=== PATIENT | male | born 1935 | race Caucasian/White ===

== ENCOUNTER 2017-10-18 05:26 | Inpatient (IN) | payer MEDICARE ==
[2017-10-18 05:51] VITALS: BMI 24.3
--- NOTE | 2017-10-18 05:55 | PDOC ---
History of Present Illness - General History Source: Patient Exam Limitations: No Limitations - History of Present Illness Initial Comments: 10/18/17 06:58 Patient is a 82 year old male with a significant past medical history of hypertension, BPH, Reflux, chronic back pain who was brought by his daughter to the ED with complaints of altered mental status that began last night at 7: 30pm. As per patient's daughter, patient began to experiencing throat discomfort last night at 5pm after having dinner 1 hour prior at 4:30pm. She reports patient began moaning while at home last night at 7pm and has continued throughout the night with no relief. Patient's daughter states patient at baseline is able to verbally communicate slightly while at home, stating he was able to ask for robitussin, water, and Vicks vaporub to be applied to his neck. She reports patient complaining to her last night around midnight that he felt like something was stuck inside of his throat. Patient's daughter states, patient has had trouble swallowing for a month and has recently been blending food for easier ingestion. History provided from the pts daugther as the history is limited from the pt due to his condition. Denies chest pain. Denies nausea, vomiting. Denies trauma to the affected area. Denies any contact with sick individuals, out of state travel. Denies any other symptoms. Allergies: None Social history: Lives with daughter. No smoking. No alcohol. No illicit drugs. Surgical history: None PMD: Dr. Dorado <Kendrick Abbott - Last Filed: 10/18/17 06:58> <Brayan Varghese - Last Filed: 10/22/17 19:57> - General Stated Complaint: COUGH Time Seen by Provider: 10/18/17 05:33 Past History <Kendrick Abbott - Last Filed: 10/18/17 06:58> - Past Medical History Anemia: No Asthma: No Cancer: No Cardiac Disorders: No CVA: No COPD: No CHF: No Dementia: No Diabetes: No GI Disorders: No Disorders: Yes (BPH) HTN: Yes Hypercholesterolemia: No Liver Disease: No Seizures: No Thyroid Disease: No - Surgical History Abdominal Surgery: No Appendectomy: No Cardiac Surgery: No Cholecystectomy: No Lung Surgery: No Neurologic Surgery: No Orthopedic Surgery: No - Immunization History Immunization Up to Date: Yes - Suicide/Smoking/Psychosocial Hx Smoking History: Unknown if ever smoked Have you smoked in the past 12 months: No Information on smoking cessation initiated: No Hx Alcohol Use: No Drug/Substance Use Hx: No Substance Use Type: None Hx Substance Use Treatment: No <Brayan Varghese - Last Filed: 10/22/17 19:57> - Past Medical History Allergies/Adverse Reactions: Allergies Allergy/AdvReac Type Severity Reaction Status Date / Time No Known Drug Allergies Allergy Verified 09/08/16 11:40 Home Medications: Ambulatory Orders Tamsulosin HCl [Flomax -] 0.4 mg PO HS #0 cap.er.24h 12/19/14 Losartan Potassium 50 mg PO DAILY 07/26/15 Furosemide [Lasix -] 20 mg PO DAILY 08/29/16 Review of Systems - Review of Systems Able to Perform ROS?: Yes Comments:: 10/18/17 06:58 Unable to perform ROS due to patient's clinical condition. <Knedrick Abbott - Last Filed: 10/18/17 06:58> *Physical Exam - Vital Signs Last Vital Signs Temp Pulse Resp BP Pulse Ox 98.0 F 102 H 18 132/80 90 L 10/18/17 05:26 10/18/17 05:26 10/18/17 05:26 10/18/17 05:26 10/18/17 05:26 - Physical Exam Comments: 10/18/17 06:59 GENERAL: The patient is awake, HEAD: Normocephalic, atraumatic. EYES: sclera anicteric, conjunctiva clear. ENT: moaning, dry mucous membranes. NECK: Normal range of motion, supple, no stridor LUNGS: Breath sounds equal, clear to auscultation bilaterally. No wheezes, no rhonchi, no rales. HEART: Regular rate and rhythm, normal S1 and S2 without murmur, rub or gallop. ABDOMEN: Soft, nontender, normoactive bowel sounds. No guarding, no rebound. . No CVA tenderness EXTREMITIES: no edema. NEUROLOGICAL: limited exam due to participation, no overt facial assymetry, moving arms spontaneously and symmetrically, some weakness to withdrawal on the LLE, sensory exam limited by patient participate SKIN: Warm, Dry, normal turgor, <Kendrick Abbott - Last Filed: 10/18/17 06:58> - Vital Signs Last Vital Signs Temp Pulse Resp BP Pulse Ox 98.0 F 102 H 18 132/80 90 L 10/18/17 05:26 10/18/17 05:26 10/18/17 05:26 10/18/17 05:26 10/18/17 05:26 <Brayan Varghese - Last Filed: 10/22/17 19:57> Heart Score/ECG Review - ECG Impressions Comment:: 10/18/17 06:26 Twelve-lead EKG was performed and reviewed by me. Irregularly irregular rate of 91 impression: atrial fibrillation <Brayan Varghese - Last Filed: 10/22/17 19:57> ED Treatment Course - LABORATORY CBC & Chemistry Diagram: 10/21/17 06:05 10/22/17 05:25 <Brayan Varghese - Last Filed: 10/22/17 19:57> Medical Decision Making - Medical Decision Making 10/18/17 05:55 82y M hx of htn, bph presents with complaint of AMS. Per the daugther the patient was complaining of coughing and something stuck in his throat around 5pm - pt was doing well prior to that. he started coughing around 7pm. pts daughter states he was doing fine prior to that - without any fever, cough, complaints of pain or appearance of discomfort. The patients history is limited due to his clinical condition. differential is wide including cva, occult infection, aspiration pna, uti, anemia, metabolic dernagement, arrythmia will ck ct head, blood work, ekg, ua will reassess A portion of this note was documented by scribe services under my direction. I have reviewed the details of the note, within reason, and agree with the documentation with the following case summary and management plan written by me 10/18/17 06:22 The pts ekg noted for new onset afib pt signed out to dr. flores to reasess and fu with results and disposition <Brayan Varghese - Last Filed: 10/22/17 19:57> *DC/Admit/Observation/Transfer - Attestations Scribe Attestion: 10/18/17 06:59 Documentation prepared by Kendrick Abbott, acting as biomedical field service engineer for Brayan Varghese MD, /DO. <Kendrick Abbott - Last Filed: 10/18/17 06:58> <Brayan Varhgese - Last Filed: 10/22/17 19:57> Diagnosis at time of Disposition: Difficulty swallowing
[2017-10-18 07:04] LABS: BASO % 0.3 % (0-2.0); HEMATOCRIT 43.2 % (35.4-49); HEMOGLOBIN 14.5 GM/dL (11.7-16.9); LYMPH % 4.8 % (8-40); MCHC 33.6 g/dl (32.0-35.9); MEAN PLT VOLUME 7.5 fl (7.5-11.1); MONO % 7.9 % (3.8-10.2); PLATELET COUNT 201 K/MM3 (134-434); RBC 4.41 M/mm3 (4.00-5.60); RDW 13.5 % (11.9-15.9); WHITE BLOOD COUNT 6.1 K/mm3 (4.0-10.0)
[2017-10-18 07:05] LABS: VENOUS PC02 37.6 mmHg (38-52); VENOUS PH 7.46 (7.32-7.42); VENOUS PO2 81.8 mmHg (28-48)
--- NOTE | 2017-10-18 07:20 | PDOC ---
*Physical Exam - Vital Signs Last Vital Signs Temp Pulse Resp BP Pulse Ox 98.0 F 102 H 18 132/80 90 L 10/18/17 05:26 10/18/17 05:26 10/18/17 05:26 10/18/17 05:26 10/18/17 05:26 <Kashif Tatum - Last Filed: 10/18/17 09:37> - Vital Signs Last Vital Signs Temp Pulse Resp BP Pulse Ox 98.0 F 93 H 18 113/85 96 10/18/17 05:26 10/18/17 09:26 10/18/17 09:26 10/18/17 09:26 10/18/17 09:26 <Judy Lowe - Last Filed: 10/18/17 10:12> ED Treatment Course - LABORATORY CBC & Chemistry Diagram: 10/18/17 06:42 10/18/17 06:42 - ADDITIONAL ORDERS Additional order review: Laboratory Results 10/18/17 06:45 VBG pH 7.46 H POC VBG pCO2 37.6 L POC VBG pO2 81.8 H Mixed VBG HCO3 26.5 H 10/18/17 06:42 RBC 4.41 MCV 98.0 H MCHC 33.6 RDW 13.5 MPV 7.5 Neutrophils % 87.0 H D Lymphocytes % 4.8 L D Monocytes % 7.9 Eosinophils % 0.0 D Basophils % 0.3 <Kashif Tatum - Last Filed: 10/18/17 09:37> - LABORATORY CBC & Chemistry Diagram: 10/18/17 06:42 10/18/17 06:42 - ADDITIONAL ORDERS Additional order review: Laboratory Results 10/18/17 10/18/17 10/18/17 06:45 06:42 06:42 VBG pH 7.46 H POC VBG pCO2 37.6 L POC VBG pO2 81.8 H Mixed VBG HCO3 26.5 H Sodium 139 Potassium 4.3 Chloride 102 Carbon Dioxide 26 Anion Gap 11 BUN 33 H Creatinine 1.4 H Creat Clearance w eGFR 48.64 Random Glucose 123 H D Calcium 9.2 Total Bilirubin 0.6 D AST 49 H D ALT 70 D Alkaline Phosphatase 78 Creatine Kinase 210 Troponin I < 0.02 Total Protein 7.1 Albumin 3.6 TSH 2.26 10/18/17 06:42 RBC 4.41 MCV 98.0 H MCHC 33.6 RDW 13.5 MPV 7.5 Neutrophils % 87.0 H D Lymphocytes % 4.8 L D Monocytes % 7.9 Eosinophils % 0.0 D Basophils % 0.3 <Judy Lowe - Last Filed: 10/18/17 10:12> Medical Decision Making - Medical Decision Making 10/18/17 09:36 Several week history of difficulty swallowing choking last night slightly more lethargic but answering questions appropriately per daughter. Today in ED new-onset A. fib on EKG. Head CT with no evidence of bleed Will treat with rectal aspirin given difficulty swallowing we will admit admit the patient to medicine for neurology consultation and further management <Kashif Tatum - Last Filed: 10/18/17 09:37> - Medical Decision Making 10/18/17 10:[address] Joy for Med-Surg/Tele. <Judy Lowe - Last Filed: 10/18/17 10:12> *DC/Admit/Observation/Transfer - Discharge Dispostion Admit: Yes <Kashif Tatum - Last Filed: 10/18/17 09:37> <Judy Lowe - Last Filed: 10/18/17 10:12> Diagnosis at time of Disposition: Difficulty swallowing Qualifiers: Dysphagia type: unspecified Qualified Code(s): R13.10 - Dysphagia, unspecified
[2017-10-18 07:43] LABS: ALBUMIN 3.6 g/dl (3.4-5.0); ANION GAP 11 (8-16); BILIRUBIN,TOTAL 0.6 mg/dL (0.2-1.0); BLOOD UREA NITROGEN 33 mg/dL (7-18); CALCIUM 9.2 mg/dL (8.5-10.1); CHLORIDE 102 mmol/L (98-107); CO2 26 mmol/L (21-32); CREATININE 1.4 mg/dL (0.7-1.3); GLUCOSE,RANDOM 123 mg/dL (74-106); SODIUM 139 mmol/L (136-145); TOT PROT 7.1 g/dl (6.4-8.2)
[2017-10-18 07:45] LABS: ALK PHOS 78 U/L (45-117); SGPT/ALT 70 U/L (12-78)
--- NOTE | 2017-10-18 08:46 | EKG ---
Test Reason : Blood Pressure : / mmHG Vent. Rate : 083 BPM Atrial Rate : 083 BPM P-R Int : 000 ms QRS Dur : 070 ms QT Int : 354 ms P-R-T Axes : 000 011 066 degrees QTc Int : 415 ms SINUS RHYTHM WITH PREMATURE ATRIAL COMPLEXES NONSPECIFIC T WAVE ABNORMALITY ABNORMAL ECG WHEN COMPARED WITH ECG OF 18-DEC-2014 12:19, NONSPECIFIC T WAVE ABNORMALITY NOW EVIDENT IN LATERAL LEADS CLINICAL CORRELATION IS RECOMMENDED BASELINE ARTIFACT Confirmed by RUBEN AGUILLON, ZUHAIR ([id number]) on 10/18/2017 8:46:04 AM Referred By: Confirmed By:ZUHAIR MIRANDA MD
[2017-10-18 08:48] LABS: POTASSIUM 4.3 mmol/L (3.5-5.1); SGOT/AST 49 U/L (15-37)
[2017-10-18] MEDS ORDERED: ASPIRIN SUPPOSITORY 600 MG SUPP.RECT PR ONE (09:49)
[2017-10-18] MEDS ORDERED: SODIUM CHLORIDE 1,000 ML IV ONE (09:59)
[2017-10-18] MEDS ORDERED: ASPIRIN 300 MG SUPP.RECT RC ONE (10:43)
[2017-10-18] MEDS: ENOXAPARIN NA (PORCINE) 30 MG/0.3 ML DISP.SYRIN SQ SCH (12:15)
--- NOTE | 2017-10-18 12:24 | HP ---
Admitting History and Physical - Admission Chief Complaint: difficulty swallowing, choking History of Present Illness: 82 yo male, bedbound per dtr for a back condition, for which he had seen a neurologist in the past for (formerly followed with Dr Crook), was having progressive difficulty with swallowing for the past couple of weeks, then last night seemed like he was having a lot of difficulty so dtr brought him to ED. He has a history of high blood pressure and BPH, no history of heart arrythmias per dtr. When asked how he feels patient replies "Asher", but otherwise not speaking or answering any other questions. Dtr notes that patient is slow to answer at home as well, but seemed worse lately. 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 Other Social History: , 5 children Home Medications - Allergies Allergies/Adverse Reactions: Allergies Allergy/AdvReac Type Severity Reaction Status Date / Time No Known Drug Allergies Allergy Verified 09/08/16 11:40 - Home Medications Home Medications: Ambulatory Orders Tamsulosin HCl [Flomax -] 0.4 mg PO HS #0 cap.er.24h 12/19/14 Losartan Potassium 50 mg PO DAILY 07/26/15 Furosemide [Lasix -] 20 mg PO DAILY 08/29/16 Family Disease History - Family Disease History Family Disease History: CA: Mother (brain tumor) Review of Systems - Review of Systems Constitutional: denies: Chills, Fever Eyes: reports: No Symptoms HENT: reports: Difficult Swallowing Neck: denies: Decreased ROM, Stiffness Cardiovascular: denies: Chest Pain, Palpitations Respiratory: denies: Cough, SOB Gastrointestinal: denies: Abdominal Pain, Diarrhea, Nausea, Rectal Bleeding, Vomiting Genitourinary: denies: Burning, Discharge, Dysuria Physical Examination Vital Signs: Vital Signs Temperature 99.6 F 10/18/17 12:11 Pulse Rate 96 H 10/18/17 12:11 Respiratory Rate 20 10/18/17 12:11 Blood Pressure 118/82 10/18/17 12:11 O2 Sat by Pulse Oximetry (%) 97 10/18/17 10:58 Constitutional: Yes: No Distress, Calm, Cachectic Eyes: Yes: Conjunctiva Clear HENT: Yes: Atraumatic, Normocephalic Cardiovascular: Yes: Pulse Irregular, S1, S2. No: Murmur Respiratory: Yes: Regular, CTA Bilaterally Gastrointestinal: Yes: Normal Bowel Sounds, Soft. No: Distention, Tenderness Musculoskeletal: Yes: Other (decreased muscle mass legs) Edema: No Labs: CBC, BMP 10/18/17 06:42 10/18/17 06:42 Imaging - Results Chest X-ray: Report Reviewed (:old rib fracture, no acute pathology) Cat Scan: Report Reviewed (CT head: no bleed, infarct) Problem List - Problems (1) Difficulty swallowing Assessment/Plan: -due to CVA?, hold PO, speech and swallow eval, light IV hydration for now -neurology to consult (may need MRI head) Code(s): R13.10 - DYSPHAGIA, UNSPECIFIED Qualifiers: Dysphagia type: unspecified Qualified Code(s): R13.10 - Dysphagia, unspecified (2) New onset a-fib Assessment/Plan: -source of possible CVA (affecting swallowing ammy of brain? -cardio consult -currently rate controlled -if CVA then will likely need A/C Code(s): I48.91 - UNSPECIFIED ATRIAL FIBRILLATION (3) Altered mental status Assessment/Plan: -difficult to tell as dtr notes baseline he is somewhat "slow" -cont to observe Code(s): R41.82 - ALTERED MENTAL STATUS, UNSPECIFIED (4) Back pain Assessment/Plan: -with resultant functional paraplegia/ gait dysfunction Code(s): M54.9 - DORSALGIA, UNSPECIFIED Qualifiers: Back pain location: low back pain Back pain laterality: midline Sciatica presence: without sciatica Qualified Code(s): M54.5 - Low back pain
[2017-10-18] MEDS: DEXTROSE 5%-0.45% SALINE 1,000 ML IV SCH (12:56)
[2017-10-19] MEDS ORDERED: ACETAMINOPHEN 650 MG SUPP.RECT PR ONE (03:13)
[2017-10-19 07:58] LABS: BASO % 0.5 % (0-2.0); EOS % 0.1 % (0-4.5); HEMOGLOBIN 12.3 GM/dL (11.7-16.9); LYMPH % 10.4 % (8-40); MCH 32.7 pg (25.7-33.7); MCHC 33.2 g/dl (32.0-35.9); MEAN CELL VOLUME 98.6 fl (80-96); MEAN PLT VOLUME 7.6 fl (7.5-11.1); PLATELET COUNT 166 K/MM3 (134-434); RBC 3.75 M/mm3 (4.00-5.60); RDW 13.5 % (11.9-15.9); WHITE BLOOD COUNT 4.4 K/mm3 (4.0-10.0)
[2017-10-19 08:37] LABS: ANION GAP 7 (8-16); BILIRUBIN,TOTAL 0.4 mg/dL (0.2-1.0); BLOOD UREA NITROGEN 26 mg/dL (7-18); CALCIUM 8.1 mg/dL (8.5-10.1); CHLORIDE 107 mmol/L (98-107); CO2 26 mmol/L (21-32); CREATININE 1.2 mg/dL (0.7-1.3); GLUCOSE,RANDOM 98 mg/dL (74-106); POTASSIUM 3.5 mmol/L (3.5-5.1); SGOT/AST 30 U/L (15-37); SGPT/ALT 48 U/L (12-78); SODIUM 140 mmol/L (136-145)
[2017-10-19 08:40] LABS: ALK PHOS 60 U/L (45-117); TOT PROT 5.9 g/dl (6.4-8.2)
--- NOTE | 2017-10-19 09:40 | CONSULT ---
Consult - text type - Consultation Consultation Note: Neurology HPI: 82 yo male, bedbound per daughter due to back condition, for which he had seen a neurologist in the past for (formerly followed with Dr Crook), was having progressive difficulty with swallowing for the past couple of weeks, which has progressed over time and therefore patient brought to the hospital. He has a history of high blood pressure and BPH, no history of heart arrythmias but found to have new onset afib on this admission. He is a limited historian and with psychomotor slowing in bed. Not being verbal with examiner. Majority of history from daughter. He did complete CT head which did now show acute changes. I would like to check MRI brain to rule out CVA and new acute structural changes. Another thing to consider is ENT evaluation as well as speech and swallow assessment. 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 Other Social History: , 5 children Home Medications - Allergies Allergies/Adverse Reactions: Allergies Allergy/AdvReac Type Severity Reaction Status Date / Time No Known Drug Allergies Allergy Verified 09/08/16 11:40 Active Medications Enoxaparin Sodium (Lovenox -) 30 mg SQ DAILY [facility] Last Admin: 10/18/17 12:15 Dose: Not Given Dextrose/Sodium Chloride (D5-1/2ns -) 1,000 mls @ 42 mls/hr IV ASDIR [facility] Last Admin: 10/18/17 12:56 Dose: 42 mls/hr Family Disease History - Family Disease History Family Disease History: CA: Mother (brain tumor) Review of Systems - Review of Systems Constitutional: denies: Chills, Fever Eyes: reports: No Symptoms HENT: reports: Difficult Swallowing Neck: denies: Decreased ROM, Stiffness Cardiovascular: denies: Chest Pain, Palpitations Respiratory: denies: Cough, SOB Gastrointestinal: denies: Abdominal Pain, Diarrhea, Nausea, Rectal Bleeding, Vomiting Genitourinary: denies: Burning, Discharge, Dysuria Physical Examination Vital Signs: Vital Signs Temperature 99.6 F 10/18/17 12:11 Pulse Rate 96 H 10/18/17 12:11 Respiratory Rate 20 10/18/17 12:11 Blood Pressure 118/82 10/18/17 12:11 O2 Sat by Pulse Oximetry (%) 97 10/18/17 10:58 Constitutional: Yes: No Distress, Calm, Cachectic Eyes: Yes: Conjunctiva Clear HENT: Yes: Atraumatic, Normocephalic Cardiovascular: Yes: Pulse Irregular, S1, S2. No: Murmur Respiratory: Yes: Regular, CTA Bilaterally Gastrointestinal: Yes: Normal Bowel Sounds, Soft. No: Distention, Tenderness Musculoskeletal: Yes: Other (decreased muscle mass legs) Neuro: No facial droop, pupil intact and responsive, moves ext grossly, sensory intact to tactile stim, gait deferred CBCD WBC 4.4 K/mm3 (4.0-10.0) 10/19/17 07:34 RBC 3.75 M/mm3 (4.00-5.60) L 10/19/17 07:34 Hgb 12.3 GM/dL (11.7-16.9) D 10/19/17 07:34 Hct 37.0 % (35.4-49) 10/19/17 07:34 MCV 98.6 fl (80-96) H 10/19/17 07:34 MCHC 33.2 g/dl (32.0-35.9) 10/19/17 07:34 RDW 13.5 % (11.9-15.9) 10/19/17 07:34 Plt Count 166 K/MM3 (134-434) 10/19/17 07:34 MPV 7.6 fl (7.5-11.1) 10/19/17 07:34 CMP Sodium 140 mmol/L (136-145) 10/19/17 07:34 Potassium 3.5 mmol/L (3.5-5.1) 10/19/17 07:34 Chloride 107 mmol/L (98-107) 10/19/17 07:34 Carbon Dioxide 26 mmol/L (21-32) 10/19/17 07:34 Anion Gap 7 (8-16) L 10/19/17 07:34 BUN 26 mg/dL (7-18) H D 10/19/17 07:34 Creatinine 1.2 mg/dL (0.7-1.3) 10/19/17 07:34 Creat Clearance w eGFR 58.11 (>60) 10/19/17 07:34 Calcium 8.1 mg/dL (8.5-10.1) L 10/19/17 07:34 Total Bilirubin 0.4 mg/dL (0.2-1.0) D 10/19/17 07:34 AST 30 U/L (15-37) D 10/19/17 07:34 ALT 48 U/L (12-78) D 10/19/17 07:34 Alkaline Phosphatase 60 U/L (45-117) D 10/19/17 07:34 Total Protein 5.9 g/dl (6.4-8.2) L 10/19/17 07:34 Albumin 3.0 g/dl (3.4-5.0) L 10/19/17 07:34 Imaging - Results Chest X-ray: Report Reviewed (:old rib fracture, no acute pathology) Cat Scan: Report Reviewed (CT head: no bleed, infarct) Problem List 82 yo male, bedbound per daughter due to back condition, for which he had seen a neurologist in the past for (formerly followed with Dr Crook), was having progressive difficulty with swallowing for the past couple of weeks, which has progressed over time and therefore patient brought to the hospital. He has a history of high blood pressure and BPH, no history of heart arrythmias but found to have new onset afib on this admission. He is a limited historian and with psychomotor slowing in bed. Not being verbal with examiner. Majority of history from daughter. He did complete CT head which did now show acute changes. I would like to check MRI brain to rule out CVA and new acute structural changes. Ordered this. Another thing to consider is ENT evaluation as well as speech and swallow assessment. Will defer to pcp if he would like further consultations. Monitor swallowing closely Aspiration precautions Atrial fibrilation does increase risk of CVA, on Lovenox, patient also fall risk Fall precautions Currently lives at home but appears deconditioned, may need rehab placement Physical therapy recommended Monitor bp, maintain normotensive range
[2017-10-19] MEDS: ENOXAPARIN NA (PORCINE) 30 MG/0.3 ML DISP.SYRIN SQ SCH (10:53)
--- NOTE | 2017-10-19 11:48 | PN ---
Progress Note, Physician Chief Complaint: Mr Tripathi says he is feels fine. Denies pain and shortness of breath. Cannot obtain further subjective. - Current Medication List Current Medications: Active Medications Enoxaparin Sodium (Lovenox -) 30 mg SQ DAILY [facility] Last Admin: 10/19/17 10:53 Dose: 30 mg Dextrose/Sodium Chloride (D5-1/2ns -) 1,000 mls @ 42 mls/hr IV ASDIR [facility] Last Admin: 10/18/17 12:56 Dose: 42 mls/hr - Objective Vital Signs: Vital Signs Temperature 37.2 C 10/19/17 06:00 Pulse Rate 89 10/19/17 06:00 Respiratory Rate 20 10/19/17 06:00 Blood Pressure 103/54 10/19/17 06:00 O2 Sat by Pulse Oximetry (%) 98 10/18/17 20:17 Constitutional: Yes: No Distress, Calm Cardiovascular: Yes: Pulse Irregular. No: Tachycardia, Gallop, Murmur, Rub Respiratory: Yes: Regular, CTA Bilaterally. No: Rales, Rhonchi, Wheezes Gastrointestinal: Yes: Normal Bowel Sounds, Soft. No: Distention, Tenderness Extremities: Yes: Other (BLE contractions) Edema: No Labs: CBC, BMP 10/19/17 07:34 10/19/17 07:34 Problem List - Problems (1) Difficulty swallowing Code(s): R13.10 - DYSPHAGIA, UNSPECIFIED Qualifiers: Dysphagia type: unspecified Qualified Code(s): R13.10 - Dysphagia, unspecified (2) New onset a-fib Code(s): I48.91 - UNSPECIFIED ATRIAL FIBRILLATION (3) Back pain Code(s): M54.9 - DORSALGIA, UNSPECIFIED Qualifiers: Back pain location: low back pain Back pain laterality: midline Sciatica presence: without sciatica Qualified Code(s): M54.5 - Low back pain (4) Functional quadriplegia Code(s): R53.2 - FUNCTIONAL QUADRIPLEGIA (5) Altered mental status Code(s): R41.82 - ALTERED MENTAL STATUS, UNSPECIFIED Assessment/Plan (1) Difficulty swallowing Assessment/Plan: -neurology note reviewed -agree with MRI -agree with speech therapy evaluation -continue npo -once evaluation complete, will need discussion about goals of care Code(s): R13.10 - DYSPHAGIA, UNSPECIFIED Qualifiers: Dysphagia type: unspecified Qualified Code(s): R13.10 - Dysphagia, unspecified (2) New onset a-fib Assessment/Plan: -cardiology consulted, awaiting recommendations -neurology note reviewed, patient appears to be bed bound -if bed bound, then not fall risk but will need to clarify with family -defer anticoagulation [facility] family Code(s): I48.91 - UNSPECIFIED ATRIAL FIBRILLATION (3) Altered mental status Assessment/Plan: -patient answers questions appropriately -monitor -follow up MRI results Code(s): R41.82 - ALTERED MENTAL STATUS, UNSPECIFIED (4) Functional quadriplegia Assessment/Plan: -patient with functional quadriplegia and contractures secondary to back pain -currently denies back pain, but no longer ambulatory -will order PT to evaluate -can anticoagulate if needed secondary to this
--- NOTE | 2017-10-19 13:00 | CON.CARD ---
Cardiology Consult (text) - Consultation Consultation Note: Chief Complaint: difficulty swallowing, choking History of Present Illness: 82 yo bedbound male with h/o htn, bph s/p surgery, osteomyelitis, dementia? p/ w progressive difficulty with swallowing for the past couple of weeks. In ER, concern for afib on ekg. currently being evaluated for possilbe cva. per report, no significant cardiac disease. Unclear why patient was on lasix as outpatient. recent cognitive decline, per report. patient qatari speaking and responds minimally to questions. ? reliability of history. However, patient appears comfortable and denies cp, sob, palps, dizziness, le edema, bleeding, orthopnea, pnd. Possible cough with eating. Per report, no f/c/s, n/v/d, h/a, congestion, visual disturbances. pmhx/pshx: per phi Social hx: Never smoked. bedbound fam hx: Mother (brain tumor) ros: per hpi Ambulatory Orders Tamsulosin HCl [Flomax -] 0.4 mg PO HS #0 cap.er.24h 12/19/14 Losartan Potassium 50 mg PO DAILY 07/26/15 Furosemide [Lasix -] 20 mg PO DAILY 08/29/16 Current Medications Enoxaparin Sodium (Lovenox -) 30 mg SQ DAILY [facility] Last Admin: 10/19/17 10:53 Dose: 30 mg Dextrose/Sodium Chloride (D5-1/2ns -) 1,000 mls @ 42 mls/hr IV ASDIR [facility] Last Admin: 10/18/17 12:56 Dose: 42 mls/hr Vital Signs - 24 hr 10/18/17 10/18/17 10/18/17 13:50 18:00 20:17 Temperature 99.9 F H 100.2 F H 99.9 F H Pulse Rate 83 82 88 Respiratory 18 18 18 Rate Blood Pressure 120/65 135/89 143/88 O2 Sat by Pulse 98 Oximetry (%) 10/19/17 10/19/17 10/19/17 02:00 06:00 09:00 Temperature 100.2 F H 98.9 F Pulse Rate 97 H 89 Respiratory 20 20 20 Rate Blood Pressure 125/69 103/54 O2 Sat by Pulse 98 Oximetry (%) 10/19/17 10:00 Temperature 98.8 F Pulse Rate 65 Respiratory 20 Rate Blood Pressure 99/61 O2 Sat by Pulse Oximetry (%) Intake & Output 10/17/17 10/18/17 10/19/17 10/20/17 07:59 07:59 07:59 07:59 Weight 160 lb 160 lb 0.008 oz nad, calm cachectic. in position, ? contractures jvd flat, neck supple rrr nl s1, s2 no mrg, nd pmi bibasilar rales, nl effort + bs soft nt nd, no hsm ext without e/c/c + dp/pt no carotid bruits alert, ? oriented no jaundice, diaphoresis. CBC, BMP 10/19/17 07:34 10/19/17 07:34 Laboratory Tests 10/18/17 10/18/17 10/19/17 06:42 06:42 07:34 Total Bilirubin 0.4 D AST 49 H D 30 D ALT 48 D Alkaline Phosphatase 60 D Creatine Kinase 210 173 Creatine Kinase Index 0.9 0.9 CK-MB (CK-2) 1.929 1.710 Troponin I < 0.02 0.03 D TSH 2.26 ekg: baseline artifact, sr with frerquent pac's. non-specific t wave flattening tele: SR, frequent pac's occ pvc's, short atrial runs. cxr wnl 82 yo bedbound male with h/o htn, bph s/p surgery, osteomyelitis, dementia? p/ w progressive difficulty with swallowing for the past couple of weeks. concern for arrhythmia - Initial EKG SR with frequent pac's, not afib. con't tele monitoring to r/o occult afib while patient is being worked up for CVA. echo for risk stratification. - CE's neg x 2 over 24 hrs. EKG without acute ischemic changes. - lyte repletion prn to suppress ectopy - can consider low dose beta racheal once bp stabilizes. dysphagia/cva work up - ongoing work up, neuro following. - IVF as needed - low grade fever, labile bp's. infectious work up per pmd. htn - currently bp stable off anti-hypertensives, con't to monitor.
[2017-10-19] MEDS ORDERED: POTASSIUM CHLORIDE 30 MEQ in SODIUM CHLORIDE 300 ML IVPB ONE (14:00)
[2017-10-19] MEDS ORDERED: POTASSIUM CHLORIDE IVPB ONE (14:00)
[2017-10-19] MEDS ORDERED: SODIUM CHLORIDE IVPB ONE (14:00)
[2017-10-19] MEDS: DEXTROSE 5%-0.45% SALINE 1,000 ML IV SCH (15:24)
--- NOTE | 2017-10-19 17:09 | CONSULT ---
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 History - Admission Reason For Visit: DYSPHAGIA - Diagnostics X-ray: Report Reviewed - General Mental Status: Vague Attention: Mild Impairment Head/Neck Control: Fair - Hearing Hearing: Normal Speech Evaluation - Communication Primary Language: BANGLADESHI Communication: Yes: Simple Responses Oral Expression Ability: Yes: Moderate Impairment - Speech Production Dysarthria: Yes: Hypokinetic Able to Make Needs Known: Yes: Moderately Impaired Intelligibility: Yes: Moderately Impaired - Speech Characteristics Voice Loudness: Monoloudness Voice Phonatory-based Quality: Yes: Harsh Nasal Resonance: Hypernasal - Swallow Evaluation/Bedside Assessment Current Nutritional Intake: NPO Oral Secretions: Yes: Dryness Tracheostomy Present: No Patient on Ventilator: No Dentition: Yes: Missing Teeth Facial Symmetry at Rest: Symmetrical Facial Symmetry on Retraction: Symmetrical Jaw Position: Open at Rest Against Resistance Opening: Weak Against Resistance Closing: Weak Pucker Lips: Reduced ROM, Weak Smile: Reduced ROM, Weak Lingual Movement: Reduced Protrusion, Other (slow lingual movement, reduced lingual elevation) Lingual Speed of Movement: Reduced Lingual Movement Strgth Against Opposition: Reduced Soft Palate Description: Normal Color Hard Palate Description: Normal Color Gag Reflex: Weak Bite Reflex: Absent Velopharyngeal Movement: Hypernasality, Reduced Elevation Laryngeal Elevation: Impaired Laryngeal Movement: Reduced Excursion Needs Assistance: Yes Rate of Intake: Slow/Holding Bolus Size: Small Labial Seal: Impaired Bilaterally Oral Prep Time: Increased A-P Transit: WFL Pocketing: None Timing of Swallow: Delayed Coughing/Throat Clear: Yes Change in Voice: Yes Recommendations - Dysphagia Impressions/Plan Swallowing Skills: Impaired Dysphagia Evaluation Summary: This 82 year old male presents with moderately severe oropharyngeal dysphagia for purees and honey thickened liquids due to reduced labiolingual ROM, delayed pharyngeal swallows, impaired laryngeal elevation and + signs of aspiration after the swallow [gagging, wet-gurgly voice , coughing and mild nasal regurgitation]. Rx: NPO. Frequent oral care. Aspiration precautions. TITLE EXAMINER discussed with charge nurse, Leticia, on unit.
[2017-10-19] MEDS ORDERED: ACETAMINOPHEN 325 MG TABLET (FP) PO PRN (21:26)
[2017-10-19 22:26] LABS: URINE APPEARANCE CLEAR; URINE BILIRUBIN NEGATIVE (NEGATIVE); URINE BLOOD 1+ (NEGATIVE); URINE COLOR YELLOW; URINE GLUCOSE (UA) NEGATIVE (NEGATIVE); URINE KETONE TRACE (NEGATIVE); URINE LEUK ESTERASE NEGATIVE (NEGATIVE); URINE NITRITE NEGATIVE (NEGATIVE); URINE PROTEIN NEGATIVE (NEGATIVE); URINE UROBILINOGEN NEGATIVE mg/dL (0.2-1.0)
[2017-10-19 23:14] LABS: URINE MUCUS RARE
[2017-10-20 06:13] LABS: BASO % 0.4 % (0-2.0); EOS % 0.2 % (0-4.5); HEMATOCRIT 33.6 % (35.4-49); HEMOGLOBIN 11.5 GM/dL (11.7-16.9); LYMPH % 15.5 % (8-40); MCH 33.3 pg (25.7-33.7); MCHC 34.2 g/dl (32.0-35.9); MEAN CELL VOLUME 97.6 fl (80-96); MEAN PLT VOLUME 7.3 fl (7.5-11.1); MONO % 7.9 % (3.8-10.2); PLATELET COUNT 151 K/MM3 (134-434); RBC 3.44 M/mm3 (4.00-5.60); RDW 13.7 % (11.9-15.9); WHITE BLOOD COUNT 4.9 K/mm3 (4.0-10.0)
[2017-10-20 07:24] LABS: ANION GAP 7 (8-16); BLOOD UREA NITROGEN 25 mg/dL (7-18); CALCIUM 7.6 mg/dL (8.5-10.1); CHLORIDE 110 mmol/L (98-107); CO2 26 mmol/L (21-32); POTASSIUM 3.6 mmol/L (3.5-5.1); SODIUM 143 mmol/L (136-145)
[2017-10-20 07:27] LABS: GLUCOSE,RANDOM 85 mg/dL (74-106); MAGNESIUM 1.9 mg/dL (1.8-2.4)
--- NOTE | 2017-10-20 09:54 | PN ---
Progress Note (short form) - Note Progress Note: Neurology HPI: 82 yo male, bedbound per daughter due to back condition, for which he had seen a neurologist in the past for (formerly followed with Dr Crook), was having progressive difficulty with swallowing for the past couple of weeks, which has progressed over time and therefore patient brought to the hospital. He has a history of high blood pressure and BPH, no history of heart arrythmias but found to have new onset afib on this admission. He is a limited historian and with psychomotor slowing in bed. Not being verbal with examiner. Majority of history from daughter. 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 Age related changes also noted including microvascular disease. Active Medications Acetaminophen (Tylenol -) 650 mg PO Q6H PRN PRN Reason: FEVER OR PAIN Last Admin: 10/19/17 22:01 Dose: 650 mg Enoxaparin Sodium (Lovenox -) 30 mg SQ DAILY [facility] Last Admin: 10/19/17 10:53 Dose: 30 mg Dextrose/Sodium Chloride (D5-1/2ns -) 1,000 mls @ 42 mls/hr IV ASDIR [facility] Last Admin: 10/19/17 15:24 Dose: 42 mls/hr Physical Examination Vital Signs Temperature 99.3 F 10/20/17 05:40 Pulse Rate 61 10/20/17 05:40 Respiratory Rate 20 10/20/17 05:40 Blood Pressure 109/59 10/20/17 05:40 O2 Sat by Pulse Oximetry (%) 94 L 10/19/17 21:00 Eyes: Yes: Conjunctiva Clear HENT: Yes: Atraumatic, Normocephalic Cardiovascular: Yes: Pulse Irregular, S1, S2. No: Murmur Respiratory: Yes: Regular, CTA Bilaterally Gastrointestinal: Yes: Normal Bowel Sounds, Soft. No: Distention, Tenderness Musculoskeletal: Yes: Other (decreased muscle mass legs) Neuro: No facial droop, pupil intact and responsive, moves ext grossly, sensory intact to tactile stimulation, gait deferred CBCD WBC 4.9 K/mm3 (4.0-10.0) 10/20/17 06:05 RBC 3.44 M/mm3 (4.00-5.60) L 10/20/17 06:05 Hgb 11.5 GM/dL (11.7-16.9) L 10/20/17 06:05 Hct 33.6 % (35.4-49) L 10/20/17 06:05 MCV 97.6 fl (80-96) H 10/20/17 06:05 MCHC 34.2 g/dl (32.0-35.9) 10/20/17 06:05 RDW 13.7 % (11.9-15.9) 10/20/17 06:05 Plt Count 151 K/MM3 (134-434) 10/20/17 06:05 MPV 7.3 fl (7.5-11.1) L 10/20/17 06:05 CMP Sodium 143 mmol/L (136-145) 10/20/17 06:05 Potassium 3.6 mmol/L (3.5-5.1) 10/20/17 06:05 Chloride 110 mmol/L (98-107) H 10/20/17 06:05 Carbon Dioxide 26 mmol/L (21-32) 10/20/17 06:05 Anion Gap 7 (8-16) L 10/20/17 06:05 BUN 25 mg/dL (7-18) H 10/20/17 06:05 Creatinine 1.0 mg/dL (0.7-1.3) 10/20/17 06:05 Creat Clearance w eGFR 58.11 (>60) 10/19/17 07:34 Calcium 7.6 mg/dL (8.5-10.1) L 10/20/17 06:05 Total Bilirubin 0.4 mg/dL (0.2-1.0) D 10/19/17 07:34 AST 30 U/L (15-37) D 10/19/17 07:34 ALT 48 U/L (12-78) D 10/19/17 07:34 Alkaline Phosphatase 60 U/L (45-117) D 10/19/17 07:34 Total Protein 5.9 g/dl (6.4-8.2) L 10/19/17 07:34 Albumin 3.0 g/dl (3.4-5.0) L 10/19/17 07:34 Imaging - Results Chest X-ray: Report Reviewed (:old rib fracture, no acute pathology) Cat Scan: Report Reviewed (CT head: no bleed, infarct) MRI brain: No acute CVA, L parotid hyperintense lesion noted, 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 He has a history of high blood pressure and BPH, no history of heart arrythmias but found to have new onset afib on this admission. He is a limited historian and with psychomotor slowing in bed. Not being verbal with examiner. Majority of history from daughter. He did complete CT head which did now show acute changes. 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
[2017-10-20] MEDS: ENOXAPARIN NA (PORCINE) 30 MG/0.3 ML DISP.SYRIN SQ SCH (10:18)
--- NOTE | 2017-10-20 11:27 | PN ---
Progress Note, Physician Chief Complaint: Mr Tripathi says he is feels fine. Cannot obtain further subjective. Case d/w daughter at bedside. - Current Medication List Current Medications: Active Medications Acetaminophen (Tylenol -) 650 mg PO Q6H PRN PRN Reason: FEVER OR PAIN Last Admin: 10/19/17 22:01 Dose: 650 mg Enoxaparin Sodium (Lovenox -) 30 mg SQ DAILY [facility] Last Admin: 10/20/17 10:18 Dose: 30 mg Dextrose/Sodium Chloride (D5-1/2ns -) 1,000 mls @ 42 mls/hr IV ASDIR [facility] Last Admin: 10/19/17 15:24 Dose: 42 mls/hr - Objective Vital Signs: Vital Signs Temperature 36.4 C 10/20/17 10:00 Pulse Rate 68 10/20/17 10:00 Respiratory Rate 26 H 10/20/17 10:00 Blood Pressure 110/64 10/20/17 10:00 O2 Sat by Pulse Oximetry (%) 94 L 10/19/17 21:00 Constitutional: Yes: Well Nourished, No Distress, Calm Cardiovascular: Yes: Regular Rate and Rhythm. No: Gallop, Murmur, Rub Respiratory: Yes: Regular, CTA Bilaterally. No: Rales, Rhonchi, Wheezes Gastrointestinal: Yes: Normal Bowel Sounds, Soft. No: Distention, Tenderness Extremities: Yes: WNL Edema: No Labs: CBC, BMP 10/20/17 06:05 10/20/17 06:05 Problem List - Problems (1) Difficulty swallowing Code(s): R13.10 - DYSPHAGIA, UNSPECIFIED Qualifiers: Dysphagia type: unspecified Qualified Code(s): R13.10 - Dysphagia, unspecified (2) New onset a-fib Code(s): I48.91 - UNSPECIFIED ATRIAL FIBRILLATION (3) Back pain Code(s): M54.9 - DORSALGIA, UNSPECIFIED Qualifiers: Back pain location: low back pain Back pain laterality: midline Sciatica presence: without sciatica (4) Functional quadriplegia Code(s): R53.2 - FUNCTIONAL QUADRIPLEGIA (5) Altered mental status Code(s): R41.82 - ALTERED MENTAL STATUS, UNSPECIFIED Assessment/Plan (1) Dysphagia with aspiration Assessment/Plan: -MRI reviewed, no CVA noted -suspect patient is with end stage dementia -case d/w daughter, discussed both possibility of PEG tube and comfort measures/ hospice -made daughter aware that PEG tube does not prevent aspiration and does not add to quality -speech therapy note reviewed, continue npo -palliative care consulted to discuss with daughter about options -follow up daughter's final decision concerning PEG and code status Code(s): R13.10 - DYSPHAGIA, UNSPECIFIED Qualifiers: Dysphagia type: unspecified Qualified Code(s): R13.10 - Dysphagia, unspecified (2) New onset a-fib Assessment/Plan: -Dr Santa reviewed, not atrial fibrillation -can d/c telemetry -no need for full anticoagulation if not with atrial fibrillation Code(s): I48.91 - UNSPECIFIED ATRIAL FIBRILLATION (3) Altered mental status Assessment/Plan: -suspect this is patient's baseline with progressive dementia -diagnosis d/w daughter, who states unaware of any previous dementia diagnosis -monitor and follow up cultures -at risk for aspiration pneumonia Code(s): R41.82 - ALTERED MENTAL STATUS, UNSPECIFIED (4) Functional quadriplegia Assessment/Plan: -PT consulted
--- NOTE | 2017-10-20 11:57 | PN ---
Progress Note (short form) - Note Progress Note: s: no significant communication, awake, comfortable appearing o: Vital Signs Period Temp Pulse Resp BP Sys/Becerra Pulse Ox Last 24 Hr 97.3 F-101.6 F 33-71 20-26 97-144/52-70 94 nad, calm cachectic. jvd flat, neck supple rrr nl s1, s2 no mrg, nd pmi bibasilar rales, poor eff + bs soft nt nd, ext without e/c/c alert no jaundice, diaphoresis. Current Medications Generic Name Dose Route Start Last Admin Trade Name Freq PRN Reason Stop Dose Admin Acetaminophen 650 mg 10/19/17 21:26 10/19/17 22:01 Tylenol - PO 650 mg Q6H PRN Administration FEVER OR PAIN Enoxaparin Sodium 30 mg 10/18/17 12:15 10/20/17 10:18 Lovenox - SQ 30 mg DAILY [facility] Administration Dextrose/Sodium Chloride 1,000 mls @ 42 mls/hr 10/18/17 12:15 10/19/17 15:24 D5-1/2ns - IV 42 mls/hr ASDIR [facility] Administration CBC, BMP 10/20/17 06:05 10/20/17 06:05 ekg: baseline artifact, sr with frerquent pac's. non-specific t wave flattening tele: SR cxr wnl echo 10/2017: nl lv/rv, mild mr, mild ar, nl rvsp a/p: 82 yo bedbound male with h/o htn, bph s/p surgery, osteomyelitis, dementia p/w progressive difficulty with swallowing for the past couple of weeks. concern for arrhythmia - Initial EKG SR with frequent pac's, not afib. - CE's neg x 2. EKG without acute ischemic changes. - echo benign, tele benign, can dc dysphagia, dementia - ongoing work up, neuro following. - IVF as needed - low grade fever, labile bp's. infectious work up per pmd. htn - currently bp stable off anti-hypertensives, con't to monitor.
[2017-10-20] MEDS ORDERED: PT OWN MED DRAWER 7, Y5N ONE (13:52)
[2017-10-21 06:54] LABS: BASO % 0.3 % (0-2.0); EOS % 0.4 % (0-4.5); HEMOGLOBIN 11.9 GM/dL (11.7-16.9); LYMPH % 23.2 % (8-40); MCH 32.4 pg (25.7-33.7); MEAN CELL VOLUME 98.4 fl (80-96); MEAN PLT VOLUME 7.5 fl (7.5-11.1); MONO % 7.8 % (3.8-10.2); NEUT % 68.3 % (42.8-82.8); PLATELET COUNT 146 K/MM3 (134-434); RBC 3.66 M/mm3 (4.00-5.60); RDW 13.3 % (11.9-15.9); WHITE BLOOD COUNT 4.3 K/mm3 (4.0-10.0)
[2017-10-21 07:27] LABS: ANION GAP 7 (8-16); BLOOD UREA NITROGEN 22 mg/dL (7-18); CALCIUM 7.8 mg/dL (8.5-10.1); CHLORIDE 108 mmol/L (98-107); CO2 28 mmol/L (21-32); GLUCOSE,RANDOM 82 mg/dL (74-106); MAGNESIUM 1.9 mg/dL (1.8-2.4); PHOSPHOROUS 2.6 mg/dL (2.5-4.9); POTASSIUM 3.3 mmol/L (3.5-5.1); SODIUM 143 mmol/L (136-145)
--- NOTE | 2017-10-21 09:21 | PN ---
Progress Note (short form) - Note Progress Note: Neurology HPI: 82 yo male, bedbound per daughter due to back condition, for which he had seen a neurologist in the past for (formerly followed with Dr Crook), was having progressive difficulty with swallowing for the past couple of weeks, which has progressed over time and therefore patient brought to the hospital. He has a history of high blood pressure and BPH, no history of heart arrythmias but found to have new onset afib on this admission. He is a limited historian and with psychomotor slowing in bed. Not being verbal with examiner. He did complete CT head which did now show acute changes.We completed MRI brain and did not show acute change in brain. Age related changes also noted including microvascular disease. Patient being considered for palliative care and PEG tube though nurse reported daughter may be hesitant and hopeful that patient will recover. Active Medications Acetaminophen (Tylenol -) 650 mg PO Q6H PRN PRN Reason: FEVER OR PAIN Last Admin: 10/19/17 22:01 Dose: 650 mg Enoxaparin Sodium (Lovenox -) 30 mg SQ DAILY [facility] Last Admin: 10/20/17 10:18 Dose: 30 mg Dextrose/Sodium Chloride (D5-1/2ns -) 1,000 mls @ 42 mls/hr IV ASDIR [facility] Last Admin: 10/19/17 15:24 Dose: 42 mls/hr Physical Examination Vital Signs Temperature 97.6 F 10/21/17 05:30 Pulse Rate 56 L 10/21/17 05:30 Respiratory Rate 20 10/21/17 05:30 Blood Pressure 123/56 10/21/17 05:30 O2 Sat by Pulse Oximetry (%) 94 L 10/20/17 20:32 Eyes: Yes: Conjunctiva Clear HENT: Yes: Atraumatic, Normocephalic Cardiovascular: Yes: Pulse Irregular, S1, S2. No: Murmur Respiratory: Yes: Regular, CTA Bilaterally Gastrointestinal: Yes: Normal Bowel Sounds, Soft. No: Distention, Tenderness Musculoskeletal: Yes: Other (decreased muscle mass legs) Neuro: No facial droop, pupil intact and responsive, moves ext grossly, sensory intact to tactile stimulation, gait deferred CBCD WBC 4.3 K/mm3 (4.0-10.0) 10/21/17 06:05 RBC 3.66 M/mm3 (4.00-5.60) L 10/21/17 06:05 Hgb 11.9 GM/dL (11.7-16.9) 10/21/17 06:05 Hct 36.0 % (35.4-49) 10/21/17 06:05 MCV 98.4 fl (80-96) H 10/21/17 06:05 MCHC 33.0 g/dl (32.0-35.9) 10/21/17 06:05 RDW 13.3 % (11.9-15.9) 10/21/17 06:05 Plt Count 146 K/MM3 (134-434) 10/21/17 06:05 MPV 7.5 fl (7.5-11.1) 10/21/17 06:05 CMP Sodium 143 mmol/L (136-145) 10/21/17 06:05 Potassium 3.3 mmol/L (3.5-5.1) L 10/21/17 06:05 Chloride 108 mmol/L (98-107) H 10/21/17 06:05 Carbon Dioxide 28 mmol/L (21-32) 10/21/17 06:05 Anion Gap 7 (8-16) L 10/21/17 06:05 BUN 22 mg/dL (7-18) H 10/21/17 06:05 Creatinine 1.0 mg/dL (0.7-1.3) 10/21/17 06:05 Creat Clearance w eGFR 58.11 (>60) 10/19/17 07:34 Calcium 7.8 mg/dL (8.5-10.1) L 10/21/17 06:05 Total Bilirubin 0.4 mg/dL (0.2-1.0) D 10/19/17 07:34 AST 30 U/L (15-37) D 10/19/17 07:34 ALT 48 U/L (12-78) D 10/19/17 07:34 Alkaline Phosphatase 60 U/L (45-117) D 10/19/17 07:34 Total Protein 5.9 g/dl (6.4-8.2) L 10/19/17 07:34 Albumin 3.0 g/dl (3.4-5.0) L 10/19/17 07:34 Imaging - Results Chest X-ray: Report Reviewed (:old rib fracture, no acute pathology) Cat Scan: Report Reviewed (CT head: no bleed, infarct) MRI brain: No acute CVA, L parotid hyperintense lesion noted, 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 He has a history of high blood pressure and BPH, no history of heart arrythmias but found to have new onset afib on this admission. He is a limited historian and with psychomotor slowing in bed. Not being verbal with examiner. Majority of history from daughter. He did complete CT head which did now show acute changes. MRI brain reviewed, no CVA noted, Speech and swallow eval noted Monitor swallowing closely Possibly for PEG tube Possibly palliative care Aspiration precautions Atrial fibrilation, on Lovenox, patient also fall risk Fall precautions Monitor bp, maintain normotensive range
[2017-10-21] MEDS: ENOXAPARIN NA (PORCINE) 30 MG/0.3 ML DISP.SYRIN SQ SCH (09:51)
--- NOTE | 2017-10-21 12:11 | PN ---
Progress Note (short form) - Note Progress Note: s: no significant communication, awake, comfortable appearing o: Vital Signs Period Temp Pulse Resp BP Sys/Becerra Pulse Ox Last 24 Hr 97.6 F-98.9 F 50-63 20-24 102-133/56-76 94-100 nad, calm cachectic. jvd flat, neck supple rrr nl s1, s2 no mrg, nd pmi bibasilar rales, poor eff + bs soft nt nd, ext without e/c/c alert no jaundice, diaphoresis. Current Medications Generic Name Dose Route Start Last Admin Trade Name Freq PRN Reason Stop Dose Admin Acetaminophen 650 mg 10/19/17 21:26 10/19/17 22:01 Tylenol - PO 650 mg Q6H PRN Administration FEVER OR PAIN Enoxaparin Sodium 30 mg 10/18/17 12:15 10/21/17 09:51 Lovenox - SQ 30 mg DAILY [facility] Administration Dextrose/Sodium Chloride 1,000 mls @ 42 mls/hr 10/18/17 12:15 10/19/17 15:24 D5-1/2ns - IV 42 mls/hr ASDIR [facility] Administration CBC, BMP 10/21/17 06:05 10/21/17 06:05 ekg: baseline artifact, sr with frerquent pac's. non-specific t wave flattening tele: SR cxr wnl echo 10/2017: nl lv/rv, mild mr, mild ar, nl rvsp a/p: 82 yo bedbound male with h/o htn, bph s/p surgery, osteomyelitis, dementia p/w progressive difficulty with swallowing for the past couple of weeks. concern for arrhythmia - Initial EKG SR with frequent pac's, not afib. - CE's neg x 2. EKG without acute ischemic changes. - echo benign, tele benign, can dc dysphagia, dementia - ongoing work up, neuro following. - IVF as needed - low grade fever, labile bp's. infectious work up per pmd. htn - currently bp stable off anti-hypertensives, con't to monitor.
[2017-10-21] MEDS: DEXTROSE 5%-0.45% SALINE 1,000 ML IV SCH (12:30)
--- NOTE | 2017-10-21 15:28 | PN ---
Progress Note (short form) - Note Progress Note: Patient seen today for Dr. Jacobo. Main reason for hospitalization was recent difficulty with swallowing and dysphagia. He is also had an evaluation from speech therapist. the daughter is deciding on feeding tube placement. Still somewhat of a confusing reason as to why he can't communicate well and appears to be bedridden. Although there was no tumor or infarct of significance noted on his MRI of the brain there are multiple chronic changes and areas of gliosis. He was also seen by cardiology for possible atrial fibrillation but it was normal sinus rhythm with APCs. On exam: Vital Signs Temp 97.9 F 10/21/17 13:53 Pulse 79 10/21/17 13:53 Resp 20 10/21/17 13:53 BP 150/70 10/21/17 13:53 Pulse Ox 100 10/21/17 09:00 Intake & Output 10/20/17 10/21/17 10/21/17 23:59 11:59 23:59 Intake Total 500 Balance 500 Intake: IV 500 D5-1/2Ns - 1,000 ml @ 42 500 mls/hr IV ASDIR [facility] Rx#: [id number] Other: Voiding Method Incontinent Incontinent alert Cannot seem to communicate his thoughts Legs seem to be contracted Abdomen no focal tenderness Heart regular Respirations somewhat decreased breath sounds Abnormal Lab Results 10/21/17 10/21/17 06:05 06:05 RBC 3.66 L MCV 98.4 H Potassium 3.3 L Chloride 108 H Anion Gap 7 L BUN 22 H Calcium 7.8 L impression: Dysphagia Probable dementia APCs Hypokalemia Plan: KCl in IV fluid Followup lab Further discussions with hospitalist to family regarding PEG tube
[2017-10-21] MEDS: D5-1/2NS+20 MEQ KCL - 20 MEQ/1,000 ML INFUS.BAG IV SCH (16:00)
[2017-10-22 09:16] LABS: ANION GAP 9 (8-16); BLOOD UREA NITROGEN 19 mg/dL (7-18); CALCIUM 7.9 mg/dL (8.5-10.1); CHLORIDE 108 mmol/L (98-107); CO2 24 mmol/L (21-32); GLUCOSE,RANDOM 82 mg/dL (74-106); POTASSIUM 3.2 mmol/L (3.5-5.1); SODIUM 141 mmol/L (136-145)
[2017-10-22 09:27] LABS: CREATININE 0.8 mg/dL (0.7-1.3)
--- NOTE | 2017-10-22 09:36 | PN ---
Progress Note (short form) - Note Progress Note: Neurology HPI: 82 yo male, bedbound per daughter due to back condition, for which he had seen a neurologist in the past for (formerly followed with Dr Crook), was having progressive difficulty with swallowing for the past couple of weeks, which has progressed over time and therefore patient brought to the hospital. He has a history of high blood pressure and BPH, no history of heart arrythmias but found to have new onset afib on this admission. He is a limited historian and with psychomotor slowing in bed. Not being verbal with examiner. He did complete CT head which did now show acute changes.We completed MRI brain and did not show acute change in brain. Age related changes also noted including microvascular disease. Patient being considered for palliative care and PEG tube and spoke to daughter today and she would like tube placed. She reports " he wasn't like this when he came in" but explained contractures and deconditioning is chronic. His level of functionality indicated ongoing process that has likely been occuring for months to years. Active Medications Acetaminophen (Tylenol -) 650 mg PO Q6H PRN PRN Reason: FEVER OR PAIN Last Admin: 10/19/17 22:01 Dose: 650 mg Enoxaparin Sodium (Lovenox -) 30 mg SQ DAILY [facility] Last Admin: 10/21/17 09:51 Dose: 30 mg Potassium Chloride/Dextrose/Sod Cl (D5-1/2ns+20 Meq Kcl -) 20 meq in 1,000 mls @ 42 mls/hr IV ASDIR [facility] Last Admin: 10/21/17 16:00 Dose: 42 mls/hr Physical Examination Vital Signs Temperature 97.8 F 10/22/17 06:00 Pulse Rate 58 L 10/22/17 06:00 Respiratory Rate 20 10/22/17 06:00 Blood Pressure 123/74 10/22/17 06:00 O2 Sat by Pulse Oximetry (%) 96 10/21/17 21:00 Eyes: Yes: Conjunctiva Clear HENT: Yes: Atraumatic, Normocephalic Cardiovascular: Yes: Pulse Irregular, S1, S2. No: Murmur Respiratory: Yes: Regular, CTA Bilaterally Gastrointestinal: Yes: Normal Bowel Sounds, Soft. No: Distention, Tenderness Musculoskeletal: Yes: Other (decreased muscle mass legs) Neuro: No facial droop, pupil intact and responsive, moves ext grossly, sensory intact to tactile stimulation, gait deferred CBCD WBC 4.3 K/mm3 (4.0-10.0) 10/21/17 06:05 RBC 3.66 M/mm3 (4.00-5.60) L 10/21/17 06:05 Hgb 11.9 GM/dL (11.7-16.9) 10/21/17 06:05 Hct 36.0 % (35.4-49) 10/21/17 06:05 MCV 98.4 fl (80-96) H 10/21/17 06:05 MCHC 33.0 g/dl (32.0-35.9) 10/21/17 06:05 RDW 13.3 % (11.9-15.9) 10/21/17 06:05 Plt Count 146 K/MM3 (134-434) 10/21/17 06:05 MPV 7.5 fl (7.5-11.1) 10/21/17 06:05 CMP Sodium 143 mmol/L (136-145) 10/21/17 06:05 Potassium 3.3 mmol/L (3.5-5.1) L 10/21/17 06:05 Chloride 108 mmol/L (98-107) H 10/21/17 06:05 Carbon Dioxide 28 mmol/L (21-32) 10/21/17 06:05 Anion Gap 7 (8-16) L 10/21/17 06:05 BUN 22 mg/dL (7-18) H 10/21/17 06:05 Creatinine 1.0 mg/dL (0.7-1.3) 10/21/17 06:05 Creat Clearance w eGFR 58.11 (>60) 10/19/17 07:34 Calcium 7.8 mg/dL (8.5-10.1) L 10/21/17 06:05 Total Bilirubin 0.4 mg/dL (0.2-1.0) D 10/19/17 07:34 AST 30 U/L (15-37) D 10/19/17 07:34 ALT 48 U/L (12-78) D 10/19/17 07:34 Alkaline Phosphatase 60 U/L (45-117) D 10/19/17 07:34 Total Protein 5.9 g/dl (6.4-8.2) L 10/19/17 07:34 Albumin 3.0 g/dl (3.4-5.0) L 10/19/17 07:34 Imaging - Results Chest X-ray: Report Reviewed (:old rib fracture, no acute pathology) Cat Scan: Report Reviewed (CT head: no bleed, infarct) MRI brain: No acute CVA, L parotid hyperintense lesion noted, 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 He has a history of high blood pressure and BPH, no history of heart arrythmias but found to have new onset afib on this admission. He is a limited historian and with psychomotor slowing in bed. Not being verbal with examiner. Majority of history from daughter. He did complete CT head which did now show acute changes. MRI brain reviewed, no CVA noted, Monitor swallowing closely daughter now requesting peg tube Aspiration precautions Atrial fibrilation, on Lovenox, patient also fall risk Fall precautions Monitor bp, maintain normotensive range
[2017-10-22] MEDS: ENOXAPARIN NA (PORCINE) 30 MG/0.3 ML DISP.SYRIN SQ SCH (09:49)
--- NOTE | 2017-10-22 11:33 | PN ---
Progress Note, Physician Chief Complaint: Mr Tripathi says he is feels fine. Denies cp, sob, n/v. Daughter says patient states he is hungry. - Current Medication List Current Medications: Active Medications Acetaminophen (Tylenol -) 650 mg PO Q6H PRN PRN Reason: FEVER OR PAIN Last Admin: 10/19/17 22:01 Dose: 650 mg Enoxaparin Sodium (Lovenox -) 30 mg SQ DAILY [facility] Last Admin: 10/22/17 09:49 Dose: 30 mg Potassium Chloride/Dextrose/Sod Cl (D5-1/2ns+20 Meq Kcl -) 20 meq in 1,000 mls @ 42 mls/hr IV ASDIR [facility] Last Admin: 10/21/17 16:00 Dose: 42 mls/hr Amino Acids (Clinimix -) 1,000 mls @ 84 mls/hr IV Q12H [facility] - Objective Vital Signs: Vital Signs Temperature 36.7 C 10/22/17 10:00 Pulse Rate 57 L 10/22/17 10:00 Respiratory Rate 20 10/22/17 10:00 Blood Pressure 128/74 10/22/17 10:00 O2 Sat by Pulse Oximetry (%) 98 10/22/17 10:00 Constitutional: Yes: Well Nourished, No Distress, Calm Cardiovascular: Yes: Regular Rate and Rhythm. No: Gallop, Murmur, Rub Respiratory: Yes: Regular, CTA Bilaterally. No: Rales, Rhonchi, Wheezes Gastrointestinal: Yes: Normal Bowel Sounds, Soft. No: Distention, Tenderness Extremities: Yes: WNL Edema: No Labs: CBC, BMP 10/21/17 06:05 10/22/17 05:25 Problem List - Problems (1) Difficulty swallowing Code(s): R13.10 - DYSPHAGIA, UNSPECIFIED Qualifiers: Dysphagia type: unspecified Qualified Code(s): R13.10 - Dysphagia, unspecified (2) New onset a-fib Code(s): I48.91 - UNSPECIFIED ATRIAL FIBRILLATION (3) Back pain Code(s): M54.9 - DORSALGIA, UNSPECIFIED Qualifiers: Back pain location: low back pain Back pain laterality: midline Sciatica presence: without sciatica (4) Functional quadriplegia Code(s): R53.2 - FUNCTIONAL QUADRIPLEGIA (5) Altered mental status Code(s): R41.82 - ALTERED MENTAL STATUS, UNSPECIFIED Assessment/Plan (1) Dysphagia with aspiration Assessment/Plan: -secondary to end stage dementia -case d/w daughter who desires PEG tube placement -case d/w GI, plan for PEG tube on Wednesday -will place on clinimix since unable to swallow Code(s): R13.10 - DYSPHAGIA, UNSPECIFIED Qualifiers: Dysphagia type: unspecified Qualified Code(s): R13.10 - Dysphagia, unspecified (2) New onset a-fib Assessment/Plan: -Dr Santa reviewed, not atrial fibrillation -transfer to med [facility] since no need for monitoring -no need for anticoagulation Code(s): I48.91 - UNSPECIFIED ATRIAL FIBRILLATION (3) Altered mental status Assessment/Plan: -end stage dementia -suspect this is patient's baseline over acute AMS -consider aricept when PEG tube placed, will d/w Dr Chang Code(s): R41.82 - ALTERED MENTAL STATUS, UNSPECIFIED (4) Functional quadriplegia Assessment/Plan: -appreciate PT assistance
[2017-10-22] MEDS ORDERED: KCL 10 MEQ IVPB 10 MEQ/100 ML INFUS.BAG IVPB SCH (11:45)
[2017-10-22] MEDS ORDERED: POTASSIUM CHLORIDE 30 MEQ in SODIUM CHLORIDE 300 ML IVPB ONE (11:45)
--- NOTE | 2017-10-22 13:06 | CON.GI ---
Consult Consult Specialty:: GI - History of Present Illness History of Present Illness: Chart reviewed. An 82 yom with possible, advanced dementia, contracted, bedbound, minimally communicative, admitted with worsening over weeks dysphasia. CT and MR of the brain showed no acute events. Speech and swallow evaluation was done. Pt's daughter elected PEG placement. The history is from chart. No reports of chronic GERD, dyspepsia, esophagitis, acute gastrointestinal issues, or surgeries. 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 see H&P Physical Exam-GI Vital Signs: Vital Signs Temperature 98.1 F 10/22/17 10:00 Pulse Rate 57 L 10/22/17 10:00 Respiratory Rate 20 10/22/17 10:00 Blood Pressure 128/74 10/22/17 10:00 O2 Sat by Pulse Oximetry (%) 98 10/22/17 10:00 Constitutional: Yes: No Distress, Calm Eyes: Yes: Conjunctiva Clear Cardiovascular: Yes: Regular Rate and Rhythm Respiratory: Yes: Regular ...Auscultate: Yes: Normoactive Bowel Sounds ...Palpate: Yes: Soft. No: Firm/Rigid, Guarding, Mass, Tenderness, Rebound ...Percussion: No: Fluid Wave Neurological: Yes: Lethargy Labs: CBC, BMP 10/21/17 06:05 10/22/17 05:25 Abnormal Lab Results 10/22/17 05:25 Potassium 3.2 L Chloride 108 H BUN 19 H Calcium 7.9 L Imaging - Results X-ray: Report Reviewed Cat Scan: Report Reviewed MRI: Report Reviewed Problem List - Problems (1) Difficulty swallowing Code(s): R13.10 - DYSPHAGIA, UNSPECIFIED Qualifiers: Dysphagia type: unspecified Qualified Code(s): R13.10 - Dysphagia, unspecified Assessment/Plan 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 PEG does not prevent aspiration, or improves outcomes. Family elected PEG placement. 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
[2017-10-22] MEDS: AMINO ACIDS 4.25%/D5W 1,000 ML IV SCH ×2 (13:56→22:45)
[2017-10-22] MEDS: D5-1/2NS+20 MEQ KCL - 20 MEQ/1,000 ML INFUS.BAG IV SCH (23:50)
[2017-10-23 07:59] LABS: BASO % 0.2 % (0-2.0); EOS % 0.7 % (0-4.5); HEMATOCRIT 37.3 % (35.4-49); HEMOGLOBIN 12.5 GM/dL (11.7-16.9); LYMPH % 24.2 % (8-40); MCH 32.3 pg (25.7-33.7); MCHC 33.6 g/dl (32.0-35.9); MEAN CELL VOLUME 96.3 fl (80-96); MEAN PLT VOLUME 7.3 fl (7.5-11.1); MONO % 9.1 % (3.8-10.2); NEUT % 65.8 % (42.8-82.8); PLATELET COUNT 156 K/MM3 (134-434); RBC 3.88 M/mm3 (4.00-5.60); RDW 12.9 % (11.9-15.9)
[2017-10-23 08:54] LABS: ANION GAP 8 (8-16); BLOOD UREA NITROGEN 21 mg/dL (7-18); CALCIUM 7.7 mg/dL (8.5-10.1); CHLORIDE 105 mmol/L (98-107); CO2 25 mmol/L (21-32); GLUCOSE,RANDOM 113 mg/dL (74-106); POTASSIUM 3.6 mmol/L (3.5-5.1); SODIUM 138 mmol/L (136-145)
[2017-10-23 08:57] LABS: CREATININE 0.8 mg/dL (0.7-1.3); MAGNESIUM 1.6 mg/dL (1.8-2.4); PHOSPHOROUS 1.9 mg/dL (2.5-4.9)
[2017-10-23] MEDS: ENOXAPARIN NA (PORCINE) 30 MG/0.3 ML DISP.SYRIN SQ SCH (09:40)
[2017-10-23] MEDS ORDERED: MAGNESIUM SULF 50% (8.12 MEQ/2 ML-1 GM VIAL) IVPB ONE (10:17)
[2017-10-23] MEDS ORDERED: POTASSIUM PHOSPHATE 15 MM in DEXTROSE 5%-WATER - 250 ML IVPB ONE (10:45)
--- NOTE | 2017-10-23 13:06 | PN ---
Physical Exam: SUBJECTIVE: Patient seen and examined Pt remains confused, no change in status. OBJECTIVE: Vital Signs Period Temp Pulse Resp BP Sys/Becerra Pulse Ox Last 24 Hr 97.6 F-98.2 F 58-68 18-20 104-145/60-85 97-98 GENERAL: Remains disoriented, not in any acute distress. LUNGS: Breath sounds equal, clear to auscultation bilaterally, no wheezes, no crackles, no accessory muscle use. HEART: Regular rate and rhythm, S1, S2 without murmur, rub or gallop. ABDOMEN: Soft, nontender, nondistended, normoactive bowel sounds, no guarding, no rebound, no hepatosplenomegaly, no masses. EXTREMITIES: 2+ pulses, warm, well-perfused, no edema., generalized weakness PSYCH: Normal mood, normal affect. SKIN: Warm, dry, normal turgor, no rashes or lesions noted Laboratory Results - last 24 hr 10/23/17 10/23/17 06:20 06:20 WBC 4.0 RBC 3.88 L Hgb 12.5 Hct 37.3 MCV 96.3 H MCH 32.3 MCHC 33.6 RDW 12.9 Plt Count 156 MPV 7.3 L Neutrophils % 65.8 Lymphocytes % 24.2 Monocytes % 9.1 Eosinophils % 0.7 Basophils % 0.2 Sodium 138 Potassium 3.6 Chloride 105 Carbon Dioxide 25 Anion Gap 8 BUN 21 H Creatinine 0.8 Random Glucose 113 H D Calcium 7.7 L Phosphorus 1.9 L D Magnesium 1.6 L Active Medications Generic Name Dose Route Start Last Admin Trade Name Freq PRN Reason Stop Dose Admin Acetaminophen 650 mg 10/19/17 21:26 10/19/17 22:01 Tylenol - PO 650 mg Q6H PRN Administration FEVER OR PAIN Enoxaparin Sodium 30 mg 10/18/17 12:15 10/23/17 09:40 Lovenox - SQ 30 mg DAILY [facility] Administration Amino Acids 1,000 mls @ 84 mls/hr 10/22/17 11:45 10/22/17 22:45 Clinimix - IV 84 mls/hr Q12H [facility] Administration Potassium Phosphate 15 mm/ 255 mls @ 63.75 mls/hr 10/23/17 10:45 Dextrose IVPB 10/23/17 14:44 ONCE ONE 15 MM/4 HR Magnesium Sulfate/Dextrose 1 gm in 100 mls @ 100 mls/hr 10/23/17 12:30 Magnesium 1gm/D5w - IVPB 10/23/17 14:[address] Head - No acute pathology MRI brain reviewed, ASSESSMENT/PLAN: This is an 82 year old male with advanced dementia, contracted, bedbound, minimally communicative, admitted with worsening over weeks dysphasia. 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 - New Patient This patient is new to me today: Yes Date on this admission: 10/23/17 - Critical Care Critical Care patient: No
[2017-10-23] MEDS: AMINO ACIDS 4.25%/D5W 1,000 ML IV SCH (13:54)
[2017-10-23] MEDS: MAGNESIUM 1GM/D5W - 1 GM/100 ML IVPB IVPB SCH ×2 (14:55→16:17)
[2017-10-24] MEDS: AMINO ACIDS 4.25%/D5W 1,000 ML IV SCH ×2 (02:26→13:55)
[2017-10-24] MEDS: ENOXAPARIN NA (PORCINE) 30 MG/0.3 ML DISP.SYRIN SQ SCH (09:48)
--- NOTE | 2017-10-24 12:03 | PN ---
Physical Exam: SUBJECTIVE: Patient seen and examined at bedside. OBJECTIVE: Vital Signs Period Temp Pulse Resp BP Sys/Becerra Pulse Ox Last 24 Hr 97.8 F-98.2 F 56-67 18-20 100-136/66-87 95 GENERAL/NEURO: Sleeping but arousable. Did not answer questions. LUNGS: Breath sounds equal, clear to auscultation bilaterally, no wheezes, no crackles, no accessory muscle use. HEART: Regular rate and rhythm, S1, S2 ABDOMEN: Soft, nontender, nondistended, normoactive bowel sounds EXTREMITIES: 2+ pulses, warm, well-perfused, no edema. Active Medications Generic Name Dose Route Start Last Admin Trade Name Freq PRN Reason Stop Dose Admin Acetaminophen 650 mg 10/19/17 21:26 10/19/17 22:01 Tylenol - PO 650 mg Q6H PRN Administration FEVER OR PAIN Enoxaparin Sodium 30 mg 10/18/17 12:15 10/24/17 09:48 Lovenox - SQ 30 mg DAILY [facility] Administration Amino Acids 1,000 mls @ 84 mls/hr 10/22/17 11:45 10/24/17 02:26 Clinimix - IV 84 mls/hr Q12H [facility] Administration ASSESSMENT/PLAN 1) Dysphagia with aspiration Assessment/Plan: -secondary to end stage dementia -plan for PEG tube on Wednesday -continue clinimix (2)Arrhythmia Assessment/Plan: -initial ECG SR with frequent PACs -Dr Santa reviewed, not atrial fibrillation -troponins negative, EKG without ischemic changes, echo and tele monitoring uneventful (3) Altered mental status Assessment/Plan: -end stage dementia -consider aricept when PEG tube placed, d/w Dr Chang (4) Functional quadriplegia Assessment/Plan: -dependent for all ADLs Visit type - Emergency Visit Emergency Visit: Yes ED Registration Date: 10/18/17 Care time: The patient presented to the Emergency Department on the above date and was hospitalized for further evaluation of their emergent condition. - New Patient This patient is new to me today: Yes Date on this admission: 10/24/17 - Critical Care Critical Care patient: No
[2017-10-24 13:27] LABS: ANION GAP 9 (8-16); BLOOD UREA NITROGEN 21 mg/dL (7-18); CALCIUM 8.2 mg/dL (8.5-10.1); CHLORIDE 102 mmol/L (98-107); CO2 27 mmol/L (21-32); CREATININE 0.7 mg/dL (0.7-1.3); GLUCOSE,RANDOM 103 mg/dL (74-106); MAGNESIUM 1.9 mg/dL (1.8-2.4); PHOSPHOROUS 2.1 mg/dL (2.5-4.9); POTASSIUM 3.5 mmol/L (3.5-5.1); SODIUM 138 mmol/L (136-145)
[2017-10-25] MEDS: AMINO ACIDS 4.25%/D5W 1,000 ML IV SCH ×3 (02:31→13:38)
[2017-10-25] MEDS: ENOXAPARIN NA (PORCINE) 30 MG/0.3 ML DISP.SYRIN SQ SCH (09:17)
--- NOTE | 2017-10-25 10:20 | PN ---
Progress Note (short form) - Note Progress Note: Neurology HPI: 82 yo male, bedbound per daughter due to back condition, for which he had seen a neurologist in the past for (formerly followed with Dr Crook), was having progressive difficulty with swallowing for the past couple of weeks, which has progressed over time and therefore patient brought to the hospital. He has a history of high blood pressure and BPH, no history of heart arrythmias but found to have new onset afib on this admission. He is a limited historian and with psychomotor slowing in bed. Not being verbal with examiner. He did complete CT head which did now show acute changes.We completed MRI brain and did not show acute change in brain. Age related changes also noted including microvascular disease. Patient being planned for PEG tube. GI note reviewed. daughter at bedside and anxiously awaiting procedure. Patient with continued contractures and deconditioning which is chronic. Active Medications Acetaminophen (Tylenol -) 650 mg PO Q6H PRN PRN Reason: FEVER OR PAIN Last Admin: 10/19/17 22:01 Dose: 650 mg Enoxaparin Sodium (Lovenox -) 30 mg SQ DAILY [facility] Last Admin: 10/25/17 09:17 Dose: 30 mg Amino Acids (Clinimix -) 1,000 mls @ 84 mls/hr IV Q12H [facility] Last Admin: 10/25/17 02:31 Dose: 84 mls/hr Physical Examination Vital Signs Temperature 97.4 F L 10/25/17 06:00 Pulse Rate 63 10/25/17 06:00 Respiratory Rate 18 10/25/17 06:00 Blood Pressure 147/79 10/25/17 06:00 O2 Sat by Pulse Oximetry (%) 94 L 10/24/17 20:10 Eyes: Yes: Conjunctiva Clear HENT: Yes: Atraumatic, Normocephalic Cardiovascular: Yes: Pulse Irregular, S1, S2. No: Murmur Respiratory: Yes: Regular, CTA Bilaterally Gastrointestinal: Yes: Normal Bowel Sounds, Soft. No: Distention, Tenderness Musculoskeletal: Yes: Other (decreased muscle mass legs) Neuro: No facial droop, pupil intact and responsive, moves ext grossly, sensory intact to tactile stimulation, gait deferred CBCD WBC 4.0 K/mm3 (4.0-10.0) 10/23/17 06:20 RBC 3.88 M/mm3 (4.00-5.60) L 10/23/17 06:20 Hgb 12.5 GM/dL (11.7-16.9) 10/23/17 06:20 Hct 37.3 % (35.4-49) 10/23/17 06:20 MCV 96.3 fl (80-96) H 10/23/17 06:20 MCHC 33.6 g/dl (32.0-35.9) 10/23/17 06:20 RDW 12.9 % (11.9-15.9) 10/23/17 06:20 Plt Count 156 K/MM3 (134-434) 10/23/17 06:20 MPV 7.3 fl (7.5-11.1) L 10/23/17 06:20 CMP Sodium 138 mmol/L (136-145) 10/24/17 12:40 Potassium 3.5 mmol/L (3.5-5.1) 10/24/17 12:40 Chloride 102 mmol/L (98-107) 10/24/17 12:40 Carbon Dioxide 27 mmol/L (21-32) 10/24/17 12:40 Anion Gap 9 (8-16) 10/24/17 12:40 BUN 21 mg/dL (7-18) H 10/24/17 12:40 Creatinine 0.7 mg/dL (0.7-1.3) 10/24/17 12:40 Creat Clearance w eGFR 58.11 (>60) 10/19/17 07:34 Calcium 8.2 mg/dL (8.5-10.1) L 10/24/17 12:40 Total Bilirubin 0.4 mg/dL (0.2-1.0) D 10/19/17 07:34 AST 30 U/L (15-37) D 10/19/17 07:34 ALT 48 U/L (12-78) D 10/19/17 07:34 Alkaline Phosphatase 60 U/L (45-117) D 10/19/17 07:34 Total Protein 5.9 g/dl (6.4-8.2) L 10/19/17 07:34 Albumin 3.0 g/dl (3.4-5.0) L 10/19/17 07:34 Imaging - Results Chest X-ray: Report Reviewed (:old rib fracture, no acute pathology) Cat Scan: Report Reviewed (CT head: no bleed, infarct) MRI brain: No acute CVA, L parotid hyperintense lesion noted, 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 He has a history of high blood pressure and BPH, no history of heart arrythmias but found to have new onset afib on this admission. He is a limited historian and with psychomotor slowing in bed. Not being verbal with examiner. Majority of history from daughter. He did complete CT head which did now show acute changes. MRI brain reviewed, no CVA noted, Monitor swallowing closely daughter requesting peg tube GI note reviewed Aspiration precautions Atrial fibrilation, on Lovenox, patient also fall risk Fall precautions Monitor bp, maintain normotensive range
--- NOTE | 2017-10-25 11:08 | PN ---
Progress Note, Physician History of Present Illness: Chart reviewed. Clinically the same. Comfortable. No tin distress. Reports no pain. Daughter at bedside. Discussed PEG with her again. The procedure is planned for tomorrow. - Current Medication List Current Medications: Active Medications Acetaminophen (Tylenol -) 650 mg PO Q6H PRN PRN Reason: FEVER OR PAIN Last Admin: 10/19/17 22:01 Dose: 650 mg Enoxaparin Sodium (Lovenox -) 30 mg SQ DAILY [facility] Last Admin: 10/25/17 09:17 Dose: 30 mg Amino Acids (Clinimix -) 1,000 mls @ 84 mls/hr IV Q12H [facility] Last Admin: 10/25/17 02:31 Dose: 84 mls/hr - Objective Vital Signs: Vital Signs Temperature 97.6 F 10/25/17 09:00 Pulse Rate 63 10/25/17 09:00 Respiratory Rate 18 10/25/17 09:00 Blood Pressure 120/83 10/25/17 09:00 O2 Sat by Pulse Oximetry (%) 98 10/25/17 09:00 Constitutional: Yes: No Distress, Calm Eyes: Yes: Conjunctiva Clear HENT: Yes: Atraumatic Neck: Yes: Supple Cardiovascular: Yes: Regular Rate and Rhythm Respiratory: Yes: Regular Gastrointestinal: Yes: Normal Bowel Sounds, Soft Labs: CBC, BMP 10/23/17 06:20 10/24/17 12:40 Laboratory Results - last 24 hr 10/24/17 12:40 Sodium 138 Potassium 3.5 Chloride 102 Carbon Dioxide 27 Anion Gap 9 BUN 21 H Creatinine 0.7 Random Glucose 103 Calcium 8.2 L Phosphorus 2.1 L Magnesium 1.9 Problem List - Problems (1) Difficulty swallowing Code(s): R13.10 - DYSPHAGIA, UNSPECIFIED Qualifiers: Dysphagia type: unspecified Qualified Code(s): R13.10 - Dysphagia, unspecified Assessment/Plan 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 PEG does not prevent aspiration, or improves outcomes. Family elected PEG placement. 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
--- NOTE | 2017-10-25 12:42 | EKG ---
Test Reason : Blood Pressure : / mmHG Vent. Rate : 091 BPM Atrial Rate : 091 BPM P-R Int : 000 ms QRS Dur : 072 ms QT Int : 348 ms P-R-T Axes : 000 016 066 degrees QTc Int : 428 ms PROBABLE SINUS RHYTHM WITH SINUS ARRHYTHMIA PREMATURE VENTRICULAR COMPLEX ABNORMAL ECG WHEN COMPARED WITH ECG OF 18-OCT-2017 06:08, PREMATURE VENTRICULAR COMPLEX IS SEEN Confirmed by SAGAR MACIEL MD ([id number]) on 10/25/2017 12:42:25 PM Referred By: Confirmed By:SAGAR MACIEL MD
--- NOTE | 2017-10-25 13:00 | PN ---
Progress Note, Physician Chief Complaint: Unable to obtain today - Current Medication List Current Medications: Active Medications Acetaminophen (Tylenol -) 650 mg PO Q6H PRN PRN Reason: FEVER OR PAIN Last Admin: 10/19/17 22:01 Dose: 650 mg Amino Acids (Clinimix -) 1,000 mls @ 84 mls/hr IV Q12H [facility] Last Admin: 10/25/17 02:31 Dose: 84 mls/hr - Objective Vital Signs: Vital Signs Temperature 36.4 C 10/25/17 09:00 Pulse Rate 63 10/25/17 09:00 Respiratory Rate 18 10/25/17 09:00 Blood Pressure 120/83 10/25/17 09:00 O2 Sat by Pulse Oximetry (%) 98 10/25/17 09:00 Constitutional: Yes: Well Nourished, No Distress, Calm Cardiovascular: Yes: Regular Rate and Rhythm. No: Gallop, Murmur, Rub Respiratory: Yes: Regular, CTA Bilaterally. No: Rales, Rhonchi, Wheezes Gastrointestinal: Yes: Normal Bowel Sounds, Soft. No: Distention, Tenderness Extremities: Yes: WNL Edema: No Labs: CBC, BMP 10/23/17 06:20 10/24/17 12:40 Problem List - Problems (1) Difficulty swallowing Code(s): R13.10 - DYSPHAGIA, UNSPECIFIED Qualifiers: Dysphagia type: unspecified Qualified Code(s): R13.10 - Dysphagia, unspecified (2) New onset a-fib Code(s): I48.91 - UNSPECIFIED ATRIAL FIBRILLATION (3) Back pain Code(s): M54.9 - DORSALGIA, UNSPECIFIED Qualifiers: Back pain location: low back pain Back pain laterality: midline Sciatica presence: without sciatica (4) Functional quadriplegia Code(s): R53.2 - FUNCTIONAL QUADRIPLEGIA (5) Altered mental status Code(s): R41.82 - ALTERED MENTAL STATUS, UNSPECIFIED Assessment/Plan (1) Dysphagia with aspiration Assessment/Plan: -planning for PEG tube tomorrow Code(s): R13.10 - DYSPHAGIA, UNSPECIFIED Qualifiers: Dysphagia type: unspecified Qualified Code(s): R13.10 - Dysphagia, unspecified (2) New onset a-fib Assessment/Plan: -Dr Ginelli reviewed, not atrial fibrillation -transfer to med surg since no need for monitoring -no need for anticoagulation Code(s): I48.91 - UNSPECIFIED ATRIAL FIBRILLATION (3) Altered mental status Assessment/Plan: -case d/w speech therapy who states patient is alert and oriented -unable to obtain this from patient in past -will d/w Dr Chang and get his assessment of patient's mental status Code(s): R41.82 - ALTERED MENTAL STATUS, UNSPECIFIED (4) Functional quadriplegia Assessment/Plan: -appreciate PT assistance
--- NOTE | 2017-10-25 13:55 | PN ---
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 Pending PEG insertion tomorrow for progressive dysphagia. Swallow reflex is quite weak. Speech is dysarthric. Pt is oriented to "Hospital , October, lives with daughter, Noe." Pt spoke Urdu with me.Primary language is Wolof. Communication has improved since last week, possibly with better hydration and improved infection. Pt is a functional quad. Etiology of progressive Dysphagia/Dysarthria? MRI noted. f/u Neurology. No clear fasciculations of tongue, however, r/o progressive motor neuron? Concur with PEG insertion. Pt is at risk of aspiration,malnutrition, dehydration at this time. Possibly MBS to further assess swallowing function after PEG, for pleasure feedings.
[2017-10-26] MEDS: AMINO ACIDS 4.25%/D5W 1,000 ML IV SCH ×3 (03:43→23:52)
[2017-10-26 07:59] LABS: BASO % 0.3 % (0-2.0); EOS % 0.8 % (0-4.5); HEMATOCRIT 37.8 % (35.4-49); HEMOGLOBIN 12.9 GM/dL (11.7-16.9); LYMPH % 29.3 % (8-40); MCH 32.1 pg (25.7-33.7); MEAN CELL VOLUME 94.4 fl (80-96); MEAN PLT VOLUME 7.3 fl (7.5-11.1); NEUT % 59.6 % (42.8-82.8); PLATELET COUNT 236 K/MM3 (134-434); RBC 4.01 M/mm3 (4.00-5.60); RDW 12.7 % (11.9-15.9); WHITE BLOOD COUNT 4.4 K/mm3 (4.0-10.0)
[2017-10-26 08:13] LABS: ALBUMIN 2.8 g/dl (3.4-5.0); ANION GAP 11 (8-16); BILIRUBIN,TOTAL 0.4 mg/dL (0.2-1.0); BLOOD UREA NITROGEN 25 mg/dL (7-18); CALCIUM 8.3 mg/dL (8.5-10.1); CHLORIDE 100 mmol/L (98-107); CO2 26 mmol/L (21-32); CREATININE 0.8 mg/dL (0.7-1.3); GLUCOSE,RANDOM 98 mg/dL (74-106); POTASSIUM 3.2 mmol/L (3.5-5.1); SGOT/AST 24 U/L (15-37); SGPT/ALT 38 U/L (12-78); SODIUM 137 mmol/L (136-145); TOT PROT 5.9 g/dl (6.4-8.2)
[2017-10-26 08:14] LABS: ALK PHOS 59 U/L (45-117)
[2017-10-26 08:20] LABS: INR 1.13 (0.82-1.09); PROTHROMBIN TIME (PATIENT) 12.8 SEC (9.98-11.88)
--- NOTE | 2017-10-26 10:29 | PN ---
Progress Note (short form) - Note Progress Note: Neurology HPI: 82 yo male, bedbound per daughter due to back condition, for which he had seen a neurologist in the past for (formerly followed with Dr Crook), was having progressive difficulty with swallowing for the past couple of weeks, which has progressed over time and therefore patient brought to the hospital. He has a history of high blood pressure and BPH, no history of heart arrythmias but found to have new onset afib on this admission. He is a limited historian and with psychomotor slowing in bed. Not being verbal with examiner. He did complete CT head which did now show acute changes.We completed MRI brain and did not show acute change in brain. Age related changes also noted including microvascular disease. Patient being planned for PEG tube today. Daughter at bedside and anxiously awaiting procedure. Patient with continued contractures and deconditioning which is chronic. Mental status seems to be better and able to indicate location (hospital but not aware of exact name). Also mumbled Noe when asked President. Not able to tell me date. Active Medications Acetaminophen (Tylenol -) 650 mg PO Q6H PRN PRN Reason: FEVER OR PAIN Last Admin: 10/19/17 22:01 Dose: 650 mg Amino Acids (Clinimix -) 1,000 mls @ 84 mls/hr IV Q12H [facility] Last Admin: 10/26/17 03:43 Dose: 84 mls/hr Physical Examination Vital Signs Period Temp Pulse Resp BP Sys/Becerra Pulse Ox Last 24 Hr 97.5 F-97.8 F 65-108 20-20 102-123/65-79 96 Eyes: Yes: Conjunctiva Clear HENT: Yes: Atraumatic, Normocephalic Cardiovascular: Yes: Pulse Irregular, S1, S2. No: Murmur Respiratory: Yes: Regular, CTA Bilaterally Gastrointestinal: Yes: Normal Bowel Sounds, Soft. No: Distention, Tenderness Musculoskeletal: Yes: Other (decreased muscle mass legs) Neuro: No facial droop, pupil intact and responsive, moves ext grossly, sensory intact to tactile stimulation, gait deferred CBCD WBC 4.4 K/mm3 (4.0-10.0) 10/26/17 06:00 RBC 4.01 M/mm3 (4.00-5.60) 10/26/17 06:00 Hgb 12.9 GM/dL (11.7-16.9) 10/26/17 06:00 Hct 37.8 % (35.4-49) 10/26/17 06:00 MCV 94.4 fl (80-96) 10/26/17 06:00 MCHC 34.0 g/dl (32.0-35.9) 10/26/17 06:00 RDW 12.7 % (11.9-15.9) 10/26/17 06:00 Plt Count 236 K/MM3 (134-434) D 10/26/17 06:00 MPV 7.3 fl (7.5-11.1) L 10/26/17 06:00 CMP Sodium 137 mmol/L (136-145) 10/26/17 06:00 Potassium 3.2 mmol/L (3.5-5.1) L 10/26/17 06:00 Chloride 100 mmol/L (98-107) 10/26/17 06:00 Carbon Dioxide 26 mmol/L (21-32) 10/26/17 06:00 Anion Gap 11 (8-16) 10/26/17 06:00 BUN 25 mg/dL (7-18) H 10/26/17 06:00 Creatinine 0.8 mg/dL (0.7-1.3) 10/26/17 06:00 Creat Clearance w eGFR > 60 (>60) 10/26/17 06:00 Calcium 8.3 mg/dL (8.5-10.1) L 10/26/17 06:00 Total Bilirubin 0.4 mg/dL (0.2-1.0) 10/26/17 06:00 AST 24 U/L (15-37) 10/26/17 06:00 ALT 38 U/L (12-78) D 10/26/17 06:00 Alkaline Phosphatase 59 U/L (45-117) 10/26/17 06:00 Total Protein 5.9 g/dl (6.4-8.2) L 10/26/17 06:00 Albumin 2.8 g/dl (3.4-5.0) L 10/26/17 06:00 Imaging - Results Chest X-ray: Report Reviewed (:old rib fracture, no acute pathology) Cat Scan: Report Reviewed (CT head: no bleed, infarct) MRI brain: No acute CVA, L parotid hyperintense lesion noted, 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 He has a history of high blood pressure and BPH, no history of heart arrythmias but found to have new onset afib on this admission. He is a limited historian and with psychomotor slowing in bed. Not being verbal with examiner. Majority of history from daughter. He did complete CT head which did now show acute changes. MRI brain reviewed, no CVA noted, Appreciate S/S note Peg tube possibly for today GI note reviewed Aspiration precautions Fall precautions Mental status improved Monitor bp, maintain normotensive range
--- NOTE | 2017-10-26 11:23 | PN ---
Progress Note, Physician Chief Complaint: Unable to obtain. Case d/w Dr Chang who said patient able to answer some questions appropriately - Current Medication List Current Medications: Active Medications Acetaminophen (Tylenol -) 650 mg PO Q6H PRN PRN Reason: FEVER OR PAIN Last Admin: 10/19/17 22:01 Dose: 650 mg Amino Acids (Clinimix -) 1,000 mls @ 84 mls/hr IV Q12H [facility] Last Admin: 10/26/17 03:43 Dose: 84 mls/hr Potassium Chloride (Potassium Chloride 10 Meq Premix Ivpb -) 10 meq in 100 mls @ 100 mls/hr IVPB Q60M [facility] Stop: 10/26/17 14:14 - Objective Vital Signs: Vital Signs Temperature 36.3 C L 10/26/17 09:00 Pulse Rate 65 10/26/17 09:00 Respiratory Rate 20 10/26/17 09:00 Blood Pressure 124/67 10/26/17 09:00 O2 Sat by Pulse Oximetry (%) 96 10/26/17 09:00 Constitutional: Yes: Well Nourished, No Distress, Calm Cardiovascular: Yes: Regular Rate and Rhythm. No: Gallop, Murmur, Rub Respiratory: Yes: Regular, CTA Bilaterally. No: Rales, Rhonchi, Wheezes Gastrointestinal: Yes: Normal Bowel Sounds, Soft. No: Distention, Tenderness Extremities: Yes: WNL Edema: No Labs: CBC, BMP 10/26/17 06:00 10/26/17 06:00 INR, PTT INR 1.13 (0.82-1.09) 10/26/17 06:00 Problem List - Problems (1) Difficulty swallowing Code(s): R13.10 - DYSPHAGIA, UNSPECIFIED Qualifiers: Dysphagia type: unspecified Qualified Code(s): R13.10 - Dysphagia, unspecified (2) New onset a-fib Code(s): I48.91 - UNSPECIFIED ATRIAL FIBRILLATION (3) Back pain Code(s): M54.9 - DORSALGIA, UNSPECIFIED Qualifiers: Back pain location: low back pain Back pain laterality: midline Sciatica presence: without sciatica (4) Functional quadriplegia Code(s): R53.2 - FUNCTIONAL QUADRIPLEGIA (5) Altered mental status Code(s): R41.82 - ALTERED MENTAL STATUS, UNSPECIFIED Assessment/Plan (1) Dysphagia with aspiration Assessment/Plan: -s/p PEG tube -can begin feeding tomorrow Code(s): R13.10 - DYSPHAGIA, UNSPECIFIED Qualifiers: Dysphagia type: unspecified Qualified Code(s): R13.10 - Dysphagia, unspecified (2) New onset a-fib Assessment/Plan: -Dr Santa reviewed, not atrial fibrillation -transfer to [facility] since no need for monitoring -no need for anticoagulation Code(s): I48.91 - UNSPECIFIED ATRIAL FIBRILLATION (3) Altered mental status Assessment/Plan: -[facility] -outpatient follow up Code(s): R41.82 - ALTERED MENTAL STATUS, UNSPECIFIED (4) Functional quadriplegia Assessment/Plan: -appreciate PT assistance
[2017-10-26] MEDS ORDERED: ePHEDrine SULFATE 50 MG/1 ML AMPULE ONE (12:24)
[2017-10-26] MEDS ORDERED: PHENYLEPHRINE HCL 10 MG/1 ML SINGLE DOSE VIAL ONE (12:24)
[2017-10-26] MEDS ORDERED: PROPOFOL 20 ML ONE ×3 (12:24)
[2017-10-26] MEDS ORDERED: ceFAZolin SODIUM 1 GM VIAL ONE (12:45)
--- NOTE | 2017-10-26 13:10 | PROC ---
Endoscopy Procedure Endoscopy procedure completed. Please see scanned procedure report. Uneventful PEG placement. No immediate complications. PEG-related orders placed.
[2017-10-26] MEDS: POTASSIUM CHLORIDE 10 MEQ in SODIUM CHLORIDE 100 ML IVPB SCH ×3 (14:11→16:35)
[2017-10-27] MEDS: AMINO ACIDS 4.25%/D5W 1,000 ML IV SCH ×2 (05:44→13:06)
[2017-10-27 08:04] LABS: BASO % 0.2 % (0-2.0); EOS % 0.9 % (0-4.5); HEMATOCRIT 36.7 % (35.4-49); HEMOGLOBIN 12.4 GM/dL (11.7-16.9); LYMPH % 21.5 % (8-40); MCH 32.2 pg (25.7-33.7); MCHC 33.9 g/dl (32.0-35.9); MEAN CELL VOLUME 94.9 fl (80-96); MEAN PLT VOLUME 7.4 fl (7.5-11.1); MONO % 7.9 % (3.8-10.2); NEUT % 69.5 % (42.8-82.8); PLATELET COUNT 230 K/MM3 (134-434); RBC 3.86 M/mm3 (4.00-5.60); WHITE BLOOD COUNT 4.9 K/mm3 (4.0-10.0)
[2017-10-27 09:16] LABS: CHLORIDE 101 mmol/L (98-107); POTASSIUM 3.2 mmol/L (3.5-5.1); SODIUM 137 mmol/L (136-145)
[2017-10-27 09:22] LABS: ANION GAP 12 (8-16); BLOOD UREA NITROGEN 25 mg/dL (7-18); CALCIUM 8.5 mg/dL (8.5-10.1); CO2 24 mmol/L (21-32); CREATININE 0.8 mg/dL (0.7-1.3); GLUCOSE,RANDOM 93 mg/dL (74-106); MAGNESIUM 1.7 mg/dL (1.8-2.4); PHOSPHOROUS 2.6 mg/dL (2.5-4.9)
--- NOTE | 2017-10-27 09:46 | PN ---
Progress Note (short form) - Note Progress Note: Neurology HPI: 82 yo male, bedbound per daughter due to back condition, for which he had seen a neurologist in the past for (formerly followed with Dr Crook), was having progressive difficulty with swallowing for the past couple of weeks, which has progressed over time and therefore patient brought to the hospital. He has a history of high blood pressure and BPH, no history of heart arrythmias but found to have new onset afib on this admission. He is a limited historian and with psychomotor slowing in bed. Patient with continued contractures and deconditioning which is chronic.He did complete CT head which did now show acute changes. We completed MRI brain and did not show acute change in brain. Age related changes also noted including microvascular disease. Patient completed PEG. Daughter feels he is improving. He is able to indicate location (hospital but not aware of exact name). Not able to tell me date today. Was repeating dabbing towel to lips and daughter concerned regarding thirst. Otherwise, stable and appears to have tolerated procedure well. No signs of infections or sedation from anesthesia. Active Medications Acetaminophen (Tylenol -) 650 mg PO Q6H PRN PRN Reason: FEVER OR PAIN Last Admin: 10/19/17 22:01 Dose: 650 mg Amino Acids (Clinimix -) 1,000 mls @ 84 mls/hr IV Q12H [facility] Last Admin: 10/27/17 05:44 Dose: 84 mls/hr Physical Examination Vital Signs Temperature 98.9 F 10/27/17 05:59 Pulse Rate 69 10/27/17 05:59 Respiratory Rate 20 10/27/17 05:59 Blood Pressure 126/79 10/27/17 05:59 O2 Sat by Pulse Oximetry (%) 98 10/26/17 21:00 Eyes: Yes: Conjunctiva Clear HENT: Yes: Atraumatic, Normocephalic Cardiovascular: Yes: Pulse Irregular, S1, S2. No: Murmur Respiratory: Yes: Regular, CTA Bilaterally Gastrointestinal: Yes: Normal Bowel Sounds, Soft. 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 He has a history of high blood pressure and BPH, no history of heart arrythmias but found to have new onset afib on this admission. He is a limited historian and with psychomotor slowing in bed. Not being verbal with examiner. Majority of history from daughter. He did complete CT head which did now show acute changes. MRI brain reviewed, no CVA noted, Peg tube completed Aspiration precautions Fall precautions Mental status improved Monitor bp, maintain normotensive range Daughter more encouraged at this time
--- NOTE | 2017-10-27 11:14 | PN ---
Progress Note, Physician History of Present Illness: No events. Clinically the same. - Current Medication List Current Medications: Active Medications Acetaminophen (Tylenol -) 650 mg PO Q6H PRN PRN Reason: FEVER OR PAIN Last Admin: 10/19/17 22:01 Dose: 650 mg Amino Acids (Clinimix -) 1,000 mls @ 84 mls/hr IV Q12H [facility] Last Admin: 10/27/17 05:44 Dose: 84 mls/hr - Objective Vital Signs: Vital Signs Temperature 97.4 F L 10/27/17 10:10 Pulse Rate 69 10/27/17 10:10 Respiratory Rate 20 10/27/17 10:10 Blood Pressure 124/60 10/27/17 10:10 O2 Sat by Pulse Oximetry (%) 98 10/26/17 21:00 Constitutional: Yes: No Distress, Calm Eyes: Yes: Conjunctiva Clear HENT: Yes: Atraumatic Neck: Yes: Supple Cardiovascular: Yes: Regular Rate and Rhythm Respiratory: Yes: Regular Gastrointestinal: Yes: Soft, Other (PEG intact, no leak, bleeding, skin leasions.). No: Ascites, Distention, Melena, Rectal Bleeding, Tenderness, Tenderness, Epigastrium, Tenderness, Rebound, Vomiting Labs: CBC, BMP 10/27/17 06:00 10/27/17 06:00 INR, PTT INR 1.13 (0.82-1.09) 10/26/17 06:00 Laboratory Results - last 24 hr 10/27/17 10/27/17 06:00 06:00 WBC 4.9 RBC 3.86 L Hgb 12.4 Hct 36.7 MCV 94.9 MCH 32.2 MCHC 33.9 RDW 13.0 Plt Count 230 MPV 7.4 L Neutrophils % 69.5 Lymphocytes % 21.5 D Monocytes % 7.9 Eosinophils % 0.9 Basophils % 0.2 Sodium 137 Potassium 3.2 L Chloride 101 Carbon Dioxide 24 Anion Gap 12 BUN 25 H Creatinine 0.8 Random Glucose 93 Calcium 8.5 Phosphorus 2.6 D Magnesium 1.7 L Problem List - Problems (1) Difficulty swallowing Code(s): R13.10 - DYSPHAGIA, UNSPECIFIED Qualifiers: Dysphagia type: unspecified Qualified Code(s): R13.10 - Dysphagia, unspecified Assessment/Plan 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 PEG does not prevent aspiration, or improves outcomes. Family elected PEG placement. s/p PEG. Asymptomatic. OK to use PEG as intended for hydration, nutrition, medications PEG care per protocol Aspiration precautions Discussed with daughter at bedside
[2017-10-27] MEDS ORDERED: MAGNESIUM SULF 50% (8.12 MEQ/2 ML-1 GM VIAL) IVPB ONE ×2 (12:12→15:30)
--- NOTE | 2017-10-27 12:15 | PN ---
Progress Note, Physician Chief Complaint: Mr Tripathi says he is feeling fine. Denies cp, sob, n/v. - Current Medication List Current Medications: Active Medications Acetaminophen (Tylenol -) 650 mg PO Q6H PRN PRN Reason: FEVER OR PAIN Last Admin: 10/19/17 22:01 Dose: 650 mg Magnesium Sulfate (Magnesium Sulfate) 1 gm IVPB ONCE ONE Stop: 10/27/17 12:13 Potassium Chloride (Potassium Chloride Oral Liquid) 40 meq PEG ONCE ONE Stop: 10/27/17 12:13 - Objective Vital Signs: Vital Signs Temperature 36.3 C L 10/27/17 10:10 Pulse Rate 69 10/27/17 10:10 Respiratory Rate 20 10/27/17 10:10 Blood Pressure 124/60 10/27/17 10:10 O2 Sat by Pulse Oximetry (%) 96 10/27/17 09:00 Constitutional: Yes: Well Nourished, No Distress, Calm Cardiovascular: Yes: Regular Rate and Rhythm. No: Gallop, Murmur, Rub Respiratory: Yes: Regular, CTA Bilaterally. No: Rales, Rhonchi, Wheezes Gastrointestinal: Yes: Normal Bowel Sounds, Soft. No: Distention, Tenderness Extremities: Yes: WNL Edema: No Labs: CBC, BMP 10/27/17 06:00 10/27/17 06:00 INR, PTT INR 1.13 (0.82-1.09) 10/26/17 06:00 Problem List - Problems (1) Difficulty swallowing Code(s): R13.10 - DYSPHAGIA, UNSPECIFIED Qualifiers: Dysphagia type: unspecified Qualified Code(s): R13.10 - Dysphagia, unspecified (2) New onset a-fib Code(s): I48.91 - UNSPECIFIED ATRIAL FIBRILLATION (3) Back pain Code(s): M54.9 - DORSALGIA, UNSPECIFIED Qualifiers: Back pain location: low back pain Back pain laterality: midline Sciatica presence: without sciatica (4) Functional quadriplegia Code(s): R53.2 - FUNCTIONAL QUADRIPLEGIA (5) Altered mental status Code(s): R41.82 - ALTERED MENTAL STATUS, UNSPECIFIED Assessment/Plan (1) Dysphagia with aspiration Assessment/Plan: -s/p PEG tube -begin TF today -monitor today and plan for discharge tomorrow on TF Code(s): R13.10 - DYSPHAGIA, UNSPECIFIED Qualifiers: Dysphagia type: unspecified Qualified Code(s): R13.10 - Dysphagia, unspecified (2) New onset a-fib Assessment/Plan: -Dr Santa reviewed, not atrial fibrillation -transfer to [facility] since no need for monitoring -no need for anticoagulation Code(s): I48.91 - UNSPECIFIED ATRIAL FIBRILLATION (3) Altered mental status Assessment/Plan: -n[facility] -outpatient follow up Code(s): R41.82 - ALTERED MENTAL STATUS, UNSPECIFIED (4) Functional quadriplegia Assessment/Plan: -appreciate PT assistance
--- NOTE | 2017-10-27 12:54 | PN ---
Progress Note, EDITOR INDEX - Note Progress Note: Speech more unintelligible and pt more lethargic today. PEG/anaethesia yesterday. Seemed to still be o x hospital,October although intelligibility worse. Selected Entries 10/26/17 10/26/17 10/26/17 06:00 09:00 13:10 Breakfast Temperature 97.8 F 97.3 F L 97.3 F L 10/26/17 10/26/17 10/26/17 13:39 14:50 15:12 Breakfast Temperature 98 F 97.4 F L 97.4 F L 10/26/17 10/26/17 10/27/17 17:43 21:56 02:00 Breakfast Temperature 97.7 F 98.8 F 98.2 F 10/27/17 10/27/17 10/27/17 05:59 10:10 10:16 Breakfast NPO Temperature 98.9 F 97.4 F L Laboratory Tests 10/27/17 06:00 WBC 4.9 Only producing 2 syllables max.
[2017-10-27] MEDS ORDERED: POTASSIUM CHLORIDE ORAL LIQUID 20 MEQ/15 ML PEG ONE (15:15)
[2017-10-27] MEDS: POTASSIUM CHLORIDE ORAL LIQUID 20 MEQ/15 ML PEG ONE ×2 (15:27→15:31)
--- NOTE | 2017-10-27 21:36 | HOSP ---
Subjective - Review of Symptoms Events since last encounter: Hospitalist Encounter Notified by RN that the patient was found with his PEG removed. Arrived to bedside, patient is lethargic-baseline, moans to tactile stimulus Ryan 18fr inserted to keep opening patent, under sterile technique Patient tolerated procedure Empiric ABX ordered Clinimix ordered Patient will need to have GT replaced with IR. Clinimix unavailable- order changed to D51/2NS Physical Examination Vital Signs: Vital Signs Temperature 98.7 F 10/27/17 16:15 Pulse Rate 76 10/27/17 16:15 Respiratory Rate 18 10/27/17 16:15 Blood Pressure 120/80 10/27/17 16:15 O2 Sat by Pulse Oximetry (%) 96 10/27/17 09:00 Constitutional: Yes: Thin HENT: Yes: Atraumatic, Normocephalic, Other (Dry Mucousa Membranes) Neck: Yes: WNL, Supple, Trachea Midline Cardiovascular: Yes: WNL, Regular Rate and Rhythm Respiratory: Yes: WNL, Regular, CTA Bilaterally Gastrointestinal: Yes: Soft, Hypoactive Bowel Sounds, Other ...Rectal Exam: Yes: Deferred Renal/: Yes: Incontinence Breast(s): Yes: WNL Musculoskeletal: Yes: WNL Extremities: Yes: WNL Edema: No Peripheral Pulses WNL: Yes Neurological: Yes: Lethargy (arousable to tactile stimulus) Labs: CBC, BMP 10/27/17 06:00 10/27/17 06:00 Critical Care Total Critical Care Time (in minutes): 32 Critical Care Statement: The care of this patient involved high complexity decision making to prevent further life threatening deterioration of the patient 's condition and/or to evaluate & treat vital organ system(s) failure or risk of failure.
[2017-10-27] MEDS ORDERED: CEFTRIAXONE 1 GM in DEXTROSE 5%-WATER - 100 ML IVPB ONE (22:14)
[2017-10-27] MEDS ORDERED: AMINO ACIDS 4.25%/D5W 1,000 ML IV SCH (22:15)
[2017-10-27] MEDS: CEFTRIAXONE 1 G/50 ML PREMIX 50 ML IVPB SCH (23:57)
[2017-10-28] MEDS: DEXTROSE 5%-0.45% SALINE 1,000 ML IV SCH (05:00)
[2017-10-28 07:53] LABS: BASO % 0.3 % (0-2.0); EOS % 1.4 % (0-4.5); HEMATOCRIT 37.3 % (35.4-49); HEMOGLOBIN 12.6 GM/dL (11.7-16.9); LYMPH % 21.9 % (8-40); MCHC 33.7 g/dl (32.0-35.9); MEAN PLT VOLUME 7.2 fl (7.5-11.1); MONO % 7.8 % (3.8-10.2); NEUT % 68.6 % (42.8-82.8); PLATELET COUNT 293 K/MM3 (134-434); RBC 3.93 M/mm3 (4.00-5.60); RDW 12.7 % (11.9-15.9); WHITE BLOOD COUNT 6.2 K/mm3 (4.0-10.0)
[2017-10-28 08:09] LABS: ANION GAP 9 (8-16); BLOOD UREA NITROGEN 25 mg/dL (7-18); CALCIUM 8.3 mg/dL (8.5-10.1); CHLORIDE 104 mmol/L (98-107); CO2 24 mmol/L (21-32); CREATININE 0.8 mg/dL (0.7-1.3); GLUCOSE,RANDOM 87 mg/dL (74-106); MAGNESIUM 2.1 mg/dL (1.8-2.4); PHOSPHOROUS 2.8 mg/dL (2.5-4.9); POTASSIUM 3.6 mmol/L (3.5-5.1); SODIUM 137 mmol/L (136-145)
--- NOTE | 2017-10-28 08:09 | PN ---
Progress Note (short form) - Note Progress Note: Pt pulled PEG last night. Ryan Catheter was incerted, abx given. Pt appears clinically the same, not in distress, afebrile with soft abdomen. Strongly emphasized, in the future, not to insert catheters, etc in newly created track as the seal between gastric and abdominal coffman needs few days- weeks to form. Continue ABx Replace PEG endoscopically today Monitor for signs of peritonitis. Problem List - Problems (1) Difficulty swallowing Code(s): R13.10 - DYSPHAGIA, UNSPECIFIED Qualifiers: Dysphagia type: unspecified Qualified Code(s): R13.10 - Dysphagia, unspecified
--- NOTE | 2017-10-28 09:53 | PN ---
Progress Note (short form) - Note Progress Note: Neurology HPI: 82 yo male, bedbound per daughter due to back condition, for which he had seen a neurologist in the past for (formerly followed with Dr Crook), was having progressive difficulty with swallowing for the past couple of weeks, which has progressed over time and therefore patient brought to the hospital. He has a history of high blood pressure and BPH, no history of heart arrythmias but found to have new onset afib on this admission. He is a limited historian and with psychomotor slowing in bed. Patient with continued contractures and deconditioning which is chronic.He did complete CT head which did now show acute changes. We completed MRI brain and did not show acute change in brain. Age related changes also noted including microvascular disease. Patient completed PEG. Daughter not at bedside during my visit. PEG not visualized, spoke to nurse and informed that he pulled it out over night. PLan to replace PEG today. Surgeon aware. Active Medications Acetaminophen (Tylenol -) 650 mg PO Q6H PRN PRN Reason: FEVER OR PAIN Last Admin: 10/19/17 22:01 Dose: 650 mg CEFTRIAXONE 1 G/50 ML PREMIX (Ceftriaxone 1 Gm-D5w Bag) 50 mls @ 100 mls/hr IVPB DAILY [facility] Last Admin: 10/27/17 23:57 Dose: 100 mls/hr Dextrose/Sodium Chloride (D5-1/2ns -) 1,000 mls @ 42 mls/hr IV ASDIR [facility] Last Admin: 10/28/17 05:00 Dose: 42 mls/hr Physical Examination Vital Signs Temperature 98.2 F 10/28/17 05:44 Pulse Rate 73 10/28/17 05:44 Respiratory Rate 20 10/28/17 05:44 Blood Pressure 96/69 10/28/17 05:44 O2 Sat by Pulse Oximetry (%) 98 10/27/17 21:00 Eyes: Yes: Conjunctiva Clear HENT: Yes: Atraumatic, Normocephalic Cardiovascular: Yes: Pulse Irregular, S1, S2. No: Murmur Respiratory: Yes: Regular, CTA Bilaterally Gastrointestinal: Yes: Normal Bowel Sounds, Soft. No: Distention, Tenderness Musculoskeletal: Yes: Other (decreased muscle mass legs) Neuro: No facial droop, pupil intact and responsive, moves ext grossly, sensory intact to tactile stimulation, gait deferred CBCD WBC 6.2 K/mm3 (4.0-10.0) 10/28/17 06:00 RBC 3.93 M/mm3 (4.00-5.60) L 10/28/17 06:00 Hgb 12.6 GM/dL (11.7-16.9) 10/28/17 06:00 Hct 37.3 % (35.4-49) 10/28/17 06:00 MCV 95.0 fl (80-96) 10/28/17 06:00 MCHC 33.7 g/dl (32.0-35.9) 10/28/17 06:00 RDW 12.7 % (11.9-15.9) 10/28/17 06:00 Plt Count 293 K/MM3 (134-434) D 10/28/17 06:00 MPV 7.2 fl (7.5-11.1) L 10/28/17 06:00 CMP Sodium 137 mmol/L (136-145) 10/28/17 06:00 Potassium 3.6 mmol/L (3.5-5.1) 10/28/17 06:00 Chloride 104 mmol/L (98-107) 10/28/17 06:00 Carbon Dioxide 24 mmol/L (21-32) 10/28/17 06:00 Anion Gap 9 (8-16) 10/28/17 06:00 BUN 25 mg/dL (7-18) H 10/28/17 06:00 Creatinine 0.8 mg/dL (0.7-1.3) 10/28/17 06:00 Creat Clearance w eGFR > 60 (>60) 10/26/17 06:00 Calcium 8.3 mg/dL (8.5-10.1) L 10/28/17 06:00 Total Bilirubin 0.4 mg/dL (0.2-1.0) 10/26/17 06:00 AST 24 U/L (15-37) 10/26/17 06:00 ALT 38 U/L (12-78) D 10/26/17 06:00 Alkaline Phosphatase 59 U/L (45-117) 10/26/17 06:00 Total Protein 5.9 g/dl (6.4-8.2) L 10/26/17 06:00 Albumin 2.8 g/dl (3.4-5.0) L 10/26/17 06:00 Imaging - Results Chest X-ray: Report Reviewed (:old rib fracture, no acute pathology) Cat Scan: Report Reviewed (CT head: no bleed, infarct) MRI brain: No acute CVA, L parotid hyperintense lesion noted, 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 He has a history of high blood pressure and BPH, no history of heart arrythmias but found to have new onset afib on this admission. He is a limited historian and with psychomotor slowing in bed. Not being verbal with examiner. Majority of history from daughter. He did complete CT head which did now show acute changes. MRI brain reviewed, no CVA noted, Peg tube completed then patient removed Plan to re-insert today Surgeon aware Aspiration precautions Fall precautions Mental status improved Monitor bp, maintain normotensive range
[2017-10-28] MEDS ORDERED: CEFTRIAXONE 1 GM in DEXTROSE 5%-WATER - 100 ML IVPB SCH (10:00)
[2017-10-28] MEDS ORDERED: PROPOFOL 20 ML ONE ×3 (10:12)
[2017-10-28] MEDS ORDERED: CEFAZOLIN 1 GM in DEXTROSE 5%-WATER - 50 ML IVPB ONE (11:08)
--- NOTE | 2017-10-28 11:08 | PROC ---
Endoscopy Procedure Endoscopy procedure completed. Please see scanned procedure report. a new PEG was placed utilizing the original skin insision. Please see Orders for PEG care. Do not use PEG for hydration, or nutrition until cleard by GI. OK to use PEG for medications.
[2017-10-28] MEDS ORDERED: ceFAZolin SODIUM 1 GM VIAL ONE (11:25)
[2017-10-28] MEDS ORDERED: CEFAZOLIN 1 GM PUSH 1 GM/10 ML DISP.SYRIN IVPUSH ONE (11:30)
--- NOTE | 2017-10-28 12:02 | PN ---
Progress Note, CABLE MECHANIC - Note Progress Note: Pt required new PEG insertion, after initial PEG found out, although abdominal binder was in place. To follow.
[2017-10-28] MEDS: CEFTRIAXONE 1 G/50 ML PREMIX 50 ML IVPB SCH (14:07)
[2017-10-28 17:32] LABS: BASO % 0.4 % (0-2.0); EOS % 0.8 % (0-4.5); HEMATOCRIT 41.2 % (35.4-49); HEMOGLOBIN 13.9 GM/dL (11.7-16.9); LYMPH % 13.4 % (8-40); MCH 32.6 pg (25.7-33.7); MCHC 33.8 g/dl (32.0-35.9); MEAN CELL VOLUME 96.6 fl (80-96); MEAN PLT VOLUME 7.5 fl (7.5-11.1); MONO % 5.9 % (3.8-10.2); NEUT % 79.5 % (42.8-82.8); PLATELET COUNT 308 K/MM3 (134-434); RBC 4.27 M/mm3 (4.00-5.60); RDW 13.2 % (11.9-15.9); WHITE BLOOD COUNT 9.2 K/mm3 (4.0-10.0)
--- NOTE | 2017-10-28 20:37 | PN ---
Progress Note, Physician Chief Complaint: Mr Tripathi is s/p PEG tube replacement, unable to obtain. - Current Medication List Current Medications: Active Medications Acetaminophen (Tylenol -) 650 mg PO Q6H PRN PRN Reason: FEVER OR PAIN Last Admin: 10/19/17 22:01 Dose: 650 mg CEFTRIAXONE 1 G/50 ML PREMIX (Ceftriaxone 1 Gm-D5w Bag) 50 mls @ 100 mls/hr IVPB DAILY [facility] Last Admin: 10/28/17 14:07 Dose: 100 mls/hr Dextrose/Sodium Chloride (D5-1/2ns -) 1,000 mls @ 42 mls/hr IV ASDIR [facility] Last Admin: 10/28/17 05:00 Dose: 42 mls/hr - Objective Vital Signs: Vital Signs Temperature 36.4 C L 10/28/17 17:56 Pulse Rate 81 10/28/17 17:56 Respiratory Rate 18 10/28/17 17:56 Blood Pressure 133/92 10/28/17 17:56 O2 Sat by Pulse Oximetry (%) 98 10/28/17 12:30 Constitutional: Yes: Well Nourished, No Distress, Calm Cardiovascular: Yes: Regular Rate and Rhythm. No: Gallop, Murmur, Rub Respiratory: Yes: Regular, CTA Bilaterally. No: Rales, Rhonchi, Wheezes Gastrointestinal: Yes: Normal Bowel Sounds, Soft. No: Distention, Tenderness Extremities: Yes: WNL Edema: No Labs: CBC, BMP 10/28/17 16:00 10/28/17 06:00 INR, PTT INR 1.13 (0.82-1.09) 10/26/17 06:00 Problem List - Problems (1) Difficulty swallowing Code(s): R13.10 - DYSPHAGIA, UNSPECIFIED Qualifiers: Dysphagia type: unspecified Qualified Code(s): R13.10 - Dysphagia, unspecified (2) New onset a-fib Code(s): I48.91 - UNSPECIFIED ATRIAL FIBRILLATION (3) Back pain Code(s): M54.9 - DORSALGIA, UNSPECIFIED Qualifiers: Back pain location: low back pain Back pain laterality: midline Sciatica presence: without sciatica (4) Functional quadriplegia Code(s): R53.2 - FUNCTIONAL QUADRIPLEGIA (5) Altered mental status Code(s): R41.82 - ALTERED MENTAL STATUS, UNSPECIFIED Assessment/Plan (1) Dysphagia with aspiration Assessment/Plan: -PEG tube pulled out by patient overnight -case d/w GI -replaced today -on empiric antibiotics -monitor for peritonitis Code(s): R13.10 - DYSPHAGIA, UNSPECIFIED Qualifiers: Dysphagia type: unspecified Qualified Code(s): R13.10 - Dysphagia, unspecified (2) New onset a-fib Assessment/Plan: -Dr Santa reviewed, not atrial fibrillation -transfer to med surg since no need for monitoring -no need for anticoagulation Code(s): I48.91 - UNSPECIFIED ATRIAL FIBRILLATION (3) Altered mental status Assessment/Plan: -[facility] -outpatient follow up Code(s): R41.82 - ALTERED MENTAL STATUS, UNSPECIFIED (4) Functional quadriplegia Assessment/Plan: -appreciate PT assistance
[2017-10-29] MEDS: DEXTROSE 5%-0.45% SALINE 1,000 ML IV SCH (06:42)
[2017-10-29 08:53] LABS: ANION GAP 12 (8-16); BLOOD UREA NITROGEN 21 mg/dL (7-18); CALCIUM 9.4 mg/dL (8.5-10.1); CHLORIDE 99 mmol/L (98-107); CO2 27 mmol/L (21-32); GLUCOSE,RANDOM 105 mg/dL (74-106); POTASSIUM 3.5 mmol/L (3.5-5.1); SODIUM 138 mmol/L (136-145)
[2017-10-29 08:54] LABS: CREATININE 0.9 mg/dL (0.7-1.3); PHOSPHOROUS 3.3 mg/dL (2.5-4.9)
--- NOTE | 2017-10-29 09:46 | PN ---
Progress Note (short form) - Note Progress Note: Neurology HPI: 82 yo male, bedbound per daughter due to back condition, for which he had seen a neurologist in the past for (formerly followed with Dr Crook), was having progressive difficulty with swallowing for the past couple of weeks, which has progressed over time and therefore patient brought to the hospital. He has a history of high blood pressure and BPH, no history of heart arrythmias but found to have new onset afib on this admission. He is a limited historian and with psychomotor slowing in bed. Patient with continued contractures and deconditioning which is chronic.He did complete CT head which did now show acute changes. We completed MRI brain and did not show acute change in brain. Age related changes also noted including microvascular disease. Patient completed PEG reinsertion. Spoke to daughter at bedside. Plan is for progression of feeds. Active Medications Acetaminophen (Tylenol -) 650 mg PO Q6H PRN PRN Reason: FEVER OR PAIN Last Admin: 10/19/17 22:01 Dose: 650 mg CEFTRIAXONE 1 G/50 ML PREMIX (Ceftriaxone 1 Gm-D5w Bag) 50 mls @ 100 mls/hr IVPB DAILY [facility] Last Admin: 10/28/17 14:07 Dose: 100 mls/hr Dextrose/Sodium Chloride (D5-1/2ns -) 1,000 mls @ 42 mls/hr IV ASDIR [facility] Last Admin: 10/29/17 06:42 Dose: 42 mls/hr Physical Examination Vital Signs Temperature 97.8 F 10/29/17 06:00 Pulse Rate 85 10/29/17 06:00 Respiratory Rate 20 10/29/17 06:00 Blood Pressure 141/99 10/29/17 06:00 O2 Sat by Pulse Oximetry (%) 98 10/28/17 21:00 Eyes: Yes: Conjunctiva Clear HENT: Yes: Atraumatic, Normocephalic Cardiovascular: Yes: Pulse Irregular, S1, S2. No: Murmur Respiratory: Yes: Regular, CTA Bilaterally Gastrointestinal: Yes: Normal Bowel Sounds, Soft. No: Distention, Tenderness Musculoskeletal: Yes: Other (decreased muscle mass legs) Neuro: No facial droop, pupil intact and responsive, moves ext grossly, sensory intact to tactile stimulation, gait deferred CBCD WBC 9.2 K/mm3 (4.0-10.0) D 10/28/17 16:00 RBC 4.27 M/mm3 (4.00-5.60) 10/28/17 16:00 Hgb 13.9 GM/dL (11.7-16.9) D 10/28/17 16:00 Hct 41.2 % (35.4-49) 10/28/17 16:00 MCV 96.6 fl (80-96) H 10/28/17 16:00 MCHC 33.8 g/dl (32.0-35.9) 10/28/17 16:00 RDW 13.2 % (11.9-15.9) 10/28/17 16:00 Plt Count 308 K/MM3 (134-434) 10/28/17 16:00 MPV 7.5 fl (7.5-11.1) 10/28/17 16:00 CMP Sodium 138 mmol/L (136-145) 10/29/17 08:05 Potassium 3.5 mmol/L (3.5-5.1) 10/29/17 08:05 Chloride 99 mmol/L (98-107) 10/29/17 08:05 Carbon Dioxide 27 mmol/L (21-32) 10/29/17 08:05 Anion Gap 12 (8-16) 10/29/17 08:05 BUN 21 mg/dL (7-18) H 10/29/17 08:05 Creatinine 0.9 mg/dL (0.7-1.3) 10/29/17 08:05 Creat Clearance w eGFR > 60 (>60) 10/26/17 06:00 Calcium 9.4 mg/dL (8.5-10.1) 10/29/17 08:05 Total Bilirubin 0.4 mg/dL (0.2-1.0) 10/26/17 06:00 AST 24 U/L (15-37) 10/26/17 06:00 ALT 38 U/L (12-78) D 10/26/17 06:00 Alkaline Phosphatase 59 U/L (45-117) 10/26/17 06:00 Total Protein 5.9 g/dl (6.4-8.2) L 10/26/17 06:00 Albumin 2.8 g/dl (3.4-5.0) L 01/09/18 06:00 Imaging - Results Chest X-ray: Report Reviewed (:old rib fracture, no acute pathology) Cat Scan: Report Reviewed (CT head: no bleed, infarct) MRI brain: No acute CVA, L parotid hyperintense lesion noted, 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 He has a history of high blood pressure and BPH, no history of heart arrythmias but found to have new onset afib on this admission. He is a limited historian and with psychomotor slowing in bed. Not being verbal with examiner. Majority of history from daughter. He did complete CT head which did now show acute changes. MRI brain reviewed, no CVA noted, Peg tube completed then patient removed, reinsertion completed 10/28 Tube feeds to be advanced Aspiration precautions Fall precautions Mental status Stable Monitor bp, maintain normotensive range
--- NOTE | 2017-10-29 11:24 | PN ---
Progress Note, Physician History of Present Illness: No events. Clinically the same. PEG intact and no issues. Daughter at bedside. - Current Medication List Current Medications: Active Medications Acetaminophen (Tylenol -) 650 mg PO Q6H PRN PRN Reason: FEVER OR PAIN Last Admin: 10/19/17 22:01 Dose: 650 mg CEFTRIAXONE 1 G/50 ML PREMIX (Ceftriaxone 1 Gm-D5w Bag) 50 mls @ 100 mls/hr IVPB DAILY [facility] Last Admin: 10/28/17 14:07 Dose: 100 mls/hr Dextrose/Sodium Chloride (D5-1/2ns -) 1,000 mls @ 42 mls/hr IV ASDIR [facility] Last Admin: 10/29/17 06:42 Dose: 42 mls/hr - Objective Vital Signs: Vital Signs Temperature 97.8 F 10/29/17 06:00 Pulse Rate 85 10/29/17 06:00 Respiratory Rate 20 10/29/17 06:00 Blood Pressure 141/99 10/29/17 06:00 O2 Sat by Pulse Oximetry (%) 98 10/28/17 21:00 Constitutional: Yes: No Distress, Calm Gastrointestinal: Yes: Soft. 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 PEG does not prevent aspiration, or improves outcomes. Family elected PEG placement. s/p PEG. Asymptomatic. OK to use PEG as intended for hydration, nutrition, medications PEG care per protocol Aspiration precautions Discussed with daughter at bedside
[2017-10-29] MEDS: CEFTRIAXONE 1 G/50 ML PREMIX 50 ML IVPB SCH (11:32)
--- NOTE | 2017-10-29 12:27 | PN ---
Progress Note, Physician Chief Complaint: Unable to obtain today. - Current Medication List Current Medications: Active Medications Acetaminophen (Tylenol -) 650 mg PO Q6H PRN PRN Reason: FEVER OR PAIN Last Admin: 10/19/17 22:01 Dose: 650 mg CEFTRIAXONE 1 G/50 ML PREMIX (Ceftriaxone 1 Gm-D5w Bag) 50 mls @ 100 mls/hr IVPB DAILY [facility] Last Admin: 10/29/17 11:32 Dose: Not Given Dextrose/Sodium Chloride (D5-1/2ns -) 1,000 mls @ 42 mls/hr IV ASDIR [facility] Last Admin: 10/29/17 06:42 Dose: 42 mls/hr - Objective Vital Signs: Vital Signs Temperature 36.6 C 10/29/17 06:00 Pulse Rate 85 10/29/17 06:00 Respiratory Rate 20 10/29/17 06:00 Blood Pressure 141/99 10/29/17 06:00 O2 Sat by Pulse Oximetry (%) 98 10/28/17 21:00 Constitutional: Yes: Well Nourished, No Distress, Calm Cardiovascular: Yes: Regular Rate and Rhythm. No: Gallop, Murmur, Rub Respiratory: Yes: Regular, CTA Bilaterally. No: Rales, Rhonchi, Wheezes Gastrointestinal: Yes: Normal Bowel Sounds, Soft, Other (PEG tube in place). No : Distention, Tenderness Extremities: Yes: WNL Edema: No Labs: CBC, BMP 10/28/17 16:00 10/29/17 08:05 INR, PTT INR 1.13 (0.82-1.09) 10/26/17 06:00 Problem List - Problems (1) Difficulty swallowing Code(s): R13.10 - DYSPHAGIA, UNSPECIFIED Qualifiers: Dysphagia type: unspecified Qualified Code(s): R13.10 - Dysphagia, unspecified (2) New onset a-fib Code(s): I48.91 - UNSPECIFIED ATRIAL FIBRILLATION (3) Back pain Code(s): M54.9 - DORSALGIA, UNSPECIFIED Qualifiers: Back pain location: low back pain Back pain laterality: midline Sciatica presence: without sciatica (4) Functional quadriplegia Code(s): R53.2 - FUNCTIONAL QUADRIPLEGIA (5) Altered mental status Code(s): R41.82 - ALTERED MENTAL STATUS, UNSPECIFIED Assessment/Plan (1) Dysphagia with aspiration Assessment/Plan: -PEG replaced -begin TF today -monitor overnight to make sure can tolerate -plan for d/c tomorrow, TF set up at home Code(s): R13.10 - DYSPHAGIA, UNSPECIFIED Qualifiers: Dysphagia type: unspecified Qualified Code(s): R13.10 - Dysphagia, unspecified (2) New onset a-fib Assessment/Plan: -Dr Santa reviewed, not atrial fibrillation -transfer to med surg since no need for monitoring -no need for anticoagulation Code(s): I48.91 - UNSPECIFIED ATRIAL FIBRILLATION (3) Altered mental status Assessment/Plan: -[facility] -outpatient follow up Code(s): R41.82 - ALTERED MENTAL STATUS, UNSPECIFIED (4) Functional quadriplegia Assessment/Plan: -appreciate PT assistance Dispo -plan for discharge tomorrow
--- NOTE | 2017-10-29 14:25 | PN ---
Progress Note, PATENT SEARCHER - Note Progress Note: More alert and intelligible. Slow to respond. Dysarthria with imprecise articulation with reduced velocity of movement. Oriented to "" and "October." Unable to swallow saliva. Vocal quality is wet and gurgly, c/w aspiration, with delayed weak reflexive cough which is unprotective. IMP: Progressive (as reported) Dysphagia/Dysarthria. Oriented when alert. Aspiration on secretions suspected Rec: Determine Pt's wishes regarding end of life decisions regarding intubation ? Consider home care speech tx regarding speech/communication Consider home suction machine?
[2017-10-29 16:41] LABS: BASO % 0.2 % (0-2.0); EOS % 0.1 % (0-4.5); HEMATOCRIT 38.1 % (35.4-49); LYMPH % 11.7 % (8-40); MCH 32.5 pg (25.7-33.7); MEAN CELL VOLUME 95.5 fl (80-96); MEAN PLT VOLUME 7.1 fl (7.5-11.1); MONO % 7.2 % (3.8-10.2); NEUT % 80.8 % (42.8-82.8); PLATELET COUNT 315 K/MM3 (134-434); RBC 3.99 M/mm3 (4.00-5.60); RDW 13.3 % (11.9-15.9)
[2017-10-30] MEDS: DEXTROSE 5%-0.45% SALINE 1,000 ML IV SCH (06:30)
[2017-10-30 08:18] LABS: ANION GAP 7 (8-16); BLOOD UREA NITROGEN 24 mg/dL (7-18); CHLORIDE 105 mmol/L (98-107); CO2 26 mmol/L (21-32); GLUCOSE,RANDOM 125 mg/dL (74-106); MAGNESIUM 1.7 mg/dL (1.8-2.4); POTASSIUM 3.6 mmol/L (3.5-5.1); SODIUM 138 mmol/L (136-145)
[2017-10-30 08:19] LABS: CREATININE 0.9 mg/dL (0.7-1.3); PHOSPHOROUS 2.1 mg/dL (2.5-4.9)
[2017-10-30] MEDS: CEFTRIAXONE 1 G/50 ML PREMIX 50 ML IVPB SCH (09:56)
--- NOTE | 2017-10-30 14:05 | PN ---
Progress Note, Physician Chief Complaint: No changes in his condition History of Present Illness: 82 yrs old man bed bound with muscular dystrophy admitted with Dysphasia s/p PEG - Current Medication List Current Medications: Active Medications Acetaminophen (Tylenol -) 650 mg PO Q6H PRN PRN Reason: FEVER OR PAIN Last Admin: 10/19/17 22:01 Dose: 650 mg Dextrose/Sodium Chloride (D5-1/2ns -) 1,000 mls @ 42 mls/hr IV ASDIR [facility] Last Admin: 10/30/17 06:30 Dose: Not Given - Objective Vital Signs: Vital Signs Temperature 97.8 F 10/30/17 05:51 Pulse Rate 76 10/30/17 05:51 Respiratory Rate 20 10/30/17 05:51 Blood Pressure 103/60 10/30/17 05:51 O2 Sat by Pulse Oximetry (%) 98 10/29/17 21:00 Elderly man alert oriented to self contracture HEENT: Mm moist, mild anemia +, no thrush NECK: No NVD No Bruit CHEST: Minimal basal Crepts CVS: S1S2 R SM in AA ABD: S/P PEG no distention EXT: Contracture, no Edema, no calf tenderness [employer]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 Labs: CBC, BMP 10/29/17 16:00 10/30/17 06:00 INR, PTT INR 1.13 (0.82-1.09) 10/26/17 06:00 Problem List - Problems (1) Difficulty swallowing Assessment/Plan: Due to declining mental status and base line, disease process s/p PEG. Code(s): R13.10 - DYSPHAGIA, UNSPECIFIED Qualifiers: Dysphagia type: unspecified Qualified Code(s): R13.10 - Dysphagia, unspecified (2) Functional quadriplegia Assessment/Plan: Chronic Code(s): R53.2 - FUNCTIONAL QUADRIPLEGIA (3) New onset a-fib Assessment/Plan: not on AC at present rate controlled in NSR Code(s): I48.91 - UNSPECIFIED ATRIAL FIBRILLATION (4) Encounter for PEG (percutaneous endoscopic gastrostomy) Assessment/Plan: For Dysphagia.tolerating feeds. Code(s): Z43.1 - ENCOUNTER FOR ATTENTION TO GASTROSTOMY
[2017-10-30 15:37] LABS: BASO % 0.2 % (0-2.0); EOS % 0.5 % (0-4.5); HEMATOCRIT 33.5 % (35.4-49); HEMOGLOBIN 11.8 GM/dL (11.7-16.9); LYMPH % 9.3 % (8-40); MCH 33.4 pg (25.7-33.7); MCHC 35.2 g/dl (32.0-35.9); MEAN CELL VOLUME 94.7 fl (80-96); MEAN PLT VOLUME 6.6 fl (7.5-11.1); MONO % 6.4 % (3.8-10.2); NEUT % 83.6 % (42.8-82.8); PLATELET COUNT 263 K/MM3 (134-434); RBC 3.54 M/mm3 (4.00-5.60); RDW 13.2 % (11.9-15.9); WHITE BLOOD COUNT 8.9 K/mm3 (4.0-10.0)
[2017-10-31 07:40] LABS: BASO % 0.3 % (0-2.0); EOS % 1.6 % (0-4.5); HEMATOCRIT 32.5 % (35.4-49); HEMOGLOBIN 11.3 GM/dL (11.7-16.9); LYMPH % 13.9 % (8-40); MCHC 34.7 g/dl (32.0-35.9); MEAN CELL VOLUME 95.1 fl (80-96); MONO % 7.1 % (3.8-10.2); NEUT % 77.1 % (42.8-82.8); PLATELET COUNT 246 K/MM3 (134-434); RBC 3.42 M/mm3 (4.00-5.60); RDW 13.2 % (11.9-15.9); WHITE BLOOD COUNT 5.9 K/mm3 (4.0-10.0)
[2017-10-31 08:21] LABS: ANION GAP 8 (8-16); BLOOD UREA NITROGEN 20 mg/dL (7-18); CALCIUM 7.8 mg/dL (8.5-10.1); CHLORIDE 104 mmol/L (98-107); CO2 28 mmol/L (21-32); CREATININE 0.7 mg/dL (0.7-1.3); GLUCOSE,RANDOM 112 mg/dL (74-106); POTASSIUM 3.5 mmol/L (3.5-5.1); SODIUM 140 mmol/L (136-145)
--- NOTE | 2017-10-31 10:08 | DS ---
Physical Examination Vital Signs: Vital Signs Temperature 97.3 F L 10/31/17 06:00 Pulse Rate 68 10/31/17 06:00 Respiratory Rate 18 10/31/17 06:00 Blood Pressure 109/62 10/31/17 06:00 O2 Sat by Pulse Oximetry (%) 98 10/30/17 20:42 Elderly man not in acute distress, hemodynamically stable HEENT: mm moist, no anemia NECK; No JVD No Bruit CHEST; CTa b/L CVS; s1S2 R ABD: s/p PEG no distention Bs + EXT; contracture, no taiwo afeet. 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 Findings/Remarks: Hospital course; 82 yo male, bed bound non verabal, present with worsening dysphagia, evaluated by Neurology and GI considering progressive disese evaluated by Speech and swallow, recommended PEG tube placement, patient underwent PEG placement, During course of Hospitalization also developed an episode of Afib converted to NSR, evaluated by cardiology, considering MS and prognosis AC deferred after discussing with the family. Patient is hemodynamically stable, tolerating feed is being discharged home with VNS services. During hospitalization off Lasix and Losratn BP is well controlled, daughter checks Monitor daily educated the daughter to resume BP meds if BP is persistently > 150/90 mm of HG Labs: CBC, BMP 10/31/17 06:00 10/31/17 06:00 Discharge Summary Reason For Visit: DYSPHAGIA Current Active Problems Altered mental status (Acute) Difficulty swallowing (Acute) Encounter for PEG (percutaneous endoscopic gastrostomy) (Acute) Functional quadriplegia (Acute) New onset a-fib (Acute) Condition: Fair - Instructions Referrals: Nixon Dorado MD [Primary Care Provider] - 1 Week Disposition: HOME - Home Medications Comprehensive Discharge Medication List: Ambulatory Orders Tamsulosin HCl [Flomax -] 0.4 mg PO HS #0 cap.er.24h 12/19/14 Acetaminophen [Tylenol .Regular Strength -] 650 mg PO Q6H PRN tablet 10/31/17
[2017-10-31 15:28] VITALS: BP 106/66; PULSE 74; TEMP 97.7
== END 2017-10-31 13:30 | disposition home or self-care (01) | DRG 391 ==
LOC: JER 05:26 → JERBED 09:38 → OBSVTOIN 09:38 → J4W 11:15 → J7W 10-22 21:26
PROVIDERS: ADMIT Internal Medicine; ATTEND Internal Medicine
PROC: 3E0G76Z Introduction of Nutritional Substance into Upper GI, Via Natural or Artificial Opening (ICD-10-PCS; 2017-10-26)
PROC: 0DH63UZ Insertion of Feeding Device into Stomach, Percutaneous Approach (ICD-10-PCS; principal; 2017-10-26 12:45)
PROC: 0D20XUZ Change Feeding Device in Upper Intestinal Tract, External Approach (ICD-10-PCS; 2017-10-28)
DX: R13.12 Dysphagia, oropharyngeal phase (principal); R53.2 Functional quadriplegia; R64 Cachexia; E46 Unspecified protein-calorie malnutrition; I10 Essential (primary) hypertension; N40.0 Benign prostatic hyperplasia without lower urinary tract symptoms; M54.9 Dorsalgia, unspecified; R13.10 Dysphagia, unspecified; Z74.01 Bed confinement status; E87.6 Hypokalemia; F03.90 Unspecified dementia, unspecified severity, without behavioral disturbance, psychotic disturbance, mood disturbance, and anxiety; I48.91 Unspecified atrial fibrillation; R62.7 Adult failure to thrive; Z68.24 Body mass index [BMI] 24.0-24.9, adult
CPT/HCPCS: 36415; 70450-TC; 70551-TC; 71045-TC; 80048; 80053; 81003; 81015; 82550; 82553; 82784; 82803; 83735; 84100; 84155; 84165; 84443; 84484; 85025; 85610; 85651; 86334; 87040; 87086; 93005; 93010; 93306-TC; 97116-GP; 97161-GP; 99284-25

== ENCOUNTER 2017-12-15 02:47 | Observation (INO) | payer MEDICARE, OTHER ==
--- NOTE | 2017-12-15 03:00 | PDOC ---
History of Present Illness - General History Source: EMS, Family Exam Limitations: Other (Non Verbal ) - History of Present Illness Initial Comments: 12/15/17 03:04 The patient is a 82 year old male, with a significant past medical history of hypertension, BPH, hypercholesterolemia, reflux, chronic low back pain, who presents to the emergency department via EMS for evaluation of cough. As per patients daughter via EMS, the patient has been coughing for the past couple of days. Pt. is non verbal and does not express any further information. Unknown if cough is productive. Unknown if patient has had recent fevers. Allergies: NKDA <Ramin Mosley - Last Filed: 12/15/17 06:12> - General History Source: EMS <Jose Guadalupe Kern - Last Filed: 12/15/17 19:23> - General Chief Complaint: Respiratory Stated Complaint: COUGH Time Seen by Provider: 12/15/17 02:58 Past History <Ramin Mosley - Last Filed: 12/15/17 06:12> - Past Medical History Anemia: No Asthma: No Cancer: No Cardiac Disorders: No CVA: No COPD: No CHF: No Dementia: No Diabetes: No GI Disorders: No Disorders: Yes (BPH) HTN: Yes Hypercholesterolemia: No Liver Disease: No Seizures: No Thyroid Disease: No - Surgical History Abdominal Surgery: No Appendectomy: No Cardiac Surgery: No Cholecystectomy: No Lung Surgery: No Neurologic Surgery: No Orthopedic Surgery: No - Immunization History Immunization Up to Date: Yes - Suicide/Smoking/Psychosocial Hx Smoking History: Unknown if ever smoked Have you smoked in the past 12 months: No Hx Alcohol Use: No Drug/Substance Use Hx: No Substance Use Type: None Hx Substance Use Treatment: No <Jose Guadalupe Kern - Last Filed: 12/15/17 19:23> - Past Medical History Allergies/Adverse Reactions: Allergies Allergy/AdvReac Type Severity Reaction Status Date / Time No Known Drug Allergies Allergy Verified 12/15/17 02:59 Home Medications: Ambulatory Orders Acetaminophen [Tylenol .Regular Strength -] 650 mg PO Q6H PRN tablet 10/31/17 Review of Systems - Review of Systems Able to Perform ROS?: No (Pt. is non-verbal.) <Ramin Mosley - Last Filed: 12/15/17 06:12> *Physical Exam - Vital Signs Last Vital Signs Temp Pulse Resp BP Pulse Ox 97.8 F 89 18 110/90 95 12/15/17 03:01 12/15/17 03:01 12/15/17 03:01 12/15/17 03:01 12/15/17 03:01 - Physical Exam Comments: 12/15/17 03:05 GENERAL: (+) Diaphoretic. Well-appearing, well-nourished. HEENT: Normocephalic, atraumatic. PERRL, EOM intact. CARDIOVASCULAR: Normal S1, S2. Regular rate and rhythm. PULMONARY: (+) Bilateral crackles and rhonchi greatest on the left side. ABDOMEN: Soft, non-distended, non-tender. EXTREMITIES: Normal ROM in all four extremities. No gross deformities. SKIN: Warm, dry. No rash NEUROLOGICAL: No focal neurological deficits. <Ramin Mosley - Last Filed: 12/15/17 06:12> Heart Score/ECG Review #1 12/15/17 05:18 Sinus tachycardia at 105 bpm. QT/QTc 326/[address] Kern. <Ramin Mosley - Last Filed: 12/15/17 06:12> ED Treatment Course - LABORATORY CBC & Chemistry Diagram: 12/15/17 03:00 12/15/17 03:00 - RADIOLOGY Radiograph Interpretation: 12/15/17 06:12 EXAM: ABDOMEN \T\ PELVIS CT W/O CONTR HISTORY: Pain COMPARISON: None. FINDINGS: Lung bases are clear. The visualized cardiac chambers are normal size and configuration. Normal unenhanced liver, gallbladder, pancreas, spleen, adrenal glands and kidneys. The stomach and small bowel are notable for a G tube. Large amount of diffuse solid stool is noted. There is no aortic aneurysm. There is no significant retroperitoneal lymphadenopathy. Old vertebral and left rib fracture fractures are noted. There is no evidence of appendicitis, although the appendix was not visuzalized. The urinary bladder is notable only for small right posterior diverticulum. The prostate gland is normal. No pelvic free fluid is identified. There is no significant pelvic lymphadenopathy. IMPRESSION: Small bladder diverticulum. Large amount of solid stool. Reported by Miguel Amanda MD <Ramin Mosley - Last Filed: 12/15/17 06:12> - LABORATORY CBC & Chemistry Diagram: 12/15/17 12:55 12/15/17 03:00 - RADIOLOGY Radiology Studies Ordered: Category Date Time Status CHEST X-RAY PORTABLE* [RAD] Stat Radiology 12/15/17 02:58 Ordered <Jose Guadalupe Kern - Last Filed: 12/15/17 19:23> Medical Decision Making - Medical Decision Making 12/15/17 19:23 Dr. Kern: The scribe's documentation has been prepared under my direction and personally reviewed by me in its entirery. I confirm that the note above accurately reflects all work, treatment, procedures, and medical decision making performed by me. <Jose Guadalupe Kern - Last Filed: 12/15/17 19:23> *DC/Admit/Observation/Transfer - Attestations Scribe Attestion: 12/15/17 03:09 Documentation prepared by Ramin Mosley, acting as medical apparatus model maker for Jose Guadalupe Kern MD. <Ramin Mosley - Last Filed: 12/15/17 06:12> <Jose Guadalupe eKrn - Last Filed: 12/15/17 19:23> Diagnosis at time of Disposition: GI bleed Qualifiers: GI bleed type/associated pathology: unspecified gastrointestinal hemorrhage type Qualified Code(s): K92.2 - Gastrointestinal hemorrhage, unspecified - Discharge Dispostion Condition at time of disposition: Fair
[2017-12-15 03:02] VITALS: BMI 21.2
[2017-12-15 03:28] LABS: BASO % 0.6 % (0-2.0); EOS % 0.9 % (0-4.5); HEMATOCRIT 42.5 % (35.4-49); HEMOGLOBIN 14.2 GM/dL (11.7-16.9); LYMPH % 27.8 % (8-40); MCH 32.7 pg (25.7-33.7); MCHC 33.5 g/dl (32.0-35.9); MEAN CELL VOLUME 97.7 fl (80-96); MEAN PLT VOLUME 7.3 fl (7.5-11.1); MONO % 7.4 % (3.8-10.2); NEUT % 63.3 % (42.8-82.8); PLATELET COUNT 314 K/MM3 (134-434); RBC 4.35 M/mm3 (4.00-5.60); RDW 14.1 % (11.9-15.9); WHITE BLOOD COUNT 5.5 K/mm3 (4.0-10.0)
[2017-12-15 03:41] LABS: INR 1.03 (0.82-1.09); PROTHROMBIN TIME (PATIENT) 11.6 SEC (9.98-11.88)
[2017-12-15 03:51] LABS: ALBUMIN 3.5 g/dl (3.4-5.0); ANION GAP 9 (8-16); BILIRUBIN,TOTAL 0.6 mg/dL (0.2-1.0); BLOOD UREA NITROGEN 28 mg/dL (7-18); CALCIUM 8.7 mg/dL (8.5-10.1); CHLORIDE 98 mmol/L (98-107); CO2 31 mmol/L (21-32); GLUCOSE,RANDOM 93 mg/dL (74-106); LIPASE 106 U/L (73-393); MAGNESIUM 2.3 mg/dL (1.8-2.4); POTASSIUM 3.9 mmol/L (3.5-5.1); SGOT/AST 31 U/L (15-37); SGPT/ALT 34 U/L (12-78); SODIUM 138 mmol/L (136-145); TOT PROT 7.3 g/dl (6.4-8.2)
[2017-12-15 03:54] LABS: ALK PHOS 77 U/L (45-117); N-TERMINAL BNP 203.11 pg/ml (5-450)
[2017-12-15 04:02] LABS: ACETONE SERUM NEGATIVE (NEGATIVE)
[2017-12-15] MEDS ORDERED: morphine CARPU-JECT 2 MG/1 ML DISP.SYRIN IVPUSH ONE (05:18)
[2017-12-15] MEDS ORDERED: ONDANSETRON 4 MG/2 ML VIAL IVPUSH STA (05:18)
[2017-12-15] MEDS ORDERED: SODIUM CHLORIDE 1,000 ML IV STA (05:19)
[2017-12-15] MEDS ORDERED: MORPHINE SULFATE 10 MG/1 ML *VIAL ONE (05:52)
[2017-12-15] MEDS ORDERED: ONDANSETRON 4 MG/2 ML VIAL ONE (05:53)
[2017-12-15] MEDS ORDERED: SODIUM CHLORIDE 500 ML IV STA (07:15)
[2017-12-15 07:24] LABS: URINE APPEARANCE SLCLOUDY; URINE BILIRUBIN NEGATIVE (NEGATIVE); URINE BLOOD 2+ (NEGATIVE); URINE COLOR YELLOW; URINE GLUCOSE (UA) NEGATIVE (NEGATIVE); URINE KETONE NEGATIVE (NEGATIVE); URINE NITRITE NEGATIVE (NEGATIVE); URINE PROTEIN NEGATIVE (NEGATIVE); URINE UROBILINOGEN NEGATIVE mg/dL (0.2-1.0)
[2017-12-15 07:36] LABS: URINE LEUK ESTERASE 3+ (NEGATIVE)
[2017-12-15 08:01] LABS: EPI CELLS RARE /HPF (FEW); URINE MUCUS RARE
[2017-12-15] MEDS ORDERED: PANTOPRAZOLE SODIUM 40 MG VIAL IVPUSH ONE (09:16)
[2017-12-15] MEDS ORDERED: PANTOPRAZOLE SODIUM 40 MG VIAL ONE (09:19)
--- NOTE | 2017-12-15 09:33 | PDOC ---
*Physical Exam - Vital Signs Last Vital Signs Temp Pulse Resp BP Pulse Ox 98.4 F 89 18 130/72 98 12/15/17 07:08 12/15/17 07:54 12/15/17 07:54 12/15/17 07:54 12/15/17 07:54 - Physical Exam Comments: 12/15/17 09:30 Patient is an 82-year-old male with aphasia who was referred to the ER for cough. Patient is nonverbal at baseline. Chest x-ray and CT of abdomen and pelvis revealed no evidence of acute pathology. Patient was noted to have large amount of hard and retained stool. CBC/CMP are unchanged from baseline. Urinalysis reveals WBCs and RBCs with leuk esterase. On my reevaluation, patient noted with small amount of bloody vomitus in the oropharynx and after aspiration from the G-tube, coffee ground emesis were obtained. I suspect upper GI bleed related to patient's aspirin therapy. We'll assembler dc field yoke protonic. We'll admit type and screen. Will consult GI. Will admit. ED Treatment Course - LABORATORY CBC & Chemistry Diagram: 12/15/17 03:00 12/15/17 03:00 - ADDITIONAL ORDERS Additional order review: Laboratory Results 12/15/17 12/15/17 12/15/17 06:20 03:18 03:00 PT with INR INR Sodium 138 Potassium 3.9 Chloride 98 Carbon Dioxide 31 Anion Gap 9 BUN 28 H D Creatinine 1.0 D Creat Clearance w eGFR > 60 Random Glucose 93 Lactic Acid 1.3 Calcium 8.7 Magnesium 2.3 D Total Bilirubin 0.6 D AST 31 D ALT 34 Alkaline Phosphatase 77 D Creatine Kinase 177 Creatine Kinase Index 2.0 CK-MB (CK-2) 3.591 Troponin I < 0.02 D B-Natriuretic Peptide 203.11 Total Protein 7.3 D Albumin 3.5 D Lipase 106 Urine Color Yellow Urine Appearance Slcloudy Urine pH 7.0 Ur Specific [place] 1.012 Urine Protein Negative Urine Glucose (UA) Negative Urine Ketones Negative Urine Blood 2+ H Urine Nitrite Negative Urine Bilirubin Negative Urine Urobilinogen Negative Ur Leukocyte Esterase 3+ H Urine WBC (Auto) 45 Urine RBC (Auto) 39 Ur Epithelial Cells Rare Urine Mucus Rare Acetone, Qual Negative 12/15/17 03:00 PT with INR 11.60 INR 1.03 Sodium Potassium Chloride Carbon Dioxide Anion Gap BUN Creatinine Creat Clearance w eGFR Random Glucose Lactic Acid Calcium Magnesium Total Bilirubin AST ALT Alkaline Phosphatase Creatine Kinase Creatine Kinase Index CK-MB (CK-2) Troponin I B-Natriuretic Peptide Total Protein Albumin Lipase Urine Color Urine Appearance Urine pH Ur Specific [place] Urine Protein Urine Glucose (UA) Urine Ketones Urine Blood Urine Nitrite Urine Bilirubin Urine Urobilinogen Ur Leukocyte Esterase Urine WBC (Auto) Urine RBC (Auto) Ur Epithelial Cells Urine Mucus Acetone, Qual 12/15/17 03:00 RBC 4.35 D MCV 97.7 H MCHC 33.5 RDW 14.1 MPV 7.3 L Neutrophils % 63.3 Lymphocytes % 27.8 D Monocytes % 7.4 Eosinophils % 0.9 Basophils % 0.6 - Medications Given in the ED: ED Medications Discontinued Medications Generic Name Dose Route Start Last Admin Trade Name Freq PRN Reason Stop Dose Admin Sodium Chloride 1,000 mls @ 1,000 mls/hr 12/15/17 05:19 12/15/17 05:30 Normal Saline - IV 12/15/17 06:18 1,000 mls/hr ASDIR STA Administration Sodium Chloride 500 mls @ 500 mls/hr 12/15/17 07:15 12/15/17 07:50 Normal Saline - IV 12/15/17 08:14 500 mls/hr ASDIR STA Administration Morphine Sulfate 2 mg 12/15/17 05:18 12/15/17 05:59 Morphine Injection - IVPUSH 12/15/17 05:19 2 mg ONCE ONE Administration Ondansetron HCl 4 mg 12/15/17 05:18 12/15/17 05:59 Zofran Injection IVPUSH 12/15/17 05:19 4 mg ONCE STA Administration Pantoprazole Sodium 40 mg 12/15/17 09:16 12/15/17 09:20 Protonix Iv IVPUSH 12/15/17 09:17 40 mg ONCE ONE Administration *DC/Admit/Observation/Transfer Diagnosis at time of Disposition: GI bleed Qualifiers: GI bleed type/associated pathology: unspecified gastrointestinal hemorrhage type Qualified Code(s): K92.2 - Gastrointestinal hemorrhage, unspecified - Discharge Dispostion Condition at time of disposition: Fair Admit: Yes - Referrals Referrals: Cristopher Stock [Primary Care Provider] - - Patient Instructions - Post Discharge Activity
[2017-12-15] MEDS ORDERED: CEFTRIAXONE 1 GM in DEXTROSE 5%-WATER - 50 ML IVPB SCH (10:30)
[2017-12-15] MEDS ORDERED: SODIUM CHLORIDE 1,000 ML IV SCH (10:30)
--- NOTE | 2017-12-15 10:45 | HP ---
Admitting History and Physical - Primary Care Physician PCP: Nixon Dorado - Admission Chief Complaint: cough per ED note History of Present Illness: This is an 82 year old male with pmh sig for dementia, chronic deconditioning with contractured extremities who had a PEG tube placed for dysphagia during last admission. Unable to obtain, pt nonverbal which is baseline however slightly lethargic today. Per ED notes, pt was brought in by daughter for "cough". In the ED, small amount of bloody vomitus in the oropharynx was seen and after aspiration from the G-tube, coffee ground emesis were obtained. Wbcs+, leuk es+. Abd CT showed large amount of stool in colon. Otherwise, pt resting in stretcher in no acute distress. vital signs stable. 1600 Pt lying in bed, more alert and appears at baseline. Pt denies any chest pain, sob, or nausea. 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 History of Recent Travel: No Home Medications - Allergies Allergies/Adverse Reactions: Allergies Allergy/AdvReac Type Severity Reaction Status Date / Time No Known Drug Allergies Allergy Verified 12/15/17 02:59 - Home Medications Home Medications: Ambulatory Orders Acetaminophen [Tylenol .Regular Strength -] 650 mg PO Q6H PRN tablet 10/31/17 Family Disease History - Family Disease History Family History: Unable to Obtain (pt non-verbal) Family Disease History: CA: Mother (brain tumor) Review of Systems Unable to obtain ROS, reason: pt non-verbal Physical Examination Vital Signs: Vital Signs Temperature 98.4 F 12/15/17 07:08 Pulse Rate 89 12/15/17 07:54 Respiratory Rate 18 12/15/17 07:54 Blood Pressure 130/72 12/15/17 07:54 O2 Sat by Pulse Oximetry (%) 98 12/15/17 07:54 Constitutional: Yes: No Distress, Thin Cardiovascular: Yes: Regular Rate and Rhythm. No: Gallop, Murmur, Rub Respiratory: Yes: WNL, Regular, CTA Bilaterally, Diminished (pt not taking deep breaths). No: Rales, Rhonchi, Tachypnea, Wheezes Gastrointestinal: Yes: Normal Bowel Sounds, Soft. No: Distention, Tenderness Extremities: Yes: Other (contracted) Edema: No Neurological: Yes: Lethargy Labs: CBC, BMP 12/15/17 03:00 12/15/17 03:00 Imaging - Results Chest X-ray: Report Reviewed Cat Scan: Report Reviewed Problem List - Problems (1) GI bleed Assessment/Plan: Unlikely, could be irritation from PEG Coffee ground output seen from peg output in ED A bedside lavage by GI revealed clear, with traces of bile return. EGD x 2 on prior admission revealed no significant pathology Baseline hg 11-12. Hg/Hct stable, could be falsely elevated as pt might be dehydrated Repeat hg/hct stable, vitals stable 500ml ns bolus Stool occult pending GI was consult reviewed Will monitor Code(s): K92.2 - GASTROINTESTINAL HEMORRHAGE, UNSPECIFIED Qualifiers: GI bleed type/associated pathology: unspecified gastrointestinal hemorrhage type Qualified Code(s): K92.2 - Gastrointestinal hemorrhage, unspecified (2) UTI (urinary tract infection) Assessment/Plan: UA with Leuk es+, wbc +, rbc+ pt afebrile chest xray neg Ceftriaxone 1g daily transition to po upon d/c Code(s): N39.0 - URINARY TRACT INFECTION, SITE NOT SPECIFIED Qualifiers: Indwelling urinary catheter type: unspecified Encounter type: initial encounter (3) Constipation Assessment/Plan: CT with large stool in colon Miralax via PEG TID dulcolax suppository monitor Code(s): K59.00 - CONSTIPATION, UNSPECIFIED (4) Difficulty swallowing Assessment/Plan: PEG in place, NPO continue tube feed and water flushes aspiration precaution keep HOB>45 deg Code(s): R13.10 - DYSPHAGIA, UNSPECIFIED Qualifiers: Dysphagia type: unspecified Qualified Code(s): R13.10 - Dysphagia, unspecified (5) Dementia Assessment/Plan: Advanced pt non verbal peg in place bed bound, extremities contracted Code(s): F03.90 - UNSPECIFIED DEMENTIA WITHOUT BEHAVIORAL DISTURBANCE Assessment/Plan Dispo: home tomorrow with services if tolerating tube feeds,has bm, h/h stable without further clinical deterioration. Daughter called, no response.
[2017-12-15] MEDS ORDERED: CEFTRIAXONE 1 GM/50 ML BAG ONE (10:55)
[2017-12-15] MEDS ORDERED: CEFTRIAXONE 1 G/50 ML PREMIX 50 ML IVPB SCH (10:58)
[2017-12-15] MEDS ORDERED: PANTOPRAZOLE SODIUM 80 MG in SODIUM CHLORIDE 100 ML IVPB SCH (12:00)
[2017-12-15] MEDS ORDERED: PANTOPRAZOLE SODIUM 160 MG in DEXTROSE 5%-WATER - 290 ML IVPB SCH (12:45)
--- NOTE | 2017-12-15 12:47 | CON.GI ---
Consult Consult Specialty:: GI Reason for Consultation:: Coffee ground emesis - History of Present Illness History of Present Illness: Chart reviewed. The pt is known to GI service from prior admission where a new G-tube was placed , and subsequently replaced as the pt pulled the original one out. Per ED intake: Patient is an 82-year-old male with aphasia who was referred to the ER for cough. Patient is nonverbal at baseline. CBC/CMP are unchanged from baseline. Urinalysis reveals WBCs and RBCs with leuk esterase. The patient noted with small amount of bloody vomitus in the oropharynx and after aspiration from the G-tube, coffee ground emesis were obtained. At the time of this encounter, the patient is at baseline, not in distress, calm. He cannot provide history du to advance dementia. A bedside lavage with 500 cc sterile water via the G-tube revealed clear, with traces of bile return. EGD x 2 on prior admission revealed no significant pathology. 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 History of Recent Travel: No Home Medications - Allergies Allergies/Adverse Reactions: Allergies Allergy/AdvReac Type Severity Reaction Status Date / Time No Known Drug Allergies Allergy Verified 12/15/17 02:59 - Home Medications Home Medications: Ambulatory Orders Acetaminophen [Tylenol .Regular Strength -] 650 mg PO Q6H PRN tablet 10/31/17 Family Disease History - Family Disease History Family History: Unremarkable Family Disease History: CA: Mother (brain tumor) Review of Systems Findings/Remarks: as per HPI, H&P Physical Exam-GI Vital Signs: Vital Signs Temperature 98.5 F 12/15/17 11:30 Pulse Rate 88 12/15/17 11:30 Respiratory Rate 16 12/15/17 11:30 Blood Pressure 134/84 12/15/17 11:30 O2 Sat by Pulse Oximetry (%) 98 12/15/17 11:03 Constitutional: Yes: No Distress, Calm Eyes: Yes: Conjunctiva Clear HENT: Yes: Atraumatic Neck: Yes: Supple Cardiovascular: Yes: Regular Rate and Rhythm Respiratory: Yes: Regular Gastrointestinal Inspection: No: Ascites, Distention ...Palpate: Yes: Soft, Other (G-tube intact). No: Firm/Rigid, Guarding Neurological: Yes: Lethargy, Other (arousable) Labs: CBC, BMP 12/15/17 03:00 12/15/17 03:00 INR, PTT INR 1.03 (0.82-1.09) 12/15/17 03:00 Laboratory Tests 12/15/17 12/15/17 12/15/17 03:00 03:00 03:00 WBC 5.5 RBC 4.35 D Hgb 14.2 D Hct 42.5 D MCV 97.7 H MCH 32.7 MCHC 33.5 RDW 14.1 Plt Count 314 D MPV 7.3 L Neutrophils % 63.3 Lymphocytes % 27.8 D Monocytes % 7.4 Eosinophils % 0.9 Basophils % 0.6 PT with INR 11.60 INR 1.03 Sodium 138 Potassium 3.9 Chloride 98 Carbon Dioxide 31 Anion Gap 9 BUN 28 H D Creatinine 1.0 D Creat Clearance w eGFR > 60 Random Glucose 93 Lactic Acid Calcium 8.7 Magnesium 2.3 D Total Bilirubin 0.6 D AST 31 D ALT 34 Alkaline Phosphatase 77 D Creatine Kinase 177 Creatine Kinase Index 2.0 CK-MB (CK-2) 3.591 Troponin I < 0.02 D B-Natriuretic Peptide 203.11 Total Protein 7.3 D Albumin 3.5 D Lipase 106 Urine Color Urine Appearance Urine pH Ur Specific [place] Urine Protein Urine Glucose (UA) Urine Ketones Urine Blood Urine Nitrite Urine Bilirubin Urine Urobilinogen Ur Leukocyte Esterase Urine WBC (Auto) Urine RBC (Auto) Ur Epithelial Cells Urine Mucus Acetone, Qual Negative Blood Type Antibody Screen 12/15/17 12/15/17 12/15/17 03:18 06:20 10:05 WBC RBC Hgb Hct MCV MCH MCHC RDW Plt Count MPV Neutrophils % Lymphocytes % Monocytes % Eosinophils % Basophils % PT with INR INR Sodium Potassium Chloride Carbon Dioxide Anion Gap BUN Creatinine Creat Clearance w eGFR Random Glucose Lactic Acid 1.3 Calcium Magnesium Total Bilirubin AST ALT Alkaline Phosphatase Creatine Kinase Creatine Kinase Index CK-MB (CK-2) Troponin I B-Natriuretic Peptide Total Protein Albumin Lipase Urine Color Yellow Urine Appearance Slcloudy Urine pH 7.0 Ur Specific [place] 1.012 Urine Protein Negative Urine Glucose (UA) Negative Urine Ketones Negative Urine Blood 2+ H Urine Nitrite Negative Urine Bilirubin Negative Urine Urobilinogen Negative Ur Leukocyte Esterase 3+ H Urine WBC (Auto) 45 Urine RBC (Auto) 39 Ur Epithelial Cells Rare Urine Mucus Rare Acetone, Qual Blood Type O POSITIVE Antibody Screen Negative Imaging - Results Cat Scan: Report Reviewed Assessment/Plan Advanced age, with advanced dementia male admitted with cough, UTI. Noted to have coffee ground material per G-tube. CT revealed large amount of stool in the colon. Hgb remains normal as is BUN. Lavage via G-tube showed clear return with traces of bile. EGD was done twice on prior admission and no significant lesion were identified at that time. Monitor for signs of bleeding, daily CBC Resume G-tube feeding with aspiration precautions Miralax via G-tube tid for the next few days Cough, UTI as per primary team
[2017-12-15 13:20] LABS: HEMATOCRIT 36.4 % (35.4-49); HEMOGLOBIN 12.5 GM/dL (11.7-16.9); MCH 33.5 pg (25.7-33.7); MCHC 34.3 g/dl (32.0-35.9); MEAN CELL VOLUME 97.7 fl (80-96); MEAN PLT VOLUME 6.8 fl (7.5-11.1); PLATELET COUNT 322 K/MM3 (134-434); RBC 3.72 M/mm3 (4.00-5.60); RDW 14.2 % (11.9-15.9)
[2017-12-15] MEDS: POLYETHYLENE GLYCOL 3350 119 GM BTL PEG SCH ×2 (14:15→21:17)
[2017-12-15] MEDS ORDERED: SODIUM CHLORIDE 0.9% 500 ML INFUS.BAG IV ONE (15:57)
[2017-12-15] MEDS ORDERED: BISACODYL 10 MG SUPP.RECT RC ONE (16:15)
[2017-12-16] MEDS: POLYETHYLENE GLYCOL 3350 119 GM BTL PEG SCH (06:12)
[2017-12-16 08:24] LABS: HEMATOCRIT 29.8 % (35.4-49); HEMOGLOBIN 10.4 GM/dL (11.7-16.9); MCHC 34.9 g/dl (32.0-35.9); MEAN CELL VOLUME 97.4 fl (80-96); MEAN PLT VOLUME 7.9 fl (7.5-11.1); PLATELET COUNT 248 K/MM3 (134-434); RBC 3.06 M/mm3 (4.00-5.60); WHITE BLOOD COUNT 6.1 K/mm3 (4.0-10.0)
[2017-12-16 08:26] LABS: BLOOD UREA NITROGEN 25 mg/dL (7-18); CHLORIDE 105 mmol/L (98-107); CREATININE 0.8 mg/dL (0.7-1.3); GLUCOSE,RANDOM 107 mg/dL (74-106); SODIUM 139 mmol/L (136-145)
[2017-12-16 08:34] LABS: ANION GAP 6 (8-16); CALCIUM 7.7 mg/dL (8.5-10.1); CO2 28 mmol/L (21-32); PHOSPHOROUS 2.8 mg/dL (2.5-4.9)
[2017-12-16 09:05] VITALS: BP 117/67; PULSE 68; TEMP 97
[2017-12-16] MEDS ORDERED: PANTOPRAZOLE SODIUM 40 MG VIAL IVPUSH SCH (10:00)
--- NOTE | 2017-12-16 10:11 | DS ---
Physical Examination Vital Signs: Vital Signs Temperature 97.0 F L 12/16/17 09:04 Pulse Rate 68 12/16/17 09:04 Respiratory Rate 20 12/16/17 09:04 Blood Pressure 117/67 12/16/17 09:04 O2 Sat by Pulse Oximetry (%) 97 12/16/17 02:00 Findings/Remarks: Pt appears at baseline, interacted and appears in no acute distress. Constitutional: Yes: Thin Cardiovascular: Yes: WNL, Regular Rate and Rhythm. No: Bruit, Gallop, Murmur Respiratory: Yes: WNL, Regular, CTA Bilaterally, Diminished Gastrointestinal: Yes: WNL, Normal Bowel Sounds, Soft. No: Distention, Tenderness Musculoskeletal: Yes: Joint Stiffness Extremities: Yes: Other (contracted extremities) Edema: No Neurological: Yes: Alert Psychiatric: Yes: Alert Labs: CBC, BMP 12/16/17 06:00 12/16/17 06:00 Discharge Summary Reason For Visit: GI HEMORRHAGE Current Active Problems Constipation (Acute) Dementia (Acute) GI bleed (Acute) UTI (urinary tract infection) (Acute) Hospital Course: is an 82 year old male with pmh sig for dementia, chronic deconditioning, dysphagia-s/p PEG, and BPH who was brought in by daughter from home for "cough". Chest xray, blood cultures neg. UA + w/ enterococcus. Abd CT with large stool in colon. In the ED, pt was evaluated by GI for concerns of GI bleed, gastric lavage was done, clear bilious output seen. Hg/Hct slightly dropped this morning, his h/h might've been falsely elevated at admission and this finding is not concerning. Hold aspirin until evaluated by PCP outpt. He was found to have UTI, constipation. He received miralax and was able to have a BM. Pt was treated for UTI during his stay, will send pt home on 7 days of augmentin as directed. Otherwise, pt has been doing well, at baseline, vital signs stable, tolerating tube feeds. This pt is medically cleared for d/c. This patient is not a patient of any longer. Daughter reports pt's PCP is through [facility] calls. Daughter advised to inform them of pt's d/ c and f/u. Condition: Fair - Instructions Diet, Activity, Other Instructions: resume tube feed/water flushes as before please keep head of the bed elevated 45 degrees can try miralax for constipation antibiotic twice a day x 7days via PEG lactobacillus x 7 days can continue home meds; can HOLD aspirin until evaluated by PCP outpt. Please call pcp and inform of d/c from hospital, recheck blood work(cbc) in 1-2 weeks Seek medical care if chest pain, sob, n/v/d, abd distention, fever/chills Referrals: Ellen Parks [Other] - 1 Week (Please call and inform PCP of d/c. Recheck cbc in 1-2 weeks ) Disposition: VNS/HOME HEALTH CARE - Home Medications Comprehensive Discharge Medication List: Ambulatory Orders Acetaminophen [Tylenol .Regular Strength -] 650 mg PO Q6H PRN tablet 10/31/17 Amox-Tr/K Cl [Augmentin - 500Mg Tablet] 1 tab PEG BID 7 Days #14 tablet Lactobacillus Acidophilus [Acidophilus] 1 each PEG DAILY 7 Days #7 tablet Flomax 0.4mg via PEG
== END 2017-12-16 10:37 | disposition home health service (06) ==
LOC: JER 02:47 → JERBED 10:18 → J7W 11:21
PROVIDERS: ADMIT Internal Medicine; ATTEND Internal Medicine
PROC: 3E0333Z Introduction of Anti-inflammatory into Peripheral Vein, Percutaneous Approach (ICD-10-PCS; principal; 2017-12-15)
PROC: 3E03329 Introduction of Other Anti-infective into Peripheral Vein, Percutaneous Approach (ICD-10-PCS; 2017-12-15)
PROC: 3E033GC Introduction of Other Therapeutic Substance into Peripheral Vein, Percutaneous Approach (ICD-10-PCS; 2017-12-15)
DX: K92.2 Gastrointestinal hemorrhage, unspecified (principal); N39.0 Urinary tract infection, site not specified; K59.00 Constipation, unspecified; R13.10 Dysphagia, unspecified; F03.90 Unspecified dementia, unspecified severity, without behavioral disturbance, psychotic disturbance, mood disturbance, and anxiety; Z93.1 Gastrostomy status; K21.9 Gastro-esophageal reflux disease without esophagitis; I10 Essential (primary) hypertension; N40.0 Benign prostatic hyperplasia without lower urinary tract symptoms; M54.5 Low back pain; G89.29 Other chronic pain
CPT/HCPCS: 36415; 71045-TC-FY; 74176-TC; 80048; 80053; 81003; 81015; 82009; 82550; 82553; 83605; 83690; 83735; 83880; 84100; 84484; 85025; 85027; 85610; 86850; 86900; 86901; 87040; 87086; 87186; 96361; 96374; 96375; 99285-25; G0378; J7030

== ENCOUNTER 2018-04-06 18:21 | Emergency (ER) | payer MEDICARE, OTHER ==
[2018-04-06 18:29] VITALS: BP 127/79; PULSE 91; BMI 21.2
--- NOTE | 2018-04-06 18:30 | PDOC ---
Rapid Medical Evaluation Time Seen by Provider: 04/06/18 18:23 Medical Evaluation: Allergies Allergy/AdvReac Type Severity Reaction Status Date / Time No Known Drug Allergies Allergy Verified 04/06/18 18:24 I have performed a brief in-person evaluation of this patient. The patient presents with a chief complaint of: trouble breathing x 2 days. coughing up phlegm. No fevers Pertinent physical exam findings: no cough. No accessory muscle use I have ordered the following: labs, CXR, ua The patient will proceed to the ED for further evaluation. Discharge Disposition - Diagnosis Trouble breathing - Referrals - Patient Instructions - Post Discharge Activity
[2018-04-06 19:29] LABS: BASO % 0.6 % (0-2.0); EOS % 3.7 % (0-4.5); HEMATOCRIT 37.2 % (35.4-49); HEMOGLOBIN 12.6 GM/dL (11.7-16.9); LYMPH % 16.6 % (8-40); MCH 33.2 pg (25.7-33.7); MEAN CELL VOLUME 97.7 fl (80-96); MEAN PLT VOLUME 7.5 fl (7.5-11.1); MONO % 9.2 % (3.8-10.2); NEUT % 69.9 % (42.8-82.8); PLATELET COUNT 286 K/MM3 (134-434); RDW 14.4 % (11.9-15.9); WHITE BLOOD COUNT 4.9 K/mm3 (4.0-10.0)
[2018-04-06 19:55] LABS: ALBUMIN 3.3 g/dl (3.4-5.0); ANION GAP 8 (8-16); BILIRUBIN,TOTAL 0.4 mg/dL (0.2-1.0); BLOOD UREA NITROGEN 28 mg/dL (7-18); CALCIUM 8.2 mg/dL (8.5-10.1); CHLORIDE 102 mmol/L (98-107); CO2 26 mmol/L (21-32); CREATININE 0.8 mg/dL (0.7-1.3); GLUCOSE,RANDOM 110 mg/dL (74-106); POTASSIUM 4.4 mmol/L (3.5-5.1); SGOT/AST 21 U/L (15-37); SGPT/ALT 31 U/L (12-78); SODIUM 136 mmol/L (136-145); TOT PROT 7.1 g/dl (6.4-8.2)
[2018-04-06 19:57] LABS: ALK PHOS 62 U/L (45-117)
--- NOTE | 2018-04-06 21:06 | PDOC ---
Attending Attestation - Resident Resident Name: LeandromarlonKingsley - ED Attending Attestation I have performed the following: I have examined & evaluated the patient, The case was reviewed & discussed with the resident, I agree w/resident's findings & plan, Exceptions are as noted <Jose Guadalupe Kern - Last Filed: 04/06/18 21:06> - HPI HPI: 04/06/18 21:13 The patient is an 83 year old male, accompanied by daughter, with a past medical history of dementia, CVA (nonverbal), dysphagia, with peg tube, hypertension, BPH, and previous GI bleed who presents to the emergency room with difficulty breathing. Daughter reports that she became concerned because the patient has been moaning a lot lately. The patient denies any pain. - Physicial Exam PE: 04/06/18 21:13 GENERAL: Well-appearing, well-nourished. No apparent distress. HEENT: Normocephalic, atraumatic. PERRL, EOM intact. CARDIOVASCULAR: Normal S1, S2. Regular rate and rhythm. PULMONARY: Clear to auscultation bilaterally. No rales or ronchi ABDOMEN: Soft, non-distended, non-tender. EXTREMITIES: Normal ROM in all four extremities. No gross deformities. SKIN: Warm, dry. No rash NEUROLOGICAL: No focal neurological deficits. - Medical Decision Making 04/06/18 21:14 Documentation prepared by Marquise Gutierrez, acting as medical technicians for Jose Guadalupe Kern DO. <Marquise Gutierrez - Last Filed: 04/06/18 21:14>
[2018-04-06 21:54] LABS: URINE APPEARANCE CLEAR; URINE BILIRUBIN NEGATIVE (<2.0 mg/dL); URINE COLOR YELLOW; URINE GLUCOSE (UA) NEGATIVE (NEGATIVE); URINE KETONE NEGATIVE (NEGATIVE); URINE LEUK ESTERASE NEGATIVE (NEGATIVE); URINE NITRITE NEGATIVE (NEGATIVE); URINE PROTEIN NEGATIVE (NEGATIVE); URINE UROBILINOGEN NEGATIVE mg/dL (0.2-1.0)
--- NOTE | 2018-04-06 22:40 | PDOC ---
History of Present Illness - General Chief Complaint: Shortness of Breath Stated Complaint: TROUBLE BREATHING/G.TUBE/LETHARGY Time Seen by Provider: 04/06/18 18:23 History Source: Patient Exam Limitations: No Limitations - History of Present Illness Initial Comments: 04/06/18 22:33 Patient is 83M with history of stroke and dementia with resultant dysphagia and s/p peg tube placement, HTN, BPH and HLD brought to the hospital today by family for altered mental status. Patient is essentially non-verbal, and is not able to give reliable history. He says no when asked if he was in pain. His family member reports that he said that he cannot breath. Patient has been moaning for the past day or so per family, which is not as his baseline. Family denies fevers, chills. Family does endorse associated cough and gurgling sounds in his throat with cough. Patient takes quetiapine and seroquel, no other significant medications. Past History - Past Medical History Allergies/Adverse Reactions: Allergies Allergy/AdvReac Type Severity Reaction Status Date / Time No Known Drug Allergies Allergy Verified 04/06/18 18:24 Home Medications: Ambulatory Orders Acetaminophen [Tylenol .Regular Strength -] 650 mg PO Q6H PRN tablet 10/31/17 Quetiapine Fumarate [Seroquel] 100 mg GT HS 04/06/18 Ranitidine [Zantac -] 150 mg GT BID 04/06/18 Tamsulosin HCl [Flomax] 0.4 mg GT DAILY 04/06/18 traZODone HCL [Desyrel -] 50 mg GT HS 04/06/18 Anemia: No Asthma: No Cancer: No Cardiac Disorders: No CVA: Yes COPD: No CHF: No Dementia: No Diabetes: No GI Disorders: No Disorders: Yes (BPH) HTN: Yes Hypercholesterolemia: No Liver Disease: No Seizures: No Thyroid Disease: No - Surgical History Abdominal Surgery: Yes (G.TUBE) Appendectomy: No Cardiac Surgery: No Cholecystectomy: No Lung Surgery: No Neurologic Surgery: No Orthopedic Surgery: No - Immunization History Immunization Up to Date: Yes - Suicide/Smoking/Psychosocial Hx Smoking History: Unknown if ever smoked Have you smoked in the past 12 months: No Information on smoking cessation initiated: No Hx Alcohol Use: No Drug/Substance Use Hx: No Substance Use Type: None Hx Substance Use Treatment: No Review of Systems - Review of Systems Able to Perform ROS?: No (2/2 clinical condition) *Physical Exam - Vital Signs Last Vital Signs Temp Pulse Resp BP Pulse Ox 91 H 18 127/79 95 04/06/18 18:27 04/06/18 18:27 04/06/18 18:27 04/06/18 18:27 - Physical Exam Comments: 04/06/18 22:37 GENERAL: Awake, alert, moaning HEAD: No signs of trauma, normocephalic, atraumatic EYES: PERRLA, EOMI, sclera anicteric, conjunctiva clear ENT: Auricles normal inspection, hearing grossly normal, nares patent, oropharynx clear without exudates. Moist mucosa NECK: Normal ROM, supple, no lymphadenopathy, JVD, or masses LUNGS: No distress, speaks full sentences, clear to auscultation bilaterally HEART: Regular rate and rhythm, normal S1 and S2, no murmurs, rubs or gallops, peripheral pulses normal and equal bilaterally. ABDOMEN: Soft, nontender, normoactive bowel sounds. No guarding, no rebound. No masses EXTREMITIES: Normal inspection, Normal range of motion, no edema. No clubbing or cyanosis. NEUROLOGICAL: Cranial nerves II through XII grossly intact. Contractures bilaterally SKIN: Warm, Dry, normal turgor, no rashes or lesions noted. ED Treatment Course - LABORATORY CBC & Chemistry Diagram: 04/06/18 19:26 04/06/18 19:26 - ADDITIONAL ORDERS Additional order review: Laboratory Results 04/06/18 04/06/18 04/06/18 20:19 19:26 19:26 Sodium 136 Potassium 4.4 Chloride 102 Carbon Dioxide 26 Anion Gap 8 BUN 28 H Creatinine 0.8 Creat Clearance w eGFR > 60 Random Glucose 110 H Lactic Acid 1.4 Calcium 8.2 L Total Bilirubin 0.4 D AST 21 D ALT 31 Alkaline Phosphatase 62 Creatine Kinase 142 Troponin I < 0.02 Total Protein 7.1 Albumin 3.3 L Urine Color Yellow Urine Appearance Clear Urine pH 6.0 Ur Specific [place] 1.014 Urine Protein Negative Urine Glucose (UA) Negative Urine Ketones Negative Urine Blood Negative Urine Nitrite Negative Urine Bilirubin Negative Urine Urobilinogen Negative Ur Leukocyte Esterase Negative 04/06/18 19:26 RBC 3.80 L D MCV 97.7 H MCHC 34.0 RDW 14.4 MPV 7.5 Neutrophils % 69.9 Lymphocytes % 16.6 D Monocytes % 9.2 Eosinophils % 3.7 D Basophils % 0.6 - RADIOLOGY Radiology Studies Ordered: Category Date Time Status HEAD CT WITHOUT CONTRAST [CT] Stat CT Scan 04/06/18 22:32 Ordered Medical Decision Making - Medical Decision Making 04/06/18 22:40 Patient is 83M with history of HTN, BPH, HLD, GI bleed, dysphagia secondary to stroke with peg tube, dementia, non-verbal here today with questionable mental status and cough. Vital signs normal and stable. Patient moaning on bedside. Unclear history and non-focal exam. DDx is wide, and includes: UTI, pneumonia, drug side effect. Will evaluate with cbc, cmp, ua, uc, cxr, ekg, head ct. 04/07/18 00:08 Laboratory Tests 04/06/18 04/06/18 04/06/18 19:26 19:26 20:19 WBC 4.9 Hgb 12.6 D Plt Count 286 BUN 28 H Creatinine 0.8 Troponin I < 0.02 Urine Nitrite Negative Ur Leukocyte Esterase Negative CBC normal. Cmp reassuring. UA negative. CT normal. Will discharge patient. Given return precautions. Patient's family member will call PCP tomorrow for further follow up. *DC/Admit/Observation/Transfer Diagnosis at time of Disposition: Dysphagia - Discharge Dispostion Disposition: HOME Condition at time of disposition: Good Decision to Admit order: No - Referrals Referrals: ON STAFF,NOT [Primary Care Provider] - - Patient Instructions Printed Discharge Instructions: DI for Oropharyngeal Dysphagia Additional Instructions: You were seen today in the ED for dysphagia. Please return if you have any new, worsening or concerning symptoms. Please follow up with your primary care physician tomorrow. - Post Discharge Activity
[2018-04-07 00:15] VITALS: TEMP 98.4
--- NOTE | 2018-04-07 11:55 | EKG ---
Test Reason : Blood Pressure : / mmHG Vent. Rate : 079 BPM Atrial Rate : 079 BPM P-R Int : 186 ms QRS Dur : 064 ms QT Int : 370 ms P-R-T Axes : 043 -28 017 degrees QTc Int : 424 ms POOR DATA QUALITY, INTERPRETATION MAY BE ADVERSELY AFFECTED NORMAL SINUS RHYTHM LOW VOLTAGE QRS BORDERLINE ECG WHEN COMPARED WITH ECG OF 18-OCT-2017 06:21, SINUS RHYTHM HAS REPLACED ATRIAL FIBRILLATION QRS AXIS SHIFTED LEFT NONSPECIFIC T WAVE ABNORMALITY NOW EVIDENT IN ANTERIOR LEADS NONSPECIFIC T WAVE ABNORMALITY NO LONGER EVIDENT IN LATERAL LEADS Confirmed by SHAHID CANNON MD ([id number]) on 04/07/2018 11:54:32 AM Referred By: Confirmed By:SHAHID CANNON MD
== END 2018-04-07 00:17 | disposition home or self-care (01) ==
LOC: JER 18:21
DX: R13.12 Dysphagia, oropharyngeal phase (principal); I10 Essential (primary) hypertension; N40.0 Benign prostatic hyperplasia without lower urinary tract symptoms; E78.5 Hyperlipidemia, unspecified; I69.820 Aphasia following other cerebrovascular disease; F03.90 Unspecified dementia, unspecified severity, without behavioral disturbance, psychotic disturbance, mood disturbance, and anxiety; Z93.1 Gastrostomy status
CPT/HCPCS: 36415; 70450-TC; 71045-TC-FY; 80053; 81003; 82550; 83605; 84484; 85025; 87086; 93005; 93010; 99282-25

== ENCOUNTER 2018-08-09 08:36 | Inpatient (IN) | payer MEDICARE, OTHER ==
--- NOTE | 2018-08-09 09:11 | PDOC ---
History of Present Illness - History of Present Illness Initial Comments: PMD changed to [facility] (previously Dr. Dorado) 08/09/18 12:13 <Etelvina Hudson - Last Filed: 08/09/18 12:13> - History of Present Illness Initial Comments: 08/09/18 09:11 Mr. Tripathi is an 83 yo male w/ pmh of stroke, dementia, dysphagia s/p peg tube, HTN, BPH, HLD, GI bleed who presents for evaluation of nausea and vomiting x1 day. Per daughter who is with him he typically has reflux however had an instance of vomiting up greenish liquid. Per family he eats only through g-tube however they believe he may have aspirated some of his liquid as well. He is also making a coughing/grunting noise that family reports is abnormal. <Fili Mccormick - Last Filed: 08/09/18 12:21> - General Chief Complaint: Nausea/Vomiting Stated Complaint: VOMITING Time Seen by Provider: 08/09/18 09:11 Past History <Etelvina Hudson - Last Filed: 08/09/18 12:13> - Past Medical History Anemia: No Asthma: No Cancer: No Cardiac Disorders: No CVA: Yes (2017) COPD: No CHF: No Dementia: No Diabetes: No GI Disorders: No Disorders: Yes (BPH) HTN: Yes Hypercholesterolemia: No Liver Disease: No Seizures: No Thyroid Disease: No - Surgical History Abdominal Surgery: Yes (G.TUBE) Appendectomy: No Cardiac Surgery: No Cholecystectomy: No Lung Surgery: No Neurologic Surgery: No Orthopedic Surgery: No - Immunization History Immunization Up to Date: Yes - Suicide/Smoking/Psychosocial Hx Smoking History: Unknown if ever smoked Have you smoked in the past 12 months: No Hx Alcohol Use: No Drug/Substance Use Hx: No Substance Use Type: None Hx Substance Use Treatment: No <Fili Mccormick - Last Filed: 08/09/18 12:21> - Past Medical History Allergies/Adverse Reactions: Allergies Allergy/AdvReac Type Severity Reaction Status Date / Time No Known Drug Allergies Allergy Verified 08/09/18 08:50 Home Medications: Ambulatory Orders Furosemide [Lasix] 20 mg GT DAILY 08/09/18 Quetiapine Fumarate [Seroquel] 100 mg GT DAILY 08/09/18 Ranitidine [Zantac -] 100 mg GT DAILY 08/09/18 Tamsulosin HCl [Flomax] 0.4 mg GT DAILY 08/09/18 traZODone HCL [Trazodone HCl] 100 mg GT DAILY 08/09/18 Review of Systems - Review of Systems Comments:: 08/09/18 10:02 Unable to obtain further. <Fili Mccormick - Last Filed: 08/09/18 12:21> *Physical Exam - Vital Signs Last Vital Signs Temp Pulse Resp BP Pulse Ox 98.2 F 100 H 18 114/71 100 08/09/18 09:45 08/09/18 08:51 08/09/18 08:51 08/09/18 08:51 08/09/18 08:51 <Etelvina Hudsonleeroy - Last Filed: 08/09/18 12:13> - Vital Signs Last Vital Signs Temp Pulse Resp BP Pulse Ox 98.4 F 100 H 18 114/71 100 08/09/18 08:51 08/09/18 08:51 08/09/18 08:51 08/09/18 08:51 08/09/18 08:51 - Physical Exam Comments: 08/09/18 10:02 GENERAL: Awake and oriented to baseline per family, patient lying contracted in bed and groaning HEAD: No signs of trauma, normocephalic, atraumatic EYES: PERRLA, EOMI, sclera anicteric, conjunctiva clear ENT: Auricles normal inspection, hearing grossly normal, nares patent, oropharynx clear without exudates. Moist mucosa NECK: Normal ROM, supple, no lymphadenopathy, JVD, or masses LUNGS: +Audible gurgling appreciable w/out stethoscope. Otherwise coarse breath sounds appreciated throughout lung byrnes. HEART: Regular rate and rhythm, normal S1 and S2, no murmurs, rubs or gallops, peripheral pulses normal and equal bilaterally. ABDOMEN: Soft, nontender, normoactive bowel sounds. No guarding, no rebound. No masses EXTREMITIES: Normal inspection, Normal range of motion, no edema. No clubbing or cyanosis. NEUROLOGICAL: +Unable to assess further SKIN: Warm, Dry, normal turgor, no rashes or lesions noted. <Fili Mccormick - Last Filed: 08/09/18 12:21> ED Treatment Course - LABORATORY CBC & Chemistry Diagram: 08/09/18 09:34 08/09/18 10:00 - ADDITIONAL ORDERS Additional order review: Laboratory Results 08/09/18 08/09/18 10:00 09:34 Sodium 134 L Cancelled Potassium 4.1 Cancelled Chloride 98 Cancelled Carbon Dioxide 27 Cancelled Anion Gap 10 Cancelled BUN 25 H Cancelled Creatinine 1.0 Cancelled Creat Clearance w eGFR > 60 Cancelled Random Glucose 73 L Cancelled Calcium 8.4 L Cancelled Total Bilirubin 0.9 Cancelled AST 33 Cancelled ALT 33 Cancelled Alkaline Phosphatase 75 Cancelled Total Protein 6.6 Cancelled Albumin 2.7 L Cancelled Lipase 47 L Cancelled 08/09/18 09:34 RBC 4.16 MCV 96.7 H MCHC 33.4 RDW 13.6 MPV 7.0 L Neutrophils % 82.8 Lymphocytes % 10.2 D Monocytes % 5.4 Eosinophils % 1.1 Basophils % 0.5 - Medications Given in the ED: ED Medications Discontinued Medications Generic Name Dose Route Start Last Admin Trade Name Freq PRN Reason Stop Dose Admin Albuterol/Ipratropium 1 amp 08/09/18 09:45 08/09/18 10:31 Duoneb - NEB 08/09/18 09:46 Not Given ONCE ONE Albuterol/Ipratropium 1 amp 08/09/18 10:00 08/09/18 10:46 Duoneb - NEB 08/09/18 10:46 1 amp Q15M CARMELO Administration Famotidine/Sodium Chloride 20 mg in 50 mls @ 100 mls/hr 08/09/18 09:26 10:03 Pepcid 20 Mg Premixed Ivpb - IVPB 08/09/18 09:55 100 mls/hr ONCE ONE Administration Sodium Chloride 1,000 mls @ 1,000 mls/hr 08/09/18 09:26 08/09/18 10:02 Normal Saline - IV 08/09/18 10:25 1,000 mls/hr ASDIR STA Administration Ceftriaxone Sodium 1,000 mg/ 50 mls @ 100 mls/hr 08/09/18 10:58 08/09/18 11: 44 Dextrose IVPB 08/09/18 11:27 Not Given ONCE ONE Doxycycline Hyclate 100 mg/ 100 mls @ 100 mls/hr 08/09/18 10:58 08/09/18 11: 44 Dextrose IVPB 08/09/18 11:57 Not Given ONCE ONE Piperacillin Sod/Tazobactam 100 mls @ 200 mls/hr 08/09/18 11:15 08/09/18 11: 37 Sod 4.5 gm/ Dextrose IVPB 08/09/18 11:44 200 mls/hr ONCE ONE Administration Protocol Ondansetron HCl 4 mg 08/09/18 09:27 08/09/18 10:03 Zofran Injection IVPUSH 08/09/18 09:28 4 mg ONCE ONE Administration <Etelvina Hudson - Last Filed: 08/09/18 12:13> - LABORATORY CBC & Chemistry Diagram: 08/09/18 09:34 08/09/18 10:00 <Fili Mccormick - Last Filed: 08/09/18 12:21> Medical Decision Making - Medical Decision Making 08/09/18 11:29 Mr. Tripathi is an 83 yo male w/ pmh as described who presents for evaluation of symptoms concerning for aspiration pneumonia. EKG non-contributory as patient unable to participate. EKG significant for possible left basilar infiltrate. Given history and elevated white count ABX started w/ coverage for enterics. Hospitalist paged for admission for further evaluation. Laboratory Results - last 24 hr 08/09/18 08/09/18 08/09/18 09:34 09:34 10:00 WBC 11.9 H RBC 4.16 Hgb 13.4 Hct 40.2 MCV 96.7 H MCH 32.3 MCHC 33.4 RDW 13.6 Plt Count 321 MPV 7.0 L Absolute Neuts (auto) 9.9 H Neutrophils % 82.8 Lymphocytes % 10.2 D Monocytes % 5.4 Eosinophils % 1.1 Basophils % 0.5 Nucleated RBC % 0 Sodium Cancelled 134 L Potassium Cancelled 4.1 Chloride Cancelled 98 Carbon Dioxide Cancelled 27 Anion Gap Cancelled 10 BUN Cancelled 25 H Creatinine Cancelled 1.0 Creat Clearance w eGFR Cancelled > 60 Random Glucose Cancelled 73 L Calcium Cancelled 8.4 L Total Bilirubin Cancelled 0.9 AST Cancelled 33 ALT Cancelled 33 Alkaline Phosphatase Cancelled 75 Total Protein Cancelled 6.6 Albumin Cancelled 2.7 L Lipase Cancelled 47 L <Fili Mccormick - Last Filed: 08/09/18 12:21> *DC/Admit/Observation/Transfer - Discharge Dispostion Decision to Admit order: Yes Decision to Admit order Date/Time: 08/09/18 11:54 <Etelvina Hudson - Last Filed: 08/09/18 12:13> - Discharge Dispostion Decision to Admit order: Yes <Fili Mccormick - Last Filed: 08/09/18 12:21> Diagnosis at time of Disposition: Aspiration pneumonia Qualifiers: Aspiration pneumonia type: unspecified Laterality: unspecified laterality Lung location: unspecified part of lung Qualified Code(s): J69.0 - Pneumonitis due to inhalation of food and vomit - Discharge Dispostion Condition at time of disposition: Guarded
[2018-08-09] MEDS ORDERED: FAMOTIDINE 20 MG/50 ML IVPB 20 MG/50 ML MG IVPB ONE ×2 (09:26→09:43)
[2018-08-09] MEDS ORDERED: SODIUM CHLORIDE 1,000 ML IV STA (09:26)
[2018-08-09] MEDS ORDERED: ONDANSETRON 4 MG/2 ML VIAL IVPUSH ONE (09:27)
[2018-08-09 09:43] LABS: BASO % 0.5 % (0-2.0); EOS % 1.1 % (0-4.5); HEMATOCRIT 40.2 % (35.4-49); HEMOGLOBIN 13.4 GM/dL (11.7-16.9); LYMPH % 10.2 % (8-40); MCH 32.3 pg (25.7-33.7); MCHC 33.4 g/dl (32.0-35.9); MEAN CELL VOLUME 96.7 fl (80-96); MONO % 5.4 % (3.8-10.2); NEUT % 82.8 % (42.8-82.8); PLATELET COUNT 321 K/MM3 (134-434); RBC 4.16 M/mm3 (4.00-5.60); RDW 13.6 % (11.9-15.9); WHITE BLOOD COUNT 11.9 K/mm3 (4.0-10.0)
[2018-08-09] MEDS ORDERED: ALBUTEROL SO4 2.5/IPRATROPIUM 0.5 INH SOL 3 ML VIAL.NEB. NEB ONE ×2 (09:45→10:03)
[2018-08-09] MEDS ORDERED: ONDANSETRON 4 MG/2 ML VIAL ONE (09:45)
--- NOTE | 2018-08-09 09:58 | PDOC ---
Attending Attestation - HPI HPI: 08/09/18 10:48 Romeo Tripathi is an 83 YO M, with a past medical history of stroke (with residual dysphagia), nonverbal at baseline, dementia, s/p peg tube placement, HTN, BPH, HLD, GERD, who presents to the ED for evaluation of 1 day of nausea and vomiting. Family is a bedside and believes that the patient aspirated. On exam, patient sounds gurgly. HPI is limited due to patients clinical condition. Allergies: NKDA Social History: None reported. Surgical History: G-tube placement <Dahlia Perez - Last Filed: 08/09/18 10:48> - Resident Resident Name: Fili Mccormick - ED Attending Attestation I have performed the following: I have examined & evaluated the patient, The case was reviewed & discussed with the resident, I agree w/resident's findings & plan - Physicial Exam PE: 08/09/18 09:58 Moaning, nonverbal, dry membranes. nl conjunctiva, anicteric; neck supple. lungs with scant rhonchi at bases, but poor inspiratory effort and constantly moaning, RRR, abdomen soft nontender. G-tube in place. contracted extremities. No peripheral edema. normal color for ethnicity, WWP. 08/09/18 11:52 - Medical Decision Making 08/09/18 09:57 Romeo Tripathi is an 83 YO M, with a past medical history of stroke (with residual dysphagia), nonverbal at baseline, dementia, s/p peg tube placement, HTN, BPH, HLD, GERD, who presents to the ED for evaluation of 1 day of nausea and vomiting, +productive cough and gurgling. Vital signs reviewed, borderline tachy to 100. Rectal temp 36.8, afebrile. Normal sats, but moaning. nonverbal, at baseline status. Prior notes reviewed, including admissions, discharges and consultations. laboratory results and imaging reviewed, basic labs and lytes wnl, notable for leukocytosis 11.9K, changed from prior. CXR_left basilar infiltrate possible, rotated. EKG normal sinus rhythm, no interval abnormalities, narrow QRS, ST and T wave segments and morphology normal. Nonspecific T wave abnormalities; limited by artifact. ED course: no acute events, remained stable and well appearing. Interventions include duonebs for gurgling and respiratory support, zofran and pepcid for n/v , IVF hydration. Pending Sputum culture. Given no fevers, however with new leukocytosis and aspiration risk, will treat pneumonia Zosyn given suspected aspiration pneumonia. Dispo: Admit for medical management, respiratory support, chest PT and hydration , serial abdomen exams, suspected pneumonia.. admit to hospitalist, changed PMDs. 08/09/18 11:16 08/09/18 11:53 <Etelvina Hudson - Last Filed: 08/09/18 11:53> Heart Score/ECG Review - ECG Impressions Normal ECG: No Comment:: 08/09/18 09:58 EKG normal sinus rhythm, no interval abnormalities, narrow QRS, ST and T wave segments and morphology normal. Nonspecific T wave abnormalities; limited by artifact. <Etelvina Hudson - Last Filed: 08/09/18 11:53> Attestations - Attestations 08/09/18 10:48 Documentation prepared by Dahlia Perez, acting as medical anthropology director for Etelvina Hudson MD. <Dahlia Perez - Last Filed: 08/09/18 10:48> - Attestations Physician Attestation: 08/09/18 11:13 I, Etelvina Hudson MD, attest that this document has been prepared under my direction and personally reviewed by me in its entirety. I further attest, that it accurately reflects all work, treatment, procedures and medical decision -making performed by me. <Etelvina Hudson - Last Filed: 08/09/18 11:53>
[2018-08-09] MEDS: ALBUTEROL SO4 2.5/IPRATROPIUM 0.5 INH SOL 3 ML VIAL.NEB. NEB SCH ×4 (10:08→10:46)
[2018-08-09] MEDS ORDERED: CEFTRIAXONE 1,000 MG in DEXTROSE 5%-WATER - 50 ML IVPB ONE (10:58)
[2018-08-09] MEDS ORDERED: DOXYCYCLINE INJECTION 100 MG in DEXTROSE 5%-WATER - 100 ML IVPB ONE (10:58)
[2018-08-09 11:05] LABS: ALBUMIN 2.7 g/dl (3.4-5.0); ALK PHOS 75 U/L (45-117); ANION GAP 10 MMOL/L (8-16); BILIRUBIN,TOTAL 0.9 mg/dL (0.2-1); BLOOD UREA NITROGEN 25 mg/dL (7-18); CALCIUM 8.4 mg/dL (8.5-10.1); CHLORIDE 98 mmol/L (98-107); CO2 27 mmol/L (21-32); GLUCOSE,RANDOM 73 mg/dL (74-106); LIPASE 47 U/L (73-393); POTASSIUM 4.1 mmol/L (3.5-5.1); SGOT/AST 33 U/L (15-37); SGPT/ALT 33 U/L (13-61); SODIUM 134 mmol/L (136-145); TOT PROT 6.6 g/dl (6.4-8.2)
[2018-08-09] MEDS ORDERED: PIPERACILLIN/TAZOB 4.5 GM 4.5 GM in DEXTROSE 5%-WATER 100 ML IVPB ONE (11:15)
[2018-08-09] MEDS ORDERED: PIPERACILLIN/TAZOB 4.5 GM 4.5 GM/100 ML BAG IVPB ONE (11:28)
[2018-08-09 12:17] LABS: ANISOCYTOSIS 1+; MACROCYTOSIS 1+; PLATELET ESTIMATE NORMAL
--- NOTE | 2018-08-09 12:48 | EKG ---
Test Reason : Blood Pressure : / mmHG Vent. Rate : 097 BPM Atrial Rate : 100 BPM P-R Int : 000 ms QRS Dur : 064 ms QT Int : 346 ms P-R-T Axes : 000 -07 025 degrees QTc Int : 439 ms POOR DATA QUALITY, INTERPRETATION MAY BE ADVERSELY AFFECTED UNDETERMINED RHYTHM SEPTAL INFARCT , AGE UNDETERMINED ABNORMAL ECG Confirmed by MD JEREMIAH, KEY ([id number]) on 08/09/2018 12:47:52 PM Referred By: Confirmed By:KEY DANIELS MD
--- NOTE | 2018-08-09 14:32 | HP ---
CHIEF COMPLAINT: HISTORY OF PRESENT ILLNESS: Romeo Tripathi is an 83 YO M, with a past medical history of stroke (with residual dysphagia), nonverbal at baseline, dementia, s/p peg tube placement, HTN, BPH, HLD, GERD, who presents to the ED for evaluation of 1 day of nausea and vomiting. Family is a bedside and believes that the patient aspirated. On exam, patient sounds gurgly. HPI is limited due to patients clinical condition. ER course was notable for: (1)cbc , bmp (2)NSS (3)Abx Recent Travel:denies PAST MEDICAL HISTORY:as per HPI PAST SURGICAL HISTORY: PEG, TURP Social History: Smoking:denies Alcohol:denies Drugs: denies Family History:not able to obtain Allergies No Known Drug Allergies Allergy (Verified 08/09/18 08:50) HOME MEDICATIONS: Home Medications Medication Instructions Recorded Furosemide [Lasix] 20 mg GT DAILY 08/09/18 Quetiapine Fumarate [Seroquel] 100 mg GT DAILY 08/09/18 Ranitidine [Zantac -] 100 mg GT DAILY 08/09/18 Tamsulosin HCl [Flomax] 0.4 mg GT DAILY 08/09/18 traZODone HCL [Trazodone HCl] 100 mg GT DAILY 08/09/18 REVIEW OF SYSTEMS CONSTITUTIONAL: Absent: fever, chills, diaphoresis, generalized weakness, malaise, loss of appetite, weight change HEENT: Absent: rhinorrhea, nasal congestion, throat pain, throat swelling, difficulty swallowing, mouth swelling, ear pain, eye pain, visual changes CARDIOVASCULAR: Absent: chest pain, syncope, palpitations, irregular heart rate, lightheadedness , peripheral edema RESPIRATORY: Absent: cough, shortness of breath, dyspnea with exertion, orthopnea, wheezing, stridor, hemoptysis GASTROINTESTINAL: Absent: abdominal pain, abdominal distension, nausea, vomiting, diarrhea, constipation, melena, hematochezia GENITOURINARY: Absent: dysuria, frequency, urgency, hesitancy, hematuria, flank pain, genital pain MUSCULOSKELETAL: Absent: myalgia, arthralgia, joint swelling, back pain, neck pain SKIN: Absent: rash, itching, pallor HEMATOLOGIC/IMMUNOLOGIC: Absent: easy bleeding, easy bruising, lymphadenopathy, frequent infections ENDOCRINE: Absent: unexplained weight gain, unexplained weight loss, heat intolerance, cold intolerance NEUROLOGIC: Absent: headache, focal weakness or paresthesias, dizziness, unsteady gait, seizure, mental status changes, bladder or bowel incontinence PSYCHIATRIC: Absent: anxiety, depression, suicidal or homicidal ideation, hallucinations. PHYSICAL EXAMINATION Vital Signs - 24 hr 08/09/18 08/09/18 08/09/18 08:51 09:45 12:25 Temperature 98.4 F 98.2 F 100.1 F H Pulse Rate 100 H Pulse Rate [ 101 H Right] Respiratory 18 Rate Blood Pressure 114/71 Blood Pressure 98/77 [Right Arm] O2 Sat by Pulse 100 88 L Oximetry (%) 08/09/18 13:45 Temperature 99.8 F H Pulse Rate Pulse Rate [ Right] Respiratory Rate Blood Pressure Blood Pressure [Right Arm] O2 Sat by Pulse Oximetry (%) GENERAL: Awake, alert, and fully oriented, in no acute distress. HEAD: Normal with no signs of trauma. EYES: Pupils equal, round and reactive to light, extraocular movements intact, sclera anicteric, conjunctiva clear. No lid lag. EARS, NOSE, THROAT: Ears normal, nares patent, oropharynx clear without exudates. Moist mucous membranes. NECK: Normal range of motion, supple without lymphadenopathy, JVD, or masses. LUNGS: Breath sounds equal, clear to auscultation bilaterally. No wheezes, and no crackles. No accessory muscle use. HEART: Regular rate and rhythm, normal S1 and S2 without murmur, rub or gallop. ABDOMEN: Soft, nontender, not distended, normoactive bowel sounds, no guarding, no rebound, no masses. No hepatomegaly or splenomegaly. MUSCULOSKELETAL: Normal range of motion at all joints. No bony deformities or tenderness. No CVA tenderness. UPPER EXTREMITIES: 2+ pulses, warm, well-perfused. No cyanosis. No clubbing. No peripheral edema. LOWER EXTREMITIES: 2+ pulses, warm, well-perfused. No calf tenderness. No peripheral edema. NEUROLOGICAL: Cranial nerves II-XII intact. Normal speech. Normal gait. PSYCHIATRIC: Cooperative. Good eye contact. Appropriate mood and affect. SKIN: Warm, dry, normal turgor, no rashes or lesions noted, normal capillary refill. Laboratory Results - last 24 hr 08/09/18 08/09/18 08/09/18 09:34 09:34 10:00 WBC 11.9 H RBC 4.16 Hgb 13.4 Hct 40.2 MCV 96.7 H MCH 32.3 MCHC 33.4 RDW 13.6 Plt Count 321 MPV 7.0 L Absolute Neuts (auto) 9.9 H Neutrophils % 82.8 Neutrophils % (Manual) 78.1 Band Neutrophils % 3.1 Lymphocytes % 10.2 D Lymphocytes % (Manual) 11.5 Monocytes % 5.4 Monocytes % (Manual) 5 Eosinophils % 1.1 Eosinophils % (Manual) 2.1 Basophils % 0.5 Basophils % (Manual) 0.0 Myelocytes % (Man) 0 Promyelocytes % (Man) 0 Blast Cells % (Manual) 0 Nucleated RBC % 0 Metamyelocytes 0 Hypochromia 0 Platelet Estimate Normal Polychromasia 0 Poikilocytosis 0 Anisocytosis 1+ Macrocytosis 1+ Sodium Cancelled 134 L Potassium Cancelled 4.1 Chloride Cancelled 98 Carbon Dioxide Cancelled 27 Anion Gap Cancelled 10 BUN Cancelled 25 H Creatinine Cancelled 1.0 Creat Clearance w eGFR Cancelled > 60 Random Glucose Cancelled 73 L Calcium Cancelled 8.4 L Total Bilirubin Cancelled 0.9 AST Cancelled 33 ALT Cancelled 33 Alkaline Phosphatase Cancelled 75 Total Protein Cancelled 6.6 Albumin Cancelled 2.7 L Lipase Cancelled 47 L CBC, BMP 08/09/18 09:34 08/09/18 10:00 ASSESSMENT/PLAN: 83 year old male with hx of stroke with residual swallowing diffuclties, PEG tube , BPH , presented to the ED from home with one day hx of couphing , vomiting and sob and was found to have LLL opacification and leucocytosis and was admitted to med-surg for aspiration pneumonia # Sepsis 2/2 Aspiration pneumonia * Fever 100.4 , HR 101, with sourse of infection * CXR in ED with LLL infilitrate * started on Zosyn in ED , * consult ID * incentive spirometry * O2 to keep o2 sat > 94 % * IV fluids NS 83 CC/hr * LA * Repeat lab in AM * hold feeding for now * head of bed elevation * dietitian consult * Tylenol for pain and fever # BPH , stable * monitor Urine out put * cont home meds # PEG tube * in place with no leaking or signs of infection * Hold feeding for now # FEN * F: NS @ 83 CC/hr * E: monitor and replenish as needed * N: NPO , hold feeding # Proph * DVTS : HEP SQ TID * GI: Famotidine # Dispo: admit to med surg # Code status : will discuss with the daughter Visit type - Emergency Visit Emergency Visit: Yes ED Registration Date: 08/09/18 Care time: The patient presented to the Emergency Department on the above date and was hospitalized for further evaluation of their emergent condition. - New Patient This patient is new to me today: Yes Date on this admission: 08/09/18 - Critical Care Critical Care patient: No
--- NOTE | 2018-08-09 14:33 | HP ---
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 Daughter endorses that pt lives with her at home. Per daughter, pt is fed through a PEG tube as he has dysphagia 2/2 dementia. Pt was on his normal tube feeds yesterday evening when the daughter observed her father chocking and have an episode of vomiting. Daughter states vomitus was thick and green in color. Daughter believes that pt may have aspirated on his vomitus. Additionally, daughter endorses that she flushed pt's PEG tube this past Wednesday and noticed a thick, greenish discharge within the PEG tube. PEr daughter, pt has been afebrile. Pt uses a wheelchair at baseline. Is able to verbally commuicate and recall various family members names. ER course was notable for: (1) Zosyn 4.45 gm (2) NS 1000cc/hr (3) cxray--> L basilar infiltrate cant be excluded Recent Travel: PAST MEDICAL HISTORY: per hpi PAST SURGICAL HISTORY: PEG placement, TURP? Social History: Smoking: denies Alcohol: denies Drugs: denies Family History: Allergies No Known Drug Allergies Allergy (Verified 08/09/18 08:50) HOME MEDICATIONS: Home Medications Medication Instructions Recorded Furosemide [Lasix] 20 mg GT DAILY 08/09/18 Quetiapine Fumarate [Seroquel] 100 mg GT DAILY 08/09/18 Ranitidine [Zantac -] 100 mg GT DAILY 08/09/18 Tamsulosin HCl [Flomax] 0.4 mg GT DAILY 08/09/18 traZODone HCL [Trazodone HCl] 100 mg GT DAILY 08/09/18 REVIEW OF SYSTEMS pt unable to provide any history PHYSICAL EXAMINATION Vital Signs - 24 hr 08/09/18 08/09/18 08/09/18 08:51 09:45 12:25 Temperature 98.4 F 98.2 F 100.1 F H Pulse Rate 100 H Pulse Rate [ 101 H Right] Respiratory 18 Rate Blood Pressure 114/71 Blood Pressure 98/77 [Right Arm] O2 Sat by Pulse 100 88 L Oximetry (%) 08/09/18 08/09/18 08/09/18 12:30 13:45 14:31 Temperature 99.8 F H Pulse Rate Pulse Rate [ 99 H Right] Respiratory 20 Rate Blood Pressure Blood Pressure 107/62 [Right Arm] O2 Sat by Pulse 94 L 96 Oximetry (%) GENERAL: Awake, alert, acute distress. HEAD: NC/AT EYES: PERRLA, EOMI EARS, NOSE, THROAT: Thrush, dry gastric secretions in mouth and throat NECK: Accessory muscles used for respiration 2/2 respiratory distress LUNGS: diffuse rhonchi and coarse breath sounds HEART: RRR No MRG S1S2 ABDOMEN: PEG in place, no erythema or discharge from surrounding site MUSCULOSKELETAL: Normal range of motion at all joints. No bony deformities or tenderness. No CVA tenderness. UPPER EXTREMITIES: No CCE LOWER EXTREMITIES: No CCE NEUROLOGICAL: pt able to communicate at baseline. Strength 5/5 throughout. PSYCHIATRIC: dementia SKIN: No rashes or lesions appreciated Laboratory Results - last 24 hr 08/09/18 08/09/18 08/09/18 09:34 09:34 10:00 WBC 11.9 H RBC 4.16 Hgb 13.4 Hct 40.2 MCV 96.7 H MCH 32.3 MCHC 33.4 RDW 13.6 Plt Count 321 MPV 7.0 L Absolute Neuts (auto) 9.9 H Neutrophils % 82.8 Neutrophils % (Manual) 78.1 Band Neutrophils % 3.1 Lymphocytes % 10.2 D Lymphocytes % (Manual) 11.5 Monocytes % 5.4 Monocytes % (Manual) 5 Eosinophils % 1.1 Eosinophils % (Manual) 2.1 Basophils % 0.5 Basophils % (Manual) 0.0 Myelocytes % (Man) 0 Promyelocytes % (Man) 0 Blast Cells % (Manual) 0 Nucleated RBC % 0 Metamyelocytes 0 Hypochromia 0 Platelet Estimate Normal Polychromasia 0 Poikilocytosis 0 Anisocytosis 1+ Macrocytosis 1+ Sodium Cancelled 134 L Potassium Cancelled 4.1 Chloride Cancelled 98 Carbon Dioxide Cancelled 27 Anion Gap Cancelled 10 BUN Cancelled 25 H Creatinine Cancelled 1.0 Creat Clearance w eGFR Cancelled > 60 Random Glucose Cancelled 73 L Calcium Cancelled 8.4 L Total Bilirubin Cancelled 0.9 AST Cancelled 33 ALT Cancelled 33 Alkaline Phosphatase Cancelled 75 Total Protein Cancelled 6.6 Albumin Cancelled 2.7 L Lipase Cancelled 47 L ASSESSMENT/PLAN: Pt is an 83 y/o gentleman with a significant past medical history of dementia, BPH, htn and hld who presented this morning to [facility] [place] after his daughter witnessed him in severe respiratory distress 2/2 aspiration. # Sepsis/respiratory failure 2/2 Aspiration pneumonia - Zosyn given in ED - NS@100cc/hr in ED - NS@ 83cc/hr - ID on board - May change Zosyn to Unasyn tomorrow - Repeat chest xray in am -Hold PEG tube feeds - Obtain blood cultures -Lactic Acid level 1.2 #BPH -Resume home meds #FEN NS@83cc/hr Monitor Electrolytes NPO #DVT ppx: Heparin TID SQ Dispo: M/S Visit type - Emergency Visit Emergency Visit: Yes ED Registration Date: 08/09/18 Care time: The patient presented to the Emergency Department on the above date and was hospitalized for further evaluation of their emergent condition. - New Patient This patient is new to me today: Yes Date on this admission: 08/09/18 - Critical Care Critical Care patient: No
--- NOTE | 2018-08-09 15:38 | PN ---
Teaching Attending Note Name of Resident: Femi Kolb ATTENDING PHYSICIAN STATEMENT I saw and evaluated the patient. I reviewed the resident's note and discussed the case with the resident. I agree with the resident's findings and plan as documented. SUBJECTIVE: This is an 83 year old man with a history of dementia, dysphagia, PEG, HTN, hyperlipidemia, BPH who comes to the ED from home because of vomiting. His daughter notes he has been coughing and has vomited or coughed up greenish material. The patient is unable to provide any history. OBJECTIVE: Vital Signs Period Temp Pulse Resp BP Sys/Becerra Pulse Ox Last 24 Hr 98.2 F-100.1 F 99-101 18-20 98-114/62-77 88-100 HEART: S1S2, tachycardic LUNGS: Crackles at right base ABDOMEN: Soft, non-distended, normal BS, PEG in place with clean insertion site EXTREMITIES: Contracted, no edema Laboratory Tests 08/09/18 08/09/18 08/09/18 09:34 09:34 10:00 WBC 11.9 H RBC 4.16 Hgb 13.4 Hct 40.2 MCV 96.7 H MCH 32.3 MCHC 33.4 RDW 13.6 Plt Count 321 MPV 7.0 L Absolute Neuts (auto) 9.9 H Neutrophils % 82.8 Neutrophils % (Manual) 78.1 Band Neutrophils % 3.1 Lymphocytes % 10.2 D Lymphocytes % (Manual) 11.5 Monocytes % 5.4 Monocytes % (Manual) 5 Eosinophils % 1.1 Eosinophils % (Manual) 2.1 Basophils % 0.5 Basophils % (Manual) 0.0 Myelocytes % (Man) 0 Promyelocytes % (Man) 0 Blast Cells % (Manual) 0 Nucleated RBC % 0 Metamyelocytes 0 Hypochromia 0 Platelet Estimate Normal Polychromasia 0 Poikilocytosis 0 Anisocytosis 1+ Macrocytosis 1+ Sodium Cancelled 134 L Potassium Cancelled 4.1 Chloride Cancelled 98 Carbon Dioxide Cancelled 27 Anion Gap Cancelled 10 BUN Cancelled 25 H Creatinine Cancelled 1.0 Creat Clearance w eGFR Cancelled > 60 Random Glucose Cancelled 73 L Calcium Cancelled 8.4 L Total Bilirubin Cancelled 0.9 AST Cancelled 33 ALT Cancelled 33 Alkaline Phosphatase Cancelled 75 Total Protein Cancelled 6.6 Albumin Cancelled 2.7 L Lipase Cancelled 47 L Home Medications Medication Instructions Recorded Furosemide [Lasix] 20 mg GT DAILY 08/09/18 Quetiapine Fumarate [Seroquel] 100 mg GT DAILY 08/09/18 Ranitidine [Zantac -] 100 mg GT DAILY 08/09/18 Tamsulosin HCl [Flomax] 0.4 mg GT DAILY 08/09/18 traZODone HCL [Trazodone HCl] 100 mg GT DAILY 08/09/18 ASSESSMENT AND PLAN: This is an 83 year old man with a history of dementia, functional quadriplegia, dysphagia, PEG, HTN, hyperlipidemia, BPH who presented to the ED with vomiting and cough. 1. Sepsis (tachycardia, tachypnea) secondary to aspiration pneumonia with acute hypoxic respiratory failure - Zosyn given in ED - will continue - Oxygen to maintain saturation >90% - ID consult - Hold PEG feeds - IV fluid - Check lactic acid 2. Advanced dementia with functional quadriplegia, dysphagia - Continue Seroquel, Trazodone - Hold PEG feeds secondary to aspiration 3. HTN - Continue Lasix 4. Hyperlipidemia 5. BPH - Continue Flomax
[2018-08-09] MEDS ORDERED: RANITIDINE HCL 150 MG TABLET (FP) NR SCH (16:01)
[2018-08-09] MEDS ORDERED: QUEtiapine FUMARATE 50 MG TABLET ONE (16:35)
[2018-08-09] MEDS ORDERED: traZODone HCL 50 MG TABLET (FP) ONE (16:35)
[2018-08-09] MEDS: HEPARIN NA (PORCINE) 5,000 UNITS/ML 1ML VIAL SQ SCH ×2 (16:40→21:30)
[2018-08-09] MEDS: TAMSULOSIN HCL 0.4 MG CAP NR SCH (16:42)
[2018-08-09] MEDS: traZODone HCL 100 MG TABLET (FP) NR SCH (16:42)
[2018-08-09] MEDS: QUEtiapine FUMARATE 100 MG TABLET (FP) GT SCH (16:43)
[2018-08-09] MEDS: SODIUM CHLORIDE 1,000 ML IV SCH (16:44)
[2018-08-09 17:24] VITALS: BMI 24.0
[2018-08-09] MEDS ORDERED: PNEUMOC 13-VAL CONJ-DIP CRM/PF 0.5 ML DISP.SYRIN IM ONE (18:16)
[2018-08-09] MEDS ORDERED: FLU VACCINE QUAD 60 MCG/0.5 ML (MDV 18-19) IM ONE (18:30)
--- NOTE | 2018-08-09 19:11 | CON.ID ---
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 Cardio/Vascular: Yes: HTN Renal/: Yes: BPH - Past Surgical History Additional Surgical History: prostate surgery - Alcohol/Substance Use Hx Alcohol Use: No - Smoking History Smoking history: Unknown if ever smoked Have you smoked in the past 12 months: No - Social History Usual Living Arrangement: With Child ADL: Support Services 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 History of Recent Travel: No Home Medications - Allergies Allergies/Adverse Reactions: Allergies Allergy/AdvReac Type Severity Reaction Status Date / Time No Known Drug Allergies Allergy Verified 08/09/18 08:50 - Home Medications Home Medications: Ambulatory Orders Furosemide [Lasix] 20 mg GT DAILY 08/09/18 Quetiapine Fumarate [Seroquel] 100 mg GT DAILY 08/09/18 Ranitidine [Zantac -] 150 mg GT BID 08/09/18 Tamsulosin HCl [Flomax] 0.4 mg GT DAILY 08/09/18 traZODone HCL [Trazodone HCl] 100 mg GT DAILY 08/09/18 Family Disease History - Family Disease History Family Disease History: CA: Mother (brain tumor) Review of Systems Unable to obtain ROS, reason: unable to obtain Physical Exam Vital Signs: Vital Signs Temperature 98.9 F 08/09/18 17:23 Pulse Rate 92 H 08/09/18 17:23 Respiratory Rate 18 08/09/18 17:23 Blood Pressure 126/83 08/09/18 17:23 O2 Sat by Pulse Oximetry (%) 94 L 08/09/18 18:07 Constitutional: Yes: Calm, Thin HENT: Yes: Atraumatic, Normocephalic Cardiovascular: Yes: Regular Rate and Rhythm Respiratory: Yes: CTA Bilaterally, Diminished Gastrointestinal: Yes: Normal Bowel Sounds, Other (GT). No: Tenderness ...Rectal Exam: Yes: Deferred Renal/: No: Bladder Distention Musculoskeletal: Yes: Other (contracted) Edema: No Neurological: Yes: Other (cannot give history) Labs: CBC, BMP 08/09/18 09:34 08/09/18 10:00 Imaging - Results Chest X-ray: Report Reviewed, Image Reviewed (rotated , ?LLL infiltrate) Problem List - Problems (1) Aspiration pneumonia Code(s): J69.0 - PNEUMONITIS DUE TO INHALATION OF FOOD AND VOMIT Qualifiers: Aspiration pneumonia type: unspecified Laterality: unspecified laterality Lung location: unspecified part of lung Qualified Code(s): J69.0 - Pneumonitis due to inhalation of food and vomit (2) Functional quadriplegia Code(s): R53.2 - FUNCTIONAL QUADRIPLEGIA Assessment/Plan repeat cxray in am can switch to unasyn obtain blood cultures
[2018-08-09] MEDS ORDERED: AMPICILLIN NA/SULBACTAM NA 3 GM in SODIUM CHLORIDE 100 ML IVPB SCH (19:30)
[2018-08-09] MEDS: AMPICILLIN NA/SULBACTAM NA 3 GM in SODIUM CHLORIDE 100 ML IVPB SCH (20:35)
[2018-08-10] MEDS ORDERED: ACETYLCYSTEINE 20% 200MG/ML 4 ML VIAL *FOR ORAL / INH USE ONLY NEB ONE (01:31)
[2018-08-10] MEDS ORDERED: ALBUTEROL SO4 0.083% IH SOL 2.5 MG/3 ML VIAL.NEB. NEB ONE (01:51)
[2018-08-10] MEDS: AMPICILLIN NA/SULBACTAM NA 3 GM in SODIUM CHLORIDE 100 ML IVPB SCH ×3 (02:29→17:38)
[2018-08-10] MEDS: SODIUM CHLORIDE 1,000 ML IV SCH ×2 (06:13→16:27)
[2018-08-10] MEDS: HEPARIN NA (PORCINE) 5,000 UNITS/ML 1ML VIAL SQ SCH ×3 (06:14→21:45)
[2018-08-10 08:01] LABS: BASO % 0.4 % (0-2.0); HEMATOCRIT 32.4 % (35.4-49); HEMOGLOBIN 10.7 GM/dL (11.7-16.9); LYMPH % 8.1 % (8-40); MCH 31.7 pg (25.7-33.7); MCHC 32.8 g/dl (32.0-35.9); MEAN CELL VOLUME 96.5 fl (80-96); MEAN PLT VOLUME 6.9 fl (7.5-11.1); MONO % 5.5 % (3.8-10.2); PLATELET COUNT 281 K/MM3 (134-434); RBC 3.36 M/mm3 (4.00-5.60); RDW 13.5 % (11.9-15.9); WHITE BLOOD COUNT 9.1 K/mm3 (4.0-10.0)
[2018-08-10 08:17] LABS: INR 1.28 (0.83-1.09); PROTHROMBIN TIME (PATIENT) 15.1 SEC (9.7-13.0)
[2018-08-10 08:20] LABS: ACTIVATED PTT 27.3 SECONDS (25.2-36.5)
[2018-08-10 08:32] LABS: ANION GAP 11 MMOL/L (8-16); BLOOD UREA NITROGEN 22 mg/dL (7-18); CALCIUM 8.1 mg/dL (8.5-10.1); CHLORIDE 103 mmol/L (98-107); CO2 25 mmol/L (21-32); CREATININE 0.9 mg/dL (0.55-1.3); GLUCOSE,RANDOM 71 mg/dL (74-106); MAGNESIUM 2.4 mg/dL (1.8-2.4); PHOSPHOROUS 3.5 mg/dL (2.5-4.9); POTASSIUM 4.1 mmol/L (3.5-5.1); SODIUM 139 mmol/L (136-145)
[2018-08-10] MEDS ORDERED: QUEtiapine FUMARATE 50 MG TABLET ONE ×2 (09:10→21:16)
[2018-08-10] MEDS ORDERED: traZODone HCL 50 MG TABLET (FP) ONE (09:10)
[2018-08-10] MEDS ORDERED: PT OWN MED DRAWER 7, Y5N ONE ×3 (09:11→17:12)
[2018-08-10] MEDS: QUEtiapine FUMARATE 100 MG TABLET (FP) GT SCH ×2 (10:21→21:46)
[2018-08-10] MEDS: RANITIDINE HCL 150 MG/10 ML UNIT-DOSE NR SCH (10:22)
[2018-08-10] MEDS: traZODone HCL 100 MG TABLET (FP) NR SCH (10:23)
--- NOTE | 2018-08-10 14:25 | PN ---
Teaching Attending Note Name of Resident: Femi Kolb ATTENDING PHYSICIAN STATEMENT I saw and evaluated the patient. I reviewed the resident's note and discussed the case with the resident. I agree with the resident's findings and plan as documented. SUBJECTIVE:states no pain. as per daughter pt had episode of vomiting. been c/o feeling very full after feeds and she has noticed a lot of residuals after his feeds. OBJECTIVE: Last Vital Signs Temp Pulse Resp BP Pulse Ox 99.5 F 84 18 104/55 L 97 08/10/18 05:00 08/10/18 05:00 08/10/18 05:00 08/10/18 05:00 08/09/18 21:00 General slow to respond, minimal response CV S1 S2 RRR Lungs coarse breath sounds anteriorly abdomen soft NT/ND +PEG in place. hypoactive BS Extremities contracted ASSESSMENT AND PLAN: 83 year old man with a history of dementia, functional quadriplegia, dysphagia, PEG, HTN, hyperlipidemia, BPH who presented to the ED with vomiting and cough and found to be septic due to PNA 1. Sepsis due to suspected PNA- nothing seen on CXR. will repeat as likely due to positioning and dehydration. likely aspirated after vomiting episode. suspect pt is receiving too high of TF amount causing gastric distention. Will cont unasyn day 2. F/u CX. ID on board 2. Nausea and vomiting- suspect receiving too much volume from PEG. also had complaints of heartburn per daughter. will request dietary to make recommendations. will see what PPI is available to go through PEG. failed H2 racheal 3. Acute hypoxic respiratory distress- due to PNA. currently 97% on 2L NC. titrate to optimize ozygen levels 4. Anemia- likely dilutional. no signs of bleeding. monitor Hgb. no indication for transfusion 5. Dementia- at baseline per daughter. [place] speaking only. does respond to questions appropriately. follows simple commands. needs assistance with ADL 6. functional quadriplegia 7. BPH 8. Dyslipidemia 9. DVT ppx- hep sq 10. SPoek wtih daughter present at bedside. all questions answered. verbalized understanding and agreement
[2018-08-10] MEDS: TAMSULOSIN HCL 0.4 MG CAP NR SCH (18:42)
--- NOTE | 2018-08-10 19:24 | PN ---
Physical Exam: SUBJECTIVE: Patient seen and examined at bedside. Pt more lethargic today per daughter. Pt squeezes with both hands upon request. No acute events overnight. Daughter at bedside. OBJECTIVE: Vital Signs Period Temp Pulse Resp BP Sys/Becerra Pulse Ox Last 24 Hr 97.5 F-99.5 F 78-88 16-18 103-125/55-83 97-98 GENERAL: Lethargic, does not track with eyes. Squeezes hands upon request. HEAD: NC/AT EYES: PERRLA, does not track with eyes. ENT: thrush in oral mucosa. NECK: accessory muscle use. LUNGS: Diffuse Rhonchi HEART: RRR No MRG S1S2 ABDOMEN: NT ND, No HSM. Peg tube in place, no drainage or EXTREMITIES: Stage 2 ulcer Right elbow. PSYCH: Dementia SKIN: Warm, dry, normal turgor, no rashes or lesions noted Laboratory Results - last 24 hr 08/09/18 08/10/18 08/10/18 18:00 06:50 06:50 WBC 9.1 RBC 3.36 L Hgb 10.7 L Hct 32.4 L D MCV 96.5 H MCH 31.7 MCHC 32.8 RDW 13.5 Plt Count 281 MPV 6.9 L Absolute Neuts (auto) 7.4 Neutrophils % 82.0 Lymphocytes % 8.1 D Monocytes % 5.5 Eosinophils % 4.0 D Basophils % 0.4 Nucleated RBC % 0 PT with INR 15.10 H INR 1.28 H PTT (Actin FS) 27.3 Sodium Potassium Chloride Carbon Dioxide Anion Gap BUN Creatinine Creat Clearance w eGFR Random Glucose Lactic Acid 1.2 Calcium Phosphorus Magnesium 08/10/18 06:50 WBC RBC Hgb Hct MCV MCH MCHC RDW Plt Count MPV Absolute Neuts (auto) Neutrophils % Lymphocytes % Monocytes % Eosinophils % Basophils % Nucleated RBC % PT with INR INR PTT (Actin FS) Sodium 139 Potassium 4.1 Chloride 103 Carbon Dioxide 25 Anion Gap 11 BUN 22 H Creatinine 0.9 Creat Clearance w eGFR > 60 Random Glucose 71 L Lactic Acid Calcium 8.1 L Phosphorus 3.5 Magnesium 2.4 Active Medications Generic Name Dose Route Start Last Admin Trade Name Freq PRN Reason Stop Dose Admin Heparin Sodium (Porcine) 5,000 unit 08/09/18 14:15 08/10/18 13:16 Heparin - SQ 5,000 unit TID CARMELO Administration Sodium Chloride 1,000 mls @ 83 mls/hr 08/09/18 14:00 08/10/18 16:27 Normal Saline - IV 83 mls/hr ASDIR CAREMLO Administration Ampicillin Sodium/Sulbactam 100 mls @ 200 mls/hr 08/09/18 19:30 08/10/18 17: 38 Sodium 3 gm/ Sodium Chloride IVPB 200 mls/hr Q8H-IV CARMELO Administration Quetiapine Fumarate 100 mg 08/10/18 22:00 Seroquel - GT HS CARMELO Ranitidine HCl 100 mg 08/10/18 10:00 08/10/18 10:22 Zantac Oral Solution - NR 100 mg DAILY CARMELO Administration Tamsulosin HCl 0.4 mg 08/09/18 16:01 08/10/18 18:42 Flomax - NR Not Given DAILY CARMELO Trazodone HCl 100 mg 08/10/18 22:00 Desyrel - NR HS CARMELO ASSESSMENT/PLAN: Pt is an 83 y/o gentleman with a significant past medical history of dementia, BPH, htn and hld who presented this morning to [facility] after his daughter witnessed him in severe respiratory distress 2/2 aspiration. # Sepsis/respiratory failure 2/2 Aspiration pneumonia - Zosyn given in ED - NS@100cc/hr in ED - NS@ 83cc/hr - ID on board - Unasyn 3 gm per ID. Possible switch to Augmentin tomorrow 08/11/18. - Repeat chest xray 08/10/18 ---> L base infiltrate persists - Blood cultures pending -Lactic Acid level 1.2 -Nexium on discharge -suctioning prn #BPH -Tamsulosin 0.4 mg #FEN NS@83cc/hr Monitor Electrolytes Tube feeds resumed today- Jevity 1.5@ 60cc/hr w/ 45 ml/hr h20 flush. 1440 ml volume #DVT ppx: Heparin TID SQ Dispo: M/S Visit type - Emergency Visit Emergency Visit: Yes ED Registration Date: 08/09/18 Care time: The patient presented to the Emergency Department on the above date and was hospitalized for further evaluation of their emergent condition. - New Patient This patient is new to me today: No - Critical Care Critical Care patient: No - Discharge Referral Referred to [facility] Med P.C.: No
[2018-08-10] MEDS ORDERED: traZODone HCL 100 MG TABLET (FP) NR SCH (22:00)
[2018-08-11] MEDS ORDERED: PT OWN MED DRAWER 7, Y5N ONE ×3 (00:09→18:32)
[2018-08-11] MEDS: AMPICILLIN NA/SULBACTAM NA 3 GM in SODIUM CHLORIDE 100 ML IVPB SCH ×3 (01:06→18:34)
[2018-08-11] MEDS ORDERED: ACETAMINOPHEN 325 MG TABLET (FP) PO ONE (05:49)
[2018-08-11] MEDS: HEPARIN NA (PORCINE) 5,000 UNITS/ML 1ML VIAL SQ SCH ×3 (06:21→21:47)
[2018-08-11 07:03] LABS: HEMATOCRIT 31.2 % (35.4-49); HEMOGLOBIN 10.5 GM/dL (11.7-16.9); MCH 32.1 pg (25.7-33.7); MCHC 33.5 g/dl (32.0-35.9); MEAN CELL VOLUME 95.8 fl (80-96); MEAN PLT VOLUME 6.4 fl (7.5-11.1); PLATELET COUNT 336 K/MM3 (134-434); RBC 3.26 M/mm3 (4.00-5.60); RDW 13.6 % (11.9-15.9); WHITE BLOOD COUNT 7.4 K/mm3 (4.0-10.0)
[2018-08-11 07:23] LABS: ANION GAP 7 MMOL/L (8-16); BLOOD UREA NITROGEN 19 mg/dL (7-18); CHLORIDE 108 mmol/L (98-107); CO2 27 mmol/L (21-32); CREATININE 0.8 mg/dL (0.55-1.3); GLUCOSE,RANDOM 122 mg/dL (74-106); POTASSIUM 3.7 mmol/L (3.5-5.1); SODIUM 143 mmol/L (136-145)
[2018-08-11] MEDS: RANITIDINE HCL 150 MG/10 ML UNIT-DOSE NR SCH (10:10)
--- NOTE | 2018-08-11 12:29 | PN ---
Teaching Attending Note Name of Resident: Femi Kolb ATTENDING PHYSICIAN STATEMENT I saw and evaluated the patient. I reviewed the resident's note and discussed the case with the resident. I agree with the resident's findings and plan as documented. SUBJECTIVE:resting comfortable. as per daughter has no complaints OBJECTIVE: Last Vital Signs Temp Pulse Resp BP Pulse Ox 99.8 F H 81 18 119/76 95 08/11/18 11:35 08/11/18 10:00 08/11/18 10:00 08/11/18 10:00 08/11/18 10:00 General slow to respond, minimal response CV S1 S2 RRR Lungs no wheezing or rhonchi, poor inspiratory effort abdomen soft NT/ND +PEG in place. normoactive BS Extremities contracted ASSESSMENT AND PLAN: 83 year old man with a history of dementia, functional quadriplegia, dysphagia, PEG, HTN, hyperlipidemia, BPH who presented to the ED with vomiting and cough and found to be septic due to PNA 1. Sepsis due to LLL PNA- Tm 100.5. clinically improved. on Unasyn day 3. would cont and consider switching to augmentin in next 24H if remains afebrile. aspiration precautions. F/u CX. ID on board 2. Nausea and vomiting- suspect receiving too much volume from PEG. tolerating feeds. low residuals. should d/c with PPI. recommendations for PEG feeds from dietary. 3. Acute hypoxic respiratory distress- due to PNA. currently 97% on 2L NC. titrate to optimize oxygen levels 4. Anemia- likely dilutional. no signs of bleeding. monitor Hgb. no indication for transfusion 5. Dementia- at baseline per daughter. gambian speaking only. does respond to questions appropriately. follows simple commands. needs assistance with ADL 6. functional quadriplegia 7. BPH 8. Dyslipidemia 9. DVT ppx- hep sq 10. SPoek wtih daughter present at bedside. all questions answered. verbalized understanding and agreement. possible d/c in 24H if remains afebrile.
[2018-08-11] MEDS: SODIUM CHLORIDE 1,000 ML IV SCH ×2 (14:22→23:42)
--- NOTE | 2018-08-11 17:00 | PN ---
Progress Note (short form) - Note Progress Note: NAD Vital Signs Period Temp Pulse Resp BP Sys/Becerra Pulse Ox Last 24 Hr 97.4 F-100.5 F 76-85 18-22 109-135/62-88 94-95 cor-rrr lungs decreased bs at bases abd soft,nt +gt site clean ext no edema- contracted CBC, BMP 08/11/18 06:25 08/11/18 06:25 Microbiology 08/09/18 21:15 Blood - Peripheral Venous Blood Culture - Preliminary NO GROWTH OBTAINED AFTER 24 HOURS, INCUBATION TO CONTINUE FOR 4 DAYS. 08/09/18 21:10 Blood - Peripheral Venous Blood Culture - Preliminary NO GROWTH OBTAINED AFTER 24 HOURS, INCUBATION TO CONTINUE FOR 4 DAYS. cxray LLL infiltrate a/p aspiration pneumonia wbc now normal can switch to po augmentin in am if he remains afebrile dementia Problem List - Problems (1) Aspiration pneumonia Code(s): J69.0 - PNEUMONITIS DUE TO INHALATION OF FOOD AND VOMIT Qualifiers: Aspiration pneumonia type: unspecified Laterality: unspecified laterality Lung location: unspecified part of lung Qualified Code(s): J69.0 - Pneumonitis due to inhalation of food and vomit (2) Functional quadriplegia Code(s): R53.2 - FUNCTIONAL QUADRIPLEGIA
[2018-08-11] MEDS: AMINO ACIDS/PROTEIN HYDROLYS 30 ML LIQUID.PKT PO SCH (18:34)
--- NOTE | 2018-08-11 18:40 | PN ---
Physical Exam: SUBJECTIVE: Patient seen and examined at bedside. Pt spiked 100.5 fever earlier this am. Resting in bed, breathing comfortably. OBJECTIVE: Vital Signs Period Temp Pulse Resp BP Sys/Becerra Pulse Ox Last 24 Hr 97.4 F-100.5 F 76-83 18-22 109-135/62-88 94-95 GENERAL: Lethargic, does not track with eyes. Squeezes hands upon request. HEAD: NC/AT EYES: PERRLA, does not track with eyes. ENT: Residual dry gastric secretions on tongue NECK: No accessory muscle use. LUNGS: Diffuse Rhonchi HEART: RRR No MRG S1S2 ABDOMEN: NT ND, No HSM. Peg tube in place, no drainage or erythema EXTREMITIES: Stage 2 ulcer Right elbow. PSYCH: Dementia SKIN: Warm, dry, normal turgor, no rashes or lesions noted Laboratory Results - last 24 hr 08/11/18 08/11/18 06:25 06:25 WBC 7.4 RBC 3.26 L Hgb 10.5 L Hct 31.2 L MCV 95.8 MCH 32.1 MCHC 33.5 RDW 13.6 Plt Count 336 MPV 6.4 L Sodium 143 Potassium 3.7 Chloride 108 H Carbon Dioxide 27 Anion Gap 7 L BUN 19 H Creatinine 0.8 Creat Clearance w eGFR > 60 Random Glucose 122 H Calcium 8.0 L Active Medications Generic Name Dose Route Start Last Admin Trade Name Freq PRN Reason Stop Dose Admin Amino Acids 30 ml 08/11/18 17:30 Prosource No Carb Liquid Pkt PO BID@0800,1730 CARMELO Heparin Sodium (Porcine) 5,000 unit 08/09/18 14:15 08/11/18 14:22 Heparin - SQ 5,000 unit TID CARMELO Administration Sodium Chloride 1,000 mls @ 83 mls/hr 08/09/18 14:00 08/11/18 14:22 Normal Saline - IV Not Given ASDIR CARMELO Ampicillin Sodium/Sulbactam 100 mls @ 200 mls/hr 08/09/18 19:30 08/11/18 10: 10 Sodium 3 gm/ Sodium Chloride IVPB 200 mls/hr Q8H-IV CARMELO Administration Quetiapine Fumarate 100 mg 08/10/18 22:00 08/10/18 21:46 Seroquel - GT 100 mg HS CARMELO Administration Ranitidine HCl 100 mg 08/10/18 10:00 08/11/18 10:10 Zantac Oral Solution - NR 100 mg DAILY CARMELO Administration Tamsulosin HCl 0.4 mg 08/11/18 22:00 Flomax - PO HS CARMELO Trazodone HCl 100 mg 08/11/18 22:00 Desyrel - PO HS CARMELO ASSESSMENT/PLAN: Pt is an 83 y/o gentleman with a significant past medical history of dementia, BPH, htn and hld who presented this morning to [facility] after his daughter witnessed him in severe respiratory distress 2/2 aspiration. # Sepsis/respiratory failure 2/2 Aspiration pneumonia - Zosyn given in ED - NS@100cc/hr in ED - NS@ 83cc/hr - ID on board - Unasyn 3 gm per ID. Possible switch to Augmentin tomorrow 08/12/18 per ID - Repeat chest xray 08/10/18 ---> L base infiltrate persists - Blood cultures--> No growth -Lactic Acid level 1.2 -Nexium on discharge -suctioning prn #BPH -Tamsulosin 0.4 mg #FEN NS@83cc/hr Monitor Electrolytes Tube feeds Jevity 1.5@ 60cc/hr w/ 45 ml/hr h20 flush. 1440 ml volume. Prosource added today. #DVT ppx: Heparin TID SQ Dispo: M/S Visit type - Emergency Visit Emergency Visit: Yes ED Registration Date: 08/09/18 Care time: The patient presented to the Emergency Department on the above date and was hospitalized for further evaluation of their emergent condition. - New Patient This patient is new to me today: No - Critical Care Critical Care patient: No - Discharge Referral Referred to [facility] No
[2018-08-11] MEDS ORDERED: QUEtiapine FUMARATE 50 MG TABLET ONE (20:48)
[2018-08-11] MEDS ORDERED: traZODone HCL 50 MG TABLET (FP) ONE (20:49)
[2018-08-11] MEDS: QUEtiapine FUMARATE 100 MG TABLET (FP) GT SCH (21:47)
[2018-08-11] MEDS ORDERED: TAMSULOSIN HCL 0.4 MG CAP PO SCH (22:00)
[2018-08-11] MEDS ORDERED: traZODone HCL 100 MG TABLET (FP) PO SCH (22:00)
[2018-08-12] MEDS ORDERED: PT OWN MED DRAWER 7, Y5N ONE ×2 (00:59→09:33)
[2018-08-12] MEDS: AMPICILLIN NA/SULBACTAM NA 3 GM in SODIUM CHLORIDE 100 ML IVPB SCH ×2 (02:05→09:42)
[2018-08-12] MEDS: HEPARIN NA (PORCINE) 5,000 UNITS/ML 1ML VIAL SQ SCH ×2 (06:52→15:20)
[2018-08-12 07:09] LABS: HEMATOCRIT 31.6 % (35.4-49); HEMOGLOBIN 10.6 GM/dL (11.7-16.9); MCH 32.1 pg (25.7-33.7); MCHC 33.4 g/dl (32.0-35.9); MEAN CELL VOLUME 96.1 fl (80-96); MEAN PLT VOLUME 6.6 fl (7.5-11.1); PLATELET COUNT 350 K/MM3 (134-434); RBC 3.29 M/mm3 (4.00-5.60); RDW 13.3 % (11.9-15.9); WHITE BLOOD COUNT 6.1 K/mm3 (4.0-10.0)
[2018-08-12 07:29] LABS: ANION GAP 8 MMOL/L (8-16); BLOOD UREA NITROGEN 15 mg/dL (7-18); CALCIUM 7.8 mg/dL (8.5-10.1); CHLORIDE 110 mmol/L (98-107); CO2 27 mmol/L (21-32); CREATININE 0.7 mg/dL (0.55-1.3); GLUCOSE,RANDOM 102 mg/dL (74-106); POTASSIUM 3.7 mmol/L (3.5-5.1); SODIUM 146 mmol/L (136-145)
[2018-08-12] MEDS: RANITIDINE HCL 150 MG/10 ML UNIT-DOSE NR SCH (09:39)
[2018-08-12] MEDS: AMINO ACIDS/PROTEIN HYDROLYS 30 ML LIQUID.PKT PO SCH ×2 (09:39→17:52)
[2018-08-12] MEDS ORDERED: POLYETHYLENE GLYCOL 3350 119 GM BTL PO SCH (13:45)
--- NOTE | 2018-08-12 15:10 | DS ---
Physical Exam: SUBJECTIVE: Patient seen and examined OBJECTIVE: Vital Signs Period Temp Pulse Resp BP Sys/Becerra Pulse Ox Last 24 Hr 97.4 F-98.8 F 83-84 18-22 116-151/69-93 96-96 PHYSICAL EXAM GENERAL: The patient is awake, alert, and fully oriented, in no acute distress. HEAD: Normal with no signs of trauma. EYES: PERRL, extraocular movements intact, sclera anicteric, conjunctiva clear. ENT: Ears normal, nares patent, oropharynx clear without exudates, moist mucous membranes. NECK: Trachea midline, full range of motion, supple. LUNGS: Breath sounds equal, clear to auscultation bilaterally, no wheezes, no crackles, no accessory muscle use. HEART: Regular rate and rhythm, S1, S2 without murmur, rub or gallop. ABDOMEN: Soft, nontender, nondistended, normoactive bowel sounds, no guarding, no rebound, no hepatosplenomegaly, no masses. EXTREMITIES: 2+ pulses, warm, well-perfused, no edema. NEUROLOGICAL: Cranial nerves II through XII grossly intact. Normal speech, gait not observed. PSYCH: Normal mood, normal affect. SKIN: Warm, dry, normal turgor, no rashes or lesions noted. LABS Laboratory Results - last 24 hr 08/12/18 08/12/18 06:35 06:35 WBC 6.1 RBC 3.29 L Hgb 10.6 L Hct 31.6 L MCV 96.1 H MCH 32.1 MCHC 33.4 RDW 13.3 Plt Count 350 MPV 6.6 L Sodium 146 H Potassium 3.7 Chloride 110 H Carbon Dioxide 27 Anion Gap 8 BUN 15 Creatinine 0.7 Creat Clearance w eGFR > 60 Random Glucose 102 Calcium 7.8 L HOSPITAL COURSE: Date of Admission:08/09/18 Date of Discharge: 08/12/18 Discharge Summary Reason For Visit: ASPIRATION PNEUMONIA Current Active Problems Aspiration pneumonia (Acute) Condition: Guarded - Instructions - Home Medications Comprehensive Discharge Medication List: Ambulatory Orders Furosemide [Lasix] 20 mg GT DAILY 08/09/18 Quetiapine Fumarate [Seroquel] 100 mg GT DAILY 08/09/18 Ranitidine [Zantac -] 150 mg GT BID 08/09/18 Tamsulosin HCl [Flomax] 0.4 mg GT DAILY 08/09/18 traZODone HCL [Trazodone HCl] 100 mg GT DAILY 08/09/18 - Discharge Referral Referred to [facility] No
--- NOTE | 2018-08-12 17:35 | PN ---
Teaching Attending Note Name of Resident: Femi Kolb ATTENDING PHYSICIAN STATEMENT I saw and evaluated the patient. I reviewed the resident's note and discussed the case with the resident. I agree with the resident's findings and plan as documented. SUBJECTIVE: aspiration PNA,tolerating PO diet well. upto 60 cc/hr OBJECTIVE: Last Vital Signs Temp Pulse Resp BP Pulse Ox 98.4 F 87 18 143/82 96 08/12/18 15:25 08/12/18 15:25 08/12/18 15:25 08/12/18 15:25 08/12/18 09:00 has been afebrile. at baseline is nonverbal CVS:S1S2 Has some rales which improve dwiht chest PT AbdL peg in place, nontender Labs: CBCD WBC 6.1 K/mm3 (4.0-10.0) 08/12/18 06:35 RBC 3.29 M/mm3 (4.00-5.60) L 08/12/18 06:35 Hgb 10.6 GM/dL (11.7-16.9) L 08/12/18 06:35 Hct 31.6 % (35.4-49) L 08/12/18 06:35 MCV 96.1 fl (80-96) H 08/12/18 06:35 MCHC 33.4 g/dl (32.0-35.9) 08/12/18 06:35 RDW 13.3 % (11.9-15.9) 08/12/18 06:35 Plt Count 350 K/MM3 (134-434) 08/12/18 06:35 MPV 6.6 fl (7.5-11.1) L 08/12/18 06:35 CMP Sodium 146 mmol/L (136-145) H 08/12/18 06:35 Potassium 3.7 mmol/L (3.5-5.1) 08/12/18 06:35 Chloride 110 mmol/L (98-107) H 08/12/18 06:35 Carbon Dioxide 27 mmol/L (21-32) 08/12/18 06:35 Anion Gap 8 MMOL/L (8-16) 08/12/18 06:35 BUN 15 mg/dL (7-18) 08/12/18 06:35 Creatinine 0.7 mg/dL (0.55-1.3) 08/12/18 06:35 Creat Clearance w eGFR > 60 (>60) 08/12/18 06:35 Calcium 7.8 mg/dL (8.5-10.1) L 08/12/18 06:35 Total Bilirubin 0.9 mg/dL (0.2-1) 08/09/18 10:00 AST 33 U/L (15-37) 08/09/18 10:00 ALT 33 U/L (13-61) 08/09/18 10:00 Alkaline Phosphatase 75 U/L (45-117) 08/09/18 10:00 Total Protein 6.6 g/dl (6.4-8.2) 08/09/18 10:00 Albumin 2.7 g/dl (3.4-5.0) L 08/09/18 10:00 Current Medications Generic Name Dose Route Start Last Admin Trade Name Freq PRN Reason Stop Dose Admin Amino Acids 30 ml 08/11/18 17:30 08/12/18 09:39 Prosource No Carb Liquid Pkt PO 30 ml BID@0800,1730 CARMELO Administration Heparin Sodium (Porcine) 5,000 unit 08/09/18 14:15 08/12/18 15:20 Heparin - SQ 5,000 unit TID CARMELO Administration Polyethylene Glycol 17 gm 08/12/18 13:45 08/12/18 15:20 Miralax (For Daily Use) - PO 17 gm DAILY CARMELO Administration Quetiapine Fumarate 100 mg 08/10/18 22:00 08/11/18 21:47 Seroquel - GT 100 mg HS CARMELO Administration Ranitidine HCl 100 mg 08/10/18 10:00 08/12/18 09:39 Zantac Oral Solution - NR 100 mg DAILY CARMELO Administration Tamsulosin HCl 0.4 mg 08/11/18 22:00 08/11/18 21:47 Flomax - PO 0.4 mg HS CARMELO Administration Trazodone HCl 100 mg 08/11/18 22:00 08/11/18 21:48 Desyrel - PO 100 mg HS CARMELO Administration ASSESSMENT AND PLAN: 83 yY/O M W severe dementa, limited verbal and bed bound, has PEG for feeds, HTN, hyperlipidemia, BPH who presented to the ED with vomiting and cough and found to be septic due to PNA 1. Sepsis due to suspected PNA- Will DC on ABX for total of 5 days 5. Dementia- at baseline per daughter. egyptian speaking only. does respond to questions appropriately. follows simple commands. needs assistance with ADL 6. functional quadriplegia 7. BPH: C/W home medication 8. Dyslipidemia; no need for medication as not effect the out come 9. DVT ppx- hep sq WIll DC home with diet sper nutrition recs. family is aware that he is always going to be high risk fo aspiration. Encouraged mouth hygen
[2018-08-12 18:40] VITALS: BP 134/86; PULSE 81; TEMP 99
== END 2018-08-12 19:41 | disposition home or self-care (01) | DRG 871 ==
LOC: JER 08:36 → JERBED 11:32 → J5S 15:44
PROVIDERS: ADMIT Internal Medicine; ATTEND Internal Medicine
DX: A41.9 Sepsis, unspecified organism (principal); J69.0 Pneumonitis due to inhalation of food and vomit; R53.2 Functional quadriplegia; J96.01 Acute respiratory failure with hypoxia; N40.0 Benign prostatic hyperplasia without lower urinary tract symptoms; F03.90 Unspecified dementia, unspecified severity, without behavioral disturbance, psychotic disturbance, mood disturbance, and anxiety; I10 Essential (primary) hypertension; E78.5 Hyperlipidemia, unspecified; K21.9 Gastro-esophageal reflux disease without esophagitis; R13.10 Dysphagia, unspecified; R00.0 Tachycardia, unspecified; D64.9 Anemia, unspecified; R11.2 Nausea with vomiting, unspecified; Z93.1 Gastrostomy status
CPT/HCPCS: 36415; 71045-TC-FY; 80048; 80053; 83605; 83690; 83735; 84100; 85025; 85027; 85610; 85730; 87040; 90670; 90688; 93005; 93010; 94640; 99282-25; G0008; G0009; J1644; J7030

== ENCOUNTER 2019-09-03 14:22 | Inpatient (IN) | payer MEDICARE, OTHER ==
--- NOTE | 2019-09-03 14:59 | PDOC ---
History of Present Illness - General Chief Complaint: Wound Stated Complaint: CHARLY ELBOW WOUND Time Seen by Provider: 09/03/19 14:47 History Source: Family, Old Records Exam Limitations: Dementia - History of Present Illness Initial Comments: 09/03/19 15:16 83 YO M, with a past medical history of stroke (with residual dysphagia), nonverbal at baseline, dementia, s/p peg tube placement, HTN, BPH, HLD, GERD presents to the emergency department with daughter at bedside for complaints of swelling and ulceration of the elbows bilaterally. Per the daughter, he has had chronic wounds located in the elbows bilaterally for 1 year, but over the course of 3 days has had increased swelling and drainage. The drainage is described as pink like without pus. The patient's baseline is able to say yes and no in finnish, but unable to hold a conversation. Per the daughter, he is not off from baseline. Unable to obtain ROS or history from patient due to clinical conditions. Per the daughter, they have a wound care nurse come in every other day and is evaluated by a physician every month. Allergies: NKDA MedS: trazadone, seroquel, flomax Past History - Past Medical History Allergies/Adverse Reactions: Allergies Allergy/AdvReac Type Severity Reaction Status Date / Time No Known Drug Allergies Allergy Verified 09/03/19 14:31 Home Medications: Ambulatory Orders Furosemide [Lasix] 20 mg GT DAILY 08/09/18 Quetiapine Fumarate [Seroquel -] 100 mg GT DAILY 08/09/18 Ranitidine [Zantac -] 150 mg GT BID 08/09/18 Tamsulosin HCl [Flomax] 0.4 mg GT DAILY 08/09/18 traZODone HCL [Trazodone HCl] 100 mg GT DAILY 08/09/18 Anemia: No Asthma: No Cancer: No Cardiac Disorders: No CVA: Yes COPD: No CHF: No Dementia: No Diabetes: No GI Disorders: No Disorders: Yes (BPH) HTN: Yes Hypercholesterolemia: No Liver Disease: No Seizures: No Thyroid Disease: No - Surgical History Abdominal Surgery: Yes (G.TUBE) Appendectomy: No Cardiac Surgery: No Cholecystectomy: No Lung Surgery: No Neurologic Surgery: No Orthopedic Surgery: No - Immunization History Immunization Up to Date: Yes - Psycho Social/Smoking Cessation Hx Smoking History: Unknown if ever smoked Have you smoked in the past 12 months: No Hx Alcohol Use: No Drug/Substance Use Hx: Yes Substance Use Type: None Hx Substance Use Treatment: No Review of Systems - Review of Systems Able to Perform ROS?: No (clinical condition) *Physical Exam - Vital Signs Last Vital Signs Temp Pulse Resp BP Pulse Ox 97 H 18 130/72 99 09/03/19 14:31 09/03/19 14:31 09/03/19 14:31 09/03/19 14:31 - Physical Exam General Appearance: Yes: Appropriately Dressed. No: Nourished (thin on examination), Apparent Distress, Intoxicated HEENT: positive: EOMI, DAYANNA, Pharynx Normal. negative: Pale Conjunctivae, Scleral Icterus (R), Scleral Icterus (L), Muffled/Hoarse voice, Nasal Congestion , Rhinorrhea Neck: positive: Trachea midline, Supple. negative: Tender, Lymphadenopathy (R) , Lymphadenopathy (L), Tender lateral, Tender midline Respiratory/Chest: positive: Lungs Clear, Normal Breath Sounds. negative: Chest Tender, Respiratory Distress, Accessory Muscle Use Cardiovascular: positive: Regular Rhythm, Regular Rate, S1, S2. negative: Systolic Murmur Gastrointestinal/Abdominal: positive: Normal Bowel Sounds, Flat, Soft, Other ( PEG tube in place). negative: Tender Lymphatic: negative: Adenopathy Musculoskeletal: negative: Normal Inspection (contraction bilaterally in extremities), Vertebral Tenderness (no step offs noted) Extremity: positive: Normal Capillary Refill, Other (Left upper extremity: stage 3 ulcer located on the elbow approximately 2x2 cm without purulent discharge. Superifical abrasions noted in the antecubital fossa multiple. Warm to the touch. Extensive swelling of the left elbow. Right upper extremity: 2x2 cm stage 4 ulcer located in the elbow at the olecrenon process. superficial abrasions noted in the antecubital fossa. Mild swelling, less than left side. No ulcers or swelling noted on the LE). negative: Normal Inspection ( contracted bilaterally UE and LE), Normal Range of Motion (unable to move legs and arms), Tender Integumentary: positive: Normal Color, Dry, Warm, Other (stage 2 ulcer noted in the sacrum. stage 2 ulcer noted in the lateral thigh right side. ) Neurologic: positive: Alert. negative: certified dialysis technician II-XII NML intact, Fully Oriented ED Treatment Course - LABORATORY CBC & Chemistry Diagram: 09/03/19 15:45 09/03/19 15:45 Medical Decision Making - Medical Decision Making 09/03/19 17:07 83 YO M, with a past medical history of stroke (with residual dysphagia), nonverbal at baseline, dementia, s/p peg tube placement, HTN, BPH, HLD, GERD presents to the emergency department with daughter at bedside for complaints of swelling and ulceration of the elbows bilaterally. Initial vitals: Initial Vital Signs Pulse Resp BP Pulse Ox 97 H 18 130/72 99 09/03/19 14:31 09/03/19 14:31 09/03/19 14:31 09/03/19 14:31 Work up: concerns for osteomyelitits vs septic joint vs spetic bursitis vs cellulitis will order cbc, cmp, esr, crp, lactic acid, cultures of blood and wound, cxr, elbow xray bilaterally, and empirically treat with vancomycin for MRSA coverage. Laboratory Tests 09/03/19 09/03/19 09/03/19 15:45 15:45 15:45 WBC 9.8 RBC 3.35 L Hgb 10.7 L Hct 32.2 L MCV 96.1 H MCH 32.0 MCHC 33.3 RDW 14.5 Plt Count 542 H D MPV 7.0 L Absolute Neuts (auto) 7.3 Neutrophils % 74.2 Lymphocytes % 13.5 D Monocytes % 10.7 H D Eosinophils % 1.2 Basophils % 0.4 Nucleated RBC % 0 ESR 104 H PT with INR 15.30 H INR 1.29 H PTT (Actin FS) 30.1 Sodium 136 Potassium 4.5 Chloride 102 Carbon Dioxide 27 Anion Gap 7 L BUN 37.2 H Creatinine 0.8 Est GFR (CKD-EPI)AfAm 95.75 Est GFR (CKD-EPI)NonAf 82.61 Random Glucose 95 Lactic Acid Calcium 8.5 Total Bilirubin 0.4 AST 41 H ALT 49 Alkaline Phosphatase 169 H C-Reactive Protein 19.3 H Total Protein 7.2 Albumin 2.2 L 09/03/19 15:45 WBC RBC Hgb Hct MCV MCH MCHC RDW Plt Count MPV Absolute Neuts (auto) Neutrophils % Lymphocytes % Monocytes % Eosinophils % Basophils % Nucleated RBC % ESR PT with INR INR PTT (Actin FS) Sodium Potassium Chloride Carbon Dioxide Anion Gap BUN Creatinine Est GFR (CKD-EPI)AfAm Est GFR (CKD-EPI)NonAf Random Glucose Lactic Acid 1.6 Calcium Total Bilirubin AST ALT Alkaline Phosphatase C-Reactive Protein Total Protein Albumin Elbows bilaterally show arthritic changes without gas formation with ulcerations noted. CXR within normal limits. EKG does not show arrhythmia or ST elevations or depressions. Patient to be admitted for suspect osteomyelitits given elevations in ESR and CRP and given IV antibiotics that cannot be arranged immediately in the patient' s home of which he lives with his daughter. Patient also has macrocytic anemia and hypoalbuminemia likely malnourished. Will need further work up. Dispo: Admit Discharge - Discharge Information Problems reviewed: Yes Clinical Impression/Diagnosis: Macrocytic anemia, Hypoalbuminemia, Decubitus ulcer, elbow, left, unstageable, Decubitus ulcer of elbow, right, unstageable, Functional quadriplegia, Dementia - Follow up/Referral - Patient Discharge Instructions - Post Discharge Activity
--- NOTE | 2019-09-03 15:11 | PDOC ---
Attending Attestation - Resident Resident Name: Chas Guerrero - ED Attending Attestation I have performed the following: I have examined & evaluated the patient, The case was reviewed & discussed with the resident, I agree w/resident's findings & plan, Exceptions are as noted - HPI HPI: 09/03/19 15:08 84y M hx of advanced dementia, hypertension, BPH, hypercholesterolemia, reflux , chronic low back pain, who presents with worsening b/l elbow wounds. Per daughter, a visiting provider sent the pt to the ED for evlauation of worsening elbow swelling/redness chronic elbow wounds presents with worsening swelling and drainage from his elbow. history limited due to advanced dementia physical exam GENERAL: The patient is awake, not responding to verbal stimulus,w ill grunt to pain, no acute distress HEAD: Normocephalic, atraumatic. EYES: extraocular movements intact, sclera anicteric, conjunctiva clear. ENT: Normal voice, dry mucous membranes. LUNGS: Breath sounds equal, clear to auscultation bilaterally. No wheezes, no rhonchi, no rales. HEART: Regular rate and rhythm, normal S1 and S2 without murmur, rub or gallop. ABDOMEN: Soft, nontender, No guarding, no rebound. PEG in place EXTREMITIES: contracted upper extremities, +pitting edema of L eblow/upper arm, erythemadous/warm to touch, +stage 2 decubitus ulcer on elbow, RUE - stage 4 ulcera pprox 4x4cm (bone vs tendon visible) of R elbow with surrounding erythema NEUROLOGICAL: No facial assymetry, neuro exam limited PSYCH: unable to assess SKIN: Warm, Dry, normal turgor, likely +abscess/cellulitis/suprainfection will ro dvt on LUE will start vancomycin xrays to screen for osteo, anticipate admission - Physicial Exam PE: 09/08/19 07:19 see above - Medical Decision Making 09/08/19 07:19 see above
[2019-09-03 16:01] LABS: BASO % 0.4 % (0-2.0); EOS % 1.2 % (0-4.5); HEMATOCRIT 32.2 % (35.4-49); HEMOGLOBIN 10.7 GM/dL (11.7-16.9); LYMPH % 13.5 % (8-40); MCHC 33.3 g/dl (32.0-35.9); MEAN CELL VOLUME 96.1 fl (80-96); MONO % 10.7 % (3.8-10.2); NEUT % 74.2 % (42.8-82.8); PLATELET COUNT 542 K/MM3 (134-434); RBC 3.35 M/mm3 (4.00-5.60); RDW 14.5 % (11.9-15.9); WHITE BLOOD COUNT 9.8 K/mm3 (4.0-10.0)
[2019-09-03 16:14] LABS: INR 1.29 (0.83-1.09); PROTHROMBIN TIME (PATIENT) 15.3 SEC (9.7-13.0)
[2019-09-03 16:17] LABS: ACTIVATED PTT 30.1 SECONDS (25.2-36.5)
[2019-09-03 16:41] LABS: ALBUMIN 2.2 g/dl (3.4-5.0); BILIRUBIN,TOTAL 0.4 mg/dL (0.2-1); BLOOD UREA NITROGEN 37.2 mg/dL (7-18); CALCIUM 8.5 mg/dL (8.5-10.1); CREATININE 0.8 mg/dL (0.55-1.3); POTASSIUM 4.5 mmol/L (3.5-5.1); TOT PROT 7.2 g/dl (6.4-8.2)
[2019-09-03] MEDS ORDERED: VANCOMYCIN 1 GM in D5W (PRE-DOCKED) 1,000 MG/250 ML IVPB ONE (18:07)
[2019-09-03] MEDS ORDERED: VANCOMYCIN 1 GRAM (PRE-DOCKED) 1,000 MG/250 ML BAG IVPB ONE (18:29)
[2019-09-03] MEDS ORDERED: ACETAMINOPHEN 1000 MG/100 ML VIAL (NON FORMULARY) IVPB ONE (21:27)
[2019-09-03] MEDS ORDERED: ACETAMINOPHEN INJECTION 100 ML IVPB ONE (21:48)
--- NOTE | 2019-09-03 22:32 | PN ---
Teaching Attending Note Name of Resident: Jannette Treviño ATTENDING PHYSICIAN STATEMENT I saw and evaluated the patient. I reviewed the resident's note and discussed the case with the resident. I agree with the resident's findings and plan as documented. SUBJECTIVE: 84-year-old man with advanced dementia, status post CVA, Residual dysphagia, Status post PEG tube, bilateral elbow ulcers, stage II sacral ulcer nonverbal at baseline, hypertension, BPH, dyslipidemia, Brought into the hospital after wound care nurse suspected that his bilateral elbow ulcers appear worse than previously and may have underlying infection To elbow ulcers. Patient himself cannot offer any medical history and information was obtained from EMR. OBJECTIVE: Last Vital Signs Temp Pulse Resp BP Pulse Ox 98.5 F 101 H 17 145/80 98 09/03/19 18:19 09/03/19 21:25 09/03/19 21:25 09/03/19 21:25 09/03/19 21:25 GENERAL: Elderly, frail, bedbound, nontoxic-appearing, nonverbal HEENT: Normocephalic, atraumatic. PERRLA, EOMI. No conjunctival pallor. Sclera are non- icteric. Moist mucous membranes. Oropharynx is clear. NECK: Supple. Full ROM. No JVD. Carotid pulses 2+ and symmetric, without bruits. No thyromegaly. No lymphadenopathy. CARDIOVASCULAR: Regular rate and rhythm. No murmurs, rubs, or gallops. Distal pulses are 2+ and symmetric. PULMONARY: No evidence of respiratory distress. Lungs clear to auscultation bilaterally. No wheezing, rales or rhonchi. ABDOMINAL: Soft. Non-tender. Non-distended. No rebound or guarding. No organomegaly. Normoactive bowel sounds. PEG in place MUSCULOSKELETAL Normal range of motion at all joints. No bony deformities or tenderness. No CVA tenderness. EXTREMITIES: No cyanosis. No clubbing. No edema. No calf tenderness. SKIN: Right elbow appears to be stage IV ulcer, bone appears to be visible however the ulcer itself appears clean and noninfected. Right elbow ulcer with no drainage however swelling and warmth around ulcer site. Stage II sacral ulcer appreciated. Appears to have intertrigo In groin area PSYCHIATRIC: Severe dementia uncooperative Abnormal Lab Results 09/03/19 09/03/19 09/03/19 15:45 15:45 15:45 RBC 3.35 L Hgb 10.7 L Hct 32.2 L MCV 96.1 H Plt Count 542 H D MPV 7.0 L Monocytes % 10.7 H D ESR 104 H PT with INR 15.30 H INR 1.29 H Anion Gap 7 L BUN 37.2 H AST 41 H Alkaline Phosphatase 169 H C-Reactive Protein 19.3 H Albumin 2.2 L Imaging reviewed ASSESSMENT AND PLAN: 84-year-old man with left elbow radha-ulcer cellulitis. High inflammation markers are worrisome and suspect possible underlying bony involvement especially given depth of ulcers and what appears to be exposed bone on right elbow. Blood cultures Follow-up official read for left elbow x-ray Upper extremity duplex study to rule out DVT bilaterally Consider MRI of elbows bilaterally to rule out underlying osteomyelitis Infectious disease consult Wound care to elbows bilaterally as well as sacral ulcer Frequent dressing changes #Macrocytic anemia Send B12 level, TSH, iron studies, ferritin #Hypoalbuminemia Protein supplement via PEG #Intertrigo Clotrimazole topically in groin DVT prophylaxis with heparin subcutaneous
[2019-09-03 22:55] LABS: ERYTHROCYTE SEDIMENTATION RATE 104 mm/hr (0-20)
--- NOTE | 2019-09-03 23:17 | HP ---
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 Per daughter, patient has had these chronic ulcers for over one year ; however, the daughter noted new onset swelling and serous drainage from the wounds for the past 3 days. She denies any fever, chills, SOB or change in BM or urination. Per daughter, patient is intermittently moaning in pain, but is otherwise at baseline mental status. ER course was notable for: (1) CBC with anemia which is stable from prior admissions with thrombocytosis 542, CMP with elevated AST 41 ALP 169 and CRP 19.3, ESR 104, albumin 2.2 (2) Xray of chest and elbow (3) vanco , wound cultures and blood cultures Recent Travel: denies PAST MEDICAL HISTORY: as above PAST SURGICAL HISTORY: G tube placement Social History: per daughter Smoking: denies Alcohol:denies Drugs: denies Allergies No Known Drug Allergies Allergy (Verified 09/03/19 14:31) HOME MEDICATIONS: Home Medications Medication Instructions Recorded Furosemide [Lasix] 20 mg GT DAILY 08/09/18 Quetiapine Fumarate [Seroquel -] 100 mg GT DAILY 08/09/18 Ranitidine [Zantac -] 150 mg GT BID 08/09/18 Tamsulosin HCl [Flomax] 0.4 mg GT DAILY 08/09/18 traZODone HCL [Trazodone HCl] 100 mg GT DAILY 08/09/18 REVIEW OF SYSTEMS CONSTITUTIONAL: Absent: fever, chills, diaphoresis, generalized weakness, malaise, loss of appetite, weight change HEENT: Absent: rhinorrhea, nasal congestion, throat pain, throat swelling, difficulty swallowing, mouth swelling, ear pain, eye pain, visual changes CARDIOVASCULAR: peripheral edema at the elbows Absent: chest pain, syncope, palpitations, irregular heart rate, lightheadedness , RESPIRATORY: Absent: cough, shortness of breath, dyspnea with exertion, orthopnea, wheezing, stridor, hemoptysis GASTROINTESTINAL: Absent: abdominal pain, abdominal distension, nausea, vomiting, diarrhea, constipation, melena, hematochezia GENITOURINARY: Absent: dysuria, frequency, urgency, hesitancy, hematuria, flank pain, genital pain MUSCULOSKELETAL: Absent: myalgia, arthralgia, joint swelling, back pain, neck pain SKIN: Absent: rash, itching, pallor HEMATOLOGIC/IMMUNOLOGIC: Absent: easy bleeding, easy bruising, lymphadenopathy, frequent infections ENDOCRINE: Absent: unexplained weight gain, unexplained weight loss, heat intolerance, cold intolerance NEUROLOGIC: Absent: headache, focal weakness or paresthesias, dizziness, unsteady gait, seizure, mental status changes, bladder or bowel incontinence PSYCHIATRIC: Absent: anxiety, depression, suicidal or homicidal ideation, hallucinations. PHYSICAL EXAMINATION Vital Signs - 24 hr 09/03/19 09/03/19 14:31 21:25 Pulse Rate 97 H Pulse Rate [ 101 H Right Radial] Respiratory 18 17 Rate Blood Pressure 130/72 Blood Pressure 145/80 [Right Arm] O2 Sat by Pulse 99 98 Oximetry (%) GENERAL: Awake, alert, and fully oriented, in mod distress (moaning) HEAD: Normal with no signs of trauma. EYES: Pupils equal, round and reactive to light, sclera anicteric, conjunctiva clear. No lid lag. EARS, NOSE, THROAT: Ears normal, nares patent, oropharynx clear without exudates. Moist mucous membranes. NECK: Normal range of motion, supple without lymphadenopathy, JVD, or masses. LUNGS: Breath sounds equal, clear to auscultation bilaterally. No wheezes, and no crackles. No accessory muscle use. HEART: Regular rate and rhythm, normal S1 and S2 without murmur, rub or gallop. ABDOMEN: Soft, nontender, not distended, normoactive bowel sounds, no guarding, no rebound, no masses. No hepatomegaly or splenomegaly. MUSCULOSKELETAL: Normal range of motion at all joints. No bony deformities or tenderness. No CVA tenderness. UPPER EXTREMITIES: 2+ pulses, warm, well-perfused. No cyanosis. No clubbing. b/ l elbow edema with associated ulcers (stage 4 on right, stage 3 on left) with clean bases and serous drainage LOWER EXTREMITIES: 2+ pulses, warm, well-perfused. No calf tenderness. No peripheral edema. NEUROLOGICAL: Cranial nerves II-XII intact. Normal speech. Normal gait. PSYCHIATRIC: Cooperative. Good eye contact. Appropriate mood and affect. SKIN: sacral ulcer stage 2 w/o drainage and clean base, fungal diaper rash Laboratory Results - last 24 hr 09/03/19 09/03/19 09/03/19 15:45 15:45 15:45 WBC 9.8 RBC 3.35 L Hgb 10.7 L Hct 32.2 L MCV 96.1 H MCH 32.0 MCHC 33.3 RDW 14.5 Plt Count 542 H D MPV 7.0 L Absolute Neuts (auto) 7.3 Neutrophils % 74.2 Lymphocytes % 13.5 D Monocytes % 10.7 H D Eosinophils % 1.2 Basophils % 0.4 Nucleated RBC % 0 ESR 104 H PT with INR 15.30 H INR 1.29 H PTT (Actin FS) 30.1 Sodium 136 Potassium 4.5 Chloride 102 Carbon Dioxide 27 Anion Gap 7 L BUN 37.2 H Creatinine 0.8 Est GFR (CKD-EPI)AfAm 95.75 Est GFR (CKD-EPI)NonAf 82.61 Random Glucose 95 Lactic Acid Calcium 8.5 Total Bilirubin 0.4 AST 41 H ALT 49 Alkaline Phosphatase 169 H C-Reactive Protein 19.3 H Total Protein 7.2 Albumin 2.2 L 09/03/19 15:45 WBC RBC Hgb Hct MCV MCH MCHC RDW Plt Count MPV Absolute Neuts (auto) Neutrophils % Lymphocytes % Monocytes % Eosinophils % Basophils % Nucleated RBC % ESR PT with INR INR PTT (Actin FS) Sodium Potassium Chloride Carbon Dioxide Anion Gap BUN Creatinine Est GFR (CKD-EPI)AfAm Est GFR (CKD-EPI)NonAf Random Glucose Lactic Acid 1.6 Calcium Total Bilirubin AST ALT Alkaline Phosphatase C-Reactive Protein Total Protein Albumin ASSESSMENT/PLAN: 84 year old male with PMhx of advanced dementia, 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 cannt rule out osteo with high active phase reactants. most likely due to patient positioning as he is bedbound. Edema and stage 4 ulcer on right elbow with possible bony exposure Pt w/o white count, currently afebrile. CRP 19.3 and ESR 104 monitor VS and CBC Xray of b/l elbows with soft tissue swelling but no osteo MRI of the upper extremities to r/o osteo vancomycin given in the ED wound and blood cultures sent will cont vancomycin and ceftriaxone until speciation and sensitivity ID Dr Sanchez consult for antibiotic recommendation and further evaluation turn and position Q2h Wound care consult with Dr Frazier placed PT fungal diaper rash clotrimazole BPH continue flomax GERD pepcid 20 daily FEN Gtube nutritional consult for feeding recommendation in hospital monitor lytes NS@75 DVT hep subQ Dispo- med surge Visit type - Emergency Visit Emergency Visit: Yes ED Registration Date: 09/03/19 Care time: The patient presented to the Emergency Department on the above date and was hospitalized for further evaluation of their emergent condition. - New Patient This patient is new to me today: No - Critical Care Critical Care patient: No ATTENDING PHYSICIAN STATEMENT I saw and evaluated the patient. I reviewed the resident's note and discussed the case with the resident. I agree with the resident's findings and plan as documented. SUBJECTIVE: OBJECTIVE: ASSESSMENT AND PLAN:
[2019-09-03] MEDS ORDERED: traZODone HCL 50 MG TABLET (FP) PO ONE (23:39)
[2019-09-04 02:15] VITALS: BMI 21.1
[2019-09-04] MEDS ORDERED: SODIUM CHLORIDE 1,000 ML IV SCH (04:45)
[2019-09-04] MEDS: HEPARIN NA (PORCINE) 5,000 UNITS/ML 1ML VIAL SQ SCH ×3 (05:37→22:15)
[2019-09-04 07:25] LABS: BASO % 0.5 % (0-2.0); EOS % 1.2 % (0-4.5); HEMATOCRIT 28.6 % (35.4-49); HEMOGLOBIN 9.7 GM/dL (11.7-16.9); LYMPH % 13.5 % (8-40); MCH 32.1 pg (25.7-33.7); MCHC 34.1 g/dl (32.0-35.9); MEAN CELL VOLUME 94.2 fl (80-96); MEAN PLT VOLUME 7.2 fl (7.5-11.1); MONO % 7.2 % (3.8-10.2); NEUT % 77.6 % (42.8-82.8); PLATELET COUNT 572 K/MM3 (134-434); RBC 3.04 M/mm3 (4.00-5.60); RDW 14.4 % (11.9-15.9); RETICULOCYTES 0.92 % (0.5-1.5)
[2019-09-04] MEDS ORDERED: cefTRIAXone SODIUM 1 GM VIAL ONE (08:23)
[2019-09-04] MEDS ORDERED: DEXTROSE 5%-WATER - 50 ML IVPB ONE (08:23)
[2019-09-04 08:59] LABS: ALBUMIN 2.1 g/dl (3.4-5.0); BILIRUBIN,TOTAL 0.5 mg/dL (0.2-1); BLOOD UREA NITROGEN 33.3 mg/dL (7-18); CALCIUM 8.4 mg/dL (8.5-10.1); CREATININE 0.8 mg/dL (0.55-1.3); MAGNESIUM 2.5 mg/dL (1.8-2.4); PHOSPHOROUS 3.5 mg/dL (2.5-4.9); POTASSIUM 4.1 mmol/L (3.5-5.1); TOT PROT 6.7 g/dl (6.4-8.2)
[2019-09-04] MEDS: CEFTRIAXONE 1 GM in DEXTROSE 5%-WATER - 50 ML IVPB SCH (09:07)
[2019-09-04] MEDS: TAMSULOSIN HCL 0.4 MG CAP PO SCH (09:07)
[2019-09-04] MEDS ORDERED: FAMOTIDINE 40 MG/5 ML ORAL SUSPENSION PEG SCH (10:00)
[2019-09-04] MEDS ORDERED: FLU VACCINE QUAD 60 MCG/0.5 ML (MDV 19-20) IM ONE (10:00)
--- NOTE | 2019-09-04 10:06 | EKG ---
Test Reason : Blood Pressure : / mmHG Vent. Rate : 089 BPM Atrial Rate : 089 BPM P-R Int : 150 ms QRS Dur : 066 ms QT Int : 346 ms P-R-T Axes : 000 -02 023 degrees QTc Int : 420 ms NORMAL SINUS RHYTHM POSSIBLE INFERIOR INFARCT , AGE UNDETERMINED ABNORMAL ECG WHEN COMPARED WITH ECG OF 09-AUG-2018 09:54, BASELINE ARTIFACT LIMITS COMPARISON BUT LIKELY NO SIGNIFICANT CHANGES Confirmed by JANELL AGUILLON, SAGAR ([id number]) on 09/04/2019 10:05:51 AM Referred By: Confirmed By:SAGAR MACIEL MD
[2019-09-04] MEDS: ACETAMINOPHEN 1000 MG/100 ML VIAL (NON FORMULARY) IVPB PRN (11:12)
[2019-09-04] MEDS: CLOTRIMAZOLE 1% CREAM 15 GM TUBE TP SCH ×2 (11:13→22:09)
--- NOTE | 2019-09-04 16:07 | PN ---
Teaching Attending Note Name of Resident: [place] ATTENDING PHYSICIAN STATEMENT I saw and evaluated the patient. I reviewed the resident's note and discussed the case with the resident. I agree with the resident's findings and plan as documented with exceptions below. SUBJECTIVE: Patient seen and examined. non verbal, unable to assess for ROS. OBJECTIVE: Vital Signs Period Temp Pulse Resp BP Sys/Becerra Pulse Ox Last 24 Hr 98.3 F-99.1 F 66-102 17-20 127-150/53-81 98-98 Intake & Output 09/01/19 09/02/19 09/03/19 09/04/19 23:59 23:59 23:59 23:59 Intake Total 0 600 Balance 0 600 Weight 139 lb 1.6 oz 139 lb general: lying in bed, non verbal, moaning, no acute distress Neck:soft Abdomen:Soft, Peg in place, pos bowel sounds Chest; limited effort, no rales or wheezing appreciated Extermities: Left upper extremity: stage 3 ulcer located on the elbow approximately 2x2 cm without purulent discharge. Superifical abrasions noted in the antecubital fossa multiple. Warm to the touch. Extensive swelling of the left elbow. Right upper extremity: 2x2 cm stage 4 ulcer located in the elbow at the olecrenon process. superficial abrasions noted in the antecubital fossa. Mild swelling, less than left side. No ulcers or swelling noted on the LE. 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 Home Medications Medication Instructions Recorded Furosemide [Lasix] 20 mg GT DAILY 08/09/18 Quetiapine Fumarate [Seroquel -] 100 mg GT DAILY 08/09/18 Ranitidine [Zantac -] 150 mg GT BID 08/09/18 Tamsulosin HCl [Flomax] 0.4 mg GT DAILY 08/09/18 traZODone HCL [Trazodone HCl] 100 mg GT DAILY 08/09/18 Active Medications Acetaminophen (Ofirmev Injection -) 1,000 mg IVPB Q6H PRN PRN Reason: PAIN LEVEL 6-10 Last Admin: 09/04/19 11:12 Dose: 1,000 mg Amino Acids (Prosource No Carb Liquid Pkt) 30 ml PO BID@0800,1730 [facility] Last Admin: 09/04/19 16:34 Dose: 30 ml Clotrimazole (Lotrimin 1% Cream -) 1 applic TP BID [facility] Last Admin: 09/04/19 11:13 Dose: 1 applic Famotidine (Pepcid) 20 mg PEG DAILY [facility] Last Admin: 09/04/19 09:07 Dose: 20 mg Heparin Sodium (Porcine) (Heparin -) 5,000 unit SQ TID [facility] Last Admin: 09/04/19 14:11 Dose: 5,000 unit Ceftriaxone Sodium 1 gm/ (Dextrose) 50 mls @ 100 mls/hr IVPB DAILY [facility]; Protocol Last Admin: 09/04/19 09:07 Dose: 100 mls/hr Tamsulosin HCl (Flomax -) 0.4 mg PO DAILY@0830 [facility] Last Admin: 09/04/19 09:07 Dose: 0.4 mg Trazodone HCl (Desyrel -) 100 mg PO HS [facility] Vancomycin HCl (Vancomycin (Pre-Docked)) 1,000 mg IVPB Q24H [facility]; Protocol Laboratory Results - last 24 hr 09/03/19 09/04/19 09/04/19 15:45 06:25 06:25 WBC 7.0 RBC 3.04 L Hgb 9.7 L Hct 28.6 L MCV 94.2 MCH 32.1 MCHC 34.1 RDW 14.4 Plt Count 572 H MPV 7.2 L Absolute Neuts (auto) 5.4 Neutrophils % 77.6 Lymphocytes % 13.5 Monocytes % 7.2 Eosinophils % 1.2 Basophils % 0.5 Nucleated RBC % 0 ESR 104 H Retic Count 0.92 Sodium 137 Potassium 4.1 Chloride 106 Carbon Dioxide 27 Anion Gap 4 L BUN 33.3 H Creatinine 0.8 Est GFR (CKD-EPI)AfAm 95.75 Est GFR (CKD-EPI)NonAf 82.61 Random Glucose 88 Calcium 8.4 L Phosphorus 3.5 Magnesium 2.5 H Iron 17 L TIBC 187 L Iron Saturation 9 L Unsaturated IBC 170 L Ferritin 301.0 Total Bilirubin 0.5 AST 26 ALT 40 Alkaline Phosphatase 149 H Total Protein 6.7 Albumin 2.1 L Vitamin B12 2349 H Serum Folate 36 H TSH 1.22 D 09/04/19 06:25 WBC RBC Hgb Hct MCV MCH MCHC RDW Plt Count MPV Absolute Neuts (auto) Neutrophils % Lymphocytes % Monocytes % Eosinophils % Basophils % Nucleated RBC % ESR 111 H Retic Count Sodium Potassium Chloride Carbon Dioxide Anion Gap BUN Creatinine Est GFR (CKD-EPI)AfAm Est GFR (CKD-EPI)NonAf Random Glucose Calcium Phosphorus Magnesium Iron TIBC Iron Saturation Unsaturated IBC Ferritin Total Bilirubin AST ALT Alkaline Phosphatase Total Protein Albumin Vitamin B12 Serum Folate TSH bilateral elbow xrays results reviewed ASSESSMENT AND PLAN: 84 yom with advanced dementia, CVA over one year ago with residual dysphagia s/ p G tube placement, BPH, HTN, HLD, and GERD, brought in by daughter with bilateral elbow decub ulcer with cellulitis+/- osteomyelitis. -Bilateral Elbow Decubitus Ulcer cellulitis +/- abscess/osteomyelitis, L>R -Advanced dementia -CVA with residual dysphagia s/p G tube placement -BPH -HTN -HLD -GERD Plan: Ceftriaxone/vancomycin, follow up cultures. Wound cx as able Wound care input noted Orthopedic consult ESR/CRP noted. ID input. Palliative care input to address overall goals of care Resume tube feeds. Hold lasix. Continue ranitidine/flomax/trazodone/seroquel DVTPPX heparin Dispo pending resolution of medical concerns and goals of care.
[2019-09-04] MEDS: AMINO ACIDS/PROTEIN HYDROLYS 30 ML LIQUID.PKT PO SCH (16:34)
--- NOTE | 2019-09-04 17:39 | PN ---
Physical Exam: SUBJECTIVE: Patient seen and examined at the bedside. Patient is non-verbal. Was moaning. Unable to obtain review of systems due to patient's condition. OBJECTIVE: Vital Signs Period Temp Pulse Resp BP Sys/Becerra Pulse Ox Last 24 Hr 98.3 F-99.1 F 66-102 17-20 127-150/53-81 98-98 GENERAL: In mod distress (moaning), not alert or oriented. HEAD: Normal with no signs of trauma. EYES: Pupils equal, round and reactive to light, sclera anicteric, conjunctiva clear. No lid lag. NECK: Normal range of motion, supple without lymphadenopathy, JVD. LUNGS: Poor inspiratory effort, no wheezes, crackles, coarse breath sounds appreciated. HEART: Regular rate and rhythm, normal S1 and S2 without murmur, rub or gallop. ABDOMEN: Soft, nontender, not distended, normoactive bowel sounds, no guarding, no rebound, no masses. MUSCULOSKELETAL: Normal range of motion at all joints. No bony deformities or tenderness. UPPER EXTREMITIES: 2+ pulses. No cyanosis. No clubbing. b/l elbow edema with associated ulcers (stage 4 on right, stage 3 on left) with clean bases and serous drainage. Noted wounds in the left AC stage 3 ulcer. Warm to touch bilaterally. LOWER EXTREMITIES: 2+ pulses, warm, well-perfused. No calf tenderness. No peripheral edema. NEUROLOGICAL: Pupils equal, round, and reactive to light. Withdraws to painful stimulation. Unable to comply with neurological exam. PSYCHIATRIC: Not alert to surroundings. SKIN: sacral ulcer stage 2 w/o drainage and clean base, fungal diaper rash Laboratory Results - last 24 hr 09/03/19 09/04/19 09/04/19 15:45 06:25 06:25 WBC 7.0 RBC 3.04 L Hgb 9.7 L Hct 28.6 L MCV 94.2 MCH 32.1 MCHC 34.1 RDW 14.4 Plt Count 572 H MPV 7.2 L Absolute Neuts (auto) 5.4 Neutrophils % 77.6 Lymphocytes % 13.5 Monocytes % 7.2 Eosinophils % 1.2 Basophils % 0.5 Nucleated RBC % 0 ESR 104 H Retic Count 0.92 Sodium 137 Potassium 4.1 Chloride 106 Carbon Dioxide 27 Anion Gap 4 L BUN 33.3 H Creatinine 0.8 Est GFR (CKD-EPI)AfAm 95.75 Est GFR (CKD-EPI)NonAf 82.61 Random Glucose 88 Calcium 8.4 L Phosphorus 3.5 Magnesium 2.5 H Iron 17 L TIBC 187 L Iron Saturation 9 L Unsaturated IBC 170 L Ferritin 301.0 Total Bilirubin 0.5 AST 26 ALT 40 Alkaline Phosphatase 149 H Total Protein 6.7 Albumin 2.1 L Vitamin B12 2349 H Serum Folate 36 H TSH 1.22 D 09/04/19 06:25 WBC RBC Hgb Hct MCV MCH MCHC RDW Plt Count MPV Absolute Neuts (auto) Neutrophils % Lymphocytes % Monocytes % Eosinophils % Basophils % Nucleated RBC % ESR 111 H Retic Count Sodium Potassium Chloride Carbon Dioxide Anion Gap BUN Creatinine Est GFR (CKD-EPI)AfAm Est GFR (CKD-EPI)NonAf Random Glucose Calcium Phosphorus Magnesium Iron TIBC Iron Saturation Unsaturated IBC Ferritin Total Bilirubin AST ALT Alkaline Phosphatase Total Protein Albumin Vitamin B12 Serum Folate TSH Active Medications Generic Name Dose Route Start Last Admin Trade Name Freq PRN Reason Stop Dose Admin Acetaminophen 1,000 mg 09/04/19 10:28 09/04/19 11:12 Ofirmev Injection - IVPB 1,000 mg Q6H PRN Administration PAIN LEVEL 6-10 Amino Acids 30 ml 09/04/19 17:30 09/04/19 16:34 Prosource No Carb Liquid Pkt PO 30 ml BID@0800,1730 [facility] Administration Clotrimazole 1 applic 09/04/19 10:00 09/04/19 11:13 Lotrimin 1% Cream - TP 1 applic BID [facility] Administration Famotidine 20 mg 09/04/19 10:00 09/04/19 09:07 Pepcid PEG 20 mg DAILY [facility] Administration Heparin Sodium (Porcine) 5,000 unit 09/04/19 06:00 09/04/19 14:11 Heparin - SQ 5,000 unit TID [facility] Administration Ceftriaxone Sodium 1 gm/ 50 mls @ 100 mls/hr 09/04/19 10:00 09/04/19 09:07 Dextrose IVPB 100 mls/hr DAILY [facility] Administration Protocol Tamsulosin HCl 0.4 mg 09/04/19 08:30 09/04/19 09:07 Flomax - PO 0.4 mg DAILY@0830 [facility] Administration Trazodone HCl 100 mg 11/18/19 22:00 Desyrel - PO HS [facility] Vancomycin HCl 1,000 mg 09/04/19 19:00 Vancomycin (Pre-Docked) IVPB Q24H [facility] Protocol ASSESSMENT/PLAN: Romeo Tripathi is an 84 year old male with PMhx of advanced dementia, 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 cannt rule out osteo with high active phase reactants. - most likely due to patient positioning as he is bedbound. Edema and stage 4 ulcer on right elbow with possible bony exposure - currently afebrile. CRP 19.3 and ESR 104, continue to monitor CBC - Xray of b/l elbows with soft tissue swelling but no osteo - MRI of the upper extremities to r/o osteo pending - wound cultures negative for growth - blood cultures with no growth after 24 hours, will continue to monitor - will cont vancomycin and ceftriaxone until speciation and sensitivity - ID Dr Sanchez consult for antibiotic recommendation and further evaluation - turn and position Q2h - Wound care consult with Dr Frazier - PT - orthopedic consultation due to proximity of wound to joint space Anemia - likely anemia of chronic disease in setting of low iron, TIBC, and high ferritin - likely in setting of chronic wounds and inflammatory state - will continue to monitor as wounds are treated fungal diaper rash - clotrimazole BPH - continue flomax GERD - pepcid 20 daily FEN - no standing fluids - continue to monitor electrolytes and replete as necessary - Gtube feedings as per nutritional recommendations DVT - hep 5000 units subQ tid Dispo - continue to monitor on med surg - palliative care consult Visit type - Emergency Visit Emergency Visit: No - New Patient This patient is new to me today: Yes Date on this admission: 09/04/19 - Critical Care Critical Care patient: No
[2019-09-04] MEDS ORDERED: VANCOMYCIN 1 GM in D5W (PRE-DOCKED) 1,000 MG/250 ML IVPB SCH (19:00)
[2019-09-04] MEDS: FAMOTIDINE 40 MG/5 ML ORAL SUSPENSION PEG SCH (22:08)
[2019-09-04] MEDS ORDERED: traZODone HCL 50 MG TABLET (FP) ONE (22:12)
--- NOTE | 2019-09-04 23:44 | PN ---
Progress Note (short form) - Note Progress Note: ID CONSULT DICTATED BILATERAL ELBOW ULCERS R/O OSTEOMYELITIS AWAIT C/S SURGICAL EVALUATION EMPIRIC VANCOMYCIN/ZOSYN
[2019-09-05] MEDS: traZODone HCL 100 MG TABLET (FP) PO SCH ×2 (00:02→21:06)
[2019-09-05] MEDS: VANCOMYCIN 1 GRAM (PRE-DOCKED) 1,000 MG/250 ML BAG IVPB SCH (00:22)
[2019-09-05] MEDS: ACETAMINOPHEN 1000 MG/100 ML VIAL (NON FORMULARY) IVPB PRN ×2 (00:38→14:24)
[2019-09-05] MEDS: HEPARIN NA (PORCINE) 5,000 UNITS/ML 1ML VIAL SQ SCH ×3 (06:12→21:07)
[2019-09-05 08:11] LABS: BLOOD UREA NITROGEN 34.9 mg/dL (7-18); CALCIUM 8.6 mg/dL (8.5-10.1); CREATININE 0.9 mg/dL (0.55-1.3); POTASSIUM 4.1 mmol/L (3.5-5.1)
[2019-09-05 08:16] LABS: HEMOGLOBIN 9.8 GM/dL (11.7-16.9); MCH 31.9 pg (25.7-33.7); MCHC 33.7 g/dl (32.0-35.9); MEAN CELL VOLUME 94.6 fl (80-96); MEAN PLT VOLUME 7.3 fl (7.5-11.1); PLATELET COUNT 644 K/MM3 (134-434); RBC 3.06 M/mm3 (4.00-5.60); RDW 14.2 % (11.9-15.9); WHITE BLOOD COUNT 6.8 K/mm3 (4.0-10.0)
--- NOTE | 2019-09-05 09:42 | PN ---
Progress Note (short form) - Note Progress Note: Pt seen and examined. In short he is an 84 year old male patient who, according to his daughter, is 2 years s/p CVA, and the development of bilateral upper extremity contractures. He has had b/l elbow ulcers for over 1 year. He is nonverbal, but began moaning more frequently about 1 month ago. He cannot follow commands. She denies any recent history of trauma. On Iv Vancomycin. [facility] Labs WBC= 6.8 ESR increased to 111 Blood cx negative so far Wound cx + for yeast, Group D Strep, and possible Entero Coccus X-rays Of B/L elbows, show no acute bony pathology, no fractures or dislocations, no obvious signs of lytic lesions or osteomyelitis. 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 + pressure nd tension ulcers on both elbows, posterior aspects, facing the bed Right is deep, full thickness, and quite large, about 6cm in diameter. Left is not as deep, although also full thickness, and about 4cm in diameter No significant drainage, no pus, no foul odor, no obvious signs of significant infection Imp 84 yo M pt 2 yrs s/p CVA and severe b/l elbow fixed flexion contractures, with pressure ulcers over the posterior elbows, made worse by the tension put on the skin from the flexion contractures. Rec There are not many options here. I discussed this with the daughter, she understands and agrees. Con't the IV abx. P.T. not a viable option. Surgery would be complicated: a primary wound closure likely would fail bc of tension on the skin, even a full thickness skin graft would fail bc of the continued pressure on the skin, no I&D is needed at this time, I would not recommend a contracture release surgery. Therefore I would only recommend daily wound cleaning with betadyne or hydrogen peroxide, perhaps a wound care consult, perhaps silvadene cream, and I would rec ankle foam protectors to both elbows.
[2019-09-05] MEDS ORDERED: QUEtiapine FUMARATE 50 MG TABLET ONE (09:50)
[2019-09-05] MEDS ORDERED: DEXTROSE 5%-WATER - 50 ML IVPB ONE (09:51)
[2019-09-05] MEDS ORDERED: cefTRIAXone SODIUM 1 GM VIAL ONE (09:51)
[2019-09-05] MEDS: TAMSULOSIN HCL 0.4 MG CAP PO SCH (09:53)
[2019-09-05] MEDS: CLOTRIMAZOLE 1% CREAM 15 GM TUBE TP SCH ×2 (09:56→21:07)
[2019-09-05] MEDS: CEFTRIAXONE 1 GM in DEXTROSE 5%-WATER - 50 ML IVPB SCH (09:56)
[2019-09-05] MEDS: AMINO ACIDS/PROTEIN HYDROLYS 30 ML LIQUID.PKT PO SCH ×2 (09:56→18:07)
[2019-09-05] MEDS: QUEtiapine FUMARATE 100 MG TABLET (FP) PEG SCH ×2 (09:58→10:20)
[2019-09-05] MEDS ORDERED: PT OWN MED DRAWER 7, Y5N ONE ×4 (10:00→13:45)
--- NOTE | 2019-09-05 11:13 | PN ---
Progress Note, Physician History of Present Illness: AWAKE, NON VERBAL AFEBRILE NO ACUTE DISTRESS - Current Medication List Current Medications: Active Medications Acetaminophen (Ofirmev Injection -) 1,000 mg IVPB Q6H PRN PRN Reason: PAIN LEVEL 6-10 Last Admin: 09/05/19 00:38 Dose: 1,000 mg Amino Acids (Prosource No Carb Liquid Pkt) 30 ml PO BID@0800,1730 [facility] Last Admin: 09/05/19 09:56 Dose: 30 ml Clotrimazole (Lotrimin 1% Cream -) 1 applic TP BID [facility] Last Admin: 09/05/19 09:56 Dose: 1 applic Famotidine (Pepcid) 20 mg PEG BID [facility] Last Admin: 09/04/19 22:08 Dose: 20 mg Heparin Sodium (Porcine) (Heparin -) 5,000 unit SQ TID [facility] Last Admin: 09/05/19 06:12 Dose: 5,000 unit Ceftriaxone Sodium 1 gm/ (Dextrose) 50 mls @ 100 mls/hr IVPB DAILY [facility]; Protocol Last Admin: 09/05/19 09:56 Dose: 100 mls/hr Vancomycin HCl (Vancomycin (Pre-Docked)) 1,000 mg in 250 mls @ 166.667 mls/hr IVPB Q24H [facility]; Protocol Last Admin: 09/05/19 00:22 Dose: 166.667 mls/hr Quetiapine Fumarate (Seroquel -) 100 mg PEG DAILY [facility] Last Admin: 09/05/19 10:20 Dose: Not Given Tamsulosin HCl (Flomax -) 0.4 mg PO DAILY@0830 [facility] Last Admin: 09/05/19 09:53 Dose: 0.4 mg Trazodone HCl (Desyrel -) 100 mg PO [facility] - Objective Vital Signs: Vital Signs Temperature 98.8 F 09/05/19 06:00 Pulse Rate 84 09/05/19 06:00 Respiratory Rate 09/05/19 06:00 Blood Pressure 135/71 09/05/19 06:00 O2 Sat by Pulse Oximetry (%) 96 09/04/19 20:30 Constitutional: Yes: No Distress Eyes: Yes: Conjunctiva Clear Cardiovascular: Yes: Regular Rate and Rhythm, S1, S2 Respiratory: Yes: Diminished Gastrointestinal: Yes: Normal Bowel Sounds, Soft. No: Tenderness Extremities: Yes: Other (+ BILATERAL ELBOW ULCERS R>L) Labs: CBC, BMP 09/05/19 06:30 09/05/19 06:30 INR, PTT INR 1.29 (0.83-1.09) H 09/03/19 15:45 Assessment/Plan BILATERAL ELBOW ULCERS R/O OSTEOMYELITIS AWAIT C/S CONTINUE EMPIRIC ZOSYN/VANCOMYCIN
[2019-09-05] MEDS: FAMOTIDINE 40 MG/5 ML ORAL SUSPENSION PEG SCH ×2 (13:40→21:06)
--- NOTE | 2019-09-05 14:44 | PN ---
Physical Exam: SUBJECTIVE: Patient seen and examined at the bedside. Patient is non-verbal. Unable to obtain a review of systems. Patient was lying in bed with daughter at the bedside. Daughter on hand to answer questions. OBJECTIVE: Vital Signs Period Temp Pulse Resp BP Sys/Becerra Pulse Ox Last 24 Hr 98.2 F-99.0 F 66-100 19-20 125-147/71-90 96 GENERAL: In no apparent distress, not alert or oriented. HEAD: Normal with no signs of trauma. EYES: Pupils equal, round and reactive to light, sclera anicteric, conjunctiva clear. NECK: Normal range of motion, supple without lymphadenopathy, JVD. LUNGS: Poor inspiratory effort, no wheezes, crackles, coarse breath sounds appreciated. HEART: Regular rate and rhythm, normal S1 and S2 without murmur, rub or gallop. ABDOMEN: Soft, nontender, not distended, normoactive bowel sounds, no guarding, no rebound, no masses. MUSCULOSKELETAL: Normal range of motion at all joints. No bony deformities or tenderness. UPPER EXTREMITIES: 2+ pulses. No cyanosis. No clubbing. b/l elbow edema with associated ulcers (stage 4 on right, stage 3 on left) with clean bases and serous drainage. Noted wounds in the left AC stage 3 ulcer. Warm to touch bilaterally. LOWER EXTREMITIES: 2+ pulses, warm, well-perfused. No calf tenderness. No peripheral edema. NEUROLOGICAL: Pupils equal, round, and reactive to light. Withdraws to painful stimulation. Unable to comply with neurological exam. PSYCHIATRIC: Not alert to surroundings. SKIN: sacral ulcer stage 2 w/o drainage and clean base, fungal diaper rash Laboratory Results - last 24 hr 09/04/19 09/05/19 09/05/19 06:25 06:30 06:30 WBC 6.8 RBC 3.06 L Hgb 9.8 L Hct 29.0 L MCV 94.6 MCH 31.9 MCHC 33.7 RDW 14.2 Plt Count 644 H MPV 7.3 L Sodium 142 Potassium 4.1 Chloride 108 H Carbon Dioxide 27 Anion Gap 7 L BUN 34.9 H Creatinine 0.9 Est GFR (CKD-EPI)AfAm 91.22 Est GFR (CKD-EPI)NonAf 78.71 Random Glucose 140 H Calcium 8.6 Transferrin 146 L Active Medications Generic Name Dose Route Start Last Admin Trade Name Freq PRN Reason Stop Dose Admin Acetaminophen 1,000 mg 09/04/19 10:28 09/05/19 00:38 Ofirmev Injection - IVPB 1,000 mg Q6H PRN Administration PAIN LEVEL 6-10 Amino Acids 30 ml 09/04/19 17:30 09/05/19 09:56 Prosource No Carb Liquid Pkt PO 30 ml BID@0800,1730 CARMELO Administration Clotrimazole 1 applic 09/04/19 10:00 09/05/19 09:56 Lotrimin 1% Cream - TP 1 applic BID CARMELO Administration Famotidine 20 mg 09/04/19 22:00 09/05/19 13:40 Pepcid PEG 20 mg BID CARMELO Administration Heparin Sodium (Porcine) 5,000 unit 09/04/19 06:00 09/05/19 06:12 Heparin - SQ 5,000 unit TID CARMELO Administration Ceftriaxone Sodium 1 gm/ 50 mls @ 100 mls/hr 09/04/19 10:00 09/05/19 09:56 Dextrose IVPB 100 mls/hr DAILY CARMELO Administration Protocol Vancomycin HCl 1,000 mg in 250 mls @ 166.667 mls/hr 09/05/19 00:00 09/05/19 00:22 Vancomycin (Pre-Docked) IVPB 166.667 mls/hr Q24H CARMELO Administration Protocol Quetiapine Fumarate 100 mg 09/05/19 22:00 Seroquel - PEG HS [facility] Tamsulosin HCl 0.4 mg 09/04/19 08:30 09/05/19 09:53 Flomax - PO 0.4 mg DAILY@0830 CARMELO Administration Trazodone HCl 100 mg 09/04/19 22:00 Desyrel - PO HS [facility] ASSESSMENT/PLAN: Romeo Tripathi is an 84 year old male with PMhx of advanced dementia, 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 cannt rule out osteo with high active phase reactants. - most likely due to patient positioning as he is bedbound. Edema and stage 4 ulcer on right elbow with possible bony exposure - remains afebrile. No WBC. CRP 19.3 and ESR 104. - Xray of b/l elbows with soft tissue swelling but no osteo - MRI of the upper extremities to r/o osteo difficult to obtain due to patient non compliance of extending his elbow above his head - wound cultures growing yeast and Group D strep - blood cultures with no growth after 24 hours, will continue to monitor - will cont vancomycin and ceftriaxone until speciation and sensitivity - ID Dr Momin consult for antibiotic recommendation and further evaluation - turn and position Q2h - Ortho consult, recs appreciated, no indications for surgical management. Continue local wound care - consult wounds care - Duplex of UE negative for DVT Anemia - H/H stable - likely anemia of chronic disease in setting of low iron, TIBC, and high ferritin - likely in setting of chronic wounds and inflammatory state - will continue to monitor as wounds are treated fungal diaper rash - clotrimazole BPH - continue flomax GERD - pepcid 20 daily FEN - no standing fluids - continue to monitor electrolytes and replete as necessary - Gtube feedings as per nutritional recommendations DVT - hep 5000 units subQ tid Dispo - continue to monitor on med surg - palliative care consult Visit type - Emergency Visit Emergency Visit: No - New Patient This patient is new to me today: No - Critical Care Critical Care patient: No
--- NOTE | 2019-09-05 18:23 | PN ---
Teaching Attending Note Name of Resident: Deep Villa ATTENDING PHYSICIAN STATEMENT I saw and evaluated the patient. I reviewed the resident's note and discussed the case with the resident. I agree with the resident's findings and plan as documented. SUBJECTIVE: non-verbal, unable to participate in medical interview OBJECTIVE: Low grade Temp 99.5, Hemodynamically Stable. Lying in bed with and L Ext contractures. Last Vital Signs Temp Pulse Resp BP Pulse Ox 99.5 F 86 20 135/79 96 09/05/19 14:57 09/05/19 14:57 09/05/19 14:57 09/05/19 14:57 09/04/19 20:30 HEENT - Atraumatic. No lymphadenopahty Heart - S1, S2, RRR Lungs - clear to auscultation Abdomen - soft, PEG in situ Extremities - contractures all 4 extremities with dressed decubitus ulcers bilateral elbows. L elbow stage 3 and R elbow stage 4 ulcers reported. Laboratory Results - last 24 hr 09/04/19 09/05/19 09/05/19 06:25 06:30 06:30 WBC 6.8 RBC 3.06 L Hgb 9.8 L Hct 29.0 L MCV 94.6 MCH 31.9 MCHC 33.7 RDW 14.2 Plt Count 644 H MPV 7.3 L Sodium 142 Potassium 4.1 Chloride 108 H Carbon Dioxide 27 Anion Gap 7 L BUN 34.9 H Creatinine 0.9 Est GFR (CKD-EPI)AfAm 91.22 Est GFR (CKD-EPI)NonAf 78.71 Random Glucose 140 H Calcium 8.6 Transferrin 146 L Current Medications Generic Name Dose Route Start Last Admin Trade Name Clare PRN Reason Stop Dose Admin Acetaminophen 1,000 mg 09/04/19 10:28 09/05/19 00:38 Ofirmev Injection - IVPB 1,000 mg Q6H PRN Administration PAIN LEVEL 6-10 Amino Acids 30 ml 09/04/19 17:30 09/05/19 18:07 Prosource No Carb Liquid Pkt PO 30 ml BID@0800,1730 CARMELO Administration Clotrimazole 1 applic 09/04/19 10:00 09/05/19 09:56 Lotrimin 1% Cream - TP 1 applic BID CARMELO Administration Famotidine 20 mg 09/04/19 22:00 09/05/19 13:40 Pepcid PEG 20 mg BID CARMELO Administration Heparin Sodium (Porcine) 5,000 unit 09/04/19 06:00 09/05/19 15:58 Heparin - SQ 5,000 unit TID CARMELO Administration Ceftriaxone Sodium 1 gm/ 50 mls @ 100 mls/hr 09/04/19 10:00 09/05/19 09:56 Dextrose IVPB 100 mls/hr DAILY CARMELO Administration Protocol Vancomycin HCl 1,000 mg in 250 mls @ 166.667 mls/hr 09/05/19 00:00 09/05/19 00:22 Vancomycin (Pre-Docked) IVPB 166.667 mls/hr Q24H CAREMLO Administration Protocol Quetiapine Fumarate 100 mg 09/05/19 22:00 Seroquel - PEG HS [facility] Tamsulosin HCl 0.4 mg 09/04/19 08:30 09/05/19 09:53 Flomax - PO 0.4 mg DAILY@0830 CARMELO Administration Trazodone HCl 100 mg 09/04/19 22:00 Desyrel - PO HS [facility] Home Medications Medication Instructions Recorded Furosemide [Lasix] 20 mg GT DAILY 08/09/18 Quetiapine Fumarate [Seroquel -] 100 mg GT DAILY 08/09/18 Ranitidine [Zantac -] 150 mg GT BID 08/09/18 Tamsulosin HCl [Flomax] 0.4 mg GT DAILY 08/09/18 traZODone HCL [Trazodone HCl] 100 mg GT DAILY 08/09/18 ASSESSMENT AND PLAN: 84 year old male with Advanced Dementia, Hx 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 1. Advanced Stage bilateral Elbow ulcers with cellulitis ?osteomyelitis - unable to perform MRI as patient unable to extend arm Wound Cx pending (yeast and Gp D strep/enterococcus prelim, awaiting final ID and Sens. Continue Ceftriaxone/Vanco Orthopedics consulted, recommend daily wound cleaning with betadyne or hydrogen peroxide and ankle foam protectors to both elbows. No surgery recommended due to frailty, contractures and co-morbidities. ID following. Wound Care. 2. Advanced Dementia with Dysphagia s/p PEG, Functional Quadriplegia Palliative consulted re:goals of care Continue Trazodone and Seroquel. 3. BPH - Continue Tamsulosin 4. GERD - continue Ranitidine 5. Iron Deficiency Anemia - will start supplementation. DVT Px - Heparin SQ
[2019-09-05] MEDS ORDERED: traZODone HCL 50 MG TABLET (FP) ONE (21:03)
[2019-09-05] MEDS: DOCUSATE NA 100 MG/10 ML UNIT-DOSE CUPS PEG SCH (21:06)
[2019-09-05] MEDS: FERROUS SO4 300 MG/5 ML ORAL SOLN UNIT DOSE CUPS NGT SCH (21:06)
[2019-09-05] MEDS: QUEtiapine FUMARATE 50 MG TABLET PEG SCH (21:07)
[2019-09-06] MEDS: VANCOMYCIN 1 GRAM (PRE-DOCKED) 1,000 MG/250 ML BAG IVPB SCH (01:17)
[2019-09-06] MEDS: HEPARIN NA (PORCINE) 5,000 UNITS/ML 1ML VIAL SQ SCH ×3 (05:47→22:56)
[2019-09-06 07:34] LABS: BLOOD UREA NITROGEN 32.2 mg/dL (7-18); CALCIUM 8.8 mg/dL (8.5-10.1); CREATININE 0.8 mg/dL (0.55-1.3)
[2019-09-06 08:03] LABS: HEMATOCRIT 29.1 % (35.4-49); HEMOGLOBIN 9.8 GM/dL (11.7-16.9); MCH 31.9 pg (25.7-33.7); MCHC 33.5 g/dl (32.0-35.9); MEAN CELL VOLUME 95.2 fl (80-96); MEAN PLT VOLUME 7.2 fl (7.5-11.1); PLATELET COUNT 672 K/MM3 (134-434); RBC 3.05 M/mm3 (4.00-5.60); RDW 14.7 % (11.9-15.9); WHITE BLOOD COUNT 7.1 K/mm3 (4.0-10.0)
[2019-09-06] MEDS ORDERED: DEXTROSE 5%-WATER - 50 ML IVPB ONE (09:09)
[2019-09-06] MEDS ORDERED: cefTRIAXone SODIUM 1 GM VIAL ONE (09:09)
[2019-09-06] MEDS: AMINO ACIDS/PROTEIN HYDROLYS 30 ML LIQUID.PKT PO SCH ×2 (10:09→16:31)
[2019-09-06] MEDS: TAMSULOSIN HCL 0.4 MG CAP PO SCH (10:09)
[2019-09-06] MEDS: CEFTRIAXONE 1 GM in DEXTROSE 5%-WATER - 50 ML IVPB SCH (10:10)
[2019-09-06] MEDS: CLOTRIMAZOLE 1% CREAM 15 GM TUBE TP SCH ×2 (10:10→22:57)
[2019-09-06] MEDS: FAMOTIDINE 40 MG/5 ML ORAL SUSPENSION PEG SCH ×2 (10:10→23:00)
[2019-09-06] MEDS: FERROUS SO4 300 MG/5 ML ORAL SOLN UNIT DOSE CUPS NGT SCH ×2 (10:10→22:57)
[2019-09-06] MEDS: DOCUSATE NA 100 MG/10 ML UNIT-DOSE CUPS PEG SCH ×2 (10:11→22:56)
[2019-09-06] MEDS ORDERED: PT OWN MED DRAWER 7, Y5N ONE ×2 (10:20→20:45)
--- NOTE | 2019-09-06 15:42 | PN ---
Physical Exam: SUBJECTIVE: Patient seen and examined at the bedside. Patient continues to be non-verbal and unable to give ROS. Patient had a clogged PEG tube and was taken to IR to replace and feeds were restarted. OBJECTIVE: Vital Signs Period Temp Pulse Resp BP Sys/Becerra Pulse Ox Last 24 Hr 98.1 F-99.2 F 81-88 18-22 122-157/61-88 96-97 GENERAL: In no apparent distress, not alert or oriented. HEAD: Normal with no signs of trauma. EYES: Pupils equal, round and reactive to light, sclera anicteric, conjunctiva clear. NECK: Normal range of motion, supple without lymphadenopathy, JVD. LUNGS: Poor inspiratory effort, no wheezes, crackles, coarse breath sounds appreciated. HEART: Regular rate and rhythm, normal S1 and S2 without murmur, rub or gallop. ABDOMEN: Soft, nontender, not distended, normoactive bowel sounds, no guarding, no rebound, no masses. MUSCULOSKELETAL: Normal range of motion at all joints. No bony deformities or tenderness. UPPER EXTREMITIES: 2+ pulses. No cyanosis. No clubbing. b/l elbow edema with associated ulcers (stage 4 on right, stage 4 on left) with clean bases and serous drainage. Noted wounds in the left AC stage 3 ulcer. Warm to touch bilaterally. LOWER EXTREMITIES: 2+ pulses, warm, well-perfused. No calf tenderness. No peripheral edema. NEUROLOGICAL: Pupils equal, round, and reactive to light. Withdraws to painful stimulation. Unable to comply with neurological exam. PSYCHIATRIC: Not alert to surroundings. SKIN: sacral ulcer stage 2 w/o drainage and clean base, fungal diaper rash Laboratory Results - last 24 hr 09/06/19 09/06/19 06:35 06:35 WBC 7.1 RBC 3.05 L Hgb 9.8 L Hct 29.1 L MCV 95.2 MCH 31.9 MCHC 33.5 RDW 14.7 Plt Count 672 H MPV 7.2 L Sodium 145 Potassium 4.0 Chloride 110 H Carbon Dioxide 30 Anion Gap 5 L BUN 32.2 H Creatinine 0.8 Est GFR (CKD-EPI)AfAm 95.75 Est GFR (CKD-EPI)NonAf 82.61 Random Glucose 137 H Calcium 8.8 Active Medications Generic Name Dose Route Start Last Admin Trade Name Freq PRN Reason Stop Dose Admin Acetaminophen 1,000 mg 09/04/19 10:28 09/05/19 00:38 Ofirmev Injection - IVPB 1,000 mg Q6H PRN Administration PAIN LEVEL 6-10 Amino Acids 30 ml 09/04/19 17:30 09/06/19 10:09 Prosource No Carb Liquid Pkt PO 30 ml BID@0800,1730 CARMELO Administration Clotrimazole 1 applic 09/04/19 10:00 09/06/19 10:10 Lotrimin 1% Cream - TP 1 applic BID CARMELO Administration Docusate Sodium 100 mg 09/05/19 22:00 09/06/19 10:11 Colace Liquid - PEG 100 mg BID CARMELO Administration Famotidine 20 mg 09/04/19 22:00 09/06/19 10:10 Pepcid PEG 20 mg BID CARMELO Administration Ferrous Sulfate 300 mg 09/05/19 22:00 09/06/19 10:10 Feosol NGT 300 mg BID CARMELO Administration Heparin Sodium (Porcine) 5,000 unit 09/04/19 06:00 09/06/19 13:20 Heparin - SQ Not Given TID CARMELO Ceftriaxone Sodium 1 gm/ 50 mls @ 100 mls/hr 09/04/19 10:00 09/06/19 10:10 Dextrose IVPB 100 mls/hr DAILY CARMELO Administration Protocol Vancomycin HCl 1,000 mg in 250 mls @ 166.667 mls/hr 09/05/19 00:00 09/06/19 01:17 Vancomycin (Pre-Docked) IVPB 166.667 mls/hr Q24H CARMELO Administration Protocol Quetiapine Fumarate 100 mg 09/05/19 22:00 09/05/19 21:07 Seroquel - PEG 100 mg HS CARMELO Administration Tamsulosin HCl 0.4 mg 09/04/19 08:30 09/06/19 10:09 Flomax - PO 0.4 mg DAILY@0830 CARMELO Administration Trazodone HCl 100 mg 09/04/19 22:00 09/05/19 21:06 Desyrel - PO 100 mg HS CARMELO Administration ASSESSMENT/PLAN: Romeo Tripathi is an 84 year old male with PMhx of advanced dementia, 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 cannot rule out osteo with high active phase reactants. - most likely due to patient positioning as he is bedbound. Edema and stage 4 ulcer on right elbow with possible bony exposure - remains afebrile. No WBC. - Xray of b/l elbows with soft tissue swelling but no osteo - MRI of the upper extremities to r/o osteo difficult to obtain due to patient non compliance of extending his elbow above his head - wound cultures growing yeast and Enterococcus faecalis - blood cultures with no growth after 72 hours, will continue to monitor - will cont vancomycin and ceftriaxone until speciation and sensitivity - ID Dr Momin consult for antibiotic recommendation and further evaluation for outpatient antibiotics, will likely need PICC prior to discharge - turn and position Q2h - Ortho consult, recs appreciated, no indications for surgical management. - consult wound care, recs appreciated, continue local wound care and offloading of the elbows - Duplex of UE negative for DVT Anemia - H/H stable - likely anemia of chronic disease in setting of low iron, TIBC, and high ferritin - likely in setting of chronic wounds and inflammatory state - will continue to monitor as wounds are treated fungal diaper rash - clotrimazole BPH - continue flomax GERD - pepcid 20 daily FEN - no standing fluids - continue to monitor electrolytes and replete as necessary - Gtube feedings as per nutritional recommendations, Gtube replaced due to clog today DVT - hep 5000 units subQ tid Code - DNR/DNI Dispo - continue to monitor on med surg Visit type - Emergency Visit Emergency Visit: No - New Patient This patient is new to me today: No - Critical Care Critical Care patient: No
--- NOTE | 2019-09-06 16:06 | PN ---
Teaching Attending Note Name of Resident: Deep Villa ATTENDING PHYSICIAN STATEMENT I saw and evaluated the patient. I reviewed the resident's note and discussed the case with the resident. I agree with the resident's findings and plan as documented. SUBJECTIVE: non-verbal, unable to participate in medical interview OBJECTIVE: Tmax 99.5, Hemodynamically Stable. Lying in bed with R and L Upper Ext contractures. Last Vital Signs Temp Pulse Resp BP Pulse Ox 98.4 F 88 20 155/61 97 09/06/19 15:36 09/06/19 15:36 09/06/19 15:36 09/06/19 15:36 09/06/19 09:00 Heart - S1, S2, RRR Lungs - clear to auscultation Abdomen - soft, PEG in situ Extremities - contractures all 4 extremities with dressed decubitus ulcers bilateral elbows. L elbow stage 3 and R elbow stage 4 ulcers reported. MS - Decubitus ulcer sacrum/L buttock - stage 2 Laboratory Results - last 24 hr 09/06/19 09/06/19 06:35 06:35 WBC 7.1 RBC 3.05 L Hgb 9.8 L Hct 29.1 L MCV 95.2 MCH 31.9 MCHC 33.5 RDW 14.7 Plt Count 672 H MPV 7.2 L Sodium 145 Potassium 4.0 Chloride 110 H Carbon Dioxide 30 Anion Gap 5 L BUN 32.2 H Creatinine 0.8 Est GFR (CKD-EPI)AfAm 95.75 Est GFR (CKD-EPI)NonAf 82.61 Random Glucose 137 H Calcium 8.8 Current Medications Generic Name Dose Route Start Last Admin Trade Name Cucoq PRN Reason Stop Dose Admin Acetaminophen 1,000 mg 09/04/19 10:28 09/05/19 00:38 Ofirmev Injection - IVPB 1,000 mg Q6H PRN Administration PAIN LEVEL 6-10 Amino Acids 30 ml 09/04/19 17:30 09/06/19 10:09 Prosource No Carb Liquid Pkt PO 30 ml BID@0800,1730 CARMELO Administration Clotrimazole 1 applic 09/04/19 10:00 09/06/19 10:10 Lotrimin 1% Cream - TP 1 applic BID CARMELO Administration Docusate Sodium 100 mg 09/05/19 22:00 09/06/19 10:11 Colace Liquid - PEG 100 mg BID CARMELO Administration Famotidine 20 mg 09/04/19 22:00 09/06/19 10:10 Pepcid PEG 20 mg BID CARMELO Administration Ferrous Sulfate 300 mg 09/05/19 22:00 09/06/19 10:10 Feosol NGT 300 mg BID CARMELO Administration Heparin Sodium (Porcine) 5,000 unit 09/04/19 06:00 09/06/19 13:20 Heparin - SQ Not Given TID CARMELO Ceftriaxone Sodium 1 gm/ 50 mls @ 100 mls/hr 09/04/19 10:00 09/06/19 10:10 Dextrose IVPB 100 mls/hr DAILY CARMELO Administration Protocol Vancomycin HCl 1,000 mg in 250 mls @ 166.667 mls/hr 09/05/19 00:00 09/06/19 01:17 Vancomycin (Pre-Docked) IVPB 166.667 mls/hr Q24H CARMELO Administration Protocol Quetiapine Fumarate 100 mg 09/05/19 22:00 09/05/19 21:07 Seroquel - PEG 100 mg HS CARMELO Administration Tamsulosin HCl 0.4 mg 09/04/19 08:30 09/06/19 10:09 Flomax - PO 0.4 mg DAILY@0830 CARMELO Administration Trazodone HCl 100 mg 09/04/19 22:00 09/05/19 21:06 Desyrel - PO 100 mg HS CARMELO Administration Home Medications Medication Instructions Recorded Furosemide [Lasix] 20 mg GT DAILY 08/09/18 Quetiapine Fumarate [Seroquel -] 100 mg GT DAILY 08/09/18 Ranitidine [Zantac -] 150 mg GT BID 08/09/18 Tamsulosin HCl [Flomax] 0.4 mg GT DAILY 08/09/18 traZODone HCL [Trazodone HCl] 100 mg GT DAILY 08/09/18 ASSESSMENT AND PLAN: 84 year old male with Advanced Dementia, Hx 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 1. Advanced Stage bilateral Elbow ulcers with cellulitis ?osteomyelitis - unable to perform MRI as patient unable to extend arm Wound Cx pos for yeast, enterococcus fecalis, MSSA, awaiting final ID and Sens. Continue Ceftriaxone/Vanco - final ID Abx choice and duration as per ID. Orthopedics consulted, recommend daily wound cleaning with betadyne or hydrogen peroxide and ankle foam protectors to both elbows. No surgery recommended due to frailty, contractures and co-morbidities. ID following. Wound Care service recommends Plastic Surgery consult for Wound Care recommendations. 2. Advanced Dementia with Dysphagia s/p PEG, Functional Quadriplegia Palliative Care consulted re:goals of care Continue Trazodone and Seroquel. 3. BPH - Continue Tamsulosin 4. GERD - continue Ranitidine 5. Anemia - Multifactorial. Iron Sat 7%, likely component of Iron Deficiency Anemia - started on supplementation. DVT Px - Heparin SQ DNR/DNI
[2019-09-06] MEDS ORDERED: traZODone HCL 50 MG TABLET (FP) ONE (20:45)
[2019-09-06] MEDS: ACETAMINOPHEN 1000 MG/100 ML VIAL (NON FORMULARY) IVPB PRN (21:32)
[2019-09-06] MEDS ORDERED: KETOROLAC TROMETHAMINE 15 MG/ML VIAL IVPUSH ONE (22:14)
[2019-09-06] MEDS: QUEtiapine FUMARATE 50 MG TABLET PEG SCH (22:57)
[2019-09-06] MEDS: traZODone HCL 100 MG TABLET (FP) PO SCH (22:57)
[2019-09-06] MEDS ORDERED: traMADol HCL 50 MG TABLET PO ONE (23:27)
--- NOTE | 2019-09-06 23:57 | PN ---
Progress Note (short form) - Note Progress Note: AWAKE, NON VERBAL NO ACUTE DISTRESS AFEBILE + BILATERAL ELBOW ULCERATIONS NO DRAINAGE NOTED FINAL C/S PENDING BILATERAL ELBOW ULCERS R/O OSTEOMYELITIS AWAIT FINAL C/S SURGICAL EVALUATION APPRECIATED EMPIRIC VANCOMYCIN/ZOSYN WOUND CARE
[2019-09-07] MEDS: VANCOMYCIN 1 GRAM (PRE-DOCKED) 1,000 MG/250 ML BAG IVPB SCH (00:14)
[2019-09-07] MEDS: HEPARIN NA (PORCINE) 5,000 UNITS/ML 1ML VIAL SQ SCH ×2 (05:03→15:36)
[2019-09-07] MEDS: ACETAMINOPHEN 1000 MG/100 ML VIAL (NON FORMULARY) IVPB PRN ×3 (06:32→17:11)
[2019-09-07 08:20] LABS: HEMATOCRIT 27.5 % (35.4-49); HEMOGLOBIN 9.4 GM/dL (11.7-16.9); MCH 32.1 pg (25.7-33.7); MCHC 34.1 g/dl (32.0-35.9); MEAN CELL VOLUME 94.3 fl (80-96); PLATELET COUNT 588 K/MM3 (134-434); RBC 2.92 M/mm3 (4.00-5.60); RDW 14.4 % (11.9-15.9); WHITE BLOOD COUNT 5.5 K/mm3 (4.0-10.0)
[2019-09-07 08:36] VITALS: BP 118/72; PULSE 81; TEMP 98
[2019-09-07 08:50] LABS: BLOOD UREA NITROGEN 41.8 mg/dL (7-18); CALCIUM 8.3 mg/dL (8.5-10.1); CREATININE 0.8 mg/dL (0.55-1.3); POTASSIUM 3.7 mmol/L (3.5-5.1)
[2019-09-07] MEDS ORDERED: TAMSULOSIN HCL 0.4 MG CAP NR SCH (09:00)
--- NOTE | 2019-09-07 09:43 | PN ---
Progress Note (short form) - Note Progress Note: Pt with severe, bilateral, post CVA UE and elbow flexion contractures, and open pressure ulcers. NTD orthopedically. Will follow as needed Wound care consultation, is there a role for the VAC dressing here? There is exposed bone, so I believe that likely there is not.
[2019-09-07] MEDS ORDERED: DEXTROSE 5%-WATER - 50 ML IVPB ONE (10:23)
[2019-09-07] MEDS ORDERED: PT OWN MED DRAWER 7, Y5N ONE (10:23)
[2019-09-07] MEDS ORDERED: cefTRIAXone SODIUM 1 GM VIAL ONE (10:23)
[2019-09-07] MEDS: CEFTRIAXONE 1 GM in DEXTROSE 5%-WATER - 50 ML IVPB SCH (10:25)
[2019-09-07] MEDS: FERROUS SO4 300 MG/5 ML ORAL SOLN UNIT DOSE CUPS NGT SCH (10:25)
[2019-09-07] MEDS: CLOTRIMAZOLE 1% CREAM 15 GM TUBE TP SCH (10:25)
[2019-09-07] MEDS: AMINO ACIDS/PROTEIN HYDROLYS 30 ML LIQUID.PKT PO SCH ×2 (10:28→18:47)
[2019-09-07] MEDS: TAMSULOSIN HCL 0.4 MG CAP PO SCH (10:30)
[2019-09-07] MEDS ORDERED: FUROSEMIDE 20 MG TABLET (FP) GT SCH (11:00)
--- NOTE | 2019-09-07 12:05 | PN ---
Teaching Attending Note Name of Resident: Deep Villa ATTENDING PHYSICIAN STATEMENT I saw and evaluated the patient. I reviewed the resident's note and discussed the case with the resident. I agree with the resident's findings and plan as documented. SUBJECTIVE: non-verbal, unable to participate in medical interview OBJECTIVE: Afebrile, Hemodynamically Stable. Lying in bed with R and L Upper Ext contractures. Last Vital Signs Temp Pulse Resp BP Pulse Ox 98 F 81 18 118/72 99 09/07/19 08:35 09/07/19 08:35 09/07/19 08:52 09/07/19 08:35 09/07/19 08:52 Heart - S1, S2, RRR Lungs - clear to auscultation Abdomen - soft, PEG in situ Extremities - contractures all 4 extremities with dressed decubitus ulcers bilateral elbows. L elbow stage 3 and R elbow stage 4 ulcers. MS - Decubitus ulcer sacrum/L buttock - stage 2 Laboratory Results - last 24 hr 09/07/19 09/07/19 07:30 07:30 WBC 5.5 RBC 2.92 L Hgb 9.4 L Hct 27.5 L MCV 94.3 MCH 32.1 MCHC 34.1 RDW 14.4 Plt Count 588 H MPV 7.0 L Sodium 144 Potassium 3.7 Chloride 109 H Carbon Dioxide 30 Anion Gap 5 L BUN 41.8 H Creatinine 0.8 Est GFR (CKD-EPI)AfAm 95.75 Est GFR (CKD-EPI)NonAf 82.61 Random Glucose 89 Calcium 8.3 L Current Medications Generic Name Dose Route Start Last Admin Trade Name Cucoq PRN Reason Stop Dose Admin Acetaminophen 1,000 mg 09/07/19 11:38 09/07/19 11:48 Ofirmev Injection - IVPB 1,000 mg Q6H PRN Administration PAIN LEVEL 6-10 Amino Acids 30 ml 09/04/19 17:30 09/07/19 10:28 Prosource No Carb Liquid Pkt PO 30 ml BID@0800,1730 CARMELO Administration Clotrimazole 1 applic 09/04/19 10:00 09/07/19 10:25 Lotrimin 1% Cream - TP 1 applic BID CARMELO Administration Docusate Sodium 100 mg 09/05/19 22:00 09/06/19 22:56 Colace Liquid - PEG 100 mg BID CARMELO Administration Famotidine 20 mg 09/04/19 22:00 09/06/19 23:00 Pepcid PEG 20 mg BID CARMELO Administration Ferrous Sulfate 300 mg 09/05/19 22:00 09/07/19 10:25 Feosol NGT 300 mg BID CARMELO Administration Furosemide 20 mg 09/07/19 11:00 Lasix - GT DAILY CARMELO Heparin Sodium (Porcine) 5,000 unit 09/04/19 06:00 09/07/19 05:03 Heparin - SQ 5,000 unit TID CARMELO Administration Ceftriaxone Sodium 1 gm/ 50 mls @ 100 mls/hr 09/04/19 10:00 09/07/19 10:25 Dextrose IVPB 100 mls/hr DAILY CARMELO Administration Protocol Vancomycin HCl 1,000 mg in 250 mls @ 166.667 mls/hr 09/05/19 00:00 09/07/19 00:14 Vancomycin (Pre-Docked) IVPB 166.667 mls/hr Q24H CARMELO Administration Protocol Quetiapine Fumarate 100 mg 09/05/19 22:00 09/06/19 22:57 Seroquel - PEG 100 mg HS CARMELO Administration Tamsulosin HCl 0.4 mg 09/07/19 09:00 09/07/19 10:28 Flomax - NR 0.4 mg DAILY@0830 CARMELO Administration Trazodone HCl 100 mg 09/04/19 22:00 09/06/19 22:57 Desyrel - PO 100 mg HS CARMELO Administration Home Medications Medication Instructions Recorded Furosemide [Lasix] 20 mg GT DAILY 08/09/18 Quetiapine Fumarate [Seroquel -] 100 mg GT DAILY 08/09/18 Ranitidine [Zantac -] 150 mg GT BID 08/09/18 Tamsulosin HCl [Flomax] 0.4 mg GT DAILY 08/09/18 traZODone HCL [Trazodone HCl] 100 mg GT DAILY 08/09/18 ASSESSMENT AND PLAN: 84 year old male with Advanced Dementia, Hx 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 1. Advanced Stage bilateral UE/Elbow ulcers ?osteomyelitis - unable to perform MRI as patient unable to extend arm Wound Cx pos for yeast, enterococcus fecalis, MSSA. Continue Ceftriaxone/Vanco - awaiting final Abx choice and duration recommendations by ID. Orthopedics consulted, recommend daily wound cleaning with betadyne or hydrogen peroxide and ankle foam protectors to both elbows. No surgery recommended due to frailty, contractures and co-morbidities. Wound Care service consulted and recommends Plastic Surgery consult for Wound Care recommendations. Plastic Surgery consulted and apparently evaluated the patient - awaiting chart documentation re: recommendations for dressings/wound care etc. 2. Advanced Dementia with Dysphagia s/p PEG, Functional Quadriplegia Palliative Care consulted re:goals of care - DNR/DNI but for active Rx including long-term Abx therapy if indicated. Continue Trazodone and Seroquel. 3. BPH - Continue Tamsulosin 4. GERD - continue Ranitidine 5. Anemia - Multifactorial. Iron Sat 7%, likely component of Iron Deficiency Anemia - started on supplementation. DVT Px - Heparin SQ DNR/DNI
[2019-09-07] MEDS: FAMOTIDINE 40 MG/5 ML ORAL SUSPENSION PEG SCH (15:34)
[2019-09-07] MEDS: DOCUSATE NA 100 MG/10 ML UNIT-DOSE CUPS PEG SCH ×2 (15:34→15:48)
--- NOTE | 2019-09-07 17:07 | DS ---
Physical Exam: SUBJECTIVE: Patient seen and examined at the bedside. No acute events overnight. The patient continues to be non-verbal and unable to obtain ROS. Patient was deemed to be stable for discharge. Dr. Momin was spoken to and stated that the patient can be discharged on Augment 875-125mg bid for 10 days and is to follow up in the wound care clinic. Wound clinic and Dr. Meyer were spoken to and recommended continued wound care for the patient with Allevyn dressings to the elbows, foam dressing to the sacral wound, gel cushions for the chair, air flow mattress for home and to shift patient position every 30 minutes and to follow up in the wound care clinic. The patient will have visiting nurse services to the house to assist in dressing changes. OBJECTIVE: Vital Signs Period Temp Pulse Resp BP Sys/Becerra Pulse Ox Last 24 Hr 98 F-99.3 F 80-98 18-22 118-170/72-95 99-99 PHYSICAL EXAM GENERAL: In no apparent distress, not alert or oriented. HEAD: Normal with no signs of trauma. EYES: Pupils equal, round and reactive to light, sclera anicteric, conjunctiva clear. NECK: Normal range of motion, supple without lymphadenopathy, JVD. LUNGS: Poor inspiratory effort, no wheezes, crackles, coarse breath sounds appreciated. HEART: Regular rate and rhythm, normal S1 and S2 without murmur, rub or gallop. ABDOMEN: Soft, nontender, not distended, normoactive bowel sounds, no guarding, no rebound, no masses. MUSCULOSKELETAL: Normal range of motion at all joints. No bony deformities or tenderness. UPPER EXTREMITIES: 2+ pulses. No cyanosis. No clubbing. b/l elbow edema with associated ulcers (stage 4 on right, stage 4 on left) with clean bases and serous drainage. Noted wounds in the left AC stage 3 ulcer. Warm to touch bilaterally. LOWER EXTREMITIES: 2+ pulses, warm, well-perfused. No calf tenderness. No peripheral edema. NEUROLOGICAL: Pupils equal, round, and reactive to light. Withdraws to painful stimulation. Unable to comply with neurological exam. PSYCHIATRIC: Not alert to surroundings. 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 The patient was admitted and treated with IV antibiotics, ceftriaxone and vancomycin. MRI was unable to be obtained to rule out osteomyelitis due to inablity to position the patient in the MRI scanner. Patient was seen by orthopedic surgery who stated that there was no indication for surgical management. The patient was seen by wound care who recommended continued wound care for the patient with Allevyn dressings to the elbows, foam dressing to the sacral wound, gel cushions for the chair, air flow mattress for home and to shift patient position every 30 minutes and to follow up in the wound care clinic. The patient was seen by infectious disease, Dr. Momin, who recommended a 10 day course of Augmentin 875-125mg bid for 10 days and to follow up in the wound care clinic. The patient was provided with home care services to assist in wound care dressing changes. Microbiology studies grew yeast, enterococcus faecalis, and garnett-sensitive staph aureus. Duplex studies of the upper extremities were performed and were negative for any DVTs. During the stay, the PEG tube for the patient was clogged and needed to be replaced and was replaced successfully. The patient was discharged in stable condition and is to follow up in the outpatient wound clinic. Date of Admission:09/03/19 Date of Discharge: 09/07/19 Minutes to complete discharge: 35 Discharge Summary Problems reviewed: Yes Reason For Visit: PRESSURE INJURY OF SKIN OF ELBOW Current Active Problems Decubitus ulcer of elbow, right, unstageable (Chronic) Decubitus ulcer, elbow, left, unstageable (Chronic) Dementia (Chronic) Functional quadriplegia (Chronic) Hypoalbuminemia (Chronic) Condition: Improved - Instructions Diet, Activity, Other Instructions: You were seen in the hospital because of bilateral elbow wounds. You were treated with antibiotics through the IV. You were seen by the wound care doctor who recommended you continue the same wound care that you previously had and have a visiting nurse assist with the wound care. You were seen by the infectious disease specialist who recommended that you take an antibiotic and go to the would clinic for continued care of your wounds. MEDICATIONS Please start taking Augmentin 875-125mg every 12 hours for 10 days. Please continue to take all of your home medications as prescribed. REFERRALS Please follow up with your primary care doctor, Dr. Silva Paulino within one week. Please follow up with your infectious disease doctor, Dr. Momin within one week. Please follow up with your wound care doctor, Dr. Toussaint within one week for outpatient follow up of your wounds. You have an appointment on September 21 2019 at 10AM. Please call [phone] if you need to reschedule. Please fill out all forms for the wound clinic prior to your appointment and bring them to the wound clinic. SPECIAL INSTRUCTIONS Continue local wound care to both elbows and the buttocks. Please apply Allevyn dressing to both elbows and change as often as the visiting nurse service visits. Use foam dressing with Santyl to the buttocks and change as often as the visiting nurse service visits. Use the gel cushion for when you are in the chair. Use the air flow mattress when sleeping. Shift position every 30 minutes. Have the wound care service assist you with dressing changes. Please follow up in the wound care clinic for continued management of your wounds. Please call your insurance company to select Dr. Silva Paulino as your primary care provider in order to have authorization for your wound care visit. If you have any further symptoms of fever, chills, pus coming from the wounds, increased bleeding from the wounds, or any other general feelings of unwellness call 911 or go to your nearest emergency room. Referrals: Ad Momin MD [Staff Physician] - 1 Week Ulisses Toussaint MD [Staff Physician] - 1 Week Silva Harrington MD [Primary Care Provider] - 1 Week Disposition: HOME - Home Medications Comprehensive Discharge Medication List: Ambulatory Orders Furosemide [Lasix] 20 mg GT DAILY 08/09/18 Quetiapine Fumarate [Seroquel -] 100 mg GT DAILY 08/09/18 Ranitidine [Zantac -] 150 mg GT BID 08/09/18 Tamsulosin HCl [Flomax] 0.4 mg GT DAILY 08/09/18 traZODone HCL [Trazodone HCl] 100 mg GT DAILY 08/09/18 Adhesive Bandage [Foam Dressing] 1 each TP UTDICT #8 bandage 09/07/19 Amox-Tr/K Cl [Augmentin - 875Mg Tablet] 1 tab PO BID 10 Days #20 tablet Collagenase Clostridium Hist. [Santyl] 30 gm TP WEEKLY #4 oint...g. 09/07/19 Miscellaneous Medical Supply [Outpatient Order] 1 each ASDIR #1 misc Silver Sulfadiaz/Foam Bandage [Allevyn Ag Adhesive 5"X5"] 1 each TP WEEKLY #20 bandage 09/07/19 Problem List - Problems (1) Decubitus ulcer of elbow, right, unstageable Code(s): L89.010 - PRESSURE ULCER OF RIGHT ELBOW, UNSTAGEABLE (2) Decubitus ulcer, elbow, left, unstageable Code(s): L89.020 - PRESSURE ULCER OF LEFT ELBOW, UNSTAGEABLE (3) Dementia Code(s): F03.90 - UNSPECIFIED DEMENTIA WITHOUT BEHAVIORAL DISTURBANCE (4) Functional quadriplegia Code(s): R53.2 - FUNCTIONAL QUADRIPLEGIA (5) Constipation Code(s): K59.00 - CONSTIPATION, UNSPECIFIED (6) Difficulty swallowing Code(s): R13.10 - DYSPHAGIA, UNSPECIFIED (7) Encounter for PEG (percutaneous endoscopic gastrostomy) Code(s): Z43.1 - ENCOUNTER FOR ATTENTION TO GASTROSTOMY This patient is new to me today: No Emergency Visit: No Critical Care patient: No - Discharge Referral Referred to [facility] Med P.C.: No
== END 2019-09-07 20:41 | disposition home or self-care (01) | DRG 592 ==
LOC: JER 14:22 → JERBED 18:19 → J7W 23:56
PROVIDERS: ADMIT Internal Medicine
PROC: 0D20XUZ Change Feeding Device in Upper Intestinal Tract, External Approach (ICD-10-PCS; principal; 2019-09-06)
DX: L89.014 Pressure ulcer of right elbow, stage 4 (principal); R53.2 Functional quadriplegia; K94.23 Gastrostomy malfunction; I10 Essential (primary) hypertension; F03.90 Unspecified dementia, unspecified severity, without behavioral disturbance, psychotic disturbance, mood disturbance, and anxiety; D53.9 Nutritional anemia, unspecified; L89.023 Pressure ulcer of left elbow, stage 3; R13.10 Dysphagia, unspecified; I69.391 Dysphagia following cerebral infarction; E78.5 Hyperlipidemia, unspecified; N40.0 Benign prostatic hyperplasia without lower urinary tract symptoms; K21.9 Gastro-esophageal reflux disease without esophagitis; E88.09 Other disorders of plasma-protein metabolism, not elsewhere classified; M54.5 Low back pain; L89.152 Pressure ulcer of sacral region, stage 2; L22 Diaper dermatitis; Y84.8 Other medical procedures as the cause of abnormal reaction of the patient, or of later complication, without mention of misadventure at the time of the procedure
CPT/HCPCS: 36415; 49450; 71045-TC-FY; 73070-TC-LT-FY; 73070-TC-RT-FY; 76000-TC-FY; 80048; 80053; 82607; 82728; 82746; 83540; 83550; 83605; 83735; 84100; 84443; 84466; 85025; 85027; 85044; 85610; 85651; 85730; 86140; 87040; 87070; 87077; 87186; 87205; 93005; 93010; 93970-TC; 97161-GP; 99284-25; J0131; J1644; J7030; Q2036

== ENCOUNTER 2019-09-26 07:14 | Inpatient (IN) | payer OTHER ==
[2019-09-26] MEDS ORDERED: LACTATED RINGERS SOLUTION 1000 ML INFUS.BAG IV ONE (07:19)
[2019-09-26] MEDS ORDERED: SODIUM CHLORIDE 0.9% 500 ML INFUS.BAG IV ONE ×2 (07:19→14:40)
--- NOTE | 2019-09-26 07:41 | PDOC ---
History of Present Illness - General Chief Complaint: Respiratory Stated Complaint: R/O PNE Time Seen by Provider: 09/26/19 07:18 History Source: Patient Exam Limitations: Clinical Condition, Dementia - History of Present Illness Initial Comments: Romeo Tripathi is an 84 yo M w a hx of advanced dementia, CVA, dysphagia s/p peg tube, HTN, BPH, HLD, GERD, and GI bleed who presents to the [facility] er [facility]IBEMS stuporous and obtunded desaturating in the the 80's. EMS stated they believe he has a pneumonia. The patient is not able to provide any history as he is non- verbal at baseline per daughter and prior notes. Upon visual inspection he is contracted and moaning. His O2 saturation quickly goes up to 97% when he is placed on a nasal cannula. The daughter says she thinks he has been getting sick for the past 2 days but is unsure of the exact timing. PCP: Dr. Leach PSH: G-tube placement Social Hx: Lives with his daughter at her home. Denies current smoking, drinking , or other substance usage Allergies: NKA, NKDA Past History - Past Medical History Allergies/Adverse Reactions: Allergies Allergy/AdvReac Type Severity Reaction Status Date / Time No Known Drug Allergies Allergy Verified 09/26/19 09:58 Home Medications: Ambulatory Orders Furosemide [Lasix] 20 mg GT DAILY 08/09/18 Quetiapine Fumarate [Seroquel -] 100 mg GT DAILY 08/09/18 Ranitidine [Zantac -] 100 mg GT BID 08/09/18 Tamsulosin HCl [Flomax] 0.4 mg GT DAILY 08/09/18 traZODone HCL [Trazodone HCl] 100 mg GT DAILY 08/09/18 Anemia: No Asthma: No Cancer: No Cardiac Disorders: No CVA: Yes COPD: No CHF: No Dementia: Yes Diabetes: No GI Disorders: No Disorders: Yes (BPH) HTN: Yes Hypercholesterolemia: No Liver Disease: No Seizures: No Thyroid Disease: No - Surgical History Abdominal Surgery: Yes (G.TUBE) Appendectomy: No Cardiac Surgery: No Cholecystectomy: No Lung Surgery: No Neurologic Surgery: No Orthopedic Surgery: No - Immunization History Immunization Up to Date: Yes - Psycho Social/Smoking Cessation Hx Smoking History: Unknown if ever smoked Have you smoked in the past 12 months: No Hx Alcohol Use: No Drug/Substance Use Hx: Yes Substance Use Type: None Hx Substance Use Treatment: No Review of Systems - Review of Systems Able to Perform ROS?: No (Non-verbal, AMS) *Physical Exam - Physical Exam General Appearance: Yes: Appropriately Dressed, Apparent Distress, Moderate Distress, Cachetic, Thin HEENT: positive: DAYANNA. negative: Normal ENT Inspection, Normal Voice, Scleral Icterus (R), Scleral Icterus (L), Tonsillar Exudate Neck: positive: Trachea midline, Supple, Decreased range of motion. negative: Rigid Respiratory/Chest: positive: Respiratory Distress, Labored Respiration, Rapid RR , Decreased Breath Sounds, Crackles, Rales. negative: Lungs Clear, Normal Breath Sounds, Rhonchi, Wheezing Cardiovascular: positive: Regular Rhythm, S1, S2, Tachycardia Vascular Pulses: Dorsalis-Pedis (R): 2+, Doralis-Pedis (L): 2+ Gastrointestinal/Abdominal: positive: Soft, Other (G-tube in place) Male Genitalia: positive: normal genitalia Rectal Exam: positive: normal exam, normal rectal tone. negative: melena Lymphatic: negative: Adenopathy Musculoskeletal: positive: Decreased Range of Motion. negative: Normal Inspection Extremity: positive: Pelvis Stable, Delayed Capillary Refill. negative: Normal Capillary Refill, Normal Inspection, Normal Range of Motion Integumentary: positive: Warm, Pale, Cold, Clammy, Diaphoresis, Moist. negative : Normal Color, Dry, Rash, Swelling, Ecchymosis, Bruising Neurologic: positive: Respond to painful stimul, Responsive. negative: information technology specialist II- XII NML intact, Fully Oriented, Alert, Normal Mood/Affect, Normal Response, Motor Strength 5/5 ED Treatment Course - LABORATORY CBC & Chemistry Diagram: 09/26/19 07:30 09/26/19 07:30 - RADIOLOGY Radiology Studies Ordered: Category Date Time Status CHEST X-RAY PORTABLE* [RAD] Stat Radiology 09/26/19 07:18 Ordered Radiograph Interpretation: Head CT: Rule out bleed CT scan of the head without intravenous contrast Since 04/06/2018, there remains moderate volume loss, ventricular dilatation and periventricular chronic microvascular ischemic disease changes. No mass lesion, gross acute infarct or intracranial hemorrhage are identified. There is no shift of the midline structures The calvarium is intact. Visualized paranasal sinuses and mastoid air cells are well aerated. IMPRESSION: No acute intracranial pathology is identified. Correlate clinically to determine further evaluation and follow-up. Medical Decision Making - Medical Decision Making Romeo Tripathi is an 84 yo M w a hx of advanced dementia, CVA, dysphagia s/p peg tube, HTN, BPH, HLD, GERD, and GI bleed who presents to the [facility] er [facility]IB[place]S stuporous and obtunded desaturating in the the 80's. EMS stated they believe he has a pneumonia. The patient is not able to provide any history as he is non- verbal at baseline per daughter and prior notes. Upon visual inspection he is contracted and moaning. His O2 saturation quickly goes up to 97% when he is placed on a nasal cannula. The daughter says she thinks he has been getting sick for the past 2 days but is unsure of the exact timing. Vital Signs Temp Pulse Resp BP Pulse Ox 100.2 F H 93 H 20 118/70 98 09/26/19 07:15 09/26/19 07:15 09/26/19 07:15 09/26/19 07:15 09/26/19 07:15 DDx IBNLT: Sepsis, PNA likely aspiration, UTI, electrolyte/metabolic disturbance , brain bleed, electrolyte/metabolic disturbance, influenza Plan: Labs, urine, CXR, EKG, Head CT, Abx, IV hydration, admission to hospital Labs: Elevated BUN suggesting patient is very dehydrated and volume down - Hydrating patient Urine: Ryan placed and no urine retrieved EKG: Sinus tachycardia rate of 101, narrow complexes, normal axis, no hypertrophy, no large ST elevations or depressions but EKG is poor quality bc patient is shaking, low voltage qrs, QTc 414, KS 172 CXR: No large infiltrate Head CT: CT scan of the head without intravenous contrast Since 04/06/2018, there remains moderate volume loss, ventricular dilatation and periventricular chronic microvascular ischemic disease changes. No mass lesion, gross acute infarct or intracranial hemorrhage are identified. There is no shift of the midline structures The calvarium is intact. Visualized paranasal sinuses and mastoid air cells are well aerated. IMPRESSION: No acute intracranial pathology is identified. Disposition: Admit for AMS/sepsis - I walked by the patient and heard gurgles in his mouth so suctioned the secretions at bedside Discharge - Discharge Information Problems reviewed: Yes Clinical Impression/Diagnosis: AMS (altered mental status) Qualifiers: Altered mental status type: unspecified Qualified Code(s): R41.82 - Altered mental status, unspecified Pneumonia Qualifiers: Pneumonia type: due to unspecified organism Laterality: unspecified laterality Lung location: unspecified part of lung Qualified Code(s): J18.9 - Pneumonia, unspecified organism Condition: Stable - Admission Yes - Follow up/Referral - Patient Discharge Instructions - Post Discharge Activity
[2019-09-26 07:43] LABS: BASO % 0.3 % (0-2.0); EOS % 2.9 % (0-4.5); HEMATOCRIT 33.1 % (35.4-49); HEMOGLOBIN 10.8 GM/dL (11.7-16.9); LYMPH % 12.3 % (8-40); MCH 31.2 pg (25.7-33.7); MCHC 32.7 g/dl (32.0-35.9); MEAN CELL VOLUME 95.3 fl (80-96); MEAN PLT VOLUME 6.4 fl (7.5-11.1); MONO % 10.5 % (3.8-10.2); PLATELET COUNT 316 K/MM3 (134-434); RBC 3.47 M/mm3 (4.00-5.60); RDW 16.2 % (11.9-15.9); WHITE BLOOD COUNT 6.8 K/mm3 (4.0-10.0)
[2019-09-26 07:44] LABS: VENOUS PC02 45.2 mmHg (38-52); VENOUS PH 7.44 (7.31-7.41)
[2019-09-26 07:47] LABS: VENOUS PO2 < 49 mmHg (28-48)
[2019-09-26] MEDS ORDERED: PIPERACILLIN/TAZOB 4.5 GM 4.5 GM in DEXTROSE 5%-WATER 100 ML IVPB ONE ×2 (07:51→19:17)
[2019-09-26] MEDS ORDERED: VANCOMYCIN 1,000 MG in DEXTROSE 5%-WATER - 250 ML IVPB ONE (07:51)
[2019-09-26] MEDS ORDERED: ACETAMINOPHEN 1000 MG/100 ML VIAL (NON FORMULARY) IVPB ONE (08:00)
[2019-09-26 08:10] LABS: ALBUMIN 2.4 g/dl (3.4-5.0); BILIRUBIN,TOTAL 0.3 mg/dL (0.2-1); BLOOD UREA NITROGEN 36.1 mg/dL (7-18); CALCIUM 8.6 mg/dL (8.5-10.1); POTASSIUM 4.4 mmol/L (3.5-5.1); TOT PROT 7.3 g/dl (6.4-8.2)
[2019-09-26 08:41] LABS: INR 1.11 (0.83-1.09); PROTHROMBIN TIME (PATIENT) 13.1 SEC (9.7-13.0)
[2019-09-26 08:44] LABS: ACTIVATED PTT 30.5 SECONDS (25.2-36.5)
--- NOTE | 2019-09-26 09:05 | EKG ---
Test Reason : Blood Pressure : / mmHG Vent. Rate : 101 BPM Atrial Rate : 101 BPM P-R Int : 172 ms QRS Dur : 068 ms QT Int : 320 ms P-R-T Axes : 020 -13 065 degrees QTc Int : 414 ms POOR DATA QUALITY, INTERPRETATION MAY BE ADVERSELY AFFECTED SINUS TACHYCARDIA LOW VOLTAGE QRS BORDERLINE ECG WHEN COMPARED WITH ECG OF 03-SEP-2019 16:50, BORDERLINE CRITERIA FOR INFERIOR INFARCT ARE NO LONGER PRESENT Confirmed by Madhu Taylor MD ([id number]) on 09/26/2019 9:05:38 AM Referred By: Confirmed By:Madhu Taylor MD
[2019-09-26] MEDS ORDERED: ACETAMINOPHEN INJECTION 100 ML IVPB ONE (09:19)
--- NOTE | 2019-09-26 09:25 | PDOC ---
Attending Attestation - Resident Resident Name: Ramin Boyd - ED Attending Attestation I have performed the following: I have examined & evaluated the patient, The case was reviewed & discussed with the resident, I agree w/resident's findings & plan - HPI HPI: 09/26/19 09:16 84-year-old male with history of CVA, nonverbal at baseline, G-tube in place with chronic wounds, from home following recent hospitalization for sepsis likely secondary to infected elbow wounds now status post course of Augmentin presents now with 3 days of cough. Brought in by family for increased generalized weakness and progressive cough. - Physicial Exam PE: 09/26/19 09:17 Febrile with tachycardia here, O2 sat within normal limits Alert but nonverbal at baseline, lying in stretcher with some tachypnea Heart is regular tachycardia, lungs have coarse breath sounds bilaterally but no focally decreased breath sounds or wheezing Abdomen is soft and nondistended with G-tube in place Bilateral elbow wounds, sacral ulcer Neuro exam limited - Critical Care Time Total Critical Care Time: 45 Critical Care Statement: The care of this patient involved high complexity decision making to prevent further life threatening deterioration of the patient 's condition and/or to evaluate & treat vital organ system(s) failure or risk of failure. - Medical Decision Making 09/26/19 09:18 84-year-old male bedbound and nonverbal with history of CVA and recent hospitalization for sepsis presents now with sirs/sepsis, new cough per family serving as possible source, rule out recurrence of infected ulcers. Sepsis protocol initiated including wound cultures Broad-spectrum antibiotics Chest x-ray IV fluids, antipyretics Admission Heart Score/ECG Review #1 ECG reviewed & interpreted by me at: 07:41 General ECG Interpretation: Sinus Rhythm (baseline artifact), Normal Rate (101) , Normal Intervals (qtc 414), No acute ischemic changes
--- NOTE | 2019-09-26 10:00 | PN ---
Teaching Attending Note Name of Resident: Femi Kolb ATTENDING PHYSICIAN STATEMENT I saw and evaluated the patient. I reviewed the resident's note and discussed the case with the resident. I agree with the resident's findings and plan as documented. 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 for having progressive weakness and cough for 2 days. OBJECTIVE: Vital Signs Temperature 100.2 F H 09/26/19 07:15 Pulse Rate 93 H 09/26/19 07:15 Respiratory Rate 20 09/26/19 07:15 Blood Pressure 118/70 09/26/19 07:15 O2 Sat by Pulse Oximetry (%) 98 09/26/19 07:15 GENERAL: The patient is contracted, with mild respiratory distress , Non verbal. HEAD: Normal with no signs of trauma. EYES: PERRL, eyes closed ,sclera anicteric, conjunctiva clear. ENT: Ears normal, oropharynx clear without exudates, Dry MM. NECK: Trachea midline, full range of motion, supple. LUNGS: decreased BS BL , positive bibasilar rales , mild accessory muscle use HEART: irreg-irreg, S1, S2 positive, positive NICOLAS 3/6 , no rub or gallop. ABDOMEN: Soft, PEG tube in place EXTREMITIES: contractures all 4 extremities ,noted to have large amount of drainage from both elbow wounds, Positive erythema of the left elbow with swelling noted as well NEUROLOGICAL: unable to access , patient is contracted PSYCH: Unable to access SKIN: Warm, dry, normal turgor, no rashes or lesions noted SacraL: MS - Decubitus ulcer sacrum/L buttock - stage 2 Gu: Ryan (placed in Ed) WBC 6.8 K/mm3 (4.0-10.0) 09/26/19 07:30 RBC 3.47 M/mm3 (4.00-5.60) L 09/26/19 07:30 Hgb 10.8 GM/dL (11.7-16.9) L 09/26/19 07:30 Hct 33.1 % (35.4-49) L D 09/26/19 07:30 MCV 95.3 fl (80-96) 09/26/19 07:30 MCHC 32.7 g/dl (32.0-35.9) 09/26/19 07:30 RDW 16.2 % (11.9-15.9) H 09/26/19 07:30 Plt Count 316 K/MM3 (134-434) D 09/26/19 07:30 MPV 6.4 fl (7.5-11.1) L 09/26/19 07:30 CMP Sodium 139 mmol/L (136-145) 09/26/19 07:30 Potassium 4.4 mmol/L (3.5-5.1) 09/26/19 07:30 Chloride 103 mmol/L (98-107) 09/26/19 07:30 Carbon Dioxide 28 mmol/L (21-32) 09/26/19 07:30 Anion Gap 8 MMOL/L (8-16) 09/26/19 07:30 BUN 36.1 mg/dL (7-18) H 09/26/19 07:30 Creatinine 1.0 mg/dL (0.55-1.3) 09/26/19 07:30 Random Glucose 111 mg/dL (74-106) H 09/26/19 07:30 Calcium 8.6 mg/dL (8.5-10.1) 09/26/19 07:30 Total Bilirubin 0.3 mg/dL (0.2-1) 09/26/19 07:30 AST 21 U/L (15-37) 09/26/19 07:30 ALT 27 U/L (13-61) 09/26/19 07:30 Alkaline Phosphatase 97 U/L (45-117) 09/26/19 07:30 Total Protein 7.3 g/dl (6.4-8.2) 09/26/19 07:30 Albumin 2.4 g/dl (3.4-5.0) L 09/26/19 07:30 CARDIAC ENZYMES Creatine Kinase 73 U/L (26-308) 09/26/19 07:30 Troponin I < 0.02 ng/ml (0.00-0.05) 09/26/19 07:30 Home Medications Medication Instructions Recorded Furosemide [Lasix] 20 mg GT DAILY 08/09/18 Quetiapine Fumarate [Seroquel -] 100 mg GT DAILY 08/09/18 Ranitidine [Zantac -] 150 mg GT BID 08/09/18 Tamsulosin HCl [Flomax] 0.4 mg GT DAILY 08/09/18 traZODone HCL [Trazodone HCl] 100 mg GT DAILY 08/09/18 Adhesive Bandage [Foam Dressing] 1 each TP UTDICT #8 bandage 09/07/19 Amox-Tr/K Cl [Augmentin - 875Mg 1 tab PO BID 10 Days #20 tablet 09/07/19 Tablet] Collagenase Clostridium Hist. 30 gm TP WEEKLY #4 oint...g. 09/07/19 [Santyl] Miscellaneous Medical Supply 1 each ASDIR #1 misc 09/07/19 [Outpatient Order] Silver Sulfadiaz/Foam Bandage 1 each TP WEEKLY #20 bandage 09/07/19 [Allevyn Ag Adhesive 5"X5"] Current Medications Generic Name Dose Route Start Last Admin Trade Name Freq PRN Reason Stop Dose Admin Piperacillin Sod/Tazobactam 50 mls @ 100 mls/hr 09/26/19 18:00 09/26/19 18:07 Sod 3.375 gm/ Dextrose IVPB Not Given Q8H-IV CARMELO Protocol Piperacillin Sod/Tazobactam 100 mls @ 200 mls/hr 09/26/19 19:17 09/26/19 19: 20 Sod 4.5 gm/ Dextrose IVPB 09/26/19 19:46 Not Given ONCE ONE Protocol Quetiapine Fumarate 100 mg 09/27/19 10:00 Seroquel - GT DAILY CARMELO Tamsulosin HCl 0.4 mg 09/26/19 11:00 Flomax - NR DAILY CARMELO Trazodone HCl 100 mg 09/27/19 10:00 Desyrel - NR DAILY CARMELO SSESSMENT AND PLAN: Patient is an 84 year old male with PMhx of advanced dementia, 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 for having progressive weakness and cough for 2 days. Patient is being admitted for bilateral elbow pressure ulcers with drainage #Bilateral elbow decubitus ulcer with cellulitis. Id on the case , IV antibx Zosyn 3.375 q8, according to the kidney function # Advanced Dementia. 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
--- NOTE | 2019-09-26 10:53 | HP ---
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 Per daughter at bedside, pt is slightly able to communicate with her. However, over the past 2 days pt has been more lethargic, warm, and has had a cough. Cough is not productive of any sputum. No fever was recorded but daughter states pt has felt warm. Pt has also been grunting more, appearing as if he is in much pain. Daughter endorses a visiting nurse as well as a job placement specialist visits their home a few times per week to take care of Mr. Tripathi. Of note, pt was recently discharged from our hospital last month where he was admitted for increased edema, swelling and drainage from bilateral elbow wounds. The patient was admitted and treated with IV antibiotics, ceftriaxone and vancomycin at that time. ER course was notable for: (1) Fever 100.2 (2) BUN 30.1 (3) Received Vanc and Zosyn Recent Travel: Denies PAST MEDICAL HISTORY: as above PAST SURGICAL HISTORY: PEg tube placement Social History: Smoking: denies Alcohol:denies Drugs: denies Allergies No Known Drug Allergies Allergy (Verified 09/26/19 09:58) HOME MEDICATIONS: Home Medications Medication Instructions Recorded Furosemide [Lasix] 20 mg GT DAILY 08/09/18 Quetiapine Fumarate [Seroquel -] 100 mg GT DAILY 08/09/18 Ranitidine [Zantac -] 100 mg GT BID 08/09/18 Tamsulosin HCl [Flomax] 0.4 mg GT DAILY 08/09/18 traZODone HCL [Trazodone HCl] 100 mg GT DAILY 08/09/18 REVIEW OF SYSTEMS Unable to obtain 2/2 to pt's mental status PHYSICAL EXAMINATION Vital Signs - 24 hr 09/26/19 09/26/19 07:15 09:20 Temperature 100.2 F H Pulse Rate 93 H Pulse Rate [ 103 H Left Apical] Respiratory 20 20 Rate Blood Pressure 118/70 Blood Pressure 140/81 [Right Arm] O2 Sat by Pulse 98 98 Oximetry (%) GENERAL: Moderate distress, grunting HEAD: Normal with no signs of trauma. EYES: Sclera nonicteric. EARS, NOSE, THROAT:Dry mucous membranes LUNGS: Coarse breath sounds HEART: RRR S1S2 ABDOMEN: PEG in place nonoozing no discharge UPPER EXTREMITIES: Right Elbow Stage 4 decubitus ulcer, sloughing appreciated. Left Elbow stage 3/4 decubitus ulcer with sloughing. Sacral ulcer Stage 2 no sloughing or discharge appreciated, contratced LOWER EXTREMITIES: Contracted. Warm no ulcers appreciated, contracted NEUROLOGICAL: Nonresponsive, nonverbal. PSYCHIATRIC: Cooperative. Good eye contact. Appropriate mood and affect. SKIN: Stage 4 ulcer left and right elbows. Stage 2 sacral decub nonoozing, nonodorus Laboratory Results - last 24 hr 09/26/19 09/26/19 09/26/19 07:30 07:30 07:30 WBC 6.8 RBC 3.47 L Hgb 10.8 L Hct 33.1 L D MCV 95.3 MCH 31.2 MCHC 32.7 RDW 16.2 H Plt Count 316 D MPV 6.4 L Absolute Neuts (auto) 5.0 Neutrophils % 74.0 Lymphocytes % 12.3 Monocytes % 10.5 H Eosinophils % 2.9 D Basophils % 0.3 Nucleated RBC % 0 PT with INR INR PTT (Actin FS) VBG pH POC VBG pCO2 POC VBG pO2 VBG HCO3 VBG O2 Sat (Fahad) VBG Base Excess Sodium 139 Potassium 4.4 Chloride 103 Carbon Dioxide 28 Anion Gap 8 BUN 36.1 H Creatinine 1.0 Est GFR (CKD-EPI)AfAm 80.31 Est GFR (CKD-EPI)NonAf 69.29 Random Glucose 111 H Lactic Acid Calcium 8.6 Total Bilirubin 0.3 AST 21 ALT 27 Alkaline Phosphatase 97 Creatine Kinase 73 CK-MB (CK-2) 1.2 Troponin I < 0.02 Total Protein 7.3 Albumin 2.4 L Influenza A (Rapid) Influenza B (Rapid) Blood Type Antibody Screen 09/26/19 09/26/19 09/26/19 07:30 07:30 07:30 WBC RBC Hgb Hct MCV MCH MCHC RDW Plt Count MPV Absolute Neuts (auto) Neutrophils % Lymphocytes % Monocytes % Eosinophils % Basophils % Nucleated RBC % PT with INR INR PTT (Actin FS) VBG pH 7.44 H POC VBG pCO2 45.2 POC VBG pO2 < 49 H VBG HCO3 29.8 H VBG O2 Sat (Fahad) 69.8 L VBG Base Excess 5.3 H Sodium Potassium Chloride Carbon Dioxide Anion Gap BUN Creatinine Est GFR (CKD-EPI)AfAm Est GFR (CKD-EPI)NonAf Random Glucose Lactic Acid 1.3 Calcium Total Bilirubin AST ALT Alkaline Phosphatase Creatine Kinase CK-MB (CK-2) Troponin I Total Protein Albumin Influenza A (Rapid) Influenza B (Rapid) Blood Type O POSITIVE Antibody Screen Negative 09/26/19 09/26/19 07:43 08:00 WBC RBC Hgb Hct MCV MCH MCHC RDW Plt Count MPV Absolute Neuts (auto) Neutrophils % Lymphocytes % Monocytes % Eosinophils % Basophils % Nucleated RBC % PT with INR 13.10 H INR 1.11 H PTT (Actin FS) 30.5 VBG pH POC VBG pCO2 POC VBG pO2 VBG HCO3 VBG O2 Sat (Fahad) VBG Base Excess Sodium Potassium Chloride Carbon Dioxide Anion Gap BUN Creatinine Est GFR (CKD-EPI)AfAm Est GFR (CKD-EPI)NonAf Random Glucose Lactic Acid Calcium Total Bilirubin AST ALT Alkaline Phosphatase Creatine Kinase CK-MB (CK-2) Troponin I Total Protein Albumin Influenza A (Rapid) Negative Influenza B (Rapid) Negative Blood Type Antibody Screen ASSESSMENT/PLAN: Pt is an 84 year old male with PMhx of advanced dementia, 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 # Increased Lethargy/Failure to thrive due possible Aspiration Pneumonia -CXR clear however. No congestive changes or infiltrates seen. -Head CT--No acute intracranial pathology -EKG--> Sinus tach at 101. No St-T wave abnormalities appreciated - Will repeat CXR in am. Will also empirically cover with Vanc and Zosyn -Blood cultures, urine cultures, and Urinalysis pending. Urine may be culprit of lethargy if + -WBC only 5.8. Will repeat CBC in am as well as cmp. -Urine legionella/Pneumonia antigens -ID Consult. Appreciate recs. -HOB elevated Withhold Tube feeds for now. # Sacral Ulcer/ Right and Left Elbow decubitus ulcers -Wound care consult. -monitor for signs/symptoms of infection -Pt placed on empiric antibiotics #Dementia -Resume Trazadone and Quitiapine #BPH -Resume Tamsulosin # HTN -Pt does not appear to be on any antihypertensive medications. will monitor while in hospital. # GERD -May resume home med #FEN -LR@100 -Monitor Electrolytes -NPO #DVT ppx: -SCDs in light of anemia #Dispo: -Med-Surg Visit type - Emergency Visit Emergency Visit: Yes ED Registration Date: 09/26/19 Care time: The patient presented to the Emergency Department on the above date and was hospitalized for further evaluation of their emergent condition. - New Patient This patient is new to me today: Yes Date on this admission: 09/26/19 - Critical Care Critical Care patient: No ATTENDING PHYSICIAN STATEMENT I saw and evaluated the patient. I reviewed the resident's note and discussed the case with the resident. I agree with the resident's findings and plan as documented. SUBJECTIVE: OBJECTIVE: ASSESSMENT AND PLAN:
[2019-09-26] MEDS ORDERED: PIPERACILLIN/TAZOB 4.5 GM 4.5 GM/100 ML BAG IVPB ONE ×2 (11:01→17:54)
[2019-09-26 11:17] LABS: EPI CELLS 1.6 /HPF (0-5/HPF); HYALINE CASTS 58 /lpf (0-8); PH,URINE 8.5 (5.0-8.0); URINE APPEARANCE TURBID; URINE BACTERIA 617.9 /hpf (NEGATIVE); URINE BILIRUBIN NEGATIVE (NEGATIVE); URINE COLOR RED; URINE GLUCOSE (UA) NEGATIVE (NEGATIVE); URINE KETONE NEGATIVE (NEGATIVE); URINE LEUK ESTERASE 3+ (NEGATIVE); URINE NITRITE NEGATIVE (NEGATIVE); URINE PROTEIN 2+ (NEGATIVE); URINE RBC 1142 /hpf (0-4); URINE WBC 498 /hpf (0-5)
[2019-09-26] MEDS ORDERED: VANCOMYCIN 1 GRAM (PRE-DOCKED) 1,000 MG/250 ML BAG IVPB ONE (11:30)
[2019-09-26] MEDS ORDERED: LACTATED RINGERS SOLUTION 1,000 ML/1,000 ML INFUS.BAG IV SCH (11:45)
--- NOTE | 2019-09-26 14:39 | CON.ID ---
Consult Consult Specialty:: infectious disease Referred by:: hospitalist service Reason for Consultation:: bilateral elbow wounds - History of Present Illness Chief Complaint: lethargy, weakness and cough for 2 days History of Present Illness: 84 yo man lives at home with his family recently admitted for bilateral elbow pressure ulcers he is contracted with a gtube - he was discharged on 09/07 after 4 day admission on po augmentin and local care to his elbows noted on that admission to frequently be moaning folely placed in ED noted to have large amount of draiange from both elbow wounds, +erythema of the left elbow with swelling noted as well - History Source History Provided By: Medical Record Limitations to Obtaining History: Clinical Condition - Past Medical History [employer]: Yes: Dementia Cardio/Vascular: Yes: HTN, Hyperlipdemia Gastrointestinal: Yes: GERD Renal/: Yes: BPH - Past Surgical History Additional Surgical History: gt secondary to dysphagia - Alcohol/Substance Use Hx Alcohol Use: No - Smoking History Smoking history: Unknown if ever smoked Have you smoked in the past 12 months: No - Social History Usual Living Arrangement: With Child ADL: Support Services 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 History of Recent Travel: No Home Medications - Allergies Allergies/Adverse Reactions: Allergies Allergy/AdvReac Type Severity Reaction Status Date / Time No Known Drug Allergies Allergy Verified 09/26/19 09:58 - Home Medications Home Medications: Ambulatory Orders Furosemide [Lasix] 20 mg GT DAILY 08/09/18 Quetiapine Fumarate [Seroquel -] 100 mg GT DAILY 08/09/18 Ranitidine [Zantac -] 100 mg GT BID 08/09/18 Tamsulosin HCl [Flomax] 0.4 mg GT DAILY 08/09/18 traZODone HCL [Trazodone HCl] 100 mg GT DAILY 08/09/18 Family Medical History Family History: Unable to Obtain Review of Systems Unable to obtain ROS, reason: unable to obtain Physical Exam Vital Signs: Vital Signs Temperature 100.2 F H 09/26/19 07:15 Pulse Rate 99 H 09/26/19 10:45 Respiratory Rate 30 H 09/26/19 10:45 Blood Pressure 126/82 09/26/19 10:45 O2 Sat by Pulse Oximetry (%) 95 09/26/19 10:45 Constitutional: Yes: Mild Distress, Thin Eyes: Yes: Other (bilateral conjunctivitis right greater then left) HENT: Yes: Atraumatic, Normocephalic Cardiovascular: Yes: Regular Rate and Rhythm Respiratory: Yes: Regular, CTA Bilaterally Gastrointestinal: Yes: Normal Bowel Sounds, Soft, Other (gt) Renal/: Yes: Ryan Present Extremities: Yes: Other (bilateral elbow ulcers stage 3/4- left arm with surrounding erythema and edema) Wound/Incision: Yes: Other (sacram stage 1 ulcer- no erythema, no drainage) Labs: CBC, BMP 09/26/19 07:30 09/26/19 07:30 Microbiology 09/26/19 13:04 Urine For Antigen Detection Legionella Antigen - Final 09/26/19 13:04 Urine For Antigen Detection Streptococcus pneumoniae Antigen (M - Final N Laboratory Tests 09/26/19 09/26/19 07:43 10:54 Ur Leukocyte Esterase 3+ H Urine WBC (Auto) 498 Urine RBC (Auto) 1142 Influenza A (Rapid) Negative Influenza B (Rapid) Negative Imaging - Results Chest X-ray: Report Reviewed, Image Reviewed (no infiltrate) Cat Scan: Report Reviewed (no acute changes) Problem List - Problems (1) AMS (altered mental status) Code(s): R41.82 - ALTERED MENTAL STATUS, UNSPECIFIED Qualifiers: Altered mental status type: unspecified Qualified Code(s): R41.82 - Altered mental status, unspecified (2) Infected pressure ulcer Code(s): L89.90 - PRESSURE ULCER OF UNSPECIFIED SITE, UNSPECIFIED STAGE; L08.9 - LOCAL INFECTION OF THE SKIN AND SUBCUTANEOUS TISSUE, UNSP (3) UTI (urinary tract infection) Code(s): N39.0 - URINARY TRACT INFECTION, SITE NOT SPECIFIED Assessment/Plan probable UTI with dehydration will need wound care back to re-evaluate the elbows prior cultures no MRSA received vanco in ED continue zosyn - adjusted for renal function crcl 49 need to discuss with family goals of care
[2019-09-26] MEDS ORDERED: PIPERACILLIN/TAZOB 4.5 GM 4.5 GM in DEXTROSE 5%-WATER 100 ML IVPB SCH (15:00)
[2019-09-26] MEDS: PIPERACILLIN/TAZOB 3.375 GM 3.375 GM in DEXTROSE 5%-WATER - 50 ML IVPB SCH (18:07)
[2019-09-26] MEDS ORDERED: HEPARIN NA (PORCINE) 5,000 UNITS/ML 1ML VIAL ONE (22:05)
[2019-09-26] MEDS: HEPARIN NA (PORCINE) 5,000 UNITS/ML 1ML VIAL SQ SCH (22:11)
[2019-09-27] MEDS: PIPERACILLIN/TAZOB 3.375 GM 3.375 GM in DEXTROSE 5%-WATER - 50 ML IVPB SCH ×3 (02:05→17:30)
[2019-09-27] MEDS ORDERED: DEXTROSE 5%-WATER - 50 ML IVPB ONE ×3 (02:34→17:22)
[2019-09-27] MEDS ORDERED: PIPERACILLIN/TAZOBACTAM 3.375 GM VIAL IVPB ONE ×3 (02:34→17:21)
[2019-09-27] MEDS: HEPARIN NA (PORCINE) 5,000 UNITS/ML 1ML VIAL SQ SCH ×3 (05:43→22:54)
[2019-09-27] MEDS ORDERED: VANCOMYCIN 1 GRAM (PRE-DOCKED) 1,000 MG/250 ML BAG IVPB ONE (08:52)
--- NOTE | 2019-09-27 09:06 | CONSULT ---
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 Vascular/wound care consulted for sacral ulcer and bilateral elbow ulcers. Pt non verbal, information obtained from EMR. PMHx: as above PSHx: peg tube Home Medications Medication Instructions Recorded Furosemide [Lasix] 20 mg GT DAILY 08/09/18 Quetiapine Fumarate [Seroquel -] 100 mg GT DAILY 08/09/18 Ranitidine [Zantac -] 100 mg GT BID 08/09/18 Tamsulosin HCl [Flomax] 0.4 mg GT DAILY 08/09/18 traZODone HCL [Trazodone HCl] 100 mg GT DAILY 08/09/18 Allergies Allergy/AdvReac Type Severity Reaction Status Date / Time No Known Drug Allergies Allergy Verified 09/26/19 09:58 REVIEW OF SYSTEMS: unable to obtain PHYSICAL EXAM: GENERAL: Awake, in NAD, does not respond to questioning. Cachectic, chronically ill appearing. Sacrum: Large stage 1 ulcer, no open ulcerations, no drainage noted. Allevyn in place. Vital Signs Temperature 100.0 F H 09/27/19 05:42 Pulse Rate 104 H 09/27/19 05:42 Respiratory Rate 20 09/27/19 05:42 Blood Pressure 140/86 09/27/19 05:42 O2 Sat by Pulse Oximetry (%) 100 09/27/19 01:17 Lab Results WBC 6.8 K/mm3 (4.0-10.0) 09/26/19 07:30 RBC 3.47 M/mm3 (4.00-5.60) L 09/26/19 07:30 Hgb 10.8 GM/dL (11.7-16.9) L 09/26/19 07:30 Hct 33.1 % (35.4-49) L D 09/26/19 07:30 MCV 95.3 fl (80-96) 09/26/19 07:30 MCHC 32.7 g/dl (32.0-35.9) 09/26/19 07:30 RDW 16.2 % (11.9-15.9) H 09/26/19 07:30 Plt Count 316 K/MM3 (134-434) D 09/26/19 07:30 Sodium 139 mmol/L (136-145) 09/26/19 07:30 Potassium 4.4 mmol/L (3.5-5.1) 09/26/19 07:30 Chloride 103 mmol/L (98-107) 09/26/19 07:30 Carbon Dioxide 28 mmol/L (21-32) 09/26/19 07:30 Anion Gap 8 MMOL/L (8-16) 09/26/19 07:30 BUN 36.1 mg/dL (7-18) H 09/26/19 07:30 Creatinine 1.0 mg/dL (0.55-1.3) 09/26/19 07:30 Random Glucose 111 mg/dL (74-106) H 09/26/19 07:30 Calcium 8.6 mg/dL (8.5-10.1) 09/26/19 07:30 Blood Type O POSITIVE 09/26/19 07:30 Antibody Screen Negative 09/26/19 07:30 INR 1.11 (0.83-1.09) H 09/26/19 08:00 A/P: 84 y/o M non verbal w/ PMhx advanced dementia, 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 Vascular/wound care consulted for sacral ulcer and bilateral elbow ulcers. Stage 1 non-infected sacral ulcer Sacral Ulcer/DTI Plan -Reposition every two hours while in bed -Air mattress recommended -Use drawsheets and Trendelenburg when repositioning to reduce friction and shear -Manageincontinence via timely cleansing, use of appropriate incontinence disposables and use of barrier ointment to intact skin -Ensure adequate hydration/nutrition, supplementation per primary team -Ensure off-loading to all bony areas (heels, ankles, hips and tailbone) with Allevyn/Optifoam Pt with exposed olecronon on right, recommend ortho consult for wound management if needed. d/w attending Dr Frazier
[2019-09-27 09:40] LABS: INR 1.41 (0.83-1.09); PROTHROMBIN TIME (PATIENT) 16.7 SEC (9.7-13.0)
[2019-09-27 10:04] LABS: HEMATOCRIT 31.2 % (35.4-49); HEMOGLOBIN 10.4 GM/dL (11.7-16.9); MCH 32.2 pg (25.7-33.7); MCHC 33.4 g/dl (32.0-35.9); MEAN CELL VOLUME 96.5 fl (80-96); MEAN PLT VOLUME 7.9 fl (7.5-11.1); PLATELET COUNT 302 K/MM3 (134-434); RBC 3.23 M/mm3 (4.00-5.60); RDW 16.1 % (11.9-15.9)
[2019-09-27 10:20] LABS: ALBUMIN 2.2 g/dl (3.4-5.0); BILIRUBIN,TOTAL 0.5 mg/dL (0.2-1); BLOOD UREA NITROGEN 32.9 mg/dL (7-18); CALCIUM 8.5 mg/dL (8.5-10.1); CREATININE 1.2 mg/dL (0.55-1.3); MAGNESIUM 2.3 mg/dL (1.8-2.4); PHOSPHOROUS 3.3 mg/dL (2.5-4.9); POTASSIUM 3.8 mmol/L (3.5-5.1); TOT PROT 6.9 g/dl (6.4-8.2)
[2019-09-27] MEDS: QUEtiapine FUMARATE 100 MG TABLET (FP) GT SCH (11:00)
[2019-09-27 12:42] LABS: ANISOCYTOSIS 1+; MACROCYTOSIS 0; PLATELET ESTIMATE NORMAL
[2019-09-27] MEDS ORDERED: PIPERACILLIN/TAZOB 4.5 GM 4.5 GM in DEXTROSE 5%-WATER 100 ML IVPB SCH (15:00)
--- NOTE | 2019-09-27 15:53 | PN ---
Progress Note (short form) - Note Progress Note: unresponsive cachectic contracted Vital Signs Period Temp Pulse Resp BP Sys/Becerra Pulse Ox Last 24 Hr 99.5 F-100.0 F 104-117 20-39 128-147/75-88 95-100 cor-rrr lungs-decreased bs at bases abd +GT ext bilateral elbow ulcers sacral ulcer stage 1 webb CBC, BMP 09/27/19 07:45 09/27/19 07:45 Microbiology 09/26/19 08:29 Elbow - Left Gram Stain - Final 09/26/19 08:29 Elbow - Left Wound Culture - Preliminary Non Lactose Fermenting Gnb Non Lactose Fermenting Gnb#2 Staphylococcus Latex Coag Pos Pending Organism 09/26/19 08:29 Elbow - Right Gram Stain - Final 09/26/19 08:29 Elbow - Right Wound Culture - Preliminary Non Lactose Fermenting Gnb Non Lactose Fermenting Gnb#2 Pending Organism Pending Organism#2 Pending Organism#3 09/26/19 07:30 Blood - Peripheral Venous Blood Culture - Preliminary Group D Strep Or Entero Coccus 09/26/19 07:30 Blood - Peripheral Venous Blood Culture - Preliminary Group D Strep Or Entero Coccus 09/26/19 10:54 Urine - Urine Webb Urine Culture - Preliminary Lactose Fermenting Neg Bacilli 09/26/19 13:04 Urine For Antigen Detection Legionella Antigen - Final 09/26/19 13:04 Urine For Antigen Detection Streptococcus pneumoniae Antigen (M - Final a/p enterococcal bacteremia- ?source- ?ulcers, urine with GNR repeat blood cultures echo continue vancomycin f/u culture results bilateral elbow pressure ulcers- continue zosyn Problem List - Problems (1) AMS (altered mental status) Code(s): R41.82 - ALTERED MENTAL STATUS, UNSPECIFIED Qualifiers: Altered mental status type: unspecified Qualified Code(s): R41.82 - Altered mental status, unspecified (2) Infected pressure ulcer Code(s): L89.90 - PRESSURE ULCER OF UNSPECIFIED SITE, UNSPECIFIED STAGE; L08.9 - LOCAL INFECTION OF THE SKIN AND SUBCUTANEOUS TISSUE, UNSP (3) UTI (urinary tract infection) Code(s): N39.0 - URINARY TRACT INFECTION, SITE NOT SPECIFIED
--- NOTE | 2019-09-27 16:28 | PN ---
Physical Exam: SUBJECTIVE: Patient seen and examined at bedside- ROS negative as patient is nonverbal; OBJECTIVE: Vital Signs Period Temp Pulse Resp BP Sys/Becerra Pulse Ox Last 24 Hr 99.5 F-100.0 F 104-117 20-39 128-147/75-88 95-100 GENERAL: The patient is awake, moaning; nonverbal. EYES: PEERLA: EOMI; no scleral icterus NECK: no JVD; no lymphadenopathy LUNGS:coarse breath sounds appreciated B/L HEART: Regular rate and rhythm, S1, S2 without murmur, rub or gallop. ABDOMEN: Soft, nontender, nondistended, G tube in place; non-erythamtous; no drainage UPPER EXTREMITIES: Right Elbow Stage 4 decubitus ulcer, sloughing appreciated. Left Elbow stage 3/4 decubitus ulcer with sloughing. Sacral ulcer Stage 2 no sloughing or discharge appreciated, contracted LOWER EXTREMITIES: Contracted. Warm no ulcers appreciated, contracted PSYCH: Normal mood, normal affect. SKIN: Warm, dry, normal turgor, no rashes or lesions noted Laboratory Results - last 24 hr 09/27/19 09/27/19 09/27/19 07:45 07:45 07:45 WBC 14.0 H RBC 3.23 L Hgb 10.4 L Hct 31.2 L MCV 96.5 H MCH 32.2 MCHC 33.4 RDW 16.1 H Plt Count 302 MPV 7.9 D Absolute Neuts (auto) 12.9 H Neutrophils % No Result Required. Neutrophils % (Manual) 57.3 D Band Neutrophils % 33.0 Lymphocytes % No Result Required. Lymphocytes % (Manual) 4.8 L D Monocytes % (Manual) 3 L Eosinophils % (Manual) 0.0 D Basophils % (Manual) 0.0 Myelocytes % (Man) 0 Promyelocytes % (Man) 0 Blast Cells % (Manual) 0 Nucleated RBC % 0 Metamyelocytes 1 D Hypochromia 1+ Platelet Estimate Normal Polychromasia 1+ Poikilocytosis 0 Anisocytosis 1+ Microcytosis 1+ Macrocytosis 0 PT with INR 16.70 H INR 1.41 H PTT (Actin FS) 31.0 Sodium 141 Potassium 3.8 Chloride 108 H Carbon Dioxide 24 Anion Gap 9 BUN 32.9 H Creatinine 1.2 Est GFR (CKD-EPI)AfAm 64.42 Est GFR (CKD-EPI)NonAf 55.58 Random Glucose 101 Calcium 8.5 Phosphorus 3.3 Magnesium 2.3 Total Bilirubin 0.5 AST 37 ALT 27 Alkaline Phosphatase 107 Total Protein 6.9 Albumin 2.2 L Active Medications Generic Name Dose Route Start Last Admin Trade Name Freq PRN Reason Stop Dose Admin Heparin Sodium (Porcine) 5,000 unit 09/26/19 22:00 09/27/19 14:13 Heparin - SQ 5,000 unit TID CARMELO Administration Piperacillin Sod/Tazobactam 50 mls @ 100 mls/hr 09/26/19 18:00 09/27/19 10:54 Sod 3.375 gm/ Dextrose IVPB 100 mls/hr Q8H-IV CARMELO Administration Protocol Quetiapine Fumarate 100 mg 09/27/19 10:00 09/27/19 11:00 Seroquel - GT Not Given DAILY CARMELO Tamsulosin HCl 0.4 mg 09/26/19 11:00 Flomax - NR DAILY CARMELO Trazodone HCl 100 mg 09/27/19 10:00 Desyrel - NR DAILY CARMELO ASSESSMENT/PLAN: Pt is an 84 year old male with PMhx of advanced dementia, 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 # Increased Lethargy/Failure to thrive due possible Aspiration Pneumonia -group D strep in blood; lactose fermenting negative bacilli -WBC 13.3. -Urine legionella/Pneumonia antigens negative -ID Consult. Appreciate recs. -echo ordered -f/u random vanc dose in A< # Sacral Ulcer/ Right and Left Elbow decubitus ulcers -Wound care consult. -monitor for signs/symptoms of infection -vanc/zosyn -growing lactose fermenting negative bacilli #Dementia -Resume Trazadone and Quitiapine #BPH -Resume Tamsulosin # HTN -Pt does not appear to be on any antihypertensive medications. will monitor while in hospital. # GERD -May resume home med #FEN -LR@100 -Monitor Electrolytes -NPO #DVT ppx: -SCDs in light of anemia #Dispo: -Med-Surg Problem List - Problems (1) Infected pressure ulcer Code(s): L89.90 - PRESSURE ULCER OF UNSPECIFIED SITE, UNSPECIFIED STAGE; L08.9 - LOCAL INFECTION OF THE SKIN AND SUBCUTANEOUS TISSUE, UNSP (2) Pneumonia Code(s): J18.9 - PNEUMONIA, UNSPECIFIED ORGANISM Qualifiers: Pneumonia type: due to unspecified organism Laterality: unspecified laterality Lung location: unspecified part of lung Qualified Code(s): J18.9 - Pneumonia, unspecified organism (3) UTI (urinary tract infection) Code(s): N39.0 - URINARY TRACT INFECTION, SITE NOT SPECIFIED (4) Decubitus ulcer of elbow, right, unstageable Code(s): L89.010 - PRESSURE ULCER OF RIGHT ELBOW, UNSTAGEABLE (5) Decubitus ulcer, elbow, left, unstageable Code(s): L89.020 - PRESSURE ULCER OF LEFT ELBOW, UNSTAGEABLE Visit type - Emergency Visit Emergency Visit: Yes ED Registration Date: 09/26/19 Care time: The patient presented to the Emergency Department on the above date and was hospitalized for further evaluation of their emergent condition. - New Patient This patient is new to me today: Yes Date on this admission: 09/27/19 - Critical Care Critical Care patient: No ATTENDING PHYSICIAN STATEMENT I saw and evaluated the patient. I reviewed the resident's note and discussed the case with the resident. I agree with the resident's findings and plan as documented. SUBJECTIVE: OBJECTIVE: ASSESSMENT AND PLAN:
--- NOTE | 2019-09-27 21:55 | PN ---
Teaching Attending Note Name of Resident: Deedee Gonzales ATTENDING PHYSICIAN STATEMENT I saw and evaluated the patient. I reviewed the resident's note and discussed the case with the resident. I agree with the resident's findings and plan as documented. 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 for having progressive weakness and cough for 2 days. Patient is lying in bed , contracted,no fever no chills. OBJECTIVE: Vital Signs Temperature 97.3 F L 09/27/19 09:00 Pulse Rate 102 H 09/27/19 09:00 Respiratory Rate 20 09/27/19 09:00 Blood Pressure 133/88 09/27/19 09:00 O2 Sat by Pulse Oximetry (%) 99 09/27/19 09:00 GENERAL: The patient is contracted, with mild respiratory distress , Non verbal. HEAD: Normal with no signs of trauma. EYES: PERRL, eyes closed ,sclera anicteric, conjunctiva clear. ENT: Ears normal, oropharynx clear without exudates, Dry MM. NECK: Trachea midline, full range of motion, supple. LUNGS: decreased BS BL , positive bibasilar rales , mild accessory muscle use HEART: irreg-irreg, S1, S2 positive, positive NICOLAS 3/6 , no rub or gallop. ABDOMEN: Soft, PEG tube in place EXTREMITIES: contractures all 4 extremities ,noted to have large amount of drainage from both elbow wounds, Positive erythema of the left elbow with swelling noted as well NEUROLOGICAL: unable to access , patient is contracted PSYCH: Unable to access SKIN: Warm, dry, normal turgor, no rashes or lesions noted SacraL: MS - Decubitus ulcer sacrum/L buttock - stage 2 Gu: Ryan (placed in Ed) CBCD WBC 14.0 K/mm3 (4.0-10.0) H 09/27/19 07:45 RBC 3.23 M/mm3 (4.00-5.60) L 09/27/19 07:45 Hgb 10.4 GM/dL (11.7-16.9) L 09/27/19 07:45 Hct 31.2 % (35.4-49) L 09/27/19 07:45 MCV 96.5 fl (80-96) H 09/27/19 07:45 MCHC 33.4 g/dl (32.0-35.9) 09/27/19 07:45 RDW 16.1 % (11.9-15.9) H 09/27/19 07:45 Plt Count 302 K/MM3 (134-434) 09/27/19 07:45 MPV 7.9 fl (7.5-11.1) D 09/27/19 07:45 CMP Sodium 141 mmol/L (136-145) 09/27/19 07:45 Potassium 3.8 mmol/L (3.5-5.1) 09/27/19 07:45 Chloride 108 mmol/L (98-107) H 09/27/19 07:45 Carbon Dioxide 24 mmol/L (21-32) 09/27/19 07:45 Anion Gap 9 MMOL/L (8-16) 09/27/19 07:45 BUN 32.9 mg/dL (7-18) H 09/27/19 07:45 Creatinine 1.2 mg/dL (0.55-1.3) 09/27/19 07:45 Random Glucose 101 mg/dL (74-106) 09/27/19 07:45 Calcium 8.5 mg/dL (8.5-10.1) 09/27/19 07:45 Total Bilirubin 0.5 mg/dL (0.2-1) 09/27/19 07:45 AST 37 U/L (15-37) 09/27/19 07:45 ALT 27 U/L (13-61) 09/27/19 07:45 Alkaline Phosphatase 107 U/L (45-117) 09/27/19 07:45 Total Protein 6.9 g/dl (6.4-8.2) 09/27/19 07:45 Albumin 2.2 g/dl (3.4-5.0) L 09/27/19 07:45 CARDIAC ENZYMES Creatine Kinase 73 U/L (26-308) 09/26/19 07:30 Troponin I < 0.02 ng/ml (0.00-0.05) 09/26/19 07:30 Home Medications Medication Instructions Recorded Furosemide [Lasix] 20 mg GT DAILY 08/09/18 Quetiapine Fumarate [Seroquel -] 100 mg GT DAILY 08/09/18 Ranitidine [Zantac -] 150 mg GT BID 08/09/18 Tamsulosin HCl [Flomax] 0.4 mg GT DAILY 08/09/18 traZODone HCL [Trazodone HCl] 100 mg GT DAILY 08/09/18 Adhesive Bandage [Foam Dressing] 1 each TP UTDICT #8 bandage 09/07/19 Amox-Tr/K Cl [Augmentin - 875Mg 1 tab PO BID 10 Days #20 tablet 09/07/19 Tablet] Collagenase Clostridium Hist. 30 gm TP WEEKLY #4 oint...g. 09/07/19 [Santyl] Miscellaneous Medical Supply 1 each ASDIR #1 misc 09/07/19 [Outpatient Order] Silver Sulfadiaz/Foam Bandage 1 each TP WEEKLY #20 bandage 09/07/19 [Allevyn Ag Adhesive 5"X5"] Current Medications Generic Name Dose Route Start Last Admin Trade Name Freq PRN Reason Stop Dose Admin Heparin Sodium (Porcine) 5,000 unit 09/26/19 22:00 09/27/19 14:13 Heparin - SQ 5,000 unit TID CARMELO Administration Piperacillin Sod/Tazobactam 50 mls @ 100 mls/hr 09/26/19 18:00 09/27/19 17:30 Sod 3.375 gm/ Dextrose IVPB 100 mls/hr Q8H-IV CARMELO Administration Protocol Quetiapine Fumarate 100 mg 09/27/19 10:00 09/27/19 11:00 Seroquel - GT Not Given DAILY [facility] Tamsulosin HCl 0.4 mg 09/26/19 11:00 Flomax - NR DAILY [facility] Trazodone HCl 100 mg 09/27/19 10:00 Desyrel - NR DAILY [facility] Home Medications Medication Instructions Recorded Furosemide [Lasix] 20 mg GT DAILY 08/09/18 Quetiapine Fumarate [Seroquel -] 100 mg GT DAILY 08/09/18 Ranitidine [Zantac -] 100 mg GT BID 08/09/18 Tamsulosin HCl [Flomax] 0.4 mg GT DAILY 08/09/18 traZODone HCL [Trazodone HCl] 100 mg GT DAILY 08/09/18 SSESSMENT AND PLAN: Patient is an 84 year old male with PMhx of advanced dementia, 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 for having progressive weakness and cough for 2 days. Patient is being admitted for bilateral elbow pressure ulcers with drainage #Bilateral elbow decubitus ulcer with cellulitis. Id on chavo case , continue IV antibx Zosyn 3.375 q8, according to the kidney function # Advanced Dementia. 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 continue to monitor
[2019-09-28] MEDS ORDERED: DEXTROSE 5%-WATER - 50 ML IVPB ONE ×2 (03:20→09:43)
[2019-09-28] MEDS ORDERED: PIPERACILLIN/TAZOBACTAM 3.375 GM VIAL IVPB ONE ×2 (03:20→09:43)
[2019-09-28] MEDS: PIPERACILLIN/TAZOB 3.375 GM 3.375 GM in DEXTROSE 5%-WATER - 50 ML IVPB SCH ×2 (03:23→09:46)
[2019-09-28] MEDS: HEPARIN NA (PORCINE) 5,000 UNITS/ML 1ML VIAL SQ SCH ×3 (06:37→21:19)
[2019-09-28 08:28] LABS: BASO % 0.6 % (0-2.0); EOS % 0.6 % (0-4.5); HEMATOCRIT 29.4 % (35.4-49); HEMOGLOBIN 9.9 GM/dL (11.7-16.9); LYMPH % 9.2 % (8-40); MCH 32.3 pg (25.7-33.7); MCHC 33.8 g/dl (32.0-35.9); MEAN CELL VOLUME 95.7 fl (80-96); MEAN PLT VOLUME 7.6 fl (7.5-11.1); MONO % 5.2 % (3.8-10.2); NEUT % 84.4 % (42.8-82.8); PLATELET COUNT 298 K/MM3 (134-434); RBC 3.07 M/mm3 (4.00-5.60); RDW 15.9 % (11.9-15.9); WHITE BLOOD COUNT 11.3 K/mm3 (4.0-10.0)
[2019-09-28] MEDS ORDERED: D5-1/2NS+20 MEQ KCL - 20 MEQ/1,000 ML INFUS.BAG IV SCH (08:30)
[2019-09-28 08:57] LABS: ALBUMIN 2.1 g/dl (3.4-5.0); BILIRUBIN,TOTAL 0.4 mg/dL (0.2-1); BLOOD UREA NITROGEN 39.5 mg/dL (7-18); CALCIUM 8.7 mg/dL (8.5-10.1); MAGNESIUM 2.4 mg/dL (1.8-2.4); PHOSPHOROUS 3.4 mg/dL (2.5-4.9); POTASSIUM 3.3 mmol/L (3.5-5.1); TOT PROT 6.7 g/dl (6.4-8.2)
[2019-09-28] MEDS: QUEtiapine FUMARATE 100 MG TABLET (FP) GT SCH ×2 (09:46→21:19)
[2019-09-28] MEDS ORDERED: POTASSIUM CHLORIDE 40 MEQ in DEXTROSE 5%-WATER - 1,000 ML IVPB SCH (11:00)
[2019-09-28] MEDS ORDERED: DEXTROSE 5%-WATER - 1,000 ML with POTASSIUM CHLORIDE 40 MEQ IVPB SCH (11:00)
[2019-09-28] MEDS: traZODone HCL 100 MG TABLET (FP) NR SCH (12:03)
[2019-09-28 12:08] VITALS: BMI 23.0
--- NOTE | 2019-09-28 12:11 | CONSULT ---
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 for having progressive weakness and cough for 2 days. ID imp-enterococcal bacteremia- ?source- ?ulcers, urine with GNR Pt NPO at home/ GT feedings Deteriooration in communication since last seen by me in 2018. No longer speaking. Follow occasional whole body commands. 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 History of Recent Travel: No History - Admission Reason For Visit: DEMENTIA,AMS,PNEUMONIA - Diagnostics X-ray: Report Reviewed (cxr (-)) CT Scan: Report Reviewed - General Mental Status: Able to Follow Commands (occasional-squeeze hand, close eyes), Confused, Flat Affect Attention: Moderate Impairment Head/Neck Control: Needs Assist - Hearing Hearing: Functional Speech Evaluation - Communication Primary Language: DANISH Communication: Yes: Non-Communicable Oral Expression Ability: Yes: Non-Verbal (weak phonation upon command) - Speech Characteristics Voice Loudness: Severely Loud Voice Phonatory-based Quality: Yes: Dysphonia - Language/Auditory Comprehension Observation: Able to respond to yes/no queries: No, Comprehends Conversational Speech: Yes (possiobly simple, social speech) - Language/Verbal Expression Functional Communication Status: Yes: Severely Impaired - Swallow Evaluation/Bedside Assessment Current Nutritional Intake: NPO, G Tube Oral Secretions: Yes: Dryness Jaw Position: Open at Rest Against Resistance Opening: Weak Against Resistance Closing: Weak Lips, Comment: lower,left side of lip-soft extension of lip/daughter says he sucks on it Lingual Movement: Unable to Perform Velopharyngeal Movement: Absent Laryngeal Movement: Unable to Palpate Timing of Swallow: Absent Recommendations - Speech Evaluation, Impression/Plan Impression: non-communicative. Follows rare whole body commands. Absent swallow. Pt NPO. Consider PEG feedings, as indicated - Dysphagia Impressions/Plan Swallowing Skills: Impaired Dysphagia Impressions: Risk of Aspiration *Silent aspiration: cannot be R/O at bedside Dysphagia Treatment Plan: Other (HOB elevated. PEG feedings) Recommendations: Other (Consider suction machine for home, daughter's request, aspiration risk.) - Recommendations Diet Consistency: NPO
--- NOTE | 2019-09-28 13:19 | PN ---
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 Currently, pt is at his baseline, spastic and contracted, unable to communicate. Pt did not have any fevers overnight, no acute overnight events. As per daughter, pt is at baseline. OBJECTIVE: Vital Signs Period Temp Pulse Resp BP Sys/Becerra Pulse Ox Last 24 Hr 98.6 F-98.7 F 88-96 20-22 131-134/71-79 GENERAL: pt is unable to communicate, spastic and rigid, cachetic, NAD. EYES: PERRL, extraocular movements intact, sclera anicteric, conjunctiva clear. No ptosis. ENT: Mouth remains opened, oropharynx clear without exudates, dry mucous membranes. NECK: supple, No LAD LUNGS: Breath sounds equal, clear to auscultation bilaterally, no wheezes, no crackles. HEART: Regular rate and rhythm, S1, S2 without murmur, rub or gallop. ABDOMEN: Soft, nontender, nondistended, normoactive bowel sounds, no guarding, G -tube placed EXTREMITIES: 2+ pulses, warm, 2x3 LE olecranon stage 2 ulcer, 3x4 right olecranon stage 4 ulcer Back: 4x3 stage 2 decub ulcer on the right buttocks NEUROLOGICAL: unable to obtain SKIN: Warm, dry Laboratory Results - last 24 hr CBC,CMP WBC 11.3 K/mm3 (4.0-10.0) H 09/28/19 07:10 RBC 3.07 M/mm3 (4.00-5.60) L 09/28/19 07:10 Hgb 9.9 GM/dL (11.7-16.9) L 09/28/19 07:10 Hct 29.4 % (35.4-49) L 09/28/19 07:10 MCV 95.7 fl (80-96) 09/28/19 07:10 MCH 32.3 pg (25.7-33.7) 09/28/19 07:10 MCHC 33.8 g/dl (32.0-35.9) 09/28/19 07:10 RDW 15.9 % (11.9-15.9) 09/28/19 07:10 Plt Count 298 K/MM3 (134-434) 09/28/19 07:10 MPV 7.6 fl (7.5-11.1) 09/28/19 07:10 Absolute Neuts (auto) 9.6 K/mm3 (1.5-8.0) H 09/28/19 07:10 Neutrophils % 84.4 % (42.8-82.8) H 09/28/19 07:10 Neutrophils % (Manual) 57.3 % (42.8-82.8) D 09/27/19 07:45 Band Neutrophils % 33.0 % 09/27/19 07:45 Lymphocytes % 9.2 % (8-40) D 09/28/19 07:10 Lymphocytes % (Manual) 4.8 % (8-40) L D 09/27/19 07:45 Monocytes % 5.2 % (3.8-10.2) 09/28/19 07:10 Monocytes % (Manual) 3 % (3.8-10.2) L 09/27/19 07:45 Eosinophils % 0.6 % (0-4.5) 09/28/19 07:10 Eosinophils % (Manual) 0.0 % (0-4.5) D 09/27/19 07:45 Basophils % 0.6 % (0-2.0) 09/28/19 07:10 Basophils % (Manual) 0.0 % (0-2.0) 09/27/19 07:45 Myelocytes % (Man) 0 % (0-2) 09/27/19 07:45 Promyelocytes % (Man) 0 % (0-2) 09/27/19 07:45 Blast Cells % (Manual) 0 % (0-0) 09/27/19 07:45 Nucleated RBC % 0 % (0-0) 09/28/19 07:10 Metamyelocytes 1 % (0-2) D 09/27/19 07:45 Hypochromia 1+ 09/27/19 07:45 Platelet Estimate Normal 09/27/19 07:45 Polychromasia 1+ 09/27/19 07:45 Poikilocytosis 0 09/27/19 07:45 Anisocytosis 1+ 09/27/19 07:45 Microcytosis 1+ 09/27/19 07:45 Macrocytosis 0 09/27/19 07:45 Sodium 150 mmol/L (136-145) H 09/28/19 07:10 Potassium 3.3 mmol/L (3.5-5.1) L 09/28/19 07:10 Chloride 114 mmol/L (98-107) H 09/28/19 07:10 Carbon Dioxide 28 mmol/L (21-32) 09/28/19 07:10 Anion Gap 8 MMOL/L (8-16) 09/28/19 07:10 BUN 39.5 mg/dL (7-18) H 09/28/19 07:10 Creatinine 1.0 mg/dL (0.55-1.3) 09/28/19 07:10 Est GFR (CKD-EPI)AfAm 80.31 09/28/19 07:10 Est GFR (CKD-EPI)NonAf 69.29 09/28/19 07:10 Random Glucose 89 mg/dL (74-106) 09/28/19 07:10 Lactic Acid 1.0 mmol/L (0.4-2.0) 09/26/19 10:44 Calcium 8.7 mg/dL (8.5-10.1) 09/28/19 07:10 Phosphorus 3.4 mg/dL (2.5-4.9) 09/28/19 07:10 Magnesium 2.4 mg/dL (1.8-2.4) 09/28/19 07:10 Total Bilirubin 0.4 mg/dL (0.2-1) 09/28/19 07:10 AST 32 U/L (15-37) 09/28/19 07:10 ALT 29 U/L (13-61) 09/28/19 07:10 Alkaline Phosphatase 99 U/L (45-117) 09/28/19 07:10 Creatine Kinase 73 U/L (26-308) 09/26/19 07:30 CK-MB (CK-2) 1.2 ng/mL (0.5-3.6) 09/26/19 07:30 Troponin I < 0.02 ng/ml (0.00-0.05) 09/26/19 07:30 Total Protein 6.7 g/dl (6.4-8.2) 09/28/19 07:10 Albumin 2.1 g/dl (3.4-5.0) L 09/28/19 07:10 Active Medications Current Medications Heparin Sodium (Porcine) (Heparin -) 5,000 unit SQ TID CARMELO Last Admin: 09/28/19 06:37 Dose: 5,000 unit Piperacillin Sod/Tazobactam (Sod 3.375 gm/ Dextrose) 50 mls @ 100 mls/hr IVPB Q8H-IV CARMELO; Protocol Last Admin: 09/28/19 09:46 Dose: 100 mls/hr Potassium Chloride 40 meq/ (Dextrose) 1,020 mls @ 75 mls/hr IVPB Q13H CARMELO Quetiapine Fumarate (Seroquel -) 100 mg GT HS [facility] Tamsulosin HCl (Flomax -) 0.4 mg NR DAILY [facility] Trazodone HCl (Desyrel -) 100 mg NR HS [facility] Home Medications Medication Instructions Recorded Quetiapine Fumarate [Seroquel -] 100 mg GT DAILY 08/09/18 Ranitidine [Zantac -] 100 mg GT BID 08/09/18 Tamsulosin HCl [Flomax] 0.4 mg GT DAILY 08/09/18 traZODone HCL [Trazodone HCl] 100 mg GT DAILY 08/09/18 Microbiology 09/26/19 08:29 Elbow - Left Gram Stain - Final 09/26/19 08:29 Elbow - Left Wound Culture - Preliminary Non Lactose Fermenting Gnb Non Lactose Fermenting Gnb#2 Staphylococcus Latex Coag Pos Group D Strep Or Entero Coccus 09/26/19 08:29 Elbow - Right Gram Stain - Final 09/26/19 08:29 Elbow - Right Wound Culture - Preliminary Non Lactose Fermenting Gnb Non Lactose Fermenting Gnb#2 Staphylococcus Latex Coag Pos Group D Strep Or Entero Coccus Beta Hemolytic Strep 09/26/19 10:54 Urine - Urine Ryan Urine Culture - Final Klebsiella Pneumoniae 09/26/19 07:30 Blood - Peripheral Venous Blood Culture - Preliminary Enterococcus Faecalis 09/26/19 07:30 Blood - Peripheral Venous Blood Culture - Preliminary Group D Strep Or Entero Coccus 09/26/19 13:04 Urine For Antigen Detection Legionella Antigen - Final 09/26/19 13:04 Urine For Antigen Detection Streptococcus pneumoniae Antigen (M - Final ASSESSMENT/PLAN: 84 y/o M, pmh of advanced dementia, 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 #b/l Elbow ulcer w/ cellulitis Zosyn cont White count today decreased 11.3 Surgery recommended orthopedic consult for the ulcers/wound management Echo ordered- we will f/u Will need to discuss with family goals of care #Hypernatremia D5-KCl at 75 #Sacral ulcer recom air mattress, use of draw sheets and trendelenburg when changing positions off loading of bony areas- heels, ankles, hips, tailbones- with allevyn/optifoam Reposition every 2 hrs #Advanced dementia cont seroquel #GERD cont ranitidine #Hx of CVA #Functional quadraplegic #BPH cont Flomax via G-tube- ensure the administering personal is wearing gloves, gown and masks as opened flomax can be toxic #DVT ppx hep sq FEN G tube placed NPO monitor lytes Dispo: f/u Echo, cont abx, f/u with family about goals of care, will plan for wound care Visit type - Emergency Visit Emergency Visit: Yes ED Registration Date: 09/26/19 Care time: The patient presented to the Emergency Department on the above date and was hospitalized for further evaluation of their emergent condition. - New Patient This patient is new to me today: Yes Date on this admission: 09/29/19 - Critical Care Critical Care patient: No - Discharge Referral Referred to [facility] No ATTENDING PHYSICIAN STATEMENT I saw and evaluated the patient. I reviewed the resident's note and discussed the case with the resident. I agree with the resident's findings and plan as documented. SUBJECTIVE: OBJECTIVE: ASSESSMENT AND PLAN:
[2019-09-28] MEDS: POTASSIUM CHLORIDE 40 MEQ in DEXTROSE 5%-WATER - 1,000 ML IVPB SCH (14:09)
[2019-09-28] MEDS: TAMSULOSIN HCL 0.4 MG CAP NR SCH (14:10)
--- NOTE | 2019-09-28 16:03 | PN ---
Progress Note (short form) - Note Progress Note: NAD nonverbal contracted Vital Signs Vital Signs Period Temp Pulse Resp BP Sys/Becerra Pulse Ox Last 24 Hr 98.6 F-98.7 F 88-96 20-22 131-134/71-79 cor-rrr lungs decreased bs at bases abd soft, +GT bilateral elbow pressure ulcers ext contracted +webb CBC, BMP 09/28/19 07:10 09/28/19 07:10 Microbiology 09/26/19 07:30 Blood - Peripheral Venous Blood Culture - Final Group D Strep Or Entero Coccus 09/26/19 07:30 Blood - Peripheral Venous Blood Culture - Final Enterococcus Faecalis 09/26/19 08:29 Elbow - Right Gram Stain - Final 09/26/19 08:29 Elbow - Right Wound Culture - Preliminary Non Lactose Fermenting Gnb Non Lactose Fermenting Gnb#2 Staphylococcus Latex Coag Pos Group D Strep Or Entero Coccus Beta Hemolytic Strep 09/26/19 08:29 Elbow - Left Gram Stain - Final 09/26/19 08:29 Elbow - Left Wound Culture - Preliminary Non Lactose Fermenting Gnb Non Lactose Fermenting Gnb#2 Staphylococcus Latex Coag Pos Group D Strep Or Entero Coccus 09/26/19 10:54 Urine - Urine Webb Urine Culture - Final Klebsiella Pneumoniae 09/26/19 13:04 Urine For Antigen Detection Legionella Antigen - Final 09/26/19 13:04 Urine For Antigen Detection Streptococcus pneumoniae Antigen (M - Final a/p enterococcal bacteremia- suspect elbow ulcers are the source repeat blood cultures ordered echo pending amp/ceftriaxone elbow ulcers wound care per surgery advanced directives should be addressed with the family Problem List - Problems (1) AMS (altered mental status) Code(s): R41.82 - ALTERED MENTAL STATUS, UNSPECIFIED Qualifiers: Altered mental status type: unspecified Qualified Code(s): R41.82 - Altered mental status, unspecified (2) Infected pressure ulcer Code(s): L89.90 - PRESSURE ULCER OF UNSPECIFIED SITE, UNSPECIFIED STAGE; L08.9 - LOCAL INFECTION OF THE SKIN AND SUBCUTANEOUS TISSUE, UNSP (3) UTI (urinary tract infection) Code(s): N39.0 - URINARY TRACT INFECTION, SITE NOT SPECIFIED
[2019-09-28] MEDS ORDERED: DEXTROSE 5%-WATER 100 ML IVPB ONE (16:52)
[2019-09-28] MEDS: CEFTRIAXONE 2 GM in DEXTROSE 5%-WATER 100 ML IVPB SCH (17:02)
[2019-09-28] MEDS: AMPICILLIN - 2 GM in SODIUM CHLORIDE 100 ML IVPB SCH ×2 (18:20→21:19)
--- NOTE | 2019-09-28 18:35 | PN ---
Teaching Attending Note Name of Resident: Stanton Wynn ATTENDING PHYSICIAN STATEMENT I saw and evaluated the patient. I reviewed the resident's note and discussed the case with the resident. I agree with the resident's findings and plan as documented. SUBJECTIVE: Seen and examined at bedside. No acute events overnight. OBJECTIVE: Vital Signs - 24 hr 09/27/19 09/28/19 09/28/19 21:00 05:24 09:00 Temperature 98.7 F 98.7 F 98.6 F Pulse Rate 92 H 96 H 88 Respiratory 20 20 22 H Rate Blood Pressure 134/71 134/79 131/79 O2 Sat by Pulse 98 Oximetry (%) PHYSICAL EXAM: GENERAL: Contracted, Non verbal. LUNGS: decreased BS BL, unlabored HEART: irreg-irreg, s1s2, NICOLAS ABDOMEN: Soft, PEG tube in place EXTREMITIES: contractures all 4 extremities, noted large amount of drainage from both elbow wounds, Positive erythema of the left elbow with swelling noted Sacral: Decubitus ulcer sacrum/L buttock - stage 2 Current Medications Generic Name Dose Route Start Last Admin Trade Name Freq PRN Reason Stop Dose Admin Heparin Sodium (Porcine) 5,000 unit 09/26/19 22:00 09/28/19 14:10 Heparin - SQ 5,000 unit TID CARMELO Administration Potassium Chloride 40 meq/ 1,020 mls @ 75 mls/hr 09/28/19 12:51 09/28/19 14: 09 Dextrose IVPB 75 mls/hr Q13H CARMELO Administration Ampicillin Sodium 2 gm/ Sodium 100 mls @ 200 mls/hr 09/28/19 16:15 09/28/19 18:20 Chloride IVPB 200 mls/hr Q4H CARMELO Administration Protocol Ceftriaxone Sodium 2 gm/ 100 mls @ 200 mls/hr 09/28/19 16:45 09/28/19 17:02 Dextrose IVPB 200 mls/hr Q12H CARMELO Administration Protocol Quetiapine Fumarate 100 mg 09/28/19 22:00 Seroquel - GT HS CARMELO Tamsulosin HCl 0.4 mg 09/28/19 13:00 09/28/19 14:10 Flomax - NR 0.4 mg DAILY CARMELO Administration Trazodone HCl 100 mg 09/28/19 22:00 Desyrel - NR HS CARMELO Laboratory Results - last 24 hr 09/28/19 09/28/19 09/28/19 06:00 07:10 07:10 WBC 11.3 H RBC 3.07 L Hgb 9.9 L Hct 29.4 L MCV 95.7 MCH 32.3 MCHC 33.8 RDW 15.9 Plt Count 298 MPV 7.6 Absolute Neuts (auto) 9.6 H Neutrophils % 84.4 H Lymphocytes % 9.2 D Monocytes % 5.2 Eosinophils % 0.6 Basophils % 0.6 Nucleated RBC % 0 Sodium 150 H Potassium 3.3 L Chloride 114 H Carbon Dioxide 28 Anion Gap 8 BUN 39.5 H Creatinine 1.0 Est GFR (CKD-EPI)AfAm 80.31 Est GFR (CKD-EPI)NonAf 69.29 Random Glucose 89 Calcium 8.7 Phosphorus 3.4 Magnesium 2.4 Total Bilirubin 0.4 AST 32 ALT 29 Alkaline Phosphatase 99 Total Protein 6.7 Albumin 2.1 L Random Vancomycin 4.4 L Microbiology 09/27/19 18:00 Blood - Peripheral Venous Blood Culture - Preliminary NO GROWTH OBTAINED AFTER 24 HOURS, INCUBATION TO CONTINUE FOR 4 DAYS. 09/26/19 07:30 Blood - Peripheral Venous Blood Culture - Final Group D Strep Or Entero Coccus 09/26/19 07:30 Blood - Peripheral Venous Blood Culture - Final Enterococcus Faecalis 09/26/19 08:29 Elbow - Right Gram Stain - Final 09/26/19 08:29 Elbow - Right Wound Culture - Preliminary Non Lactose Fermenting Gnb Non Lactose Fermenting Gnb#2 Staphylococcus Latex Coag Pos Group D Strep Or Entero Coccus Beta Hemolytic Strep 09/26/19 08:29 Elbow - Left Gram Stain - Final 09/26/19 08:29 Elbow - Left Wound Culture - Preliminary Non Lactose Fermenting Gnb Non Lactose Fermenting Gnb#2 Staphylococcus Latex Coag Pos Group D Strep Or Entero Coccus 09/26/19 10:54 Urine - Urine Ryan Urine Culture - Final Klebsiella Pneumoniae 09/26/19 13:04 Urine For Antigen Detection Legionella Antigen - Final 09/26/19 13:04 Urine For Antigen Detection Streptococcus pneumoniae Antigen (M - Final ASSESSMENT AND PLAN: 84 year old male with PMHx of advanced dementia, 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 1) Bacteremia, Multiple decubiti, bilateral elbows and sacral -c/w iv abx -wound care -frequent repositioning -pall care -ID following 2) Hypernatremia -restart fluids, D5 with potassium 3) Hx CVA 4) GERD 5) BPH
[2019-09-28] MEDS ORDERED: traZODone HCL 100 MG TABLET (FP) NR SCH (22:00)
[2019-09-29] MEDS: AMPICILLIN - 2 GM in SODIUM CHLORIDE 100 ML IVPB SCH ×7 (02:14→20:50)
[2019-09-29] MEDS: POTASSIUM CHLORIDE 40 MEQ in DEXTROSE 5%-WATER - 1,000 ML IVPB SCH ×2 (06:11→15:00)
[2019-09-29] MEDS ORDERED: DEXTROSE 5%-WATER 100 ML IVPB ONE ×2 (06:13→16:49)
[2019-09-29] MEDS: CEFTRIAXONE 2 GM in DEXTROSE 5%-WATER 100 ML IVPB SCH ×2 (06:17→16:55)
[2019-09-29] MEDS: HEPARIN NA (PORCINE) 5,000 UNITS/ML 1ML VIAL SQ SCH ×3 (07:37→21:34)
[2019-09-29 08:57] LABS: HEMATOCRIT 27.9 % (35.4-49); HEMOGLOBIN 9.4 GM/dL (11.7-16.9); MCH 31.8 pg (25.7-33.7); MCHC 33.7 g/dl (32.0-35.9); MEAN CELL VOLUME 94.3 fl (80-96); MEAN PLT VOLUME 7.6 fl (7.5-11.1); PLATELET COUNT 275 K/MM3 (134-434); RBC 2.96 M/mm3 (4.00-5.60); RDW 15.8 % (11.9-15.9); WHITE BLOOD COUNT 8.7 K/mm3 (4.0-10.0)
[2019-09-29 09:28] LABS: BILIRUBIN,TOTAL 0.2 mg/dL (0.2-1); BLOOD UREA NITROGEN 29.2 mg/dL (7-18); CREATININE 0.9 mg/dL (0.55-1.3); POTASSIUM 3.3 mmol/L (3.5-5.1); TOT PROT 6.4 g/dl (6.4-8.2)
[2019-09-29] MEDS ORDERED: POTASSIUM CHLORIDE ORAL LIQUID 20 MEQ/15 ML PO ONE (09:30)
[2019-09-29] MEDS ORDERED: SODIUM CHLORIDE 100 ML IVPB ONE ×3 (09:33→23:44)
[2019-09-29] MEDS ORDERED: AMPICILLIN SODIUM 2 GM VIAL ONE ×3 (09:33→23:44)
[2019-09-29] MEDS: TAMSULOSIN HCL 0.4 MG CAP NR SCH (10:14)
--- NOTE | 2019-09-29 12:37 | ECHO ---
Name: PRETTY BOLAND Exam:Adult Echocardiogram Study Date: 09/29/2019 08:16 AM Age: 84 yrs Reason For Study: R/O Endocarditis Height: 64 in Weight: 134 lb BSA: 1.6 m2 MMode/2D Measurements & Calculations IVSd: 0.99 cm Ao root diam: 3.3 cm LVIDd: 3.4 cm LA dimension: 3.1 cm LVIDs: 2.5 cm LVPWd: 1.0 cm EDV(Teich): 48.7 ml LVOT diam: 2.0 cm ESV(Teich): 23.2 ml Doppler Measurements & Calculations MV E max gia: 49.5 cm/sec TR max gia: 187.3 cm/sec MV A max gia: 60.6 cm/sec TR max P.0 mmHg MV E/A: 0.82 MV dec time: 0.14 sec PA V2 max: 51.6 cm/sec Med Peak E' Gia: 6.0 cm/sec PA max P.1 mmHg Med E/e': 8.3 Lat Peak E' Gia: 5.0 cm/sec Lat E/e': 9.9 Procedure The study was technically difficult with many images being suboptimal in quality. Left Ventricle Left ventricular systolic function is grossly normal. The transmitral spectral Doppler flow pattern i s suggestive of impaired LV relaxation. Regional wall motion abnormalities cannot be excluded due to li mited visualization. Right Ventricle The right ventricle is grossly normal size. The right ventricular systolic function is grossly normal . Atria Normal left and right atrial size and function. Mitral Valve The mitral valve is grossly normal. There is no mitral valve stenosis. There is trace mitral regurgit ation. Tricuspid Valve The tricuspid valve is not well visualized, but is grossly normal. There is mild tricuspid regurgitat ion. Aortic Valve The aortic valve is not well visualized. No hemodynamically significant valvular aortic stenosis. No aortic regurgitation is present. Pulmonic Valve The pulmonic valve is not well visualized. Great Vessels The aortic root is normal size. Pericardium/Pleura There is no pericardial effusion. Interpretation Summary The study was technically difficult with many images being suboptimal in quality. Regional wall motion abnormalities cannot be excluded due to limited visualization. Left ventricular systolic function is grossly normal. There is trace mitral regurgitation. There is mild tricuspid regurgitation. The aortic valve is not well visualized. The pulmonic valve is not well visualized. There is no pericardial effusion. MD Duong *Osman 09/29/2019 12:36 PM
[2019-09-29] MEDS ORDERED: PT OWN MED DRAWER 7, Y5N ONE ×2 (13:01→21:21)
--- NOTE | 2019-09-29 14:37 | PN ---
Progress Note (short form) - Note Progress Note: NAD nonverbal contracted Vital Signs Period Temp Pulse Resp BP Sys/Becerra Pulse Ox Last 24 Hr 97.5 F-98.2 F 71-89 18-18 114-144/67-73 97 cor-rrr lungs clear abd soft, nt +GT right elbow is draining and stge 3, left elbow not draining and clean webb CBC, BMP 09/29/19 07:35 09/29/19 07:35 Microbiology 09/26/19 08:29 Elbow - Right Gram Stain - Final 09/26/19 08:29 Elbow - Right Wound Culture - Preliminary Acinetobacter Baumannii/Haemol Non Lactose Fermenting Gnb#2 Staphylococcus Aureus Enterococcus Faecalis Strep Agalactiae Group B 09/26/19 08:29 Elbow - Left Gram Stain - Final 09/26/19 08:29 Elbow - Left Wound Culture - Final Non Lactose Fermenting Gnb Non Lactose Fermenting Gnb#2 Staphylococcus Aureus Group D Strep Or Entero Coccus 09/27/19 18:00 Blood - Peripheral Venous Blood Culture - Preliminary NO GROWTH OBTAINED AFTER 24 HOURS, INCUBATION TO CONTINUE FOR 4 DAYS. 09/27/19 18:00 Blood - Peripheral Venous Blood Culture - Preliminary NO GROWTH OBTAINED AFTER 24 HOURS, INCUBATION TO CONTINUE FOR 4 DAYS. 09/26/19 07:30 Blood - Peripheral Venous Blood Culture - Final Group D Strep Or Entero Coccus 09/26/19 07:30 Blood - Peripheral Venous Blood Culture - Final Enterococcus Faecalis 09/26/19 10:54 Urine - Urine Webb Urine Culture - Final Klebsiella Pneumoniae 09/26/19 13:04 Urine For Antigen Detection Legionella Antigen - Final 09/26/19 13:04 Urine For Antigen Detection Streptococcus pneumoniae Antigen (M - Final a/p enterococcal bacteremia- suspect elbow ulcers are the source repeat blood cultures pending echo negative amp/ceftriaxone elbow ulcers wound care per surgery advanced directives should be addressed with the family Problem List - Problems (1) AMS (altered mental status) Code(s): R41.82 - ALTERED MENTAL STATUS, UNSPECIFIED Qualifiers: Altered mental status type: unspecified Qualified Code(s): R41.82 - Altered mental status, unspecified (2) Infected pressure ulcer Code(s): L89.90 - PRESSURE ULCER OF UNSPECIFIED SITE, UNSPECIFIED STAGE; L08.9 - LOCAL INFECTION OF THE SKIN AND SUBCUTANEOUS TISSUE, UNSP (3) UTI (urinary tract infection) Code(s): N39.0 - URINARY TRACT INFECTION, SITE NOT SPECIFIED
--- NOTE | 2019-09-29 14:45 | PN ---
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 Pt remains at his baseline, spastic and contracted, unable to communicate. Pt did not have any fevers overnight, no acute overnight events. As per daughter, pt is at baseline. OBJECTIVE: Vital Signs Period Temp Pulse Resp BP Sys/Becerra Pulse Ox Last 24 Hr 97.5 F-98.2 F 71-89 18-18 114-144/67-73 97 GENERAL: pt is unable to communicate, spastic and rigid, cachetic, NAD. EYES: PERRL, extraocular movements intact, sclera anicteric, conjunctiva clear. No ptosis. ENT: Mouth remains opened, oropharynx clear without exudates, dry mucous membranes. NECK: supple, No LAD LUNGS: Breath sounds equal, clear to auscultation bilaterally, no wheezes, no crackles. HEART: Regular rate and rhythm, S1, S2 without murmur, rub or gallop. ABDOMEN: Soft, nontender, nondistended, normoactive bowel sounds, no guarding, G -tube placed EXTREMITIES: 2+ pulses, warm, 2x3 LE olecranon stage 2 ulcer, 3x4 right olecranon stage 4 ulcer Back: 4x3 stage 2 decub ulcer on the right buttocks NEUROLOGICAL: unable to obtain SKIN: Warm, dry Laboratory Results - last 24 hr 09/29/19 09/29/19 07:35 07:35 WBC 8.7 RBC 2.96 L Hgb 9.4 L Hct 27.9 L MCV 94.3 MCH 31.8 MCHC 33.7 RDW 15.8 Plt Count 275 MPV 7.6 Sodium 147 H Potassium 3.3 L Chloride 111 H Carbon Dioxide 29 Anion Gap 6 L BUN 29.2 H Creatinine 0.9 Est GFR (CKD-EPI)AfAm 91.22 Est GFR (CKD-EPI)NonAf 78.71 Random Glucose 142 H Calcium 8.0 L Total Bilirubin 0.2 AST 23 ALT 23 Alkaline Phosphatase 94 Total Protein 6.4 Albumin 2.0 L Active Medications Current Medications Heparin Sodium (Porcine) (Heparin -) 5,000 unit SQ TID CARMELO Last Admin: 09/29/19 13:10 Dose: 5,000 unit Potassium Chloride 40 meq/ (Dextrose) 1,020 mls @ 75 mls/hr IVPB Q13H [facility] Last Admin: 09/29/19 06:11 Dose: 75 mls/hr Ampicillin Sodium 2 gm/ Sodium (Chloride) 100 mls @ 200 mls/hr IVPB Q4H CARMELO; Protocol Last Admin: 09/29/19 13:09 Dose: 200 mls/hr Ceftriaxone Sodium 2 gm/ (Dextrose) 100 mls @ 200 mls/hr IVPB Q12H CARMELO; Protocol Last Admin: 09/29/19 06:17 Dose: 200 mls/hr Quetiapine Fumarate (Seroquel -) 100 mg GT HS [facility] Last Admin: 09/28/19 21:19 Dose: 100 mg Tamsulosin HCl (Flomax -) 0.4 mg NR DAILY [facility] Last Admin: 09/29/19 10:14 Dose: 0.4 mg Trazodone HCl (Desyrel -) 100 mg NR HS [facility] Home Medications Medication Instructions Recorded Quetiapine Fumarate [Seroquel -] 100 mg GT DAILY 08/09/18 Ranitidine [Zantac -] 100 mg GT BID 08/09/18 Tamsulosin HCl [Flomax] 0.4 mg GT DAILY 08/09/18 traZODone HCL [Trazodone HCl] 100 mg GT DAILY 08/09/18 Microbiology 09/26/19 08:29 Elbow - Right Gram Stain - Final 09/26/19 08:29 Elbow - Right Wound Culture - Preliminary Acinetobacter Baumannii/Haemol Non Lactose Fermenting Gnb#2 Staphylococcus Aureus Enterococcus Faecalis Strep Agalactiae Group B 09/26/19 08:29 Elbow - Left Gram Stain - Final 09/26/19 08:29 Elbow - Left Wound Culture - Final Non Lactose Fermenting Gnb Non Lactose Fermenting Gnb#2 Staphylococcus Aureus Group D Strep Or Entero Coccus 09/27/19 18:00 Blood - Peripheral Venous Blood Culture - Preliminary NO GROWTH OBTAINED AFTER 24 HOURS, INCUBATION TO CONTINUE FOR 4 DAYS. 09/27/19 18:00 Blood - Peripheral Venous Blood Culture - Preliminary NO GROWTH OBTAINED AFTER 24 HOURS, INCUBATION TO CONTINUE FOR 4 DAYS. 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 #b/l Elbow ulcer w/ cellulitis Ampicillin/ceftriaxone Enterococcal bacteremia likely from wound/ulcers Surgery recommended orthopedic consult for the ulcers/wound management Echo- mild TR, otherwise within normal limits Will need to discuss with family goals of care #Hypernatremia D5-KCl at 75 #Sacral ulcer recom air mattress, use of draw sheets and trendelenburg when changing positions off loading of bony areas- heels, ankles, hips, tailbones- with allevyn/optifoam Reposition every 2 hrs #Advanced dementia cont seroquel #GERD cont ranitidine #Hx of CVA #Functional quadraplegic #BPH cont Flomax via G-tube- ensure the administering personal is wearing gloves, gown and masks as opened flomax can be toxic #DVT ppx hep sq FEN G tube placed NPO monitor lytes Dispo: cont abx, f/u with family about goals of care, will plan for wound care ATTENDING PHYSICIAN STATEMENT I saw and evaluated the patient. I reviewed the resident's note and discussed the case with the resident. I agree with the resident's findings and plan as documented. SUBJECTIVE: OBJECTIVE: ASSESSMENT AND PLAN:
--- NOTE | 2019-09-29 19:43 | PN ---
Teaching Attending Note Name of Resident: Deedee Gonzales ATTENDING PHYSICIAN STATEMENT I saw and evaluated the patient. I reviewed the resident's note and discussed the case with the resident. I agree with the resident's findings and plan as documented. SUBJECTIVE: No events. unable to take hx OBJECTIVE: NAD, non verbal Cv: RRR. Lungs : CTAB anteriorly Ext : edema on upper extremities. b/l elbows ulcers. Abd: soft, Nt, Nd, NL BS. Skin : sacral ulcers . ASSESSMENT AND PLAN: 84 y/o man with h/o GERD, CVA, dementia, dysphagia, PEG, BPH, HTN, HLP, who is being treated for bacteremia 1- E faecalis bacteremia 2- skin ulcers. 3- Klebsiella UTI 4- hypernatremia 5- functional quadriplegia 6- dementia plan : - cont Ampicillin and CTX - TF was resumed yesterday only. monitor Na - not on asa as out pt , will investigate - DVT Px
[2019-09-29] MEDS: QUEtiapine FUMARATE 100 MG TABLET (FP) GT SCH (21:34)
[2019-09-30] MEDS: AMPICILLIN - 2 GM in SODIUM CHLORIDE 100 ML IVPB SCH ×6 (00:30→21:46)
[2019-09-30] MEDS: CEFTRIAXONE 2 GM in DEXTROSE 5%-WATER 100 ML IVPB SCH ×2 (03:45→18:11)
[2019-09-30] MEDS ORDERED: SODIUM CHLORIDE 100 ML IVPB ONE ×5 (03:46→21:42)
[2019-09-30] MEDS ORDERED: AMPICILLIN SODIUM 2 GM VIAL ONE ×5 (03:46→21:42)
[2019-09-30] MEDS ORDERED: DEXTROSE 5%-WATER 100 ML IVPB ONE ×2 (03:47→17:46)
[2019-09-30] MEDS: HEPARIN NA (PORCINE) 5,000 UNITS/ML 1ML VIAL SQ SCH ×3 (05:19→21:47)
[2019-09-30 08:13] LABS: HEMATOCRIT 30.7 % (35.4-49); HEMOGLOBIN 10.1 GM/dL (11.7-16.9); MCH 31.6 pg (25.7-33.7); MEAN CELL VOLUME 95.8 fl (80-96); PLATELET COUNT 270 K/MM3 (134-434); RBC 3.21 M/mm3 (4.00-5.60); RDW 15.6 % (11.9-15.9); WHITE BLOOD COUNT 7.2 K/mm3 (4.0-10.0)
--- NOTE | 2019-09-30 08:26 | PN ---
Physical Exam: SUBJECTIVE: Patient seen and examined. Had a temp of 100.5 overnight, repeat was 99.9, this am. OBJECTIVE: Vital Signs Period Temp Pulse Resp BP Sys/Becerra Pulse Ox Last 24 Hr 97.5 F-100.5 F 71-84 18-18 120-145/62-78 97-99 Vital Signs Temp 100.0 F H 09/30/19 15:54 Pulse 87 09/30/19 15:54 Resp 18 09/30/19 15:54 BP 167/89 09/30/19 15:54 Pulse Ox 98 09/30/19 09:00 Intake & Output 09/29/19 09/30/19 09/30/19 23:59 11:59 23:59 Intake Total 400 1500 0 Output Total 800 300 700 Balance -400 1200 -700 Intake: IVPB 400 400 Tube Feeding 500 0 Tube Irrigant 600 Output: Urine 800 300 700 Ryan 800 300 700 Other: Voiding Method Indwelling Catheter Indwelling Catheter Bowel Movement No No # Bowel Movements 1 GENERAL: The patient is lethargic, contracted, non communicative ENT:Dry mucous membranes. NECK: Trachea midline, full range of motion, supple. LUNGS: Groaning with transmitted sounds heard all over HEART: Regular rate and rhythm, S1, S2 without murmur, rub or gallop. ABDOMEN:PEG tube in plce, clean dry surrounding skin, no exudates EXTREMITIES:Contracted, in support foam, b/l elbow ulcers still draining NEUROLOGICAL: Non communicative CBC, BMP 09/30/19 07:15 09/30/19 06:00 Laboratory Results - last 24 hr 09/29/19 09/29/19 09/30/19 07:35 07:35 07:15 WBC 8.7 7.2 RBC 2.96 L 3.21 L Hgb 9.4 L 10.1 L Hct 27.9 L 30.7 L MCV 94.3 95.8 MCH 31.8 31.6 MCHC 33.7 33.0 RDW 15.8 15.6 Plt Count 275 270 MPV 7.6 8.0 Sodium 147 H Potassium 3.3 L Chloride 111 H Carbon Dioxide 29 Anion Gap 6 L BUN 29.2 H Creatinine 0.9 Est GFR (CKD-EPI)AfAm 91.22 Est GFR (CKD-EPI)NonAf 78.71 Random Glucose 142 H Calcium 8.0 L Total Bilirubin 0.2 AST 23 ALT 23 Alkaline Phosphatase 94 Total Protein 6.4 Albumin 2.0 L Active Medications Generic Name Dose Route Start Last Admin Trade Name Freq PRN Reason Stop Dose Admin Heparin Sodium (Porcine) 5,000 unit 09/26/19 22:00 09/30/19 05:19 Heparin - SQ 5,000 unit TID CARMELO Administration Ampicillin Sodium 2 gm/ Sodium 100 mls @ 200 mls/hr 09/28/19 16:15 09/30/19 04:15 Chloride IVPB 200 mls/hr Q4H CARMELO Administration Protocol Ceftriaxone Sodium 2 gm/ 100 mls @ 200 mls/hr 09/28/19 16:45 09/30/19 03:45 Dextrose IVPB 200 mls/hr Q12H CARMELO Administration Protocol Quetiapine Fumarate 100 mg 09/28/19 22:00 09/29/19 21:34 Seroquel - GT 100 mg HS CARMELO Administration Tamsulosin HCl 0.4 mg 09/28/19 13:00 09/29/19 10:14 Flomax - NR 0.4 mg DAILY CARMELO Administration Trazodone HCl 100 mg 09/28/19 22:00 Desyrel - NR HS CARMELO Ambulatory Orders Quetiapine Fumarate [Seroquel -] 100 mg GT DAILY 08/09/18 Ranitidine [Zantac -] 100 mg GT BID 08/09/18 Tamsulosin HCl [Flomax] 0.4 mg GT DAILY 08/09/18 traZODone HCL [Trazodone HCl] 100 mg GT DAILY 08/09/18 Microbiology 09/26/19 08:29 Elbow - Right Gram Stain - Final 09/26/19 08:29 Elbow - Right Wound Culture - Final Acinetobacter Baumannii/Haemol Acinetobacter Baumannii/Haemol#2 Staphylococcus Aureus Enterococcus Faecalis Strep Agalactiae Group B 09/27/19 18:00 Blood - Peripheral Venous Blood Culture - Preliminary NO GROWTH OBTAINED AFTER 48 HOURS, INCUBATION TO CONTINUE FOR 3 DAYS. 09/27/19 18:00 Blood - Peripheral Venous Blood Culture - Preliminary NO GROWTH OBTAINED AFTER 48 HOURS, INCUBATION TO CONTINUE FOR 3 DAYS. 09/26/19 08:29 Elbow - Left Gram Stain - Final 09/26/19 08:29 Elbow - Left Wound Culture - Final Non Lactose Fermenting Gnb Non Lactose Fermenting Gnb#2 Staphylococcus Aureus Group D Strep Or Entero Coccus 12/10/19 07:30 Blood - Peripheral Venous Blood Culture - Final Group D Strep Or Entero Coccus 09/26/19 07:30 Blood - Peripheral Venous Blood Culture - Final Enterococcus Faecalis 09/26/19 10:54 Urine - Urine Ryan Urine Culture - Final Klebsiella Pneumoniae 09/26/19 13:04 Urine For Antigen Detection Legionella Antigen - Final 09/26/19 13:04 Urine For Antigen Detection Streptococcus pneumoniae Antigen (M - Final ASSESSMENT/PLAN: 84 y/o M, pmh of advanced dementia, 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 #Pyrexia Pt on antibiotics, CXR ordered- no acute pathol will order, UA, UCx, duplex b/l lower extremities Tylenol 650mg Q6H via GT #b/l Elbow ulcer w/ cellulitis Ampicillin/ceftriaxone - started 09/28 Enterococcal bacteremia likely from wound/ulcers Surgery recommended orthopedic consult for the ulcers/wound management Echo- mild TR, otherwise within normal limits Pending goals of care discussion, still full code #Hypernatremia D5-KCl at 75 Increase free water to 60ml #Sacral ulcer recom air mattress, use of draw sheets and trendelenburg when changing positions off loading of bony areas- heels, ankles, hips, tailbones- with allevyn/optifoam Reposition every 2 hrs #Advanced dementia cont seroquel #GERD cont ranitidine #Hx of CVA Contracted Freq turning #Functional quadraplegic Contracted Freq turning #BPH cont Flomax via G-tube- ensure the administering personal is wearing gloves, gown and masks as opened flomax can be toxic #DVT ppx hep sq FEN G tube placed- Gtube feeds, free water via GT NPO monitor lytes Dispo: cont abx, f/u with family about goals of care, cont wound care Visit type - Emergency Visit Emergency Visit: Yes ED Registration Date: 09/26/19 Care time: The patient presented to the Emergency Department on the above date and was hospitalized for further evaluation of their emergent condition. - New Patient This patient is new to me today: Yes Date on this admission: 09/30/19 - Critical Care Critical Care patient: No - Discharge Referral Referred to [facility] No ATTENDING PHYSICIAN STATEMENT I saw and evaluated the patient. I reviewed the resident's note and discussed the case with the resident. I agree with the resident's findings and plan as documented. SUBJECTIVE: OBJECTIVE: ASSESSMENT AND PLAN:
[2019-09-30 08:44] LABS: ALBUMIN 1.9 g/dl (3.4-5.0); BILIRUBIN,TOTAL 0.2 mg/dL (0.2-1); CALCIUM 8.2 mg/dL (8.5-10.1); CREATININE 0.8 mg/dL (0.55-1.3); POTASSIUM 3.5 mmol/L (3.5-5.1); TOT PROT 6.4 g/dl (6.4-8.2)
[2019-09-30] MEDS ORDERED: PT OWN MED DRAWER 7, Y5N ONE (09:28)
[2019-09-30] MEDS: TAMSULOSIN HCL 0.4 MG CAP NR SCH (09:35)
--- NOTE | 2019-09-30 13:00 | PN ---
Teaching Attending Note Name of Resident: Aixa Morrow ATTENDING PHYSICIAN STATEMENT I saw and evaluated the patient. I reviewed the resident's note and discussed the case with the resident. I agree with the resident's findings and plan as documented. SUBJECTIVE: no events over night OBJECTIVE: NAD, non verbal Cv: RRR. Lungs: CTAB anteriorly Ext: edema on upper extremities. b/l elbows ulcers. Abd: soft, NT, ND, NL BS. ASSESSMENT AND PLAN: 84 y/o man with h/o GERD, CVA, dementia, dysphagia, PEG, BPH, HTN, HLP, who is being treated for bacteremia 1- E faecalis bacteremia 2- skin ulcers. 3- Klebsiella UTI 4- hypernatremia 5- functional quadriplegia 6- dementia plan : - cont Ampicillin and CTX - increase free water in TF - monitor Na level - fever this am, check Cxray - not on asa as out pt, will investigate - DVT Px : cont heparin SQ ASSESSMENT AND PLAN:
[2019-09-30 21:21] LABS: EPI CELLS >36 /HPF (0-5/HPF); HYALINE CASTS 19 /lpf (0-8); PH,URINE 8.5 (5.0-8.0); URINE APPEARANCE CLOUDY; URINE BACTERIA 8.9 /hpf (NEGATIVE); URINE BILIRUBIN NEGATIVE (NEGATIVE); URINE COLOR YELLOW; URINE GLUCOSE (UA) NEGATIVE (NEGATIVE); URINE KETONE NEGATIVE (NEGATIVE); URINE LEUK ESTERASE 3+ (NEGATIVE); URINE NITRITE NEGATIVE (NEGATIVE); URINE PROTEIN 1+ (NEGATIVE); URINE RBC 14 /hpf (0-4); URINE WBC 86 /hpf (0-5)
[2019-09-30] MEDS: ACETAMINOPHEN 650 MG/20.3 ML ORAL SOLUTION (CUPS) GT PRN (21:47)
[2019-09-30] MEDS: QUEtiapine FUMARATE 100 MG TABLET (FP) GT SCH (21:48)
[2019-10-01] MEDS ORDERED: SODIUM CHLORIDE 100 ML IVPB ONE ×5 (00:13→20:13)
[2019-10-01] MEDS ORDERED: AMPICILLIN SODIUM 2 GM VIAL ONE ×5 (00:13→20:13)
[2019-10-01] MEDS: AMPICILLIN - 2 GM in SODIUM CHLORIDE 100 ML IVPB SCH ×6 (00:23→20:35)
[2019-10-01] MEDS ORDERED: DEXTROSE 5%-WATER 100 ML IVPB ONE ×2 (04:23→17:38)
[2019-10-01] MEDS: CEFTRIAXONE 2 GM in DEXTROSE 5%-WATER 100 ML IVPB SCH ×2 (05:39→18:14)
[2019-10-01] MEDS: HEPARIN NA (PORCINE) 5,000 UNITS/ML 1ML VIAL SQ SCH ×3 (05:40→21:44)
[2019-10-01 08:02] LABS: BASO % 0.5 % (0-2.0); EOS % 4.4 % (0-4.5); HEMATOCRIT 31.7 % (35.4-49); HEMOGLOBIN 10.5 GM/dL (11.7-16.9); LYMPH % 12.8 % (8-40); MCH 31.8 pg (25.7-33.7); MCHC 33.2 g/dl (32.0-35.9); MEAN CELL VOLUME 95.7 fl (80-96); MEAN PLT VOLUME 8.4 fl (7.5-11.1); MONO % 5.2 % (3.8-10.2); NEUT % 77.1 % (42.8-82.8); PLATELET COUNT 314 K/MM3 (134-434); RBC 3.32 M/mm3 (4.00-5.60); RDW 16.1 % (11.9-15.9); WHITE BLOOD COUNT 8.7 K/mm3 (4.0-10.0)
[2019-10-01 08:17] LABS: BILIRUBIN,TOTAL 0.2 mg/dL (0.2-1); BLOOD UREA NITROGEN 26.2 mg/dL (7-18); CALCIUM 8.1 mg/dL (8.5-10.1); CREATININE 0.8 mg/dL (0.55-1.3); MAGNESIUM 2.1 mg/dL (1.8-2.4); PHOSPHOROUS 2.5 mg/dL (2.5-4.9); POTASSIUM 3.5 mmol/L (3.5-5.1); TOT PROT 6.6 g/dl (6.4-8.2)
[2019-10-01] MEDS: TAMSULOSIN HCL 0.4 MG CAP NR SCH (09:57)
--- NOTE | 2019-10-01 15:00 | PN ---
Progress Note (short form) - Note Progress Note: Subjective: No vents over night. bleeding from webb Objective: Vital Signs: Last Vital Signs Temp Pulse Resp BP Pulse Ox 99.8 F H 80 18 128/66 98 10/01/19 14:42 10/01/19 14:42 10/01/19 14:42 10/01/19 14:42 10/01/19 09:00 Laboratory Results - last 24 hr 09/30/19 10/01/19 10/01/19 20:30 06:50 06:50 WBC 8.7 RBC 3.32 L Hgb 10.5 L Hct 31.7 L MCV 95.7 MCH 31.8 MCHC 33.2 RDW 16.1 H Plt Count 314 MPV 8.4 Absolute Neuts (auto) 6.7 Neutrophils % 77.1 Lymphocytes % 12.8 D Monocytes % 5.2 Eosinophils % 4.4 D Basophils % 0.5 Nucleated RBC % 0 Sodium 148 H Potassium 3.5 Chloride 111 H Carbon Dioxide 30 Anion Gap 7 L BUN 26.2 H Creatinine 0.8 Est GFR (CKD-EPI)AfAm 95.75 Est GFR (CKD-EPI)NonAf 82.61 Random Glucose 133 H Calcium 8.1 L Phosphorus 2.5 Magnesium 2.1 Total Bilirubin 0.2 AST 28 ALT 34 Alkaline Phosphatase 88 Total Protein 6.6 Albumin 2.0 L Urine Color Yellow Urine Appearance Cloudy Urine pH 8.5 H Ur Specific [place] 1.018 Urine Protein 1+ H Urine Glucose (UA) Negative Urine Ketones Negative Urine Blood 1+ H Urine Nitrite Negative Urine Bilirubin Negative Urine Urobilinogen 1.0 Ur Leukocyte Esterase 3+ H Urine WBC (Auto) 86 Urine RBC (Auto) 14 Urine Casts (Auto) 19 U Epithel Cells (Auto) >36 U Sm Round Cell (Auto) None Urine Bacteria (Auto) 8.9 Physical Exam: NAD, non verbal Cv: RRR. Lungs: CTAB anteriorly Ext: edema on upper extremities. b/l elbows ulcers. Abd: soft, NT, ND, NL BS. foely with dark blood in bag ASSESSMENT AND PLAN: 84 y/o man with h/o GERD, CVA, dementia, dysphagia, PEG, BPH, HTN, HLP, who is being treated for bacteremia 1- E faecalis bacteremia 2- skin ulcers. 3- Klebsiella UTI 4- hypernatremia 5- functional quadriplegia 6- dementia plan : - cont Ampicillin and CTX - dc tracey. bleeding is likely due to trauma - Cont increased free water in TF - monitor Na level - fever did not recur. u cx pending. cxray reviewed. US pending - not on asa as out pt - DVT Px : cont heparin SQ DNR /DNI confirmed with daughter who will bring [employer] form when ready for dc she is interested in Abx at home Visit type - Emergency Visit Emergency Visit: Yes ED Registration Date: 09/26/19 Care time: The patient presented to the Emergency Department on the above date and was hospitalized for further evaluation of their emergent condition. - New Patient This patient is new to me today: No - Critical Care Critical Care patient: No
[2019-10-01] MEDS: QUEtiapine FUMARATE 100 MG TABLET (FP) GT SCH (21:44)
[2019-10-02] MEDS ORDERED: SODIUM CHLORIDE 100 ML IVPB ONE ×7 (00:07→23:51)
[2019-10-02] MEDS ORDERED: AMPICILLIN SODIUM 2 GM VIAL ONE ×7 (00:07→23:50)
[2019-10-02] MEDS: AMPICILLIN - 2 GM in SODIUM CHLORIDE 100 ML IVPB SCH ×7 (00:30→23:54)
[2019-10-02] MEDS ORDERED: DEXTROSE 5%-WATER 100 ML IVPB ONE ×2 (04:55→15:26)
[2019-10-02] MEDS: CEFTRIAXONE 2 GM in DEXTROSE 5%-WATER 100 ML IVPB SCH ×2 (05:12→16:51)
[2019-10-02] MEDS: HEPARIN NA (PORCINE) 5,000 UNITS/ML 1ML VIAL SQ SCH ×3 (07:09→21:42)
[2019-10-02 08:08] LABS: BLOOD UREA NITROGEN 26.5 mg/dL (7-18); CALCIUM 8.3 mg/dL (8.5-10.1); CREATININE 0.8 mg/dL (0.55-1.3); POTASSIUM 3.6 mmol/L (3.5-5.1)
[2019-10-02 08:23] LABS: HEMATOCRIT 29.3 % (35.4-49); HEMOGLOBIN 9.8 GM/dL (11.7-16.9); MCH 31.6 pg (25.7-33.7); MCHC 33.3 g/dl (32.0-35.9); MEAN CELL VOLUME 94.7 fl (80-96); MEAN PLT VOLUME 8.2 fl (7.5-11.1); PLATELET COUNT 322 K/MM3 (134-434); RBC 3.09 M/mm3 (4.00-5.60); RDW 15.7 % (11.9-15.9); WHITE BLOOD COUNT 7.8 K/mm3 (4.0-10.0)
[2019-10-02] MEDS ORDERED: PT OWN MED DRAWER 7, Y5N ONE (08:55)
[2019-10-02] MEDS: TAMSULOSIN HCL 0.4 MG CAP NR SCH (09:38)
--- NOTE | 2019-10-02 14:07 | PN ---
Progress Note (short form) - Note Progress Note: NAD nonverbal contracted low grade fevers have resolved Vital Signs Period Temp Pulse Resp BP Sys/Becerra Pulse Ox Last 24 Hr 97.6 F-99.8 F 77-86 18-86 125-163/66-84 98-98 cor-rrr lungs clear abd soft,nt ext elbow ulcers unchanged CBC, BMP 10/02/19 07:30 10/02/19 07:30 Microbiology 09/30/19 20:30 Urine - Urine - Catheterized Urine Culture - Final NO GROWTH OBTAINED 09/27/19 18:00 Blood - Peripheral Venous Blood Culture - Preliminary NO GROWTH OBTAINED AFTER 96 HOURS, INCUBATION TO CONTINUE FOR 1 DAYS. 09/27/19 18:00 Blood - Peripheral Venous Blood Culture - Preliminary NO GROWTH OBTAINED AFTER 96 HOURS, INCUBATION TO CONTINUE FOR 1 DAYS. 09/26/19 08:29 Elbow - Right Gram Stain - Final 09/26/19 08:29 Elbow - Right Wound Culture - Final Acinetobacter Baumannii/Haemol Acinetobacter Baumannii/Haemol#2 Staphylococcus Aureus Enterococcus Faecalis Strep Agalactiae Group B 09/26/19 08:29 Elbow - Left Gram Stain - Final 09/26/19 08:29 Elbow - Left Wound Culture - Final Non Lactose Fermenting Gnb Non Lactose Fermenting Gnb#2 Staphylococcus Aureus Group D Strep Or Entero Coccus 09/26/19 07:30 Blood - Peripheral Venous Blood Culture - Final Group D Strep Or Entero Coccus 09/26/19 07:30 Blood - Peripheral Venous Blood Culture - Final Enterococcus Faecalis 09/26/19 10:54 Urine - Urine Ryan Urine Culture - Final Klebsiella Pneumoniae 09/26/19 13:04 Urine For Antigen Detection Legionella Antigen - Final 09/26/19 13:04 Urine For Antigen Detection Streptococcus pneumoniae Antigen (M - Final a/p enterococcal bacteremia- suspect elbow ulcers are the source repeat blood cultures negative echo negative amp/ceftriaxone day #6 would plan total 14 days iv antibiotics then po augmentin for 2 weeks elbow ulcers wound care per surgery advanced directives should be addressed with the family overall prognosis is poor given contractures the elbow ulcers will not heal ( pressure points) Problem List - Problems (1) AMS (altered mental status) Code(s): R41.82 - ALTERED MENTAL STATUS, UNSPECIFIED Qualifiers: Altered mental status type: unspecified Qualified Code(s): R41.82 - Altered mental status, unspecified (2) Infected pressure ulcer Code(s): L89.90 - PRESSURE ULCER OF UNSPECIFIED SITE, UNSPECIFIED STAGE; L08.9 - LOCAL INFECTION OF THE SKIN AND SUBCUTANEOUS TISSUE, UNSP (3) UTI (urinary tract infection) Code(s): N39.0 - URINARY TRACT INFECTION, SITE NOT SPECIFIED
--- NOTE | 2019-10-02 19:43 | PN ---
Teaching Attending Note Name of Resident: Nida Mazariegos ATTENDING PHYSICIAN STATEMENT I saw and evaluated the patient. I reviewed the resident's note and discussed the case with the resident. I agree with the resident's findings and plan as documented. SUBJECTIVE: no events OBJECTIVE: NAD, non verbal Cv: RRR. Lungs: CTAB anteriorly Ext: edema on upper extremities. b/l elbows ulcers. Abd: soft, NT, ND, NL BS. [place] with lisandroaer urine ASSESSMENT AND PLAN: 84 y/o man with h/o GERD, CVA, dementia, dysphagia, PEG, BPH, HTN, HLP, who is being treated for bacteremia 1- E faecalis bacteremia 2- skin ulcers. 3- Klebsiella UTI 4- hypernatremia 5- functional quadriplegia 6- dementia 7- hematuria : resolved 8- severe protein calorie malnutrition plan : - cont Ampicillin and CTX. day 6 /14 . then 2 weeks of Augmentin - Cont increased free water in TF - add 200 c of free water BID for a couple days due to worsening hypernatremia - monitor Na level - add prosource - US reviewed - not on asa as out pt - DVT Px : cont heparin SQ DNR /DNI
--- NOTE | 2019-10-02 20:39 | PN ---
Physical Exam: SUBJECTIVE: Patient seen and examined NAEON. Last fever was 09/30/19(100.5F) Grunting softly, which is normal as per daughter at bedside. OBJECTIVE: Vital Signs Period Temp Pulse Resp BP Sys/Becerra Pulse Ox Last 24 Hr 97.6 F-97.9 F 77-86 20-20 125-163/75-82 98-98 GENERAL: The patient is lethargic, contracted, non communicative. Grunts softly ENT:Dry mucous membranes. NECK: Trachea midline, full range of motion, supple. LUNGS: Groaning with transmitted sounds heard all over HEART: Regular rate and rhythm, S1, S2 without murmur, rub or gallop. ABDOMEN: PEG tube in plce, clean dry surrounding skin, no exudates EXTREMITIES:Contracted, in support foam, b/l elbow ulcers with scant drainage of ss fluid, worse on Right elbow NEUROLOGICAL: Non communicative Laboratory Results - last 24 hr 10/02/19 10/02/19 07:30 07:30 WBC 7.8 RBC 3.09 L Hgb 9.8 L Hct 29.3 L MCV 94.7 MCH 31.6 MCHC 33.3 RDW 15.7 Plt Count 322 MPV 8.2 Sodium 150 H Potassium 3.6 Chloride 114 H Carbon Dioxide 31 Anion Gap 5 L BUN 26.5 H Creatinine 0.8 Est GFR (CKD-EPI)AfAm 95.75 Est GFR (CKD-EPI)NonAf 82.61 Random Glucose 97 Calcium 8.3 L Active Medications Generic Name Dose Route Start Last Admin Trade Name Freq PRN Reason Stop Dose Admin Acetaminophen 650 mg 09/30/19 17:35 09/30/19 21:47 Tylenol Oral Solution - GT 650 mg Q6H PRN Administration FEVER Amino Acids 30 ml 10/03/19 08:00 Prosource No Carb Liquid Pkt PEG BID@0800,1730 CARMELO Heparin Sodium (Porcine) 5,000 unit 09/26/19 22:00 10/02/19 13:48 Heparin - SQ 5,000 unit TID CARMELO Administration Ampicillin Sodium 2 gm/ Sodium 100 mls @ 200 mls/hr 09/28/19 16:15 10/02/19 19:58 Chloride IVPB 200 mls/hr Q4H CARMELO Administration Protocol Ceftriaxone Sodium 2 gm/ 100 mls @ 200 mls/hr 09/28/19 16:45 10/02/19 16:51 Dextrose IVPB 200 mls/hr Q12H CARMELO Administration Protocol Quetiapine Fumarate 100 mg 09/28/19 22:00 10/01/19 21:44 Seroquel - GT 100 mg HS CARMELO Administration Tamsulosin HCl 0.4 mg 09/28/19 13:00 10/02/19 09:38 Flomax - NR 0.4 mg DAILY CARMELO Administration Trazodone HCl 100 mg 09/28/19 22:00 Desyrel - NR HS [facility] ASSESSMENT/PLAN: 84 y/o M, pmh of advanced dementia, 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 #Pyrexia --possibly 2/2 elbow wounds #transient bacteremia --elbow wounds as source? > BCX(09/26/19): E faecalis > BCX(09/27/19): NGTD > UCX(09/30/19): NGTD > elbow wound cx: acinetobacter, S aureus, E faecalis, GBS > Urine Ag: neg legionella, neg S pneumoniae > CXR: neg acute path > CTH: neg for acute path > Venous duplex of BLE: neg for DVT > UA(09/26/19): LE 3+, neg nitrite, bact 617 > UA(09/30/19): LE 3+, neg nitrite, bact 8.9 > Echo(09/29/19): poor quality. LVEF ~normal - Tylenol 650mg Q6H via GT - ID Consult: --abx reigmen: ---Amp + Ceftriaxone Day 6 ---IV abx x14d; then Augmentin x14d #b/l Elbow ulcer w/ cellulitis - Ampicillin/ceftriaxone - started 09/28 - Enterococcal bacteremia likely from wound/ulcers - Surgery Consult --rec orthopedic consult for exposed Rght olecranon #Hypernatremia - Increase free water to 200ml BID #Sacral ulcer - air mattress, use of draw sheets and trendelenburg when changing positions - off loading of bony areas- heels, ankles, hips, tailbones- with allevyn/ optifoam - Reposition every 2 hrs #Advanced dementia - cont seroquel #GERD - cont ranitidine #Hx of CVA #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 I reviewed the resident's note and discussed the case with the resident. I agree with the resident's findings and plan as documented. SUBJECTIVE: OBJECTIVE: ASSESSMENT AND PLAN:
[2019-10-02] MEDS: QUEtiapine FUMARATE 100 MG TABLET (FP) GT SCH (21:42)
[2019-10-03] MEDS: ACETAMINOPHEN 650 MG/20.3 ML ORAL SOLUTION (CUPS) GT PRN ×2 (00:01→21:24)
[2019-10-03] MEDS ORDERED: DEXTROSE 5%-WATER 100 ML IVPB ONE ×2 (04:42→16:16)
[2019-10-03] MEDS: CEFTRIAXONE 2 GM in DEXTROSE 5%-WATER 100 ML IVPB SCH ×2 (04:46→16:19)
[2019-10-03] MEDS ORDERED: SODIUM CHLORIDE 100 ML IVPB ONE ×5 (04:49→21:22)
[2019-10-03] MEDS ORDERED: AMPICILLIN SODIUM 2 GM VIAL ONE ×5 (04:49→21:22)
[2019-10-03] MEDS: AMPICILLIN - 2 GM in SODIUM CHLORIDE 100 ML IVPB SCH ×5 (05:05→21:24)
[2019-10-03] MEDS: HEPARIN NA (PORCINE) 5,000 UNITS/ML 1ML VIAL SQ SCH ×3 (06:11→21:24)
[2019-10-03 08:00] LABS: HEMATOCRIT 30.3 % (35.4-49); HEMOGLOBIN 10.1 GM/dL (11.7-16.9); MCH 31.9 pg (25.7-33.7); MCHC 33.4 g/dl (32.0-35.9); MEAN CELL VOLUME 95.4 fl (80-96); MEAN PLT VOLUME 7.9 fl (7.5-11.1); PLATELET COUNT 376 K/MM3 (134-434); RBC 3.18 M/mm3 (4.00-5.60); RDW 15.8 % (11.9-15.9); WHITE BLOOD COUNT 5.8 K/mm3 (4.0-10.0)
[2019-10-03 08:40] LABS: BLOOD UREA NITROGEN 25.6 mg/dL (7-18); CALCIUM 8.4 mg/dL (8.5-10.1); CREATININE 0.7 mg/dL (0.55-1.3); MAGNESIUM 2.2 mg/dL (1.8-2.4); PHOSPHOROUS 2.6 mg/dL (2.5-4.9); POTASSIUM 3.9 mmol/L (3.5-5.1)
[2019-10-03] MEDS: TAMSULOSIN HCL 0.4 MG CAP NR SCH (09:22)
[2019-10-03] MEDS: AMINO ACIDS/PROTEIN HYDROLYS 30 ML LIQUID.PKT PEG SCH ×2 (09:23→16:45)
--- NOTE | 2019-10-03 14:30 | PN ---
Teaching Attending Note Name of Resident: Miguel Collins ATTENDING PHYSICIAN STATEMENT I saw and evaluated the patient. I reviewed the resident's note and discussed the case with the resident. I agree with the resident's findings and plan as documented. SUBJECTIVE: No events over night OBJECTIVE: NAD, non verbal Cv: RRR. Lungs: CTAB anteriorly Ext: edema on upper extremities. b/l elbows ulcers werenot examined today . Abd: soft, NT, ND, NL BS. [place] cath with clear urine ASSESSMENT AND PLAN: 84 y/o man with h/o GERD, CVA, dementia, dysphagia, PEG, BPH, HTN, HLP, who is being treated for bacteremia 1- E faecalis bacteremia 2- Skin ulcers. 3- Klebsiella UTI 4- hypernatremia: improved 5- functional quadriplegia 6- dementia 7- hematuria : resolved 8- severe protein calorie malnutrition plan : - cont Ampicillin and CTX. day 7 /14. Then 2 weeks of Augmentin - Cont increased free water in TF ( at 60 cc /hr) . probably needs to be dc on this rate - cont 200 cc of free water BID for today. then stop tomorrow. Na has improved with this intervention . - Monitor Na level - cont prosource . conmt this after dc - not on asa as out pt. daughter to be called today to ask why - DVT Px: cont heparin SQ DNR /DNI if Na cont to improve, then plan is for dc home with VNS tomorrow with PICC line to finish IV abx.
--- NOTE | 2019-10-03 17:33 | PN ---
Physical Exam: SUBJECTIVE: Patient seen and examined BERNABE Loera intermittently OBJECTIVE: Vital Signs Period Temp Pulse Resp BP Sys/Becerra Pulse Ox Last 24 Hr 97.6 F-98.5 F 79-86 20-20 120-157/80-92 98-98 GENERAL: The patient is lethargic, contracted, non communicative. Grunts softly ENT:Dry mucous membranes. NECK: Trachea midline, full range of motion, supple. LUNGS: Groaning with transmitted sounds heard all over HEART: Regular rate and rhythm, S1, S2 without murmur, rub or gallop. ABDOMEN: PEG tube in plce, clean dry surrounding skin, no exudates EXTREMITIES:Contracted, in support foam, b/l elbow ulcers with scant drainage of ss fluid, worse on Right elbow NEUROLOGICAL: Non communicative Laboratory Results - last 24 hr 10/03/19 10/03/19 07:35 07:35 WBC 5.8 RBC 3.18 L Hgb 10.1 L Hct 30.3 L MCV 95.4 MCH 31.9 MCHC 33.4 RDW 15.8 Plt Count 376 MPV 7.9 Sodium 147 H Potassium 3.9 Chloride 112 H Carbon Dioxide 30 Anion Gap 5 L BUN 25.6 H Creatinine 0.7 Est GFR (CKD-EPI)AfAm 101.15 Est GFR (CKD-EPI)NonAf 87.27 Random Glucose 118 H Calcium 8.4 L Phosphorus 2.6 Magnesium 2.2 Active Medications Generic Name Dose Route Start Last Admin Trade Name Freq PRN Reason Stop Dose Admin Acetaminophen 650 mg 09/30/19 17:35 10/03/19 00:01 Tylenol Oral Solution - GT 650 mg Q6H PRN Administration FEVER Amino Acids 30 ml 10/03/19 08:00 10/03/19 16:45 Prosource No Carb Liquid Pkt PEG 30 ml BID@0800,1730 CARMELO Administration Heparin Sodium (Porcine) 5,000 unit 09/26/19 22:00 10/03/19 14:50 Heparin - SQ 5,000 unit TID CARMELO Administration Ampicillin Sodium 2 gm/ Sodium 100 mls @ 200 mls/hr 09/28/19 16:15 10/03/19 16:43 Chloride IVPB 200 mls/hr Q4H CARMELO Administration Protocol Ceftriaxone Sodium 2 gm/ 100 mls @ 200 mls/hr 09/28/19 16:45 10/03/19 16:19 Dextrose IVPB 200 mls/hr Q12H CARMELO Administration Protocol Quetiapine Fumarate 100 mg 09/28/19 22:00 10/02/19 21:42 Seroquel - GT 100 mg HS CARMELO Administration Tamsulosin HCl 0.4 mg 09/28/19 13:00 10/03/19 09:22 Flomax - NR 0.4 mg DAILY CARMELO Administration Trazodone HCl 100 mg 09/28/19 22:00 Desyrel - NR HS [facility] ASSESSMENT/PLAN: 84 y/o M, pmh of advanced dementia, 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 #Pyrexia --possibly 2/2 elbow wounds #transient bacteremia --elbow wounds as source? > BCX(09/26/19): E faecalis > BCX(09/27/19): NGTD > UCX(09/30/19): NGTD > elbow wound cx: acinetobacter, S aureus, E faecalis, GBS > Urine Ag: neg legionella, neg S pneumoniae > CXR: neg acute path > CTH: neg for acute path > Venous duplex of BLE: neg for DVT > UA(09/26/19): LE 3+, neg nitrite, bact 617 > UA(09/30/19): LE 3+, neg nitrite, bact 8.9 > Echo(09/29/19): poor quality. LVEF ~normal - Tylenol 650mg Q6H via GT - ID Consult: --abx reigmen: ---Amp + Ceftriaxone Day 7 ---IV abx x14d; then Augmentin x14d #b/l Elbow ulcer w/ cellulitis --poor likelihood of healing dt contractures and poor nutrition - Ampicillin/ceftriaxone - started 09/28 - Enterococcal bacteremia likely from wound/ulcers - Surgery Consult --rec orthopedic consult for exposed Rght olecranon #Hypernatremia --improving > Na 150-->147 - free water(via PEG) to 200ml BID, then stop at 10/04/19 #Sacral ulcer - air mattress, use of draw sheets and trendelenburg when changing positions - off loading of bony areas- heels, ankles, hips, tailbones- with allevyn/ optifoam - Reposition every 2 hrs #Advanced dementia - cont seroquel #GERD - cont ranitidine #Hx of CVA #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 I reviewed the resident's note and discussed the case with the resident. I agree with the resident's findings and plan as documented. SUBJECTIVE: OBJECTIVE: ASSESSMENT AND PLAN:
[2019-10-03] MEDS: QUEtiapine FUMARATE 100 MG TABLET (FP) GT SCH (21:24)
[2019-10-04] MEDS ORDERED: AMPICILLIN SODIUM 2 GM VIAL ONE ×6 (00:42→21:59)
[2019-10-04] MEDS ORDERED: SODIUM CHLORIDE 100 ML IVPB ONE ×6 (00:42→21:59)
[2019-10-04] MEDS: AMPICILLIN - 2 GM in SODIUM CHLORIDE 100 ML IVPB SCH ×6 (00:45→22:07)
[2019-10-04] MEDS ORDERED: DEXTROSE 5%-WATER 100 ML IVPB ONE ×2 (04:15→16:17)
[2019-10-04] MEDS: CEFTRIAXONE 2 GM in DEXTROSE 5%-WATER 100 ML IVPB SCH ×2 (04:17→16:40)
[2019-10-04] MEDS: HEPARIN NA (PORCINE) 5,000 UNITS/ML 1ML VIAL SQ SCH ×3 (06:19→22:17)
[2019-10-04] MEDS: ACETAMINOPHEN 650 MG/20.3 ML ORAL SOLUTION (CUPS) GT PRN (06:30)
[2019-10-04 08:15] LABS: HEMATOCRIT 29.4 % (35.4-49); HEMOGLOBIN 9.8 GM/dL (11.7-16.9); MCH 31.7 pg (25.7-33.7); MCHC 33.3 g/dl (32.0-35.9); MEAN CELL VOLUME 95.1 fl (80-96); MEAN PLT VOLUME 7.7 fl (7.5-11.1); PLATELET COUNT 393 K/MM3 (134-434); RBC 3.09 M/mm3 (4.00-5.60); RDW 15.8 % (11.9-15.9); WHITE BLOOD COUNT 6.2 K/mm3 (4.0-10.0)
[2019-10-04] MEDS: AMINO ACIDS/PROTEIN HYDROLYS 30 ML LIQUID.PKT PEG SCH ×2 (08:15→17:49)
[2019-10-04 08:36] LABS: BLOOD UREA NITROGEN 26.2 mg/dL (7-18); CREATININE 0.7 mg/dL (0.55-1.3); MAGNESIUM 2.2 mg/dL (1.8-2.4); PHOSPHOROUS 2.2 mg/dL (2.5-4.9); POTASSIUM 3.9 mmol/L (3.5-5.1)
[2019-10-04] MEDS: TAMSULOSIN HCL 0.4 MG CAP NR SCH (10:50)
[2019-10-04] MEDS: ASPIRIN 81 MG CHEWABLE TABLETS PEG SCH (10:50)
--- NOTE | 2019-10-04 14:29 | PN ---
Teaching Attending Note Name of Resident: Miguel Collins ATTENDING PHYSICIAN STATEMENT I saw and evaluated the patient. I reviewed the resident's note and discussed the case with the resident. I agree with the resident's findings and plan as documented. SUBJECTIVE: Patient is comfortable with no acute distress. No fever or chills. Vital Signs Temperature 97.5 F L 10/04/19 13:35 Pulse Rate 90 10/04/19 13:35 Respiratory Rate 20 10/04/19 13:35 Blood Pressure 145/78 10/04/19 13:35 O2 Sat by Pulse Oximetry (%) 98 10/04/19 10:00 GENERAL: The patient is bedridden, non verbal, NAD, HEAD: Normal with no signs of trauma. EYES: PERRL, extraocular movements intact, sclera anicteric, conjunctiva clear. ENT: Ears normal, moist mucous membranes. NECK: Trachea midline, full range of motion, supple. LUNGS: decreased BS BL, clear to auscultation bilaterally, no wheezes, no crackles, no accessory muscle use. HEART: Regular rate and rhythm, S1, S2 without murmur, rub or gallop. ABDOMEN: Soft, Nt,ND,+ bowel sounds, +peg EXTREMITIES: 2+ pulses, warm, no edema. contracted NEUROLOGICAL: Cranial nerves II through XII grossly intact. Normal speech, gait not observed. PSYCH:nonverbal, cannot be accessed SKIN: Warm, dry, normal turgor, + decubitus ulcer STAGE 4 CBCD WBC 6.2 K/mm3 (4.0-10.0) 10/04/19 07:30 RBC 3.09 M/mm3 (4.00-5.60) L 10/04/19 07:30 Hgb 9.8 GM/dL (11.7-16.9) L 10/04/19 07:30 Hct 29.4 % (35.4-49) L 10/04/19 07:30 MCV 95.1 fl (80-96) 10/04/19 07:30 MCHC 33.3 g/dl (32.0-35.9) 10/04/19 07:30 RDW 15.8 % (11.9-15.9) 10/04/19 07:30 Plt Count 393 K/MM3 (134-434) 10/04/19 07:30 MPV 7.7 fl (7.5-11.1) 10/04/19 07:30 CMP Sodium 147 mmol/L (136-145) H 10/04/19 07:30 Potassium 3.9 mmol/L (3.5-5.1) 10/04/19 07:30 Chloride 112 mmol/L (98-107) H 10/04/19 07:30 Carbon Dioxide 29 mmol/L (21-32) 10/04/19 07:30 Anion Gap 5 MMOL/L (8-16) L 10/04/19 07:30 BUN 26.2 mg/dL (7-18) H 10/04/19 07:30 Creatinine 0.7 mg/dL (0.55-1.3) 10/04/19 07:30 Random Glucose 119 mg/dL (74-106) H 10/04/19 07:30 Calcium 8.0 mg/dL (8.5-10.1) L 10/04/19 07:30 Total Bilirubin 0.2 mg/dL (0.2-1) 10/01/19 06:50 AST 28 U/L (15-37) 10/01/19 06:50 ALT 34 U/L (13-61) 10/01/19 06:50 Alkaline Phosphatase 88 U/L (45-117) 10/01/19 06:50 Total Protein 6.6 g/dl (6.4-8.2) 10/01/19 06:50 Albumin 2.0 g/dl (3.4-5.0) L 10/01/19 06:50 CARDIAC ENZYMES Creatine Kinase 73 U/L (26-308) 09/26/19 07:30 Troponin I < 0.02 ng/ml (0.00-0.05) 09/26/19 07:30 Current Medications Generic Name Dose Route Start Last Admin Trade Name Freq PRN Reason Stop Dose Admin Acetaminophen 650 mg 09/30/19 17:35 10/04/19 06:30 Tylenol Oral Solution - GT 650 mg Q6H PRN Administration FEVER Amino Acids 30 ml 10/03/19 08:00 10/04/19 08:15 Prosource No Carb Liquid Pkt PEG 30 ml BID@0800,1730 CARMELO Administration Aspirin 81 mg 10/04/19 10:00 10/04/19 10:50 Asa - PEG 81 mg DAILY CARMELO Administration Heparin Sodium (Porcine) 5,000 unit 09/26/19 22:00 10/04/19 06:19 Heparin - SQ 5,000 unit TID CARMELO Administration Ampicillin Sodium 2 gm/ Sodium 100 mls @ 200 mls/hr 09/28/19 16:15 10/04/19 12:19 Chloride IVPB 200 mls/hr Q4H CARMELO Administration Protocol Ceftriaxone Sodium 2 gm/ 100 mls @ 200 mls/hr 09/28/19 16:45 10/04/19 04:17 Dextrose IVPB 200 mls/hr Q12H CARMELO Administration Protocol Quetiapine Fumarate 100 mg 09/28/19 22:00 10/03/19 21:24 Seroquel - GT 100 mg HS [facility] Administration Tamsulosin HCl 0.4 mg 09/28/19 13:00 10/04/19 10:50 Flomax - NR 0.4 mg DAILY CARMELO Administration Trazodone HCl 100 mg 09/28/19 22:00 Desyrel - NR [facility] Home Medications Medication Instructions Recorded Quetiapine Fumarate [Seroquel -] 100 mg GT DAILY 08/09/18 Ranitidine [Zantac -] 100 mg GT BID 08/09/18 Tamsulosin HCl [Flomax] 0.4 mg GT DAILY 08/09/18 traZODone HCL [Trazodone HCl] 100 mg GT DAILY 08/09/18 Amoxicillin/Potassium Clav 1 each PO BID 14 Days #28 tablet 10/04/19 [Augmentin 875-125 Tablet] Ampicillin - 2 gm IVPB Q4H 6 Days vial 10/04/19 Ceftriaxone [Rocephin -] 2 gm IVPB Q12H 6 Days vial 10/04/19 Dextrose 5%-Water [Dextrose 5% 100 ml IVPB Q12H 6 Days bag 10/04/19 Water Minibag 100ML] Microbiology 09/26/19 07:30 Blood - Peripheral Venous Blood Culture - Final Enterococcus Faecalis 09/27/19 18:00 Blood - Peripheral Venous Blood Culture - Final NO GROWTH AFTER 5 DAYS INCUBATION 09/27/19 18:00 Blood - Peripheral Venous Blood Culture - Final NO GROWTH AFTER 5 DAYS INCUBATION 09/30/19 20:30 Urine - Urine - Catheterized Urine Culture - Final NO GROWTH OBTAINED 09/26/19 08:29 Elbow - Right Gram Stain - Final 09/26/19 08:29 Elbow - Right Wound Culture - Final Acinetobacter Baumannii/Haemol Acinetobacter Baumannii/Haemol#2 Staphylococcus Aureus Enterococcus Faecalis Strep Agalactiae Group B 09/26/19 08:29 Elbow - Left Gram Stain - Final 09/26/19 08:29 Elbow - Left Wound Culture - Final Non Lactose Fermenting Gnb Non Lactose Fermenting Gnb#2 Staphylococcus Aureus Group D Strep Or Entero Coccus 09/26/19 07:30 Blood - Peripheral Venous Blood Culture - Final Group D Strep Or Entero Coccus 09/26/19 10:54 Urine - Urine Ryan Urine Culture - Final Klebsiella Pneumoniae 09/26/19 13:04 Urine For Antigen Detection Legionella Antigen - Final 09/26/19 13:04 Urine For Antigen Detection Streptococcus pneumoniae Antigen (M - Final Assessment and Plan: Patient is a 84yom with Pmhx of GERD, CVA, dementia, dysphagia, PEG, BPH, HTN, HLP, who is being treated for bacteremia # E faecalis bacteremia on IV antibx ;Ampicillin and CTX. day 8 /14. Then 2 weeks of Augmentin # Skin ulcers WITH Decubitus ulcer. cont prosource # Klebsiella UTI # hypernatremia: improved adjusted the free water intake to 60cc/hr ,cont 200 cc of free water BID for today # functional quadriplegia ; home bound /bed bound # dementia # hematuria : resolved # severe protein calorie malnutrition DVT Px: cont heparin SQ DNR /DNI dc home with VNS tomorrow with PICC line to finish IV abx.
[2019-10-04] MEDS ORDERED: NAPH,MB-DB/K PH,MBDB POWDER PACKET PEG ONE (16:15)
--- NOTE | 2019-10-04 16:45 | PN ---
Physical Exam: SUBJECTIVE: Patient seen and examined NAEON. Soft grunts. OBJECTIVE: Vital Signs Period Temp Pulse Resp BP Sys/Becerra Pulse Ox Last 24 Hr 97.5 F-98.0 F 77-90 20-20 130-158/70-81 98-98 GENERAL: The patient is lethargic, contracted, non communicative. Grunts softly ENT:Dry mucous membranes. NECK: Trachea midline, full range of motion, supple. LUNGS: Groaning with transmitted sounds heard all over HEART: Regular rate and rhythm, S1, S2 without murmur, rub or gallop. ABDOMEN: PEG tube in plce, clean dry surrounding skin, no exudates EXTREMITIES:Contracted, in support foam, b/l elbow ulcers with scant drainage of ss fluid, worse on Right elbow NEUROLOGICAL: Non communicative Laboratory Results - last 24 hr 10/04/19 10/04/19 07:30 07:30 WBC 6.2 RBC 3.09 L Hgb 9.8 L Hct 29.4 L MCV 95.1 MCH 31.7 MCHC 33.3 RDW 15.8 Plt Count 393 MPV 7.7 Sodium 147 H Potassium 3.9 Chloride 112 H Carbon Dioxide 29 Anion Gap 5 L BUN 26.2 H Creatinine 0.7 Est GFR (CKD-EPI)AfAm 101.15 Est GFR (CKD-EPI)NonAf 87.27 Random Glucose 119 H Calcium 8.0 L Phosphorus 2.2 L Magnesium 2.2 Active Medications Generic Name Dose Route Start Last Admin Trade Name Freq PRN Reason Stop Dose Admin Acetaminophen 650 mg 09/30/19 17:35 10/04/19 06:30 Tylenol Oral Solution - GT 650 mg Q6H PRN Administration FEVER Amino Acids 30 ml 10/03/19 08:00 10/04/19 08:15 Prosource No Carb Liquid Pkt PEG 30 ml BID@0800,1730 CARMELO Administration Aspirin 81 mg 10/04/19 10:00 10/04/19 10:50 Asa - PEG 81 mg DAILY CARMELO Administration Heparin Sodium (Porcine) 5,000 unit 09/26/19 22:00 10/04/19 06:19 Heparin - SQ 5,000 unit TID CARMELO Administration Ampicillin Sodium 2 gm/ Sodium 100 mls @ 200 mls/hr 09/28/19 16:15 10/04/19 12:19 Chloride IVPB 200 mls/hr Q4H CARMELO Administration Protocol Ceftriaxone Sodium 2 gm/ 100 mls @ 200 mls/hr 09/28/19 16:45 10/04/19 04:17 Dextrose IVPB 200 mls/hr Q12H CARMELO Administration Protocol Potassium Phos/Sodium Phos 1 packet 10/04/19 16:15 Phos-Nak Packet - PEG 10/04/19 16:16 ONCE ONE Quetiapine Fumarate 100 mg 09/28/19 22:00 10/03/19 21:24 Seroquel - GT 100 mg HS CARMELO Administration Tamsulosin HCl 0.4 mg 09/28/19 13:00 10/04/19 10:50 Flomax - NR 0.4 mg DAILY CARMELO Administration Trazodone HCl 100 mg 09/28/19 22:00 Desyrel - NR HS [facility] ASSESSMENT/PLAN: 84 y/o M, pmh of advanced dementia, 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 Tried to get PICC on 10/04/19 but not a candidate as per Dr Mohamud, will attempt tunneled cath on 10/04/19 #Pyrexia --possibly 2/2 elbow wounds #transient bacteremia --elbow wounds as source? > BCX(09/26/19): E faecalis > BCX(09/27/19): NGTD > UCX(09/30/19): NGTD > elbow wound cx: acinetobacter, S aureus, E faecalis, GBS > Urine Ag: neg legionella, neg S pneumoniae > CXR: neg acute path > CTH: neg for acute path > Venous duplex of BLE: neg for DVT > UA(09/26/19): LE 3+, neg nitrite, bact 617 > UA(09/30/19): LE 3+, neg nitrite, bact 8.9 > Echo(09/29/19): poor quality. LVEF ~normal - Tylenol 650mg Q6H via GT - ID Consult: --abx reigmen: ---Amp + Ceftriaxone Day 8 ---IV abx x14d; then Augmentin x14d ---tried to get PICC on 10/04/19 but not a candidate as per Dr Mohamud, will attempt tunneled cath on 10/04/19 #b/l Elbow ulcer w/ cellulitis --poor likelihood of healing dt contractures and poor nutrition - Ampicillin/ceftriaxone - started 09/28 - Enterococcal bacteremia likely from wound/ulcers - Surgery Consult --rec orthopedic consult for exposed Rght olecranon --cw wound care #Hypernatremia --improving > Na 150-->147 - free water(via PEG) to 200ml BID, then stop at 10/04/19 #Sacral ulcer - air mattress, use of draw sheets and trendelenburg when changing positions - off loading of bony areas- heels, ankles, hips, tailbones- with allevyn/ optifoam - Reposition every 2 hrs #Advanced dementia - cont seroquel #GERD - home ranitidine--hold for now #Hx of CVA #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 I reviewed the resident's note and discussed the case with the resident. I agree with the resident's findings and plan as documented. SUBJECTIVE: OBJECTIVE: ASSESSMENT AND PLAN:
[2019-10-04] MEDS: QUEtiapine FUMARATE 100 MG TABLET (FP) GT SCH (22:07)
[2019-10-05] MEDS ORDERED: SODIUM CHLORIDE 100 ML IVPB ONE ×5 (00:30→16:47)
[2019-10-05] MEDS ORDERED: AMPICILLIN SODIUM 2 GM VIAL ONE ×5 (00:30→16:47)
[2019-10-05] MEDS: AMPICILLIN - 2 GM in SODIUM CHLORIDE 100 ML IVPB SCH ×5 (00:39→16:57)
[2019-10-05] MEDS ORDERED: DEXTROSE 5%-WATER 100 ML IVPB ONE ×2 (04:56→16:48)
[2019-10-05] MEDS: CEFTRIAXONE 2 GM in DEXTROSE 5%-WATER 100 ML IVPB SCH ×2 (05:53→18:18)
[2019-10-05 09:11] LABS: BLOOD UREA NITROGEN 29.5 mg/dL (7-18); CREATININE 0.7 mg/dL (0.55-1.3); MAGNESIUM 2.3 mg/dL (1.8-2.4); PHOSPHOROUS 2.5 mg/dL (2.5-4.9)
[2019-10-05] MEDS: AMINO ACIDS/PROTEIN HYDROLYS 30 ML LIQUID.PKT PEG SCH ×2 (10:04→16:59)
[2019-10-05] MEDS: TAMSULOSIN HCL 0.4 MG CAP NR SCH (10:04)
[2019-10-05] MEDS: ASPIRIN 81 MG CHEWABLE TABLETS PEG SCH (10:04)
[2019-10-05] MEDS: ACETAMINOPHEN 650 MG/20.3 ML ORAL SOLUTION (CUPS) GT PRN ×2 (12:21→18:20)
[2019-10-05 14:06] VITALS: BP 152/80; TEMP 98.1
[2019-10-05 15:13] VITALS: PULSE 86
--- NOTE | 2019-10-05 16:31 | DS ---
Physical Exam: SUBJECTIVE: Patient seen and examined OBJECTIVE: Vital Signs Period Temp Pulse Resp BP Sys/Becerra Pulse Ox Last 24 Hr 98 F-99.4 F 86-99 20-22 128-154/74-86 95-100 PHYSICAL EXAM GENERAL: The patient is lethargic, contracted, non communicative. Grunts softly ENT:Dry mucous membranes. NECK: Trachea midline, full range of motion, supple. LUNGS: Groaning with transmitted sounds heard all over CHEST: Right-sided tunneled catheter HEART: Regular rate and rhythm, S1, S2 without murmur, rub or gallop. 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 Had fever of 100.2F on admission. BCX(09/26/19)grew E faecalis. Repeat BCX(09/27/19) was NGTD. Surgery Consulted for evaluation of b/l elbow ulcers. Pt was not a surgical candidate d/t severe contractures and poor nutrition, recommended cw wound care. ID(Daniel) thought bacteremia d/t elbow wounds, recommend Ampicillin + Ceftriaxone x14d, then Augmentin x14d. Had hyponatremia, got increased FW flushes and improved. Tried to get PICC on 10/04/19 but not a candidate as per Dr Mohamud, got a tunneled cath on 10/04/19. Stable for discharge. Minutes to complete discharge: 20 Discharge Summary Problems reviewed: Yes Reason For Visit: DEMENTIA,AMS,PNEUMONIA Current Active Problems AMS (altered mental status) (Acute) Infected pressure ulcer (Acute) Pneumonia (Acute) UTI (urinary tract infection) (Acute) Condition: Stable - Instructions Diet, Activity, Other Instructions: You were evaluated in the hospital for weakness and cough. Imaging was negative for an active lung infection. Blood work showed a bacteria infection in the bloodstream. You were given intravenous antibiotics. An infectious disease specialist determined that you should have intravenous antibiotics for 2 weeks then oral antibiotics for an additional two weeks. A surgical team evaluated your elbow wounds and determined that surgery would not be the best option due to your poor nutrition and severe contractures. It was recommended that you continue with regular wound care Please follow-up with the physicians below in 1-2weeks: - Primary care doctor: to discuss you recent hospitalization - Wound Care(Freddie): to continue monitoring your elbow wounds - Infectious Disease(Nieves): to discuss your bloodstream infection MEDICATIONS: - NEW medications: -- Ampicillin 2g, every 4 hours, administered through your PICC. To be completed on 10/11/19 -- Ceftriaxone 2g, every 12 hours, administered through your PICC. To be completed on 10/11/19 -- Augmentin 875mg, twice a day, administered through the PEG tube. To be started on 10/12/19 - continue your other home medications Additional Instructions: - continue with your regularly scheduled elbow wound care - off-load pressure on bony areas(heels, ankles, hips, tailbone) Please seek immediate medical evaluation if you experience: - severe fever, chills - worsening confusion - foul-smelling odor from wounds Referrals: Michelle Sanchez MD [Staff Physician] - Gurvinder Frazier DO [Staff Physician] - Silva Harrington MD [Primary Care Provider] - 1 Week (follow up with cbc, cmp on a weekly basis ) Disposition: VNS/HOME HEALTH CARE - Home Medications Comprehensive Discharge Medication List: Ambulatory Orders Quetiapine Fumarate [Seroquel -] 100 mg GT DAILY 08/09/18 Tamsulosin HCl [Flomax] 0.4 mg GT DAILY 08/09/18 traZODone HCL [Trazodone HCl] 100 mg GT DAILY 08/09/18 Amoxicillin/Potassium Clav [Augmentin 875-125 Tablet] 1 each PO BID 14 Days #28 tablet 12/18/19 Lactobacillus Acidophilus [Bacid -] 1 each PO DAILY #60 capsule 10/05/19 This patient is new to me today: No Emergency Visit: No Critical Care patient: No - Discharge Referral Referred to [facility] Med P.C.: No ATTENDING PHYSICIAN STATEMENT I saw and evaluated the patient. I reviewed the resident's note and discussed the case with the resident. I agree with the resident's findings and plan as documented. SUBJECTIVE: OBJECTIVE: ASSESSMENT AND PLAN:
--- NOTE | 2019-10-05 18:58 | PN ---
Teaching Attending Note Name of Resident: Miguel Collins ATTENDING PHYSICIAN STATEMENT I saw and evaluated the patient. I reviewed the resident's note and discussed the case with the resident. I agree with the resident's findings and plan as documented. SUBJECTIVE: Patient is stable with no acute distress. Vital Signs Temperature 98.1 F 10/05/19 14:04 Pulse Rate 86 10/05/19 15:12 Respiratory Rate 22 H 10/05/19 11:00 Blood Pressure 152/80 10/05/19 14:04 O2 Sat by Pulse Oximetry (%) 95 10/05/19 15:12 GENERAL: The patient is bedridden, non verbal, NAD, HEAD: Normal with no signs of trauma. EYES: PERRL, extraocular movements intact, sclera anicteric, conjunctiva clear. ENT: Ears normal, moist mucous membranes. NECK: Trachea midline, full range of motion, supple. LUNGS: decreased BS BL, clear to auscultation bilaterally, no wheezes, no crackles, no accessory muscle use. HEART: Regular rate and rhythm, S1, S2 without murmur, rub or gallop. ABDOMEN: Soft, Nt,ND,+ bowel sounds, +peg EXTREMITIES: 2+ pulses, warm, no edema. contracted NEUROLOGICAL: Cranial nerves II through XII grossly intact. Normal speech, gait not observed. PSYCH:nonverbal, cannot be accessed SKIN: Warm, dry, normal turgor, + decubitus ulcer STAGE 4 CBCD WBC 6.2 K/mm3 (4.0-10.0) 10/04/19 07:30 RBC 3.09 M/mm3 (4.00-5.60) L 10/04/19 07:30 Hgb 9.8 GM/dL (11.7-16.9) L 10/04/19 07:30 Hct 29.4 % (35.4-49) L 10/04/19 07:30 MCV 95.1 fl (80-96) 10/04/19 07:30 MCHC 33.3 g/dl (32.0-35.9) 10/04/19 07:30 RDW 15.8 % (11.9-15.9) 10/04/19 07:30 Plt Count 393 K/MM3 (134-434) 10/04/19 07:30 MPV 7.7 fl (7.5-11.1) 10/04/19 07:30 CMP Sodium 145 mmol/L (136-145) 10/05/19 07:40 Potassium 4.0 mmol/L (3.5-5.1) 10/05/19 07:40 Chloride 111 mmol/L (98-107) H 10/05/19 07:40 Carbon Dioxide 30 mmol/L (21-32) 10/05/19 07:40 Anion Gap 5 MMOL/L (8-16) L 10/05/19 07:40 BUN 29.5 mg/dL (7-18) H 10/05/19 07:40 Creatinine 0.7 mg/dL (0.55-1.3) 10/05/19 07:40 Random Glucose 108 mg/dL (74-106) H 10/05/19 07:40 Calcium 8.0 mg/dL (8.5-10.1) L 10/05/19 07:40 Total Bilirubin 0.2 mg/dL (0.2-1) 10/01/19 06:50 AST 28 U/L (15-37) 10/01/19 06:50 ALT 34 U/L (13-61) 10/01/19 06:50 Alkaline Phosphatase 88 U/L (45-117) 10/01/19 06:50 Total Protein 6.6 g/dl (6.4-8.2) 10/01/19 06:50 Albumin 2.0 g/dl (3.4-5.0) L 10/01/19 06:50 CARDIAC ENZYMES Creatine Kinase 73 U/L (26-308) 09/26/19 07:30 Troponin I < 0.02 ng/ml (0.00-0.05) 09/26/19 07:30 Current Medications Generic Name Dose Route Start Last Admin Trade Name Freq PRN Reason Stop Dose Admin Acetaminophen 650 mg 09/30/19 17:35 10/05/19 18:20 Tylenol Oral Solution - GT 650 mg Q6H PRN Administration FEVER Amino Acids 30 ml 10/03/19 08:00 10/05/19 16:59 Prosource No Carb Liquid Pkt PEG 30 ml BID@0800,1730 CARMELO Administration Aspirin 81 mg 10/04/19 10:00 10/05/19 10:04 Asa - PEG 81 mg DAILY CARMELO Administration Heparin Sodium (Porcine) 5,000 unit 09/26/19 22:00 10/04/19 22:17 Heparin - SQ 5,000 unit TID CARMELO Administration Ampicillin Sodium 2 gm/ Sodium 100 mls @ 200 mls/hr 09/28/19 16:15 10/05/19 16:57 Chloride IVPB 200 mls/hr Q4H CARMELO Administration Protocol Ceftriaxone Sodium 2 gm/ 100 mls @ 200 mls/hr 09/28/19 16:45 10/05/19 18:18 Dextrose IVPB 200 mls/hr Q12H CARMELO Administration Protocol Quetiapine Fumarate 100 mg 09/28/19 22:00 10/04/19 22:07 Seroquel - GT 100 mg HS CARMELO Administration Tamsulosin HCl 0.4 mg 09/28/19 13:00 10/05/19 10:04 Flomax - NR 0.4 mg DAILY CARMELO Administration Trazodone HCl 100 mg 09/28/19 22:00 Desyrel - NR HS [facility] Home Medications Medication Instructions Recorded Quetiapine Fumarate [Seroquel -] 100 mg GT DAILY 08/09/18 Ranitidine [Zantac -] 100 mg GT BID 08/09/18 Tamsulosin HCl [Flomax] 0.4 mg GT DAILY 08/09/18 traZODone HCL [Trazodone HCl] 100 mg GT DAILY 08/09/18 Amoxicillin/Potassium Clav 1 each PO BID 14 Days #28 tablet 10/04/19 [Augmentin 875-125 Tablet] Ampicillin - 2 gm IVPB Q4H 6 Days vial 10/04/19 Ceftriaxone [Rocephin -] 2 gm IVPB Q12H 6 Days vial 10/04/19 Dextrose 5%-Water [Dextrose 5% 100 ml IVPB Q12H 6 Days bag 10/04/19 Water Minibag 100ML] Microbiology 09/26/19 07:30 Blood - Peripheral Venous Blood Culture - Final Enterococcus Faecalis 09/27/19 18:00 Blood - Peripheral Venous Blood Culture - Final NO GROWTH AFTER 5 DAYS INCUBATION 09/27/19 18:00 Blood - Peripheral Venous Blood Culture - Final NO GROWTH AFTER 5 DAYS INCUBATION 09/30/19 20:30 Urine - Urine - Catheterized Urine Culture - Final NO GROWTH OBTAINED 09/26/19 08:29 Elbow - Right Gram Stain - Final 09/26/19 08:29 Elbow - Right Wound Culture - Final Acinetobacter Baumannii/Haemol Acinetobacter Baumannii/Haemol#2 Staphylococcus Aureus Enterococcus Faecalis Strep Agalactiae Group B 09/26/19 08:29 Elbow - Left Gram Stain - Final 09/26/19 08:29 Elbow - Left Wound Culture - Final Non Lactose Fermenting Gnb Non Lactose Fermenting Gnb#2 Staphylococcus Aureus Group D Strep Or Entero Coccus 09/26/19 07:30 Blood - Peripheral Venous Blood Culture - Final Group D Strep Or Entero Coccus 09/26/19 10:54 Urine - Urine Ryan Urine Culture - Final Klebsiella Pneumoniae 09/26/19 13:04 Urine For Antigen Detection Legionella Antigen - Final 09/26/19 13:04 Urine For Antigen Detection Streptococcus pneumoniae Antigen (M - Final Assessment and Plan: Patient is a 84yom with Pmhx of GERD, CVA, dementia, dysphagia, PEG, BPH, HTN, HLP, who is being treated for bacteremia # E faecalis bacteremia on IV antibx ;Ampicillin and CTX. day 14. Then 2 weeks of Augmentin of 875mg bid # Skin ulcers WITH Decubitus ulcer. cont prosource # Klebsiella UTI # hypernatremia: improved adjusted the free water intake to 60cc/hr ,cont 200 cc of free water BID for today # functional quadriplegia ; home bound /bed bound ; wound care continue at home with VNS visit # dementia # hematuria : resolved # severe protein calorie malnutrition DVT Px: cont heparin SQ DNR /DNI Patient is being discharged home today with a tunnelled catheter.
== END 2019-10-05 20:22 | disposition home or self-care (01) | DRG 579 ==
LOC: JER 07:14 → JERBED 09:59 → J6S 09-27 01:11
PROVIDERS: ADMIT Internal Medicine; ATTEND Internal Medicine
PROC: 0JH63XZ Insertion of Tunneled Vascular Access Device into Chest Subcutaneous Tissue and Fascia, Percutaneous Approach (ICD-10-PCS; principal; 2019-10-05)
DX: L89.024 Pressure ulcer of left elbow, stage 4 (principal); R53.2 Functional quadriplegia; E43 Unspecified severe protein-calorie malnutrition; R64 Cachexia; N39.0 Urinary tract infection, site not specified; E87.0 Hyperosmolality and hypernatremia; R78.81 Bacteremia; L08.9 Local infection of the skin and subcutaneous tissue, unspecified; L89.014 Pressure ulcer of right elbow, stage 4; L89.153 Pressure ulcer of sacral region, stage 3; F03.90 Unspecified dementia, unspecified severity, without behavioral disturbance, psychotic disturbance, mood disturbance, and anxiety; B96.1 Klebsiella pneumoniae [K. pneumoniae] as the cause of diseases classified elsewhere; R31.9 Hematuria, unspecified; N40.0 Benign prostatic hyperplasia without lower urinary tract symptoms; K21.9 Gastro-esophageal reflux disease without esophagitis
CPT/HCPCS: 36415; 36558; 70450-TC; 71045-TC-FY; 77001-TC-FY; 80048; 80053; 81003; 82550; 82553; 82803; 83605; 83735; 84100; 84484; 85025; 85027; 85610; 85730; 86850; 86900; 86901; 87040; 87070; 87086; 87186; 87205; 87804; 87899; 93005; 93010; 93306-TC; 93970-TC; 94761; 99285-25; C1751; G0480; J0131; J1644